=== PATIENT | male | born 1955 | race Caucasian/White ===

== ENCOUNTER 2024-02-22 08:32 | Outpatient (AMB) | payer OTHER, SELFPAY ==
--- NOTE | 2024-02-22 08:44 | A.OFFPC_ITS ---
Vital Signs 02/22/24 08:52 Height 5 ft 1.81 in Weight 223 lb 6 oz BMI 41.1 BP 112/62 Blood Pressure Location Rt brachial Position Sitting Respiration 14 Pulse 70 Pulse Source Pulse Oximeter Temp 98 F Temp Source Oral Pulse Oximetry (%) 95 Oxygen Delivery Method Room Air Intake Visit Reasons: Establish Care Intake Note: New pateint visit Deposition Operator Required: No Allergies No Known Allergies Allergy (Verified 02/22/24 08:47) Tobacco use date assessed: 02/22/24 Fall risk assessment: No Falls in past year Last assessed Fall Risk: 02/22/24 Dental Screening Dental Screen Date: 02/22/24 Did you have a dental visit in the last 12 months?: Yes Did you have a dental problem in the last 6 months where you did not have access to dental care?: No Was dental information given to patient?: Patient has dentist HPI HPI Comments History of Present Illness Details This is a 68-year-old male with a past medical history of type 2 diabetes, PVD, COPD, hypertension, hypercholesterolemia, anxiety, obesity, obstructive sleep apnea and eosinophilic granuloma presenting to [facility]. He used to see Hui Wade NP. The practice switched to [facility]. His construction stonemason is Dr. Fitch at [facility]. His current regimen is Trelegy and albuterol as needed. He quit smoking 20 years ago. Patient reports he has scarring on on the right lower lobe of the lung. His breakfast server is Dr. Young at [facility]. Denies history of ND, CABG or stent. Patient says he sees Cardiology due to risk factors and age. Hypertension is treated with amlodipine 5 mg and valsartan 160 mg. Hyperlipidemia is treated with rosuvastatin 20 mg. He is on furosemide 20 mg daily for leg swelling. He gets occasional palpitations for which he has seen the breakfast server. No chest pain or shortness of breath. Type 2 diabetes-diagnosed about 10 years ago. He was on Ozempic and doing very well, but the insurance stopped covering it. He would like to try it again. It did not help with his weight, but it controlled his blood sugars. He has had glucose readings as high as 400. He has a CGM. I reviewed the data, and only 35% of readings are within the target range during the past 2 weeks. He is not experiencing hypoglycemia. His current regimen is metformin 500 mg once a day and glipizide 5 mg a day. Patient says on metformin 1500 mg he did have GI upset. He has eye exams with Dr. Crowell at [facility]. He takes Xanax very sporadically for anxiety. He does not need a refill. He still has half of his last prescription that contained 30 tablets. He is compliant with CPAP for sleep apnea. 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 He gets migraine headaches occasionally. He has not had 1 for some time but has treated them with Imitrex in the past. He requests referral to GI at [facility] for screening colonoscopy. He has a history of colon polyps and goes every 5 years. His last colonoscopy was 08/30/2018. Referred. ROS: Constitutional: No unexplained weight loss, fever, chills, fatigue or night sweats. Respiratory: No shortness of breath, cough or sputum production. Cardiovascular: No chest pain, chest pressure or chest discomfort. Gastrointestinal: No anorexia, nausea, vomiting or diarrhea. No abdominal pain or blood in stool. Genitourinary: No dysuria, hematuria, urinary frequency. Neurologic: No headache, dizziness, syncope, unilateral weakness, ataxia, numbness or tingling in the extremities. Musculoskeletal: No muscle pain, back pain, joint pain or swelling. Hematologic/Lymphatics: No bleeding or bruising. No painful lymph nodes. Skin: No rash or itching. Endocrine: No cold or heat intolerance. No polyuria or polydipsia. Psychiatric: No depression or anxiety. No SI/HI. Physical exam: Constitutional: Alert, in no distress. Head: Normocephalic. Eyes: Pupils are equal, round and reactive to light. Extraocular muscles intact. Neck: Supple, Full range of motion. No lymphadenopathy. Respiratory: Clear to auscultation. Cardiovascular: S1 S2 regular. No murmurs. Extremities: Warm and well perfused. 1+ bilateral lower extremity edema. Psychiatric: Normal mood and affect [facility] Medical History (Updated 02/22/24 @ 13:46 by CRISTAL Mejía) Colon polyps Obesity without serious comorbidity Pure hypercholesterolemia Essential hypertension Anxiety COPD (chronic obstructive pulmonary disease) with chronic bronchitis Type 2 diabetes mellitus with peripheral vascular disease Bilateral artificial lens implant Diverticulitis Sleep apnea KRISTIAN (obstructive sleep apnea) Eosinophilic granuloma Diverticulosis Surgical History (Updated 02/05/24 @ 15:10 by CRISTAL Mejía) H/O bilateral cataract extraction History of colonoscopy H/O anal fistulotomy Family History (Updated 02/05/24 @ 15:11 by CRISTAL Mejía) Mother Hypertension Father Hypertension Other Type 2 diabetes mellitus Social History Housing: House Patient Tobacco Use Status: Former Tobacco user Cigarette Packs Per Day: 1.5 Years Smoked: 30 e-Cigarette/Vaping Use: Never Used Second Hand Smoke Exposure: No service: No Current occupational status: employed 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 How often do you have a drink containing alcohol?: Never 3. How often do you have six or more drinks on one occasion?: Never Total Score: 0 ACT Questionnaire In the past 4 weeks, how much of the time did your asthma keep you from getting as much done at work, school or at home?: None of the time During the past 4 weeks, how often have you had shortness of breath?: More than once a day During the past 4 weeks, how often did your asthma symptoms wake you up at night or earlier than usual in the morning?: Not at all During the past 4 weeks, how often have you had to use your rescue inhaler or nebulizer medication?: 1-2 times a week How would you rate your asthma control during the past 4 weeks?: Somewhat controlled ACT Interpretation: Positive Score: 16 Physical exam (Primary Care) Vital Signs: Last Vital Signs Temp 98 F 02/22/24 08:52 Pulse 70 02/22/24 08:52 Resp 14 02/22/24 08:52 BP 112/62 02/22/24 08:52 Pulse Ox 95 02/22/24 08:52 Oxygen Delivery Method Room Air 02/22/24 08:52 BMI result Body Mass Index 41.1 Tobacco/Smoking Status: Tobacco use Status Tobacco use date assessed 02/22/24 02/22/24 08:58 Patient Tobacco Use Status Former Tobacco user 02/22/24 08:58 e-Cigarette/Vaping Use Never Used 02/22/24 08:58 Assessment and Plan Assessment & Plan (1) Type 2 diabetes mellitus with peripheral vascular disease: Code(s): E11.51 - Type 2 diabetes mellitus with diabetic peripheral angiopathy without gangrene (2) KRISTIAN (obstructive sleep apnea): Code(s): G47.33 - Obstructive sleep apnea (adult) (pediatric) (3) COPD (chronic obstructive pulmonary disease) with chronic bronchitis: Code(s): J44.89 - Other specified chronic obstructive pulmonary disease (4) Anxiety: Code(s): F41.9 - Anxiety disorder, unspecified (5) Essential hypertension: Code(s): I10 - Essential (primary) hypertension (6) Pure hypercholesterolemia: Code(s): E78.00 - Pure hypercholesterolemia, unspecified (7) Obesity without serious comorbidity: Code(s): E66.9 - Obesity, unspecified Qualifiers: Obesity type: due to excess calories Obesity classification: adult class 3 (BMI >= 40) Body mass index: BMI 40.0-44.9 Qualified Code(s): E66.01 - Morbid (severe) obesity due to excess calories; Z68.41 - Body mass index [BMI] 40.0-44.9, adult Plan Type 2 diabetes Start metformin extended release 500 mg 2 tablets daily. Continue glipizide 5 mg for now. If he develops hypoglycemia I would discontinue this. Restart Ozempic 0.5 mg every week. We will need to titrate to target blood glucose. If insurance does not cover it we will need to discuss alternatives. He does not want insulin. Lifestyle modifications reviewed. KRISTIAN Compliant with CPAP COPD Continue management per pulmonology. He does not smoke any longer. Anxiety Continue Xanax as needed. He did not need a refill. He uses it very infrequently. Hypertension Controlled. Continue current regimen. Followed by Cardiology. Recommended low-sodium diet and avoidance of caffeine. Hypercholesterolemia Patient says lipids were borderline the last time they were checked. Repeat with next labs. Continue statin. Mediterranean diet recommended. Obesity Start GLP 1. Lifestyle modifications reviewed. Follow up in 3 months. Orders: Orders Prostate Specific Antigen Scr Today E11.51 - Type 2 diabetes mellitus with diabetic peripheral angiopathy without gangrene, E78.00 - Pure hypercholesterolemia, unspecified, I10 - Essential (primary) hypertension, Z12.5 - Encounter for screening for malignant neoplasm of prostate Complete Blood Count no Diff Today E11.51 - Type 2 diabetes mellitus with diabetic peripheral angiopathy without gangrene, E78.00 - Pure hypercholeste rolemia, unspecified, I10 - Essential (primary) hypertension Comprehensive Met. Panel Today E11.51 - Type 2 diabetes mellitus with diabetic peripheral angiopathy without gangrene, E78.00 - Pure hypercholesterolemia, unspecified, I10 - Essential (primary) hypertension Hemoglobin A1c Today E11.51 - Type 2 diabetes mellitus with diabetic peripheral angiopathy without gangrene, E78.00 - Pure hypercholesterolemia, unspecified, I10 - Essential (primary) hypertension Lipid Panel Today E11.51 - Type 2 diabetes mellitus with diabetic peripheral angiopathy without gangrene, E78.00 - Pure hypercholesterolemia, unspecified, I10 - Essential (primary) hypertension Referrals Gastroenterology Referral K63.5 - Polyp of colon Medications: New metformin ER 1,000 mg (2 x 500 mg) PO DAILY 90 days 180 tabs 0RF semaglutide (Ozempic) 0.5 mg (0.736 mL) subcut QWEEK 3 mL 0RF Patient Instructions: Please start the prescription for Metformin extended release 500 mg 2 tablets daily. Continue Glipizide 5 mg daily for now. If you have low blood sugars stop taking this. I am submitting Ozempic to the pharmacy. We will increase the dose after the first month. Please return to the lab for fasting blood work 1 week before next appointment. Coding Level of Care Code New Pt Level 4 (43087) Complex EM visit Add On G2211 Diagnoses Type 2 diabetes mellitus with peripheral vascular disease E11.51 KRISTIAN (obstructive sleep apnea) G47.33 COPD (chronic obstructive pulmonary disease) with chronic bronchitis J44.89 Anxiety F41.9 Essential hypertension I10 Pure hypercholesterolemia E78.00 Class 3 severe obesity due to excess calories without serious comorbidity with body mass index (BMI) of 40.0 to 44.9 in adult E66.01; Z68.41 Obesity type: due to excess calories Obesity classification: adult class 3 (BMI >= 40) Body mass index: BMI 40.0-44.9
[2024-02-22 08:52] VITALS: BP 112/62; PULSE 70; RESP 14; TEMP 36.6; O2SAT 95; BMI 41.1
== END 2024-02-22 09:47 | disposition home or self-care (01) ==
PROVIDERS: PCP Physician Assistant Medical; Visit Provider Physician Assistant Medical
DX: E11.51 Type 2 diabetes mellitus with diabetic peripheral angiopathy without gangrene (principal); E66.01 Morbid (severe) obesity due to excess calories; Z68.41 Body mass index [BMI] 40.0-44.9, adult; G47.33 Obstructive sleep apnea (adult) (pediatric); J44.89 Other specified chronic obstructive pulmonary disease; F41.9 Anxiety disorder, unspecified; I10 Essential (primary) hypertension; E78.00 Pure hypercholesterolemia, unspecified
CPT/HCPCS: 99204

== ENCOUNTER 2024-05-30 08:00 | Outpatient (AMB) | payer OTHER, SELFPAY ==
--- NOTE | 2024-05-30 08:07 | A.OFFPC_ITS ---
Vital Signs 05/30/24 08:14 Height 5 ft 1.81 in Weight 222 lb 6 oz BMI 40.9 BP 108/64 Blood Pressure Location Rt brachial Position Sitting Respiration 14 Pulse 63 Pulse Source Pulse Oximeter Pulse Oximetry (%) 96 Oxygen Delivery Method Room Air Intake Visit Reasons: diabetes follow up Intake Note: Diabetes follow up. A1c 8.4 on 05/23/24 Allergies No Known Allergies Allergy (Verified 05/30/24 08:11) Tobacco use date assessed: 02/22/24 Dental Screening Dental Screen Date: 02/22/24 HPI HPI Comments History of Present Illness Details This is a 68-year-old male with a past medical history of type 2 diabetes, PVD, COPD, hypertension, hypercholesterolemia, anxiety, obesity, obstructive sleep apnea and eosinophilic granuloma presenting for followup. The patient had a molar on the left lower side removed last Monday. He has a dry socket that is very painful. His dentist has a on amoxicillin and alternating Advil and Tylenol, but it is still painful and it is difficult to wake up at night to take the medications as scheduled. No fevers or chills. His field laboratory operator is Dr. Fitch at [facility]. His current regimen is Trelegy and albuterol as needed. He quit smoking 20 years ago. Patient reports he has scarring on on the right lower lobe of the lung. His inspector machine cut glass is Dr. Young at [facility]. Denies history of MO, CABG or stent. Patient says he sees Cardiology due to risk factors and age and palpitations. Hypertension is treated with metoprolol succinate 100 mg, amlodipine 5 mg and valsartan 160 mg. He is also on 20 mg of furosemide daily. His blood pressure is soft today. He wonders if he can decrease his medication. Hyperlipidemia is treated with rosuvastatin 20 mg. LDL 89 with a goal of less than 100 (external labs 05/23/2024) He is on furosemide 20 mg daily for leg swelling. Renal function normal. No chest pain or shortness of breath. Type 2 diabetes-diagnosed about 10 years ago. His hemoglobin A1c 05/23/2024 is 8.4% with a goal of less than 7%. He stopped Ozempic because it was not helping with weight loss after increasing from 0.25-0.5 mg, and he did not see a difference in his blood sugars. He has a CGM. I reviewed the data, and 44% of readings are within the target range during the past 2 weeks. High 42%, very high 14%, 0% hypoglycemic. He has blood glucose tablets to treat hypoglycemia. His current regimen is metformin extended release 500 mg once 2 tablets a day and glipizide 5 mg a day. Patient says on metformin 1500 mg he did have GI upset. He has eye exams with Dr. Crowell at [facility]. His communications electrician supervisor is Dr. Buckley in at [facility]. He takes Xanax very sporadically for anxiety. He does not need a refill. He still has half of his last prescription that contained 30 tablets. He is compliant with CPAP for sleep apnea. 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 He gets migraine headaches occasionally. No increased frequency or severity. Treated with Imitrex in the past. He has a history of colon polyps and goes every 5 years for colonoscopy. His last colonoscopy was 08/30/2018. His colonoscopy consult is scheduled next week at [facility]. ROS: Constitutional: No fevers, chills or night sweats. Respiratory: No shortness of breath, cough or sputum production. Cardiovascular: No chest pain, chest pressure or chest discomfort. Gastrointestinal: No anorexia, nausea, vomiting or diarrhea. No abdominal pain or blood in stool. Neurologic: No headache, dizziness, syncope, unilateral weakness, ataxia, numbness or tingling in the extremities. Endocrine: No cold or heat intolerance. No polyuria or polydipsia. Physical exam: Constitutional: Alert, in no distress. Head: Normocephalic. Mouth: Dental extraction site on the left lower molar appears clean and without discharge or swelling or erythema. Eyes: Pupils are equal, round and reactive to light. Extraocular muscles intact. Neck: Supple, Full range of motion. No lymphadenopathy. Respiratory: Clear to auscultation. Cardiovascular: S1 S2 regular. No murmurs. Extremities: Warm and well perfused. 1+ bilateral lower extremity edema. Psychiatric: Normal mood and affect [facility] Medical History (Updated 02/22/24 @ 13:46 by CRISTAL Mejía) Colon polyps Obesity without serious comorbidity Pure hypercholesterolemia Essential hypertension Anxiety COPD (chronic obstructive pulmonary disease) with chronic bronchitis Type 2 diabetes mellitus with peripheral vascular disease Bilateral artificial lens implant Diverticulitis Sleep apnea KRISTIAN (obstructive sleep apnea) Eosinophilic granuloma Diverticulosis Surgical History (Updated 02/05/24 @ 15:10 by CRISTAL Mejía) H/O bilateral cataract extraction History of colonoscopy H/O anal fistulotomy Family History (Updated 02/05/24 @ 15:11 by CRISTAL Mejía) Mother Hypertension Father Hypertension Other Type 2 diabetes mellitus Social History Housing: House Patient Tobacco Use Status: Former Tobacco user Cigarette Packs Per Day: 1.5 Years Smoked: 30 e-Cigarette/Vaping Use: Never Used Second Hand Smoke Exposure: No service: No Current occupational status: employed 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 Current occupational exposures/hazards: No Cognitive needs: No Hearing needs: Yes Vision needs: Yes Questionnaire Thrive Questionnaire Date Thrive assessed: 05/23/24 I am a: Patient Physical exam (Primary Care) Vital Signs: Last Vital Signs Pulse 63 05/30/24 08:14 Resp 14 05/30/24 08:14 BP 108/64 05/30/24 08:14 Pulse Ox 96 05/30/24 08:14 Oxygen Delivery Method Room Air 05/30/24 08:14 BMI result Body Mass Index 40.9 Tobacco/Smoking Status: Tobacco use Status Tobacco use date assessed 02/22/24 05/30/24 08:09 Patient Tobacco Use Status Former Tobacco user 05/30/24 08:09 e-Cigarette/Vaping Use Never Used 05/30/24 08:09 Thrive Assessment: Date of Thrive Assessment Date Thrive assessed 05/23/24 05/30/24 08:09 Coding Level of Care Code Est Pt Level 4 (23720) Complex EM visit Add On G2211 Diagnoses Colon polyps K63.5 Pure hypercholesterolemia E78.00 Essential hypertension I10 COPD (chronic obstructive pulmonary disease) with chronic bronchitis J44.89 Type 2 diabetes mellitus with peripheral vascular disease E11.51 KRISTIAN (obstructive sleep apnea) G47.33 Assessment & Plan Assessment & Plan (1) Colon polyps: Code(s): K63.5 - Polyp of colon Category: Medical Plan: Patient has a consult for his colonoscopy scheduled at [facility] next week. (2) Pure hypercholesterolemia: Code(s): E78.00 - Pure hypercholesterolemia, unspecified Category: Medical Plan: Recommended the Mediterranean diet. Continue rosuvastatin 20 mg daily. (3) Essential hypertension: Code(s): I10 - Essential (primary) hypertension Category: Medical Plan: His blood pressures have been low normal recently. He can try stopping amlodipine 5 mg daily. He monitors his blood pressure at home. Provided written instructions to contact the office if home readings are not less than 130/80. If this is the case I will send a prescription to start amlodipine 2.5 mg daily again. Continue metoprolol, valsartan. Low-sodium diet and avoidance of caffeine recommended. Weight loss encouraged. See below. (4) COPD (chronic obstructive pulmonary disease) with chronic bronchitis: Code(s): J44.89 - Other specified chronic obstructive pulmonary disease Category: Medical Plan: Continue management per pulmonology. (5) Type 2 diabetes mellitus with peripheral vascular disease: Code(s): E11.51 - Type 2 diabetes mellitus with diabetic peripheral angiopathy without gangrene Category: Medical Plan: Continue metformin extended release 500 mg 2 tablets daily and glipizide 5 mg daily at this time. Trial of Mounjaro 2.5 mg daily. Denies contraindications to this type of medication. Side effects and administration reviewed. Hopefully we will be able to titrate this. We discussed that on lower dosages of the medication it may not be as effective so to get weight loss and better control of blood sugars we need to titrate the dose. He understands. Goal will be to discontinue glipizide if blood sugars improve. I sent a fingerstick glucometer to use as a backup to his sensor. Low carb, low sugar diet recommended. He has been eating a lot of ice cream and we will try to cut back. (6) KRISTIAN (obstructive sleep apnea): Code(s): G47.33 - Obstructive sleep apnea (adult) (pediatric) Category: Medical Plan: Continue CPAP. Plan Follow up in 4 weeks for hypertension and Mounjaro med check. Medications: New hydrocodone-acetaminophen 5-325 mg Partial Fill upon patient request. 1 tab PO Q8H PRN 15 tabs 0RF pain 5 days tirzepatide (Mounjaro) for 4 weeks 2.5 mg (0.5 mL) subcut QWEEK 2 mL 0RF lancets (OneTouch Delica Plus Lancet) Use as directed to check blood glucose twice daily. 100 ea 5RF blood sugar diagnostic (OneTouch Verio test strips) Use as directed to check blood glucose twice daily. 100 ea 5RF blood-glucose meter (OneTouch Verio Flex Meter) Use as directed to check blood glucose twice daily for Type II diabetes mellitus. 1 ea 0RF Patient Instructions: Start Mounjaro 2.5 mg once weekly. If you develop low blood sugars please stop taking Glipizide. Stop Amlodipine. If your blood pressure is not under 130/80 then call me and I will send a 2.5 mg amlodipine tablet to take.
[2024-05-30 08:14] VITALS: BP 108/64; PULSE 63; RESP 14; O2SAT 96; BMI 40.9
== END 2024-05-30 09:12 | disposition home or self-care (01) ==
PROVIDERS: PCP Physician Assistant Medical; Visit Provider Physician Assistant Medical
DX: E11.51 Type 2 diabetes mellitus with diabetic peripheral angiopathy without gangrene (principal); J44.89 Other specified chronic obstructive pulmonary disease; K63.5 Polyp of colon; E78.00 Pure hypercholesterolemia, unspecified; I10 Essential (primary) hypertension; G47.33 Obstructive sleep apnea (adult) (pediatric)

== ENCOUNTER → 2024-05-30 08:00 | Outpatient (BNVA) | payer OTHER, SELFPAY | PROVIDERS: PCP Physician Assistant Medical; Visit Provider Physician Assistant Medical ==

== ENCOUNTER 2024-08-15 07:47 | Outpatient (AMB) | payer OTHER, SELFPAY ==
--- OUTSIDE RECORDS SUMMARY | 2024-08-15 07:49 | XMS_ITS ---
Author Organization [facility] Address [address] [place] [id number] Care Team Providers Care Boner Meat Name Role Phone BRIDGETT TONG Primary Care Provider [phone] SHABBIR SAENZ Unavailable [phone] REASON FOR VISIT 2W f/u Encounters Encounter Location Date Provider Diagnosis [facility], [facility] [address] [place] [id number] 07/10/2024 SHABBIR SAENZ PLAN OF TREATMENT Next Appt Details Provider Name:SHABBIR Dixon, 09/05/2024 08:00:00 AM, [address] [place], [phone], Progress Notes * MICHELLE GARLANDDOB:1955 (68 yo M)Acc No.[id number]:07/10/2024 Progress Notes Patient:??MICHELLE GARLAND Provider:??SHABBIR SAENZ NP :1955?Age:68 Y?Sex:Ma le Date:07/10/2024 Phone: Address:[address] [id number] Pcp:BRIDGETT TONG Subjective: * Chief Complaints: * ?1. 2W f/u. * Medical History:?? Objective: Assessment: Plan: * Treatment: * Billing Information: * Visit Code:?? * Procedure Codes:?? * Sign off status: Pending * Provider:??SHABBIR SAENZ NP Date:??
--- OUTSIDE RECORDS SUMMARY | 2024-08-15 07:49 | XMS_ITS ---
Author Organization [facility], [facility] Address [address] [place], [place] [address] [phone] Care Team Providers Care Theater Teacher Name Role Phone BRIDGETT TONG Primary Care Provider SHABBIR SAENZ [phone] REASON FOR VISIT Appt change? Encounters Encounter Location Date Provider Diagnosis [facility], [address] [place] [id number] 07/07/2024 SHABBIR SAENZ PLAN OF TREATMENT Next Appt Details Provider Name:SHABBIR Dixon, 09/05/2024 08:00:00 AM, [address] [place], [place] [address], [phone], Progress Notes * MICHELLE GARLANDDOB:1955 (68 yo M)Acc No.[id number]:07/07/2024 Patient:??MICHELLE GARLAND :1955?Age:68 Y?Sex:Ma le Phone: Address:[address] [place] [address] * true * Date:??
--- OUTSIDE RECORDS SUMMARY | 2024-08-15 07:50 | XMS_ITS ---
Author Name [facility] Organization Unknown History of Medication Use Medication Directions Dispensed Refills Start Date End Date Status Continuous Glucose Sensor (FreeStyle Haider 3 Sensor) Misc CHANGE SENSOR EVERY 2 WEEKS 4 08/06/99 99 active calcium carbonate-vitamin D (CALTRATE+D) 600 mg-10 mcg tablet Take 1 tablet by mouth daily. 4 08/06/99 99 active valsartan (DIOVAN) 160 MG tablet Take 160 mg by mouth daily. 4 active Ozempic, 0.25 or 0.5 MG/DOSE, 2 MG/3ML prefilled pen injection Inject 0.25 mg under the skin. 4 active bupropion HCl SR 150 mg tablet,12 hr sustained-release Oral daily 4 completed Tricor 1 tablet Oral ONCE A DAY 4 completed multivitamin 4 completed lisinopril 30 mg tablet 1 Oral daily 4 completed Tricor 145 mg tablet 1 Oral daily 4 completed COVID-19 vac, eloise([employer])(PF) fully vaccinated with booster x 2 4 active rosuvastatin 10 mg tablet Take 1 tablet every day by oral route. 4 completed sumatriptan 100 mg tablet Take 1 tablet as needed by oral route. 4 active Jardiance 10 mg tablet Take 2 tablets every day by oral route. 4 completed aspirin 81 mg tablet,delayed release Take 1 tablet every day by oral route. 4 active amlodipine 5 mg tablet Take 1 tablet every day by oral route. 4 active Trelegy Ellipta 100 mcg-62.5 mcg-25 mcg powder for inhalation Inhale 1 puff every day by inhalation route. 4 active Ozempic 1 mg/dose (4 mg/3 mL) subcutaneous pen injector Inject every week by subcutaneous route. 4 completed Jardiance 25 mg tablet Take 1 tablet every day by oral route. 4 completed Adult Aspirin 81 mg tablet 1 Oral daily 4 completed rosuvastatin 20 mg tablet Take 1 tablet every day by oral route. 4 active furosemide 20 mg tablet Take 1 tablet as needed by oral route. 4 active metformin 1,000 mg tablet Take 1 tablet 3 times a day by oral route. 4 completed Zocor 40 mg tablet 1 Oral daily 4 completed metoprolol succinate ER 100 mg tablet,extended release 24 hr Take 1 tablet every day by oral route. 4 active glipizide 5 mg tablet Take 1 tablet every day by oral route. 4 active ProAir HFA 90 mcg/actuation aerosol inhaler 1 Inhalation as needed 4 active valsartan 320 mg-hydrochlorothiaz berto 12.5 mg tablet Take 1 tablet every day by oral route. 4 completed chlorthalidone 25 mg tablet 1 Oral daily 4 completed alprazolam 0.25 mg tablet Take 1 tablet as needed by oral route. 4 active citalopram 40 mg tablet 1 Oral daily 4 completed Lexapro 10 mg tablet Take 1 tablet every day by oral route. 4 completed metformin 500 mg tablet Take 1 tablet every day by oral route. 4 active valsartan 160 mg tablet Take 1 tablet every day by oral route. 4 active Jardiance 10 MG Oral Tablet Jardiance 10 MG Oral TabletTAKE 2 TABLET Daily Quantity: 180 Refills: Yuni Henderson APRN Active 3 completed metoPROLOL SUCCINATE (TOPROL-XL) 100 MG 24 hr tablet TAKE 1 TABLET EVERY DAY 3 active Lexapro 10 MG Oral Tablet Lexapro 10 MG Oral Tablet Refills: 0Active 2 completed ALPRAZolam 0.25 MG Oral Tablet ALPRAZolam 0.25 MG Oral TabletTAKE 1 TABLET BY MOUTH EVERY DAY NEEDED Quantity: 30 Refills: Yuni Henderson APRN Start : 15-Nkr-3923Eoswsr 2 completed Mounjaro 5 MG/0.5ML Subcutaneous Solution Pen-injector Mounjaro 5 MG/0.5ML Subcutaneous Solution Pen-injectorINJECT 0.5 ML Weekly for 4 weeks Quantity: 1 Refills: Yuni Henderson APRN Start : 86-Yfd-5606Gkuitt0 x 0.5 ML Pen 3 completed Valsartan-hydroCHLO ROthiazide 160-12.5 MG Oral Tablet Valsartan-hydroCHLORO thiazide 160-12.5 MG Oral TabletTAKE 1 TABLET BY MOUTH EVERY DAY Quantity: 90 Refills: Yuni Bullard APRN Start : 30-Nxt-7791Ahfbzd 3 completed Tretinoin 0.05 % External Cream Tretinoin 0.05 % External CreamAPPLY SPARINGLY TO AFFECTED AREA(S) ONCE DAILY AT BEDTIME. Quantity: 1 Refills: Yuni Bullard APRN Start : 20-Kiy-4617Jpunlb08 GM Tube 3 completed Clotrimazole 1 % External Cream Clotrimazole 1 % External Creamapply SPARINGLY to affected area three times a day Quantity: 45 Refills: Yuni Henderson APRN Start : 79-Dso-3156Dtzthf 2 completed valsartan-hydrochlo rothiazide (DIOVAN-HCT) 320-12.5 MG per tablet Take 1 tablet by mouth daily. 3 active Jardiance 25 MG Oral Tablet Jardiance 25 MG Oral TabletTAKE 1 TABLET EVERY DAY Quantity: 90 Refills: Yuni Alvarez APRN Active 2 completed aspirin enteric coated (ECOTRIN LOW STRENGTH) 81 MG EC tablet Take 81 mg by mouth daily. 3 active barium sulfate (EZ-HD) 98 % oral solution 140 mL 140 mL, Oral, Once in imaging, contrast, Starting on Mon01/18/23 at 0745, For 1 dose, Radiology Appointmentmix with 65 ml water 3 completed sodium bicarbonate-citric acid-simethicone (EZ-GAS-II) 1 packet 1 packet, Oral, Once in imaging, contrast, Starting on Mon01/18/23 at 0745, For 1 dose, Radiology Appointmentmix 1 packet with 10 ml water 3 completed Furosemide 20 MG Oral Tablet Furosemide 20 MG Oral TabletTAKE 1 TABLET BY MOUTH EVERY DAY WHEN NEEDED FOR SWELLING Quantity: 90 Refills: Yuni Henderson APRN Start : 14-Npm-6026Cwhnww 3 completed Multi Vitamin Daily TABS Multi Vitamin Daily TABS Refills: 0Active 2 completed amLODIPine-valsarta n-HCTZ 5-160-12.5 MG Tab Take 1 tablet by mouth daily. 3 active lidocaine-prilocain e (EMLA) cream APPLY TOPICALLY ONCE. For IV insertions 3 active Budesonide-Formoter ol Fumarate 80-4.5 MCG/ACT Inhalation Aerosol Budesonide-Formoterol Fumarate 80-4.5 MCG/ACT Inhalation AerosolINHALE 2 PUFFS TWICE DAILY. RINSE MOUTH AFTER USE Quantity: 1 Refills: Santiago VONYuni Start : 77-Xzi-3642Pqgzkr61.2 GM Inhaler 2 completed ProAir HFA 108 (90 Base) MCG/ACT AERS ProAir HFA 108 (90 Base) MCG/ACT AERS Refills: 0Active 2 completed Jardiance 10 MG Oral Tablet Jardiance 10 MG Oral Tablet Refills: 0Active 2 completed Dulera 50-5 MCG/ACT Inhalation Aerosol Dulera 50-5 MCG/ACT Inhalation AerosolINHALE 2 PUFFS Twice daily Quantity: 1 Refills: 2Fagustin VON Yuni Start : 41-Txz-6151Lwocqy15 GM Inhaler 2 completed empagliflozin (Jardiance) 25 MG tablet Take by mouth. 3 active amLODIPine Besylate 5 MG Oral Tablet amLODIPine Besylate 5 MG Oral TabletTAKE 1 TABLET BY MOUTH EVERY DAY Quantity: 90 Refills: Aleah VOYuni Maldonado Start : 92-Mbu-1818Ehafgm 2 completed Fluticasone Propionate 50 MCG/ACT Nasal Suspension Fluticasone Propionate 50 MCG/ACT Nasal SuspensionINSTILL 1 SPRAY INTO EACH NOSTRIL DAILY AT BEDTIME Quantity: 1 Refills: Vivian VOYuni Maldonado Start : 55-Cfk-0252Moxkyw2.9 ML Bottle 2 completed amLODIPine-Valsarta n-HCTZ 5-160-12.5 MG Oral Tablet amLODIPine-Valsartan- HCTZ 5-160-12.5 MG Oral TabletTAKE 1 TABLET DAILY DIRECTED. Quantity: 1 Refills: 3Fagustin JAVIERYuni Start : 9-Psk-1998Pozvna10 Tablet Bottle 3 completed lidocaine-prilocain e (EMLA) cream APPLY TOPICALLY ONCE. For IV insertions 3 active Trelegy Ellipta 100-62.5-25 MCG/INH AEPB Trelegy Ellipta 100-62.5-25 MCG/INH AEPBINHALE ONE PUFF ONCE DAILY Refills: 0 Start : 9-Lrw-6527Gdbfce 2 completed metFORMIN (GLUCOPHAGE) 500 MG tablet TAKE 2 TABS BY MOUTH EVERY MORNING AND TAKE 1 TAB BY MOUTH EVERY EVENING WITH MEALS 3 active Aspirin Low Dose 81 MG Oral Tablet Delayed Release Aspirin Low Dose 81 MG Oral Tablet Delayed ReleaseTAKE 1 TABLET BY MOUTH EVERY DAY Quantity: 90 Refills: 3Fagustin Yuni HERRERA Start : 89-Npm-9151Fjsdpv 2 completed fluticasone-umeclid inium-vilanterol (TRELEGY ELLIPTA) 100-62.5-25 mcg/act inhaler Inhale. 3 active Dulera 50-5 MCG/ACT Inhalation Aerosol Dulera 50-5 MCG/ACT Inhalation AerosolINHALE 2 PUFFS Twice daily Quantity: 1 Refills: 2Fagustin Yuni HERRERA Start : 58-Nqi-6278Dbahmg98 GM Inhaler 2 completed glipiZIDE 5 MG Oral Tablet glipiZIDE 5 MG Oral TabletTake 1 tablet twice a day Quantity: 180 Refills: 1FYuni velez APRN Start : 81-Akp-7148Nklhaa 2 completed SUMAtriptan (IMITREX) 100 MG tablet TAKE 1 TABELT BY MOUTH FOR MIGRAINE RELIEF. MAY REPEAT 2 HOURS LATER. MAX OF 2 TABLETS PER DAY 3 active ALPRAZolam (XANAX) 0.25 MG tablet Take by mouth. 3 active Mounjaro 2.5 MG/0.5ML Subcutaneous Solution Pen-injector Mounjaro 2.5 MG/0.5ML Subcutaneous Solution Pen-injectorINJECT 0.5 ML Weekly for 4 weeks Quantity: 1 Refills: 0Yuni Reece APRN Start : 27-Yuq-2336Jymtba7 x 0.5 ML Pen 3 completed Cephalexin 500 MG Oral Capsule Cephalexin 500 MG Oral Capsule Quantity: 1 Refills: 0 JAVIER Start : 2 completed barium sulfate (EZ-PAQUE) 60 % oral suspension 150 mL 150 mL, Oral, Once in imaging, contrast, Starting on Mon01/18/23 at 0745, For 1 dose, Radiology Appointmentmix 60% barium/40% water 3 completed Rosuvastatin Calcium 10 MG Oral Tablet Rosuvastatin Calcium 10 MG Oral TabletTAKE 1 TABLET AT BEDTIME. Quantity: 90 Refills: 1FYuni velez APRN Start : 2 completed Metoprolol Succinate ER 100 MG Oral Tablet Extended Release 24 Hour Metoprolol Succinate ER 100 MG Oral Tablet Extended Release 24 HourTAKE 1 TABLET BY MOUTH EVERY DAY Quantity: 90 Refills: 2FYuni velez APRN Start : 2 completed Ozempic (0.25 or 0.5 MG/DOSE) 2 MG/3ML Subcutaneous Solution Pen-injector Ozempic (0.25 or 0.5 MG/DOSE) 2 MG/3ML Subcutaneous Solution Pen-injectorINJECT 0.25 MG Weekly Quantity: 1 Refills: 1FYuni velez APRN Start : ML Pen 3 completed Mounjaro 5 MG/0.5ML Subcutaneous Solution Pen-injector Mounjaro 5 MG/0.5ML Subcutaneous Solution Pen-injectorINJECT 0.5 ML Weekly for 4 weeks Quantity: 1 Refills: 0Yuni Reece APRN Start : 30-Rjs-1537Avponw5 x 0.5 ML Pen 3 completed Rosuvastatin Calcium 20 MG Oral Tablet Rosuvastatin Calcium 20 MG Oral TabletTAKE 1 TABLET BY MOUTH EVERY DAY Quantity: 90 Refills: 3FYuni vleez APRN Start : 2 completed rosuvastatin (CRESTOR) 20 MG tablet Take by mouth. 3 active Omeprazole 40 MG Oral Capsule Delayed Release Omeprazole 40 MG Oral Capsule Delayed Release Refills: 0 Start : 3-Pij-9763Lfwfon 3 completed glipiZIDE 10 MG Oral Tablet glipiZIDE 10 MG Oral Tablettake 1 tablet by mouth twice a day Quantity: 180 Refills: 3FYuni velez APRN Start : 59-Tcj-2457Ohsjdl 3 completed calcium carbonate-vitamin D 600 mg-400 unit tablet Take 1 tablet by mouth daily. 3 active escitalopram (LEXAPRO) 10 MG tablet Take 1 tablet (10 mg total) by mouth daily. Patient due for an appointment prior to additional refills. 3 active albuterol (ProAir HFA) 108 (90 Base) MCG/ACT inhaler Inhale 1-2 puffs every 4 (four) hours as needed for wheezing. ProAir HFA 108 (90 Base) MCG/ACT Inhalation Aerosol Solution INHALE 2 PUFFS BY MOUTH EVERY 4-6 HOURS, SPACED 60 SECONDS APART. ; Start Date: 01/24/2012; End Date: 3 active calcium citrate (CALCITRATE) 950 MG tablet Take 1 tablet by mouth daily. 3 active Valsartan-hydroCHLO ROthiazide 320-12.5 MG Oral Tablet Valsartan-hydroCHLORO thiazide 320-12.5 MG Oral TabletTAKE 1 TABLET BY MOUTH EVERY DAY Quantity: 90 Refills: 1Fagustin VONYuni Start : 2 completed Ozempic (0.25 or 0.5 MG/DOSE) 2 MG/3ML Subcutaneous Solution Pen-injector Ozempic (0.25 or 0.5 MG/DOSE) 2 MG/3ML Subcutaneous Solution Pen-injectorINJECT 0.25 MG Weekly Quantity: 1 Refills: 1FYuni velez APRN Start : 4-Ppu-5198Arhdwr6 ML Pen 3 completed Methocarbamol 500 MG Oral Tablet Methocarbamol 500 MG Oral TabletTAKE 1 TABLET Bedtime PRN Quantity: 15 Refills: 0Fisusy HERRERA Yuni Start : 02-Dsb-5348Nxbztn 2 completed Mounjaro 7.5 MG/0.5ML Subcutaneous Solution Pen-injector Mounjaro 7.5 MG/0.5ML Subcutaneous Solution Pen-injectorINJECT 0.5 ML Weekly Quantity: 1 Refills: 1FYuni velez APRN Start : 54-Bpb-3596Bsmqbz1 x 0.5 ML Pen 3 completed SUMAtriptan Succinate 100 MG Oral Tablet SUMAtriptan Succinate 100 MG Oral TabletTAKE 1 TABLET AT ONSET OF MIGRAINE, CAN REPEAT IN 2 HOURS. MAX OF 2 TABS Quantity: 9 Refills: 1FYuni velez APRN Start : 70-Tci-6614Izhlfa 2 completed amLODIPine (NORVASC) 5 MG tablet Take by mouth. 3 active glipiZIDE 5 MG Oral Tablet glipiZIDE 5 MG Oral TabletTake 1 tablet twice daily Quantity: 60 Refills: 3FYuni velez APRN Start : 60-Xgz-4190Iuxqlq 3 completed glipiZIDE (GLUCOTROL) 5 MG tablet Take by mouth. 3 active Valsartan 160 MG Oral Tablet Valsartan 160 MG Oral TabletTAKE 1 TABLET BY MOUTH EVERY DAY Quantity: 90 Refills: 0Yuni Reece APRN Start : 51-Ecp-4824Fcater 3 completed metFORMIN HCl - 500 MG Oral Tablet metFORMIN HCl - 500 MG Oral TabletTAKE 1 TABLET ONCE DAILY WITH A MEAL. Quantity: 30 Refills: 4FYuni velez APRN Start : 3-Cve-4566Fepzpq 3 completed simvastatin (ZOCOR) 40 MG tablet Take 1 tablet (40 mg total) by mouth every evening. 3 active Tretinoin 0.025 % External Cream Tretinoin 0.025 % External CreamAPPLY SPARINGLY TO AFFECTED AREA(S) ONCE DAILY AT BEDTIME. Quantity: 1 Refills: Yuni Henderson APRN Start : 69-Ffz-1703Ayticu50 GM Tube 3 completed barium sulfate (E-Z-DISK) tablet 700 mg 700 mg, Oral, Once in imaging, contrast, Starting on Mon01/18/23 at 0745, For 1 dose, Radiology Appointment 3 completed Aspirin 81 MG TABS Aspirin 81 MG TABSTAKE 1 TABLET DAILY. 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 Quantity: 6 Refills: 0Fiano Yuni HERRERA Start : 34-Akv-9492Jmlaiu 2 completed Problems Problem Status Onset Date Problem Type Date of Resolution Source Hypertensive disorder active 2017-02-05 ProblemAct [facility] Palpitations active 2022-08-09 ProblemAct [facility] Obesity active 2020-12-16 ProblemAct [facility] RDI O Obstructive sleep apnea syndrome active 2017-02-05 ProblemAct [facility] Hyperlipidemia active 2017-02-05 ProblemAct [facility] Pulmonary emphysema, unspecified emphysema type (HCC) active EncounterDiagnosisAct [facility] Immunizations Vaccine Date Source Lot Number Status Influenza Inactivated/Split Preservative Free IM 05/27/2013 [facility] [id number] completed Influenza Inactivated/Split Preservative Free IM 05/10/2011 [facility] [id number] completed Influenza Inactivated/Split Preservative Free IM 05/09/2016 [facility] [id number] completed Influenza Inactivated/Split Preservative Free IM 05/13/2015 [facility] [id number] completed Influenza Inactivated/Split Preservative Free IM 05/12/2017 [facility] [id number] - FLUARIX 0.5 ML SYRINGE completed Influenza Inactivated/Split Preservative Free IM 05/08/2018 [facility] [id number] - FLUARIX 0.5 ML SYRINGE completed Influenza Inactivated/Split Preservative Free IM 05/18/2012 [facility] [id number] completed Tdap 06/08/2018 [facility] [id number] completed Tdap 06/07/2008 [facility] completed Zoster Vaccine Recombinant (Shingrix) 06/08/2018 [facility] [id number] completed Influenza High-Dose Quadrivalent,(FLUZONE HIGH-DOSE), Perservative Free IM 0.7 mL 65 years and older 05/16/2022 [facility] [id number] completed Influenza (AFLURIA/FLUZONE) Inactivated/Split Quadrivalent with Preservative IM 05/19/2010 [facility] [id number] completed Zoster Vaccine Live/Attenuat ed (Zostavax) 12/23/2014 [facility] [id number] completed Influenza (AFLURIA/FLUZONE) Inactivated/Split Quadrivalent with Preservative IM 05/06/2014 [facility] [id number] completed Influenza, seasonal, injectable 04/18/2020 [facility] completed [employer] COVID-19 Vac c 30 MCG/0.3ML Intramuscular Suspension 10/29/2020 [facility] completed Flucelvax Quadrivalent 0.5 M L Intramuscular Suspension Prefilled Syringe 04/28/2021 [facility] [id number] completed Shingrix 50 MCG Intramuscula r Suspension Reconstituted 05/12/2020 [facility] complet ed [employer] COVID-19 Vac c 30 MCG/0.3ML Intramuscular Suspension 05/26/2021 [facility] completed Influenza, seasonal, injectable 04/28/2021 [facility] completed Pneumococcal polysaccharide vaccine, 23 valent 08/23/2019 [facility] completed [employer] COVID-19 Vac c 30 MCG/0.3ML Intramuscular Suspension 11/24/2020 [facility] completed [employer] COVID-19 Vac-Tr iS 30 MCG/0.3ML Intramuscular Suspension 11/22/2021 [facility] [id number] completed
--- OUTSIDE RECORDS SUMMARY | 2024-08-15 07:50 | XMS_ITS | Patient Health Record ---
Author Organization [facility] Address [address] [place] [phone] Care Team Providers Care Carousel Attendant Name Role Phone ALYCIA BRIDGETT Primary Care Provider SHABBIR SAENZ Unavailable [phone] ALLERGIES No Known Allergies RESULTS Component Value Reference Range Notes CBC (INCLUDES DIFF/PLT) (629 8) Reviewed date:08/25/2023 01:22:08 PM Interpretation: Performing Lab:NL2, NMRKT [id number] Lisa Courtney Notes/Report: DIFFICULT DRAW FASTING:NO FASTING: NO WHITE BLOOD CELL COUNT 11.2 3.8-10.8 Thousand/ uL RED BLOOD CELL COUNT 5.44 4.20-5.80 Million/uL HEMOGLOBIN 14.7 13.2-17.1 g/dL HEMATOCRIT 44.7 38.5-50.0 % MCV 82.2 80.0-100.0 fL MCH 27.0 27.0-33.0 pg MCHC 32.9 32.0-36.0 g/dL RDW 13.8 11.0-15.0 % PLATELET COUNT 251 140-400 Thousand/uL MPV 9.9 7.5-12.5 fL ABSOLUTE NEUTROPHILS 5421 9745-5430 cells/uL ABSOLUTE LYMPHOCYTES 4850 850-3900 cells/uL ABSOLUTE MONOCYTES 750 200-950 cells/uL ABSOLUTE EOSINOPHILS 112 15-500 cells/uL ABSOLUTE BASOPHILS 67 0-200 cells/uL NEUTROPHILS 48.4 LYMPHOCYTES 43.3 MONOCYTES 6.7 EOSINOPHILS 1.0 BASOPHILS 0.6 BASIC METABOLIC PANEL (29341 ) Reviewed date:08/25/2023 01:23:30 PM Interpretation: Performing Lab:NL2, [id number] Lisa Courtney Notes/Report: DIFFICULT DRAW FASTING:NO FASTING: NO GLUCOSE 99 65-139 mg/dL Non-fasting reference interval UREA NITROGEN (BUN) 20 7-25 mg/dL CREATININE 0.73 0.70-1.35 mg/dL EGFR 100 > OR = 60 mL/min/1.73m2 BUN/CREATININE RATIO SEE NOTE: 6-22 (calc) Not Reported: BUN and Creatinine are within reference range. SODIUM 140 135-146 mmol/L POTASSIUM 4.7 3.5-5.3 mmol/L CHLORIDE 106 98-110 mmol/L CARBON DIOXIDE 22 20-32 mmol/L CALCIUM 8.8 8.6-10.3 mg/dL REASON FOR REFERRAL Reason please refer pt to [facility] medicine; he currently has a cpap machine but wants to establish care as sees one in [place] Diagnosis 1 KRISTIAN (obstructive sle ep apnea) (G47.33) Referral Organization [facility] Referring Provider First Name SHABBIR Ref[facility] Referring Provider Speciality Preventive Medicine Referred Organization [facility] Referred Address [address] [place] [phone], Referred Provider Specialty Sleep Medici ne General Notes ERLIN AQUINO 0 10/19/2023 03:32:15 PM >sleep med form, demographics, referral and office note faxed to sleep med serv [facility] [phone] Referral Priority Routine Reason please refer pt to [facility] in [facility] Dx: Diabetes, HLD, HTN, obesity Diagnosis 1 Diabetic peripheral angiopathy (E11.51) Diagnosis 2 Morbid obesity (E66. 01) Diagnosis 3 Other hyperlipidemia (E78.49) Diagnosis 4 Essential hypertensi on (I10) Referral Organization [facility] Referring Provider First Name SHABBIR Referring Provider [facility] Referring Provider Speciality Preventive Medicine Referred Organization [facility] Referred Address [address], [place],[phone], Referred Provider Specialty Nutrition General Notes TOSIN AQUINOIGAIL 0 12/04/2023 09:32:36 AM >demographics, insurance info, referral and officenote faxed to [employer] [phone] Referral Priority Routine Reason please refer pt to [facility]: dx: DM, hyperlipidemia, obesity Diagnosis 1 Morbid obesity (E66. 01) Diagnosis 2 Other hyperlipidemia (E78.49) Diagnosis 3 Diabetic peripheral angiopathy (E11.51) Referral Organization [facility] Referring Provider First Name SHABBIR Referring Provider Last Name DANY Referring Provider Speciality Preventive Medicine Referred Organization [facility] Referred Address [address] [place] [phone], Referred Provider Specialty Nutrition General Notes ASHLEY AQUINOAIL 0 01/09/2024 02:17:35 PM >demographics, insurance info, referral and office note faxed to [employer] [phone] Referral Priority Routine Reason please refer pt to Drew Jimenes at [facility] for worsening COPD Diagnosis 1 COPD, moderate (J44. 9) Referral Organization [facility] Referring Provider First Name SHABBIR Referring Provider Last Name DANY Referring Provider Speciality Preventive Medicine Referred Organization [facility] Referred Address [address] [place] [phone], Referred Provider Specialty Pulmonology General Notes ERLIN AQUINO 1 09/01/2023 02:05:28 PM >demographics, insurance info, referral and office note have been faxed to [facility] Pulmonary Medicine for Dr. Jimenes [phone] Referral Priority Routine Reason please refer pt to [facility] with dx of DM, HLD, Morbid obesity TY Diagnosis 1 Morbid obesity (E66. 01) Diagnosis 2 Other hyperlipidemia (E78.49) Diagnosis 3 Diabetic peripheral angiopathy (E11.51) Referral Organization [facility] Referring Provider First Name SHABBIR Referring Provider Last Name DANY Referring Provider Speciality Preventive Medicine Referred Organization [facility] Referred Address [address] [place] [phone],[place] Referred Provider Specialty Nutrition General Notes ERLIN AQUINO 1 09/25/2023 03:12:56 PM >demographics, insurance info, referral, and office note have been faxed to [employer] [phone] Referral Priority Routine MEDICATIONS Medication SIG (Take, Route, Frequency, Duration) Notes Start Date End Date Status Omeprazole 20 MG 1 capsule 1/2 to 1 h our before morning meal Orally Once a day for 90 days 07/25/2024 Active SUMAtriptan Succinate 100 MG 1 tablet at least 2 hours between doses as needed Orally Twice a day for 30 days Active Famotidine 20 MG 1 tablet at bedtime Orally Once a day for 30 days 07/25/2024 Active Zinc + Vitamin C Act irvin Tretinoin 0.025 % 1 application in the evening to face Externally Once a day for 30 days PRN Active Furosemide 20 MG 1 tablet Orally Once a day for 90 days Active Baby Aspirin Active Valsartan 160 MG 1 tablet Orally Once a day for 90 days Active Vitamin D3 25 MCG (1000 UT) 1 tablet Orally Once a day Active Rosuvastatin Calcium 20 MG 1 tablet Orally Once a day for 90 days Active Albuterol Sulfate HFA 108 (90 Base) MCG/ACT 2 puffs as needed Inhalation every 4 hrs for 90 days Active Mounjaro 7.5 MG/0.5ML 7.5mg Subcutaneous once a week for 28 days 07/25/2024 Active ALPRAZolam 0.25 MG 1 tablet Orally Once a day for 30 days 01/09/2024 Active Dexcom G7 Sensor - change sensor every 10 days for 90 days 06/27/2024 Not-Taking FreeStyle Haider 3 Sensor - change sensor every 2 weeks for 90 days Active Dexcom G7 Sensor - as directed for 90 days Not-Taking glipiZIDE 5 MG 1 tablet 30 minutes before breakfast Orally Once a day for 90 days Active Dexcom G7 [employer] - as directed for 90 days 06/26 Not-Taking metFORMIN HCl 500 MG 1 tablet with a jomar l Orally Twice a day for 90 days Active Ozempic (2 MG/DOSE) 8 MG/3ML 2mg Subcutaneous once a week for 90 days 01/09/2024 Not-Taking Magnesium Glycinate 400mg Active amLODIPine Besylate 5 MG 1 tablet Orally Once a day for 90 days Active Metoprolol Succinate 100 MG 1 capsule Orally Once a day for 90 days Not-Taking SOCIAL HISTORY Tobacco Use: Social History Observation Description Date Details (start date - stop date) Former Smoker NA - NA Sex Assigned At : Social History Observation Description Sex Assigned At Unknown Household Question Answer Notes Marital status: living with significant other Number of adults in household: 2 Tobacco Use/Smoking Question Answer Notes Tobacco use: former smoker How long has it been since y ou last smoked? > 10 years Additional Findings: Tobacco User Modera te cigarette smoker (10-19 cigs/day) Section Notes: Lives in [place] with partner. [place] partner. [place]. [place]. [place]. [place]. [place]. [place]. [place]. PROBLEMS Problem Type ICD Code Onset Dates Problem Status W/U Status Risk SNOMED Code Notes Problem Other fatigue (R53.83) Active confirmed 13076104 Problem Essential hypertension (I10) Active confirmed 54346869 Problem Other hyperlipidemia (E78.49) Active confirmed 26445411 Problem Elevated high sensitivity C-reactive protein (R79.82) Active confirmed 705324527908906 Problem Morbid obesity (E66.01) Active confirmed 866399712 Problem KRISTIAN (obstructive sleep apnea) (G47.33) Active confirmed 60871669 Problem BMI 40.0-44.9, adult (Z68.41) Active confirmed 365945878 Problem Diabetic peripheral angiopathy (E11.51) Active confirmed 214880704 Problem GERD without esophagitis (K21.9) Active confirmed Gastroes ophageal reflux disease (579968990) Problem Hypertriglyceridemia (E78.1) Active confirmed Hypertriglyceri demia (635227622) Problem Insulin resistance syndrome (E88.810) Active confirmed 880952636 Problem COPD, moderate (J44.9) Active confirmed 310806007 Problem Episodic migraine (G43.909) Active confirmed 525134089601396 VITAL SIGNS Heart Rate 76 /min 07/25/2024 Temperature 98.5 degrees Fahrenheit 09/13/2023 O2 w /mask Height-cm 158.75 cm 07/25/2024 Oximetry 94 % 07/25/2024 Blood pressure diastolic 72 mm Hg 07/25/2024 Weight-kg 101.6 kg 07/25/2024 Height 62.5 in 07/25/2024 Blood pressure systolic 122 mm Hg 07/25/2024 Weight 224.0 lbs 07/25/2024 BMI 40.31 kg/m2 07/25/2024 Encounters Encounter Location Date Provider Diagnosis [address] [id number] 12/28/2023 SHABBIR SAENZ Diabetic peripheral angiopathy E11.51 ; Insulin resistance syndrome E88.810 and Other hyperlipidemia E78.[address] [id number] 07/10/2024 SHABBIR SAENZ [address] [id number] 08[facility] [id number] 08/24/2023 [facility] Shortness of breath R06.02 ; Post COVID-19 condition, unspecified U09.9 and Other fatigue R53.[address] [id number] 09/13/2023 SHABBIR SAENZ Diabetic peripheral angiopathy E11.51 ; COVID U07.1 and KRISTIAN on CPAP G47.[address] [id number] 12/01/2023 [facility] Encounter for genera l adult medical examination with abnormal findings Z00.01 ; Diabetic peripheral angiopathy E11.51 ; Encounter for screening for malignant neoplasm of colon Z12.11 ; Encounter for screening for malignant neoplasm of prostate Z12.5 ; Screening for substance abuse Z13.89 ; Encounter for screening for depression Z13.31 ; Other hyperlipidemia E78.49 ; KRISTIAN (obstructive sleep apnea) G47.33 ; Morbid obesity E66.01 ; BMI 40.0-44.9, adult Z68.41 ; Essential hypertension I10 ; COPD, moderate J44.9 ; Episodic migraine G43.909 ; Insulin resistance syndrome E88.810 ; Elevated high sensitivity C-reactive protein R79.82 ; Other fatigue R53.83 and Hypotestosteronemia E34.[address] [id number] 12/25/2023 BRIDGETT TONG Tick bite, unspecifi ed site, initial encounter W57.XXXA [address] [id number] 12/28/2023 SHABBIR SAENZ Tick bite, unspecifi ed site, initial encounter W57.XXXA [address] [place] [id number] 01/04/2024 [facility] Diabetic peripheral angiopathy E11.51 ; Elevated high sensitivity C-reactive protein R79.82 ; Insulin resistance syndrome E88.810 and Hypertriglyceridemia E78.[address] [place] [id number] 06/26/2024 [facility] Hypertriglyceridemia E78.1 ; Diabetic peripheral angiopathy E11.51 ; COPD, moderate J44.9 ; Morbid obesity E66.01 ; BMI 40.0-44.9, adult Z68.41 ; Other hyperlipidemia E78.49 ; Essential hypertension I10 ; Elevated high sensitivity C-reactive protein R79.82 and Insulin resistance syndrome E88.[address] [id number] [facility]abetic peripheral angiopathy E11.51 ; KRISTIAN (obstructive sleep apnea) G47.33 ; COPD, moderate J44.9 ; GERD without esophagitis K21.9 and Morbid obesity E66.[address] [place] [id number] 08/30/[address] [place] [id number] 09/01/[address] [place] [id number] 09/20/[address] [place] [id number] 09/21/[address] [id number] 09/28/2023 [facility] Diabetic peripheral angiopathy E11.[address] [place] [id number] 10/02/2023 [facility] Diabetic peripheral angiopathy E11.[address] [place] [id number] 10/24/[address] [place] [id number] 11/07/[address] [place] [id number] 12/04/2023 [facility] [address] [facility] [place] [id number] 12/28/2023 [facility] [address] [facility] [place] [id number] 01/05/2024 [facility] Diabetic peripheral angiopathy E11.51 [facility] [address] [facility] [place], [place] [id number] 01/16/2024 [facility] [address] [facility] [place] [id number] 07/07/2024 [facility] ASSESSMENTS Encounter Date Diagnosis Assessment Notes Treatment Notes Treatment Clinical Notes Section Notes 08/17/2023 COVID (ICD-10 - U07.1) Due to clinical presentation, low sats and comorbidities with treat with antibiotics and steroids To continue with fluids, incentive spirometry To return in 1 week, sooner if any worsening s/s 08/24/2023 Shortness of breath (ICD-10 - R06.02) Pt having continued shortness of breath, fatigue and fine adventitious breathsounds Will check basic labs and CXR To continue cough, deep breathing, mucinex Discussed post viral cough and fatigue can persist Overall vitals improved with self admission feeling better 08/24/2023 Post COVID-19 condition, 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) 09/13/2023 Diabetic peripheral angiopathy (ICD-10 - E11.51) Still continuing with AM glipizide only 10mg AM reading sometimes above 100 Few at 60 Willl decrease glipizide to 5mg if consistently below 100 Will increase ozempic to 1mg 09/13/2023 COVID (ICD-10 - U07.1) Pt is back to baseline resp status except for occ cough Followed by pulm as well May continue with Vit C Was going to recheck CBC but pt declined as he has needle phobia and clinically he is very well, at baseline 09/28/2023 Diabetic peripheral angiopathy (ICD-10 - E11.51) 10/02/2023 Diabetic peripheral angiopathy (ICD-10 - E11.51) 12/01/2023 Encounter for genera l adult medical examination with abnormal findings (ICD-10 - Z00.01) General health maintenance reviewed Healthy lifestyle discussed with patient, including diet, vitamin supplement, exercise, non-smoking, safe sexual practices and reduction of stress. Assessment and plan reviewed with patient. 12/01/2023 Diabetic peripheral angiopathy (ICD-10 - E11.51) Maintain strict blood sugar control Will DC glyburide as having BS reading below 70 intermittently Will increase ozempic to 2mg dosing Will refer to plastic parts fabricator Elevate extremities when sitting Monitor feet and skin closely, promptly treat an breaks in the skin Will recheck A1C 12/25/2023 Tick bite, unspecifi ed site, initial encounter (ICD-10 - W57.XXXA) engorged tick to lower center of abdomen, imbedded, able to remove entirely, tolerated well. Area cleansed and baccitracin applied post removal. We made a shared decision to treat with 200 mg of doxy once, will consider labs in 6-8 weeks if symptoms present Total time spent with patient 20 minutes which includes face to face visit, education and coordination of care. 12/28/2023 Diabetic peripheral angiopathy (ICD-10 - E11.51) 12/28/2023 Tick bite, unspecifi ed site, initial encounter (ICD-10 - W57.XXXA) Discussed proper assessment for ticks as he spends a great deal of time at a camp in the [facility] To keep area clean and dry Will provide with doxycycline so pt will be more astute to assessing body, removal of ticks discussed and may take 2 tabs of doxy x 1 dose Assess for any secondary bacterial infection as well as any fever, additional rashes 01/04/2024 Elevated high sensitivity C-reactive protein (ICD-10 - R79.82) Significant improvement with lifestyle changes but still elevated Noted high TG levels as well Consider adding fenofibrate or increasing rosuvastatin 01/04/2024 Diabetic peripheral angiopathy (ICD-10 - E11.51) Discussed need for improved BS control now that he stopped ozempic Will try to get Mounjaro authorized If not will need to increase his metformin, changing to ER dosing due to his side effects Will also refer to [facility] as he needs some direction to further enhance his weight loss 01/05/2024 Diabetic peripheral angiopathy (ICD-10 - E11.51) 06/26/2024 Diabetic peripheral angiopathy (ICD-10 - E11.51) Pt having level 2 hypoglycemia with haider despite his worsening A1C He has had an increase in his metformin taking glybizide with food Still having struggle with losing weight despite watching his diet Consider another nutritional referral Gave pt sample mounjaro 2.5 with rx for 5mg along with coupon 06/26/2024 Hypertriglyceridemia (ICD-10 - E78.1) Pt continues to have significantly elevated TG, higher than above question related to out of control blood sugars/diabetes Continue statin Will repeat once over improved conrol ? need for fibrate 07/25/2024 KRISTIAN (obstructive sle ep apnea) (ICD-10 - G47.33) Fax sleep study to prior pulm to address his current desaturation Does have apt with new pulm Will fax CT results and sleep study results to him once received 07/25/2024 Diabetic peripheral angiopathy (ICD-10 - E11.51) Continues with suboptimal control of blood sugars despite not eating extra during the holiday season Will increase his Mounjaro Continue with Haider Weigh weekly with same clothing on 06/26/2024 COPD, moderate (ICD- 10 - J44.9) Will refer to another manager company as not happy with current MD Does not use maintenance inhaler Only very occ use of rescue inhaler Had chest CT at [facility] Just had PFT done Questions sleep apnea needing adjustment 01/04/2024 Insulin resistance syndrome (ICD-10 - E88.810) Persists; pt stopped ozempic Will order mounjaro 07/25/2024 COPD, moderate (ICD- 10 - J44.9) As above, referring to new pulm Will fax sleep study and CT results once received from [facility] 12/28/2023 Insulin resistance syndrome (ICD-10 - E88.810) 12/01/2023 Encounter for screen ing for malignant neoplasm of colon (ICD-10 - Z12.11) Pt due for colonoscopy; calling GI 09/13/2023 KRISTIAN on CPAP (ICD-10 - G47.33) pt wants to establish care at sleep med locally as sees one in [place] and not happy Compliant with mask 08/24/2023 Other fatigue (ICD-1 0 - R53.83) 12/01/2023 Encounter for screen ing for malignant neoplasm of prostate (ICD-10 - Z12.5) Normal PSA 12/28/2023 Other hyperlipidemia (ICD-10 - E78.49) 01/04/2024 Hypertriglyceridemia (ICD-10 - E78.1) If pt stays with program, goal to decrease TG as above Will follow up next week 07/25/2024 GERD without esophagitis (ICD-10 - K21.9) Pt dx by ENT and never treated Will send over daily omeprazole and pepcid x 1 month until omeprazole is effective as pt's cough and clearly his throat worse now 06/26/2024 Morbid obesity (ICD- 10 - E66.01) Discussed weight and it affect on health status Discussed dietary choices/nutrition ist referral Intermittent fasting Increase exercise as tolerated but no motivation Reordering GLP1 06/26/2024 BMI 40.0-44.9, adult (ICD-10 - Z68.41) 07/25/2024 Morbid obesity (ICD- 10 - E66.01) As above, increasing mounjaro for BS and weight Refer to plastic parts fabricator as well 12/01/2023 Screening for substa nce abuse (ICD-10 - Z13.89) Neg CAGE AID 12/01/2023 Encounter for screen ing for depression (ICD-10 - Z13.31) Neg PHQ9 06/26/2024 Other hyperlipidemia (ICD-10 - E78.49) As above with elevated TG LDL optimal Weight loss Statin in place ? add fibrate 06/26/2024 Essential hypertensi on (ICD-10 - I10) Continue medication as directed Low-salt diet Weight management Regular exercise Yearly microalbumin 12/01/2023 Other hyperlipidemia (ICD-10 - E78.49) Continue current statin hypertriglyceride s increased most likely dietary related Will keep at current level and repeat next month Low fat, low cholesterol diet Exercise 06/26/2024 Elevated high sensitivity C-reactive protein (ICD-10 - R79.82) Low inflammatory diet Increased exercise Statin therapy Exercise/weight loss 12/01/2023 KRISTIAN (obstructive sle ep apnea) (ICD-10 - G47.33) Compliant wiht mask Being evaluated by new sleep specialist locally 12/01/2023 Morbid obesity (ICD- 10 - E66.01) Discussed weight and it affect on health status Discussed dietary choices/nutrition ist referral Intermittent fasting Increase exercise as tolerated 06/26/2024 Insulin resistance syndrome (ICD-10 - E88.810) Was on ozempic previously Will order mounjaro Insulin resistance and impaired fasting glucose present. We will focus on underlying causes so we might correct the problem at the source. We have reviewed diet/lifestyle options at length and agree to begin IF Agrees to plan. 12/01/2023 BMI 40.0-44.9, adult (ICD-10 - Z68.41) 12/01/2023 Essential hypertensi on (ICD-10 - I10) Continue medication as directed Low-salt diet Weight management Regular exercise Yearly microalbumin 12/01/2023 COPD, moderate (ICD- 10 - J44.9) Continue with inhalers Discussed proper usage/technique Treat any infections proactively Followed by pulmonology 12/01/2023 Episodic migraine (ICD-10 - G43.909) Now significant improvement with KRISTIAN and oxygen Well managed/able to abort with sumatriptan Will continue with POC 12/01/2023 Insulin resistance syndrome (ICD-10 - E88.810) Insulin resistance and impaired fasting glucose present. We will focus on underlying causes so we might correct the problem at the source. We have reviewed diet/lifestyle options at length and agree to begin IF Agrees to plan. Dietary referral 12/01/2023 Elevated high sensitivity C-reactive protein (ICD-10 - R79.82) Low inflammatory diet Increased exercise Statin therapy as indicated 12/01/2023 Other fatigue (ICD-1 0 - R53.83) Still struggles with fatigue Continue with sleep mask Weight loss Encouraged increased activity 12/01/2023 Hypotestosteronemia (ICD-10 - E34.9) Asymptomatic at this time Will continue to monitor 08/17/2023 Other Total time spen t with patient 20 minutes which includes face to face visit, education and coordination of care. 08/24/2023 Other Addendum: called pt at 6pm after reviewing xray; RESULT: Chest 2 Views Frontal and Lat PA and lateral chest dated August 24, 2023. No prior studies are available. HISTORY: Shortness of breath. FINDINGS: The cardiac silhouette is within normal limits for size. Mural calcifications are present in the wall the aorta. No airspace infiltrate or pleural effusion is identified. There are some minimal focal areas of interstitial thickening peripherally. No pleural effusion is identified. There are degenerative changes noted in the thoracic spine. IMPRESSION: Minimal interstitial thickening. This could represent some chronic pulmonary fibrosis. If acute, interstitial edema. Pt sounded very well on phone, feel the results are more due to chronic condition but would like to ensure improvement in resp status. He is to follow up with me in 2 weeks, call sooner if any worsening symtoms 09/13/2023 Other Total time spen t with patient 32 minutes which includes face to face visit, education and coordination of care.; diabetic teaching, reinstruction with ozempic 12/28/2023 Other Total time spen t with patient 20 minutes which includes face to face visit, education and coordination of care. 01/04/2024 Other Total time spen t with patient 20 minutes which includes face to face visit, education and coordination of care. 06/26/2024 Other Total time spen t with patient, eval previous labs, establishing POC just under 60min 07/25/2024 Other Total time spen t with patient 32 minutes which includes face to face visit, education and coordination of care. PLAN OF TREATMENT Pending Test Test Name Order Date Chest X-ray PA and lateral 08/24/2023 Future Test Test Name Order Date CARDIO IQ(R) HEMOGLOBIN A1c (98418) 02/2024 CARDIO IQ(R) HOMOCYSTEINE (26910) 2023 THYROID PEROXIDASE AND THYROGLOBULIN ANT IBODIES (9160) 06/26/2024 THYROID PANEL WITH TSH (7444) 06/26/2024 CARDIO IQ(R) LIPID PANEL (51526) 024 IRON, TIBC AND FERRITIN PANEL (3726) ALBUMIN, RANDOM URINE W/CREATININE (6517 ) 06/26/2024 TESTOSTERONE, FREE, BIOAVAILABLE AND TOT [place], MS (30446) 06/26/2024 COMPREHENSIVE METABOLIC PANEL (14894) MAGNESIUM (622) 06/26/2024 URIC ACID (905) 06/26/2024 CARDIO IQ(R) LIPOPROTEIN (a) (38995) CBC (INCLUDES DIFF/PLT) (6399) SED RATE BY MODIFIED WESTERGREN (809) CARDIO IQ(R) HS CRP (15329) 06/26/2024 CARDIO IQ(R) HEMOGLOBIN A1c (61189) 06/08 CARDIO IQ(R) APOLIPOPROTEIN EVAL (92896) 06/26/2024 CARDIO IQ(R) HOMOCYSTEINE (59326) 2023 CARDIO IQ(R) INSULIN (32013) 06/26/2024 PSA (FREE AND TOTAL) (85875) 06/26/2024 METHYLMALONIC ACID (95658) 06/26/2024 Next Appt Details Provider Name:SHABBIR ROSAERIN Dixon, 09/05/2024 08:00:00 AM, [address] [place] [address], [place], [id number], Insurance Providers Payer Name Payer Address Payer Phone Subscriber Number Group Number Insured Name Patient Relationship to Insured Coverage Start Date Coverage End Date [employer] [address] [place] [phone] [id number] MICHELLE GARLAND Self - patient is the insured MEDICAL (GENERAL) HISTORY Medical History History ICD Code Diverticulosis Fistulotomy Left Eye Lens Implant 05/2015 Right Eye Lens Implant 04/2015 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
[2024-08-15 08:18] VITALS: BP 122/76; PULSE 76; O2SAT 93; BMI 40.8
--- NOTE | 2024-08-15 08:18 | A.OFFVIS_ITS ---
Vital Signs 08/15/24 08:18 Height 5 ft 1.81 in Weight 221 lb 9.033 oz BMI 40.8 BP 122/76 Blood Pressure Location Rt brachial Position Sitting Pulse 76 Pulse Source Pulse Oximeter Pulse Oximetry (%) 93 Oxygen Delivery Method Room Air Intake Visit Reasons: copd Allergies No Known Allergies Allergy (Verified 08/15/24 08:22) HPI Comments Details: The patient is here for a pulmonary evaluation. The patient is a 68-year-old gentleman with known history of COPD RKISTIAN on CPAP presenting with worsening respiratory symptoms. Apparently the patient states that he has been on CPAP for many years. CPAP therapy has been affecting beneficial. He does use a nasal mask. He did try to get a download but his secure digital card got lost in the mail. He is going to bring it into the next visit so we can download it and adjust accordingly. He also uses oxygen with the CPAP. He did have an overnight oximetry demonstrating that he is getting good oxygenation while weight in the 2 L with CPAP. In addition to that he has dyspnea on exertion. He carries a diagnosis of COPD. He did have PFTs in June 2024. We did look at the numbers together. He has a [id number]-po-syoqzyeo restriction in addition to that has a mild obstructive process that likely is overshadowed because of the restriction component. He has also mild diffusion impairment. We did go for brief walking oximetry. He did desaturate down to about 90%. Dyspnea score is 4/10. Heart rate did increase to about 100 beats per minute. Patient does not qualify for oxygen but he does have some degree of hypoxia. He is overweight. He addition to that the patient does have some evidence of reflux disease. He had a CT scan done elsewhere in the report states that he does have some bronchiectatic changes in the right base which could be secondary to microaspiration. The rest of the CT scan demonstrates areas of mosaic pattern suggesting air trapping in addition to some mild interstitial lung disease that appears to be stable. Will try to get the images to review. [facility] Medical History (Updated 08/15/24 @ 18:26 by Mike Jimenes MD) Hypoxia GERD (gastroesophageal reflux disease) KRISTIAN on CPAP ILD (interstitial lung disease) Colon polyps Obesity without serious comorbidity Pure hypercholesterolemia Essential hypertension Anxiety COPD (chronic obstructive pulmonary disease) with chronic bronchitis Type 2 diabetes mellitus with peripheral vascular disease Bilateral artificial lens implant Diverticulitis Sleep apnea KRISTIAN (obstructive sleep apnea) Eosinophilic granuloma Diverticulosis Surgical History (Updated 02/05/24 @ 15:10 by CRISTAL Mejía) H/O bilateral cataract extraction History of colonoscopy H/O anal fistulotomy Family History (Updated 02/05/24 @ 15:11 by CRISTAL Mejía) Mother Hypertension Father Hypertension Other Type 2 diabetes mellitus Social History Housing: House Patient Tobacco Use Status: Former Tobacco user Cigarette Packs Per Day: 1.5 Years Smoked: 30 e-Cigarette/Vaping Use: Never Used Second Hand Smoke Exposure: No service: No Current occupational status: employed 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 Current occupational exposures/hazards: No Cognitive needs: No Hearing needs: Yes Vision needs: Yes Review of Systems Const Denies fever(s) ENT Denies hoarseness Card Denies chest pain and Reports dyspnea on exertion Resp Reports dyspnea on exertion GI Reports dyspepsia and Reports heartburn Musc Reports no additional complaints Skin/Breast Denies rash Valentino/Lymph Reports no additional complaints Aller/Immun Reports no additional complaints Physical Exam Vital Signs: Last Vital Signs Pulse 76 08/15/24 08:18 BP 122/76 08/15/24 08:18 Pulse Ox 93 08/15/24 08:18 Oxygen Delivery Method Room Air 08/15/24 08:18 BMI result Body Mass Index 40.8 Const General: comfortable HEENT Head: Yes normocephalic Neck Neck: Yes supple Chest Chest palpation & inspection: normal inspection of the chest Resp Effort & Inspection: normal respiratory effort Auscultation: crackles bilateral (minimal) and diminished lung sounds Cardio Heart sounds: S1 normal heart sound present and S2 normal heart sound present GI Palpation (GI): Soft to palpation Assessment & Plan Assessment & Plan (1) COPD (chronic obstructive pulmonary disease) with chronic bronchitis: Code(s): J44.89 - Other specified chronic obstructive pulmonary disease Category: Medical (2) ILD (interstitial lung disease): Code(s): J84.9 - Interstitial pulmonary disease, unspecified Category: Medical (3) KRISTIAN on CPAP: Code(s): G47.33 - Obstructive sleep apnea (adult) (pediatric) Category: Medical (4) GERD (gastroesophageal reflux disease): Code(s): K21.9 - Gastro-esophageal reflux disease without esophagitis Category: Medical Qualifiers: Esophagitis presence: without esophagitis Qualified Code(s): K21.9 - Gastro-esophageal reflux disease without esophagitis (5) Hypoxia: Code(s): R09.02 - Hypoxemia Category: Medical Plan NAZ as needed start Pulmonary rehab continue APAP, [facility] reflux diet sleep with HOB elevated requesting CD with imaging of CT chest continue APAP with 2l Oxygen, will bring PAP to next visit to download and adjust if needed F/U 2 months Orders: Orders Pulmonary Rehab Today J44.89 - Other specified chronic obstructive pulmonary disease, J84.9 - Interstitial pulmonary disease, unspecified, R09.02 - Hypoxemia Coding Level of Care Code New Pt Level 4 (49830) Diagnoses COPD (chronic obstructive pulmonary disease) with chronic bronchitis J44.89 ILD (interstitial lung disease) J84.9 KRISTIAN on CPAP G47.33 Gastroesophageal reflux disease without esophagitis K21.9 Esophagitis presence: without esophagitis Hypoxia R09.02 Time Spent (min) 40
== END 2024-08-15 09:09 | disposition home or self-care (01) ==
PROVIDERS: PCP Physician Assistant Medical; Visit Provider Hospitalist
DX: J44.89 Other specified chronic obstructive pulmonary disease (principal); J84.9 Interstitial pulmonary disease, unspecified; G47.33 Obstructive sleep apnea (adult) (pediatric); K21.9 Gastro-esophageal reflux disease without esophagitis; R09.02 Hypoxemia
CPT/HCPCS: 99204

== ENCOUNTER → 2024-08-15 07:47 | Outpatient (BNVA) | payer OTHER, SELFPAY | PROVIDERS: PCP Physician Assistant Medical; Visit Provider Hospitalist ==

== ENCOUNTER → 2024-09-12 07:55 | Outpatient (BNVA) | payer OTHER, SELFPAY | PROVIDERS: PCP Physician Assistant Medical; Visit Provider Hospitalist ==

== ENCOUNTER → 2024-09-12 07:55 | Outpatient (AMB) | payer OTHER, SELFPAY ==
--- OUTSIDE RECORDS SUMMARY | 2024-09-12 07:58 | XMS_ITS | Encounter Summary ---
Author Organization [facility] Address [address] [place] [address] Care Team Providers Care Parts Analyst Name Role Phone Unavailable Primary Care Provider Unavailabl e Reason for Visit * Reason Onset Date Comments Refill Request 11/30/2023 Encounter Details Date Type Department Care Team (Late st Contact Info) Description 11/30/2023 Refill [facility] [address] [place] [address] Yuni Reece APRN BC Refill Request Social History Tobacco Use Types Packs/Day Years Used Date Smoking Tobacco: Never Assessed Comments:Smoking Status:No c urrent tobacco use Sex and Gender Information Value Date Recorded Sex Assigned at Not on file Legal Sex Male 2:25 PM EDT Gender Identity Not on file Sexual Orientation Not on file documented as of this encounter Plan of Treatment Not on file documented as of this encounter Visit Diagnoses Not on filedocumented in this encounter
--- OUTSIDE RECORDS SUMMARY | 2024-09-12 07:58 | XMS_ITS | Encounter Summary ---
Author Organization [facility] Address [address] [place] [address] Care Team Providers Care Full Stack Php Developer Name Role Phone Wallace Zee MD Unavailable Jourdan Berry MD Primary Care Provider [phone] Jourdan Berry MD Unavailable Pcp, No Primary Care Provider UnavailYuni Castro APRN Primary Care Provider Reason for Visit * Reason Comments Medication Refill Encounter Details Date Type Department Care Team (Late st Contact Info) Description 10/17/[address] [phone] Robert Haddad, [address] [address] Essential hypertension Social History Tobacco Use Types Packs/Day Years Used Date Smoking Tobacco: Former Cigarettes 1.5 35 1 08/13/1970 - 06/13/2006 Smokeless Tobacco: Never Alcohol Use Standard Drinks/Week Comments No 0 (1 standard drink = 0.6 oz pur e alcohol) Sex and Gender Information Value Date Recorded Sex Assigned at Male 01/18/2023 7:03 AM EDT Gender Identity Male 04/27/2021 7:47 AM EDT Sexual Orientation Heterosexual (straight) 01/18 7:03 AM EDT documented as of this encounter Plan of Treatment Upcoming Encounters Date Type Department Care Team (Late st Contact Info) Description 12/19/2024 8:00 AM EDT Procedure visit [facility] Department of Pulmonology [place] [address] [place] [address] 12/19/2024 8:30 AM EDT Office Visit [facility] Department of Pulmonology [place] [address] [place] [address] Dylan Nelson MD [address] [facility] [address] [place] [address] 04/17/2025 8:00 AM EDT Office Visit [facility] Department of Pulmonology [place] [address] [place] [address] Keyanna Amador APRN [address] [place] [address] documented as of this encounter Visit Diagnoses Diagnosis Essential hypertension Unspecified essential hypertension documented in this encounter Care Teams Full Stack Php Developer Relationship Specialty Start Date End Date Jourdan Berry MD [address] [place] [address] PCP - General Family Medicine 03/20/19 11/26/19 Pcp, No PCP - General General Medicine 11/27/19 08/15/22 Yuni Reece APRN PCP - General 08/16/22 Wallace eZe MD [address] [facility] [address] [place] [address] Otolaryngology 02/22/17 Jourdan Berry MD [address] [place] [address] Referring Provider Family Medicine 11/27/19 documented as of this encounter
--- OUTSIDE RECORDS SUMMARY | 2024-09-12 07:58 | XMS_ITS | Encounter Summary ---
Author Organization [facility] Address [address] [place] [address] Care Team Providers Care Town Justice Name Role Phone Wallace Zee MD Unavailable [phone] Jourdan Berry MD Unavailable [phone] Yuni Reece APRN Primary Care Provider Encounter Details Date Type Department Care Team (Late st Contact Info) Description 05/08/2023 Scanned Document [facility] Department of Pulmonology [place] [address] [facility] [address] [place] [address] Keyanna Amador APRN [address] [place] [address] Social History Tobacco Use Types Packs/Day Years [...] Description 12/19/2024 8:00 AM EDT Procedure visit [facility] Department of Pulmonology [address] [address] 12/19/2024 8:30 AM EDT Office Visit [facility] Department of Pulmonology [place] [address] [place] [address] Dylan Nelson MD [address] [address] 04/17/2025 8:00 AM EDT Office Visit [facility] Department of Pulmonology [place] [address] [place] [address] Keyanna Amador APRN [address] [place] [address] documented as of this encounter Visit Diagnoses Not on filedocumented in this encounter Care Teams Town Justice Relationship Specialty Start Date End Date Yuni Reece, JAVIER [address] [place] [address] PCP - General 08/16/22 Wallace Zee MD 4 [facility] [address] [place] [address] Otolaryngology 02/22/17 Jourdan Berry MD [address] [place] [address] Referring Provider Family Medicine 11/27/19 documented as of this encounter
--- OUTSIDE RECORDS SUMMARY | 2024-09-12 07:58 | XMS_ITS | Encounter Summary ---
Author Organization [facility] Address [address] [place] [address] Care Team Providers Care Store Facility Technician Name Role Phone Unavailable Primary Care Provider Unavailabl e Reason for Visit * Reason Onset Date Comments Refill Request 11/30/2023 Encounter Details Date Type Department Care Team (Late st Contact Info) Description 11/30/2023 Refill [facility] [address] [place] [address] Yuni Reece APRN BC Refill Request Social [...]
--- OUTSIDE RECORDS SUMMARY | 2024-09-12 07:58 | XMS_ITS | Encounter Summary ---
Author Organization [facility] Address [address] [place] [address] Care Team Providers Care Pastry Cook Name Role Phone Unavailable Primary Care Provider Unavailabl e Reason for Visit * Reason Comments E-prescribing Refill Request Encounter Details Date Type Department Care Team (Late st Contact Info) Description 11/20/[address] [address] Yuni Reece APRN BC E-prescribing Refill Request Social History Tobacco Use Types [...]
--- OUTSIDE RECORDS SUMMARY | 2024-09-12 07:58 | XMS_ITS | Encounter Summary ---
Author Organization [facility] Address [address] [place], [place] [id number] Care Team Providers Care Professor Of Biblical Studies Name Role Phone Wallace Zee MD Unavailable Jourdan Berry MD Unavailable [phone] Yuni Reece APRN Primary Care Provider Encounter Details Date Type Department Care Team (Late st Contact Info) Description 06/28/[address] [facility] Department of Pulmonology [place] [address] [place] [phone] Keyanna Amador APRN [address] [place], [place] [address] Social History Tobacco Use Types Packs/Day Years [...] Description 12/19/2024 8:00 AM EDT Procedure visit [facility] Department of Pulmonology [place] [address] [place] [phone] 12/19/2024 8:30 AM EDT Office Visit [facility] Department of Pulmonology [place] [address] [place] [address] Dylan Nelson MD [address] [address] 04/17/2025 8:00 AM EDT Office Visit [facility] Department of Pulmonology [place] [address] [place] [address] Keyanna Amador APRN [address] [place] [address] documented as of this encounter Visit Diagnoses Not on filedocumented in this encounter Care Teams Professor Of Biblical Studies Relationship Specialty Start Date End Date Yuni Reece, CONSTRUCTION CREW MEMBER [address] [place] [address] PCP - General 08/16/22 Wallace Zee MD 4 [facility] [address] [place] [address] Otolaryngology 02/22/17 Jourdan Berry MD [address] [place] [address] Referring Provider Family Medicine 11/27/19 documented as of this encounter
--- OUTSIDE RECORDS SUMMARY | 2024-09-12 07:58 | XMS_ITS | Encounter Summary ---
Author Organization [facility] Address [address] [place] [address] Care Team Providers Care Ab Initio Etl Developer Name Role Phone Robert Haddad DO Primary Care Provider [phone] Wallace Zee MD Unavailable Jourdan Berry MD Primary Care Provider [phone] Jourdan Berry MD Unavailable [phone] Pcp, No Primary Care Provider UnavailYuni Castro APRN Primary Care Provider Encounter Details Date Type Department Care Team (Late st Contact Info) Description 02/02/2016 Scanned Document [address] [phone] Provider, Generic Social History Tobacco Use Types Packs/Day Years Used Date Smoking Tobacco: Former Comments:Quit Date Unknown Alcohol Use Standard Drinks/Week Comments Yes 0 (1 standard drink = 0.6 oz [...] Description 12/19/2024 8:00 AM EDT Procedure visit [facility] Department of Pulmonology [address] [address] 12/19/2024 8:30 AM EDT Office Visit [facility] Department of Pulmonology [place] [address] [place] [address] Dylan Nelson MD [address] [address] 04/17/2025 8:00 AM EDT Office Visit [facility] Department of Pulmonology [place] [address] [place] [phone] Keyanna Amador, HUMAN RESOURCES LEADER [address] [place] [address] documented as of this encounter Visit Diagnoses Not on filedocumented in this encounter Care Teams Ab Initio Etl Developer Relationship Specialty Start Date End Date Robert Haddad DO [address] [place] [address] PCP - General Internal Medicine 03/03/15 03/19/19 Jourdan Berry MD [address] [place] [address] PCP - General Family Medicine 03/20/19 11/26/19 Pcp, No PCP - General General Medicine 11/27/19 08/15/22 Yuni Reece, HUMAN RESOURCES LEADER PCP - General 08/16/22 Wallace Zee MD [address] [place] [address] [address] [place] [address] Otolaryngology 02/22/17 Jourdan Berry MD [address] [place] [address] Referring Provider Family Medicine 11/27/19 documented as of this encounter
--- OUTSIDE RECORDS SUMMARY | 2024-09-12 07:58 | XMS_ITS ---
Author Organization [facility] Address [address] [place] [address] Care Team Providers Care Munitions Handler Name Role Phone Wallace Zee MD Unavailable Jourdan Berry MD Unavailable Yuni Reece APRN Primary Care Provider Active Problems Problem Noted Date Diagnosed Date Class 1 obesity due to exces s calories with serious comorbidity and body mass index (BMI) of 34.0 to 34.9 in adult 04/11/2024 Former smoker 04/11/2024 COPD, mild 04/11/2024 Type 2 diabetes mellitus wit h hyperglycemia, with long-term current use of insulin 04/11/2024 Type 2 diabetes mellitus, wi th long-term current use of insulin 04/07/2023 Obesity hypoventilation syndrome 04/07/[address] 12/29/2022 12/29/2022 Anxiety 12/29/2022 12/29/2022 Coronary artery disease 12/29/2022 12/30/19 Diabetes 12/29/2022 12/29/2022 Insomnia 12/29/2022 12/29/2022 Ptosis 12/29/2022 12/29/2022 Pulmonary nodule 12/29/2022 12/29/2022 Sleep related hypoxia 12/29/2022 12/29/2022 Cigarette smoker 12/26/2022 Assessment & Plan (12/26/2022 10:08 AM EDT): Age 17 To present COPD type A 12/26/2022 Assessment & Plan (12/26/2022 10:09 AM EDT): Needs PFTs Vomiting 09/14/2019 12/29/2022 Anal or rectal pain 03/20/2019 Lipoma of neck 07/09/2018 Eosinophilic granuloma 12/16/2014 Essential hypertension 12/16/2014 Mixed hyperlipidemia 12/16/2014 Controlled type 2 diabetes m ellitus without complication, without long-term current use of insulin 12/16/2014 Migraine 12/16/2014 Class 3 severe obesity due to excess calories in adult 12/16/2014 Obstructive sleep apnea 12/16/2014 Overview (11/02/2016): Failed CPAP Assessment & Plan (12/26/2022 10:10 AM EDT): severe Dysthymic disorder 08/19/2014 Leukocytosis 06/18/2014 Anal fissure 09/25/2013 ZAIRA (generalized anxiety disorder) 09/25/2013 Diverticulosis of colon 09/25/2013 Anal fistula 09/25/2013 Seborrheic dermatitis 09/25/2013 Current Oncology Plans No current plan information found. Past Plans No past plan information found. Radiation Treatments * No radiation treatments are documented for this patient in Epic. Treatments may have been administered in another system. Lifetime Dose Tracking * Chemical Lifetime Dose Automatic Entry Manual Entr y Dose Area Product(DAP)-micrograys-m2 379.14 microgray-m2 379.14 microgray-m2 0 microgray-m2 Resolved Problems Problem Noted Date Diagnosed Date Resolved Date Encounter for immunization 12/29/2022 12/29/2022 0 10/18/2023 Acute bronchitis 06/01/2018 06/13/2018 Overview (06/01/2018): History of acute bronchitis: 2013-09-25 00:00:45 Morbid obesity with BMI of 40.0-44.9, adult 11/02/2016 06/13/2018 Preoperative examination 03/30/201503/2015 Cataracts, bilateral 03/30/2015 015 Swelling, mass, or lump in head and neck 12/16/2014 03/30/2015
--- OUTSIDE RECORDS SUMMARY | 2024-09-12 07:58 | XMS_ITS | Encounter Summary ---
Author Organization [facility] Address [address] [place] [address] Care Team Providers Care Microbiology Technologist Name Role Phone Robert Haddad DO Primary Care Provider [phone] Wallace Zee MD Unavailable [phone] Jourdan Berry MD Primary Care Provider [phone] Jourdan Berry MD Unavailable Pcp, No Primary Care Provider UnavailYuni Castro APRN Primary Care Provider Encounter Details Date Type Department Care Team (Late st Contact Info) Description 08/19/2016 Scanned Document [address] [phone] Provider, Generic Social History Tobacco Use Types [...] Description 12/19/2024 8:00 AM EDT Procedure visit [facility] Department of Pulmonology [address] [address] 12/19/2024 8:30 AM EDT Office Visit [facility] Department of Pulmonology [place] [address] [place] [address] Dylan Nelson MD [address] [place] [address] [address] 04/17/2025 8:00 AM EDT Office Visit [facility] Department of Pulmonology [place] [address] [place] [address] Keyanna Amador, PHARMACISTS [address] [place] [address] documented as of this encounter Visit Diagnoses Not on filedocumented in this encounter Care Teams Microbiology Technologist Relationship Specialty Start Date End Date Robert Haddad DO [address] [place] [address] PCP - General Internal Medicine 03/03/15 03/19/19 Jourdan Berry MD [address] [place] [address] PCP - General Family Medicine 03/20/19 11/26/19 Pcp, No PCP - General General Medicine 11/27/19 08/15/22 Yuni Reece, PHARMACISTS PCP - General 08/16/22 Wallace Zee MD [address] [place] [address] [address] [place] [address] Otolaryngology 02/22/17 Jourdan Berry MD [address] [place] [address] Referring Provider Family Medicine 11/27/19 documented as of this encounter
--- OUTSIDE RECORDS SUMMARY | 2024-09-12 07:58 | XMS_ITS | Encounter Summary ---
Author Organization [facility] Address [address] [place] [address] Care Team Providers Care Medical Administrative Specialist Name Role Phone Unavailable Primary Care Provider Unavailabl e Encounter Details Date Type Department Care Team (Late st Contact Info) Description 09/19/2023 Orders Only [address] [address] Nick Baker RN Social History Tobacco Use Types Packs/Day Years [...]
--- OUTSIDE RECORDS SUMMARY | 2024-09-12 07:58 | XMS_ITS | Encounter Summary ---
Author Organization [facility] Address [address] [place] [address] Care Team Providers Care Siding Mechanic Name Role Phone Unavailable Primary Care Provider Unavailabl e Reason for Visit * Reason Onset Date Comments Refill Request 11/29/2023 Encounter Details Date Type Department Care Team (Late st Contact Info) Description 11/29/2023 Refill [facility] [address] [place] [address] Yuni Reece APRN BC Refill Request Social [...]
--- OUTSIDE RECORDS SUMMARY | 2024-09-12 07:58 | XMS_ITS | Encounter Summary ---
Author Organization [facility] Address [address] [place] [address] Care Team Providers Care Cost Manager Name Role Phone Unavailable Primary Care Provider Unavailabl e Reason for Visit * Reason Onset Date Comments Refill Request 04/03/2024 Encounter Details Date Type Department Care Team (Late st Contact Info) Description 04/03/2024 Refill [facility] [address] [place] [address] Yuni Reece APRN BC Refill Request Social History Tobacco Use Types Packs/Day Years Used Date Smoking Tobacco: Never Assessed Comments:Smoking Status:No c urrent tobacco use Sex and Gender Information Value Date Recorded Sex Assigned at Not on file Legal Sex Male 2:25 PM EDT Gender Identity Not on file Sexual Orientation Not on file documented as of this encounter Miscellaneous Notes * Telephone Encounter - Debby Ho - 04/03/2024 3:04 PM EDT Fax from pharmacy for: refill Patient's Preferred Pharmacy: [id number] [facility] [address] [facility] [address] Has the patient contacted the pharmacy for this prescription? yes documented in this encounter Plan of Treatment Not on file documented as of this encounter Visit Diagnoses Not on filedocumented in this encounter
--- OUTSIDE RECORDS SUMMARY | 2024-09-12 07:58 | XMS_ITS | Clinical Summary ---
Author Organization [facility] Address [address] [place] [address] Care Team Providers Care Camera Mechanic Name Role Phone Wallace Zee MD Unavailable [phone] Jourdan Berry MD Unavailable [phone] Yuni Reece APRN Primary Care Provider Allergies Active Allergy Reactions Criticality Noted Date Comments Lisinopril Cough Low 03/22/2017 Medications Medication Sig Dispensed Refills Start Date End Date Status PREVIDENT 5000 BOOSTER PLUS 1.1 % Paste 4 09/23/2015 Active aspirin enteric coated (ECOTRIN LOW STRENGTH) 81 MG EC tablet Take 81 mg by mouth daily. Active SUMAtriptan (IMITREX) 100 MG tabletIndications:H eadache, unspecified headache type TAKE 1 TABELT BY MOUTH FOR MIGRAINE RELIEF. MAY REPEAT 2 HOURS LATER. MAX OF 2 TABLETS PER DAY 9 tablet 3 03/27/2018 Active ALPRAZolam (XANAX) 0.25 MG tabletIndications:A nxiety TAKE 1 TABLET THREE TIMES A DAY NEEDED FOR ANXIETY 30 tablet 06/13/2018 Active simvastatin (ZOCOR) 40 MG tabletIndications:H yperlipidemia Take 1 tablet (40 mg total) by mouth every evening. 90 tablet 06/19/2018 Active lidocaine-prilocain e (EMLA) cream APPLY TOPICALLY ONCE. For IV insertions 0 07/09/2018 Active metFORMIN (GLUCOPHAGE) 500 MG tabletIndications:U ncontrolled type 2 diabetes mellitus with complication, without long-term current use of insulin TAKE 2 TABS BY MOUTH EVERY MORNING AND TAKE 1 TAB BY MOUTH EVERY EVENING WITH MEALS 270 tablet 09/24/2018 Active Additional Information Patient taking differently: TAKE 2 TABS BY MOUTH EVERY MORNING AND TAKE 1 TAB BY MOUTH EVERY EVENING WITH MEALS for Diabetes, Reported on 03/20/2019 metoPROLOL SUCCINATE (TOPROL-XL) 100 MG 24 hr tabletIndications:E ssential hypertension TAKE 1 TABLET EVERY DAY 90 tablet 3 10/15/2018 Active valsartan-hydrochlo rothiazide (DIOVAN-HCT) 320-12.5 MG per tabletIndications:E ssential hypertension Take 1 tablet by mouth daily. 90 tablet 1 11/21/2018 Active escitalopram (LEXAPRO) 10 MG tabletIndications:A nxiety Take 1 tablet (10 mg total) by mouth daily. Patient due for an appointment prior to additional refills. 90 tablet 01/16/2019 Active calcium carbonate-vitamin D 600 mg-400 unit tablet Take 1 tablet by mouth daily. Active calcium citrate (CALCITRATE) 950 MG tablet Take 1 tablet by mouth daily. Active amLODIPine-valsarta n-HCTZ 5-160-12.5 MG Tab Take 1 tablet by mouth daily. 11/11/2022 Active ALPRAZolam (XANAX) 0.25 MG tablet Take by mouth. 01/01/2021 Active empagliflozin (Jardiance) 25 MG tablet Take by mouth. 12/01/2020 Active fluticasone-umeclid inium-vilanterol (TRELEGY ELLIPTA) 100-62.5-25 mcg/act inhaler Inhale. 05/05/2022 Active rosuvastatin (CRESTOR) 20 MG tablet Take by mouth. 12/02/2020 Active amLODIPine (NORVASC) 5 MG tablet Take by mouth. 09/25/2020 Active glipiZIDE (GLUCOTROL) 5 MG tablet Take by mouth. 06/01/2021 Active albuterol (ProAir HFA) 108 (90 Base) MCG/ACT inhalerIndications: Asthma exacerbation Inhale 1-2 puffs every 4 (four) hours as needed for wheezing. ProAir HFA 108 (90 Base) MCG/ACT Inhalation Aerosol Solution INHALE 2 PUFFS BY MOUTH EVERY 4-6 HOURS, SPACED 60 SECONDS APART. ; Start Date: 01/24/2012; End Date: 1 each 3 08/03/2023 Active valsartan (DIOVAN) 160 MG tablet Take 160 mg by mouth daily. 12/20/2023 Active calcium carbonate-vitamin D (CALTRATE+D) 600 mg-10 mcg tablet Take 1 tablet by mouth daily. 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 Seborrheic dermatitis 09/25/2013 Resolved Problems Problem Noted Date Diagnosed Date Resolved Date Encounter for immunization 12/29/2022 12/29/2022 0 10/18/2023 Acute bronchitis 06/01/2018 06/13/2018 Overview (06/01/2018): History of acute bronchitis: 2013-09-25 00:00:45 Morbid obesity with BMI of 40.0-44.9, adult 11/02/2016 06/13/2018 Preoperative examination 03/30/201503/2015 Cataracts, bilateral 03/30/2015 015 Swelling, mass, or lump in head and neck 12/16/2014 03/30/2015 Encounters Date Type Department Care Team Description 06/28/2024 Scanned Document [facility] Department of Pulmonology [address] [place] [place] [address] Keyanna Amador, BLOW OFF WORKER 06/13/2024 9:15 AM EST Office Visit [facility] Department of Pulmonology [address] [place] [address] Dylan Nelson MD Pulmonary emphysema, unspecified emphysema type (HCC) (Primary Dx) 06/13/2024 9:00 AM EST Procedure visit [facility] of Pulmonology [address] [address] Dylan Nelson MD Pulmonary emphysema, unspecified emphysema type (HCC) (Primary Dx); Obstructive sleep apnea; Cigarette smoker 06/12/2024 Travel from Last 3 Months Immunizations Name Administration Dates Next Due Influenza (AFLURIA/FLUZONE) Inactivated/Split Quadrivalent with Preservative IM 05/06/2014,05/19/2010 Influenza High-Dose Quadrivalent,(FLUZONE HIGH-DOSE), Perservative Free IM 0.7 mL 65 years and older 05/16/2022 Influenza Inactivated/Split Preservative Free IM 05/08/2018,05/12/2017,05/09/2016,2014,05/27/2013,05/18/2012,05/10/2011 Tdap 06/08/2018,06/07/2008 Zoster Vaccine Live/Attenuat ed (Zostavax) 12/23/2014 Zoster Vaccine Recombinant (Shingrix) 06/08/2018 Family History Medical History Relation Name Comments Diabetes Father Breast cancer Unknown 1 V16.3 Heart disease Unknown 2 V17.49 Hyperlipidemia Unknown 3 Hypertension Unknown 4 Heart defect Unknown 5 Previous Cardia c Problems V17.49 Relation Name Status Comments Father Mother Unknown 1 Unknown 2 Unknown 3 Unknown 4 Unknown 5 Social History Tobacco Use Types Packs/Day Years [...] Orientation Heterosexual (straight) 01/18 7:03 AM EDT Last Filed Vital Signs Vital Sign Reading Time Taken Comments Blood Pressure 130/82 06/13/2024 9:06 AM EST Pulse 67 06/13/2024 9:06 AM EST Temperature 36.8 ??C (98.2 ??F) 06/13/2019 9:49 AM ES T Respiratory Rate 16 06/13/2019 9:49 AM EST Oxygen Saturation 92% 06/13/2024 9:06 AM EST Inhaled Oxygen Concentration - - Weight 102 kg (224 lb) 06/13/2024 9:06 AM EST Height 170 cm (5' 6.93 ) 04/11/2024 7:39 AM EDT Body Mass Index 35.16 04/11/2024 7:39 AM EDT Plan of Treatment Upcoming Encounters Date Type Department Care Team (Late st Contact Info) Description 12/19/2024 8:00 AM EDT Procedure visit [facility] Department of Pulmonology [place] [address] [place] [phone] 12/19/2024 8:30 AM EDT Office Visit [facility] Department of Pulmonology [place] [address] [place] [phone] Dylan Nelson MD [address] [facility] [address] [place], [place] [id number] 04/17/2025 8:00 AM EDT Office Visit [facility] Department of Pulmonology [place] [address] [place] [address] Keyanna Amador APRN [address] [place] [address] Health Maintenance Due Date Last Done Comments Hepatitis C Virus Screening 1955 Pneumococcal Vaccines 50+ (1 of 2 - PCV) 10/31/1975 RSV Vaccine 60 years and older and Patients (1 - Risk 60-74 years 1-dose series) 2016 Ophthalmology Exam 07/25/2018 07/25/2017, 11/14/2016 Zoster (Shingles) Vaccine (3 of 3) 08/03/2018 06/08/2018, 12/23/2014 Lipid Panel 06/11/2019 06/11/2018, 11/05, 12/15/2015, Additional history exists Microalbumin/Creatinine Ratio Urine 06/11/2019 06/11/2018, 11/17/2016 Foot Exam 06/13/2019 06/13/2018 Abdominal Aortic Aneurysm (AAA) Screening 2021 Hemoglobin A1C 05/12/2023 11/10/2022, 09/0 02/2021, 06/11/2018, Additional history exists Creatinine with GFR 11/11/2023 11/10/2022, 11/10/2022, 06/11/2018, Additional history exists Influenza Vaccine 03/07/2024 05/01/2023, , 04/28/2021, Additional history exists COVID-19 Vaccine ( season) 2024 05/01/2023, 05/16/2022, 11/22/2021, Additional history exists DTaP/Tdap/Td Vaccines (3 - Td or Tdap) 06/08/2028 06/08/2018, 06/07/2008 Colonoscopy 08/30/2028 08/30/2018 (Prev iously Completed), 08/30/2018 Lung Cancer Screening (LDCT) Discontinued 06/21/2024, 11/30/2022, 10/25/2021, Additional history exists Hepatitis B Vaccines Aged Out No long er eligible based on patient's age to complete this topic Procedures Procedure Name Priority Date/Time Associated Diagnosis Comments CT THORAX W/O CONTRAST Routine 06/21/2024 8:26 AM EST Pulmonary emphysema, unspecified emphysema type (HCC) PULMONARY FUNCTION TEST Routine 06/13/2024 9:10 AM EST Pulmonary emphysema, unspecified emphysema type (HCC) Obstructive sleep apnea Cigarette smoker LYTES, BUN, CREAT, W/RATIO Routine 11/10/2022 7:37 AM EDT Obesity hypoventilation syndrome (HCC) Abnormal chest CT MICROALBUMIN, CREATININE, URINE, RANDOM Routine 06/11/2018 9:02 AM EST Uncontrolled type 2 diabetes mellitus with complication, without long-term current use of insulin (HCC) Essential hypertension Hyperlipidemia, unspecified hyperlipidemia type HEMOGLOBIN A1C WITH ESTIMATED AVERAGE GLUCOSE Routine 06/11/2018 9:02 AM EST Uncontrolled type 2 diabetes mellitus with complication, without long-term current use of insulin (HCC) Essential hypertension Hyperlipidemia, unspecified hyperlipidemia type LIPID PANEL REFLEX DIRECT LDL Routine 06/11/2018 9:02 AM EST Uncontrolled type 2 diabetes mellitus with complication, without long-term current use of insulin (HCC) Essential hypertension Hyperlipidemia, unspecified hyperlipidemia type from Last 3 Months or Most Recently Relevant to Health Maintenance Results * CT Thorax w/o contrast (06/21/2024 8:26 AM EST) Anatomical Region Laterality Modality Chest Computed Tomogra phy 06/21/2024 8:30 AM EST 06/21/2024 8:30 AM EST Impressions 08/11/2024 2:03 PM EST 1. ??Mosaic groundglass interstitial markings with mild air trapping is stable. Mild interstitial lung disease is stable. Small atelectasis in the right lower lobe and lingular segment is stable. Mild bronchiectasis in the right lower lobe is stable. No new infiltrates or nodules are seen. 2. ??Mild cardiomegaly is noted with coronary artery calcifications. Electronically signed by: ??Francisco Fournier MD ??08/11/2024 02:03 PM EST RP Thank you for referring your patient to us, Francisco Fournier MD [id number] (Electronically Signed - 08/11/2024 14:03) Copy: SHABBIR SAENZ [address] [id number] PATIENT , ?? Narrative 08/11/2024 2:03 PM EST EXAMINATION: CT CHEST HIGH RESOLUTION CLINICAL INFORMATION: Emphysema. Crackles in the lung bases. COMPARISON: CT chest November 15, 2022. TECHNIQUE: Using a multidetector device, helical inspiratory views of the chest were done without contrast. Expiratory views were done using high-resolution technique. Reformatting was done in the coronal and parasagittal planes. Axial MIP volume rendering provided. ?? This CT examination was performed using dose optimization techniques as appropriate, variously including the following: *Automated exposure control *Adjustment of mA and/or kV according to patient size (this includes techniques or standardized protocols for targeted exams where dose is matched to indication/reason for exam; i.e. extremities or head) *Use of iterative reconstruction technique DLP: 493.08 mGy-cm FINDINGS: Autocad Technician: Reviewed. LUNGS: The central tracheobronchial airways are patent. Mosaic groundglass interstitial markings in both lungs with mild areas of air trapping appears stable. Small atelectasis is present in the posterior basal segment right lower lobe with mild bronchiectasis is stable. Small atelectasis in the anterior portion right lower lobe as well as the lingular segment is stable. No honeycombing is seen. No new infiltrates or new nodules are seen. No pleural effusion is seen. Mild COPD is noted. ?? HEART and mediastinum: Mild cardiomegaly seen. Coronary artery calcifications are noted. No pericardial effusion is seen. No lymphadenopathy is seen. UPPER abdomen: No significant abnormality. CHEST wall and axilla: No significant abnormality: MUSCULOSKELETAL: Degenerative changes are present. Procedure Note Francisco Fournier MD - 08/11/2024 EXAMINATION: CT CHEST HIGH RESOLUTION CLINICAL INFORMATION: Emphysema. Crackles in the lung bases. COMPARISON: CT chest November 15, 2022. TECHNIQUE: Using a multidetector device, helical inspiratory views of the chest weredone without contrast. Expiratory views were done using high-resolutiontechnique. Reformatting was done in the coronal and parasagittal planes.Axial MIP volume rendering provided. This CT examination was performed using dose optimization techniques asappropriate, variously including the following: *Automated exposure control *Adjustment of mA and/or kV according to patient size (this includestechniques or standardized protocols for targeted exams where dose ismatched to indication/reason for exam; i.e. extremities or head) *Use of iterative reconstruction technique DLP: 493.08 mGy-cm FINDINGS: Autocad Technician: Reviewed. LUNGS: The central tracheobronchial airways are patent. Mosaic groundglassinterstitial markings in both lungs with mild areas of air trappingappears stable. Small atelectasis is present in the posterior basalsegment right lower lobe with mild bronchiectasis is stable. Small atelectasis in the anterior portion rightlower lobe as well as the lingular segment is stable. No honeycombing isseen. No new infiltrates or new nodules are seen. No pleural effusion isseen. Mild COPD is noted. HEART and mediastinum: Mild cardiomegaly seen. Coronary arterycalcifications are noted. No pericardial effusion is seen. Nolymphadenopathy is seen. UPPER abdomen: No significant abnormality. CHEST wall and axilla: No significant abnormality: MUSCULOSKELETAL: Degenerative changes are present. IMPRESSION: 1. Mosaic groundglass interstitial markings with mild air trapping isstable. Mild interstitial lung disease is stable. Small atelectasis in theright lower lobe and lingular segment is stable. Mild bronchiectasis inthe right lower lobe is stable. No new infiltrates or nodules are seen. 2. Mild cardiomegaly is noted with coronary artery calcifications. Electronically signed by: Francisco Fournier MD 08/11/2024 02:03 PM EST RPWorkstation: [id number] Thank you for referring your patient to us, Francisco Fournier MD [phone] (Electronically Signed - 08/11/2024 14:03) Copy: SHABBIR Zack SAENZ [address] [place] [address] PATIENT , Dylan Nelson MD IMG CT ORDERABLES * Pulmonary Function Test STR Pulm [id number] (06/13/2024 9:10 AM EST) Anatomical Region Laterality Modality Other Impressions 06/13/2024 9:10 AM EST Impression Spirometry with restriction without a response to bronchodilator unchanged from 202 Lung volumes with moderate restriction with a TLC of 66% down from 85% Diffusion capacity is mildly reduced at 71% down from 78% Dylan Nelson MD PFT ORDERABLES * Lytes, Bun, Creat, w/Ratio (11/10/2022 7:37 AM EDT) Blood Urea Nitrogen (BUN) 18 7 - 25 mg/dL [facility] Creatinine 0.82 0.70 - 1.35 mg/dL [facility] Creatinine w/ eGFR 97 > OR = 60 mL/min/1 .73m2 [facility] Comment: The eGFR is based on the CKD-EPI 202 equation. To calculate the new eGFR from a previous Creatinine or Cystatin C result, go to https://www.kidney.org/professionals/ kdoqi/gfr%5Fcalculator BUN/Creatinine Ratio NOT APPLICABLE 6 - 22 (calc) [facility] Sodium 138 135 - 146 mmol/L [facility] Potassium 4.1 3.5 - 5.3 mmol/L [facility] Chloride 99 98 - 110 mmol/L [facility] CO2 31 20 - 32 mmol/L [facility] Electrolyte Balance 8 7 - 17 mmol/L (calc) [facility] Blood specimen (specimen) Blood specimen / Unknown 11/10/2022 7:37 AM EDT 11/10/2022 7:37 AM EDT Sidney Fitch MD LAB BLOOD ORDERABLES [facility] [address] [place] [address] * (ABNORMAL) Lipid Panel Reflex Direct LDL ([facility] Only) (06/11/2018 9:02 AM EST) Cholesterol, Total 184 <200 mg/dL [facility] Cholesterol, HDL 41 >40 mg/dL [facility] Triglycerides 203(H) <150 mg/dL [facility] LDL Cholesterol 111(H) mg/dL (calc) [facility] Comment: Reference range: <100 Desirable range <100 mg/dL for primary prevention; ?? <70 mg/dL for patients with CHD or diabetic patients with > or = 2 CHD risk factors. LDL-C is now calculated using the Toby-Celaya calculation, which is a validated novel method providing better accuracy than the Friedewald equation in the estimation of LDL-C. Toby SS et al. TONY. 2013;310(19): 3552-8681 (http://education.5Rocks/faq/DVT432) Cholesterol/HDL Ratio 4.5 <5.0 (calc) [facility] Non HDL Chol. (LDL+VLDL) 143(H) <130 mg/dL (calc) [facility] Comment: For patients with diabetes plus 1 major ASCVD risk factor, treating to a non-HDL-C goal of <100 mg/dL (LDL-C of <70 mg/dL) is considered a therapeutic option. Blood specimen (specimen) 06/11/2018 9:02 AM EST 06/11/2018 9:02 AM EST Narrative [facility] - 06/12/2018 5:21 PM EST FASTING:YES FASTING: YES Resulting Agency Comment Performing Organization Information: ?Site ID: [id number] ?Name: [facility] ?Address: [address] [place] [id number] ?Director: Lisa Courtney MD Robert Haddad DO LAB BLOOD ORDERAB LES Performing Organization Address [facility] de Phone Number [facility] [address] [address] * Microalbumin, Creatinine, Urine, Random (06/11/2018 9:02 AM EST) Creatinine, Urine, Random 49 20 - 320 mg/dL [facility] Microalbumin, Urine, Random 0.5 See Note: mg/dL [facility] Comment: Reference Range: Reference Range Not established Microalbumin/Creat inine Ratio 10 <30 mcg/mg creat [facility] Comment: The ADA defines abnormalities in albumin excretion as follows: Category ? Result (mcg/mg creatinine) Normal ?<30 Microalbuminuria ? 30-299 Clinical albuminuria ?? > OR = 300 The ADA recommends that at least two of three specimens collected within a 3-6 month period be abnormal before considering a patient to be within a diagnostic category. Urine Voided urine specimen / Unknown 06/11/2018 9:02 AM EST 06/11/2018 9:02 AM EST Narrative [facility] - 06/12/2018 5:21 PM EST FASTING:YES FASTING: YES Resulting Agency Comment Performing Organization Information: ?Site ID: [id number] ?Name: [facility] ?Address: [address] [place] [id number] ?Director: Lisa Courtney MD Robert Haddad DO URINE ORDERABLES Performing Organization Address [facility] de Phone Number [email or web address] [address] [address] * (ABNORMAL) Hemoglobin A1c with Estimated Average Glucose (06/11/2018 9:02 AM EST) Hemoglobin A1C 6.4(H) <5.7 % of total Hgb [facility] Comment: For someone without known diabetes, a hemoglobin A1c value between 5.7% and 6.4% is consistent with prediabetes and should be confirmed with a follow-up test. For someone with known diabetes, a value <7% indicates that their diabetes is well controlled. A1c targets should be individualized based on duration of diabetes, age, comorbid conditions, and other considerations. This assay result is consistent with an increased risk of diabetes. Currently, no consensus exists regarding use of hemoglobin A1c for diagnosis of diabetes for children. Estimated Average Glucose (mg/dL) 137 (calc) [facility] Estimated Average Glucose (mmol/L) 7.6 (calc) [facility] Blood specimen (specimen) 06/11/2018 9:02 AM EST 06/11/2018 9:02 AM EST Narrative [facility] - 06/12/2018 5:21 PM EST FASTING:YES FASTING: YES Resulting Agency Comment Performing Organization Information: ?Site ID: [id number] ?Name: [facility] ?Address: [address] [place] [address], [facility] [place] [place] [address] ?Director: Lisa Courtney MD Robert Haddad DO LAB BLOOD ORDERAB LES [email or web address] [address] [place] [address], [place] [address] from Last 3 Months or Most Recently Relevant to Health Maintenance Advance Directives * Full Code (Latest Code Status on File) Date Activated Date Inactivated Comments 05/30/2019 7:52 AM Care Teams Camera Mechanic Relationship Specialty Start Date End Date Yuni Reece APRN [address] [place] [address] PCP - General 08/16/22 Wallace Zee MD 4 [facility] [address] [address] Otolaryngology 02/22/17 Jourdan Berry MD [address] [place] [address] Referring Provider Family Medicine 11/27/19
--- OUTSIDE RECORDS SUMMARY | 2024-09-12 07:58 | XMS_ITS | Encounter Summary ---
Author Organization [facility] Address [address] [place] [address] Care Team Providers Care All Terrain Vehicle Technician Name Role Phone Robert Haddad DO Primary Care Provider [phone] Wallace Zee MD Unavailable Jourdan Berry MD Primary Care Provider Jourdan Berry MD Unavailable Pcp, No Primary Care Provider UnavailYuni Castro APRN Primary Care Provider Encounter Details Date Type Department Care Team (Late Contact Info) Description 06/22/2018 Scanned Document [address] [phone] Robert Haddad, DO [address] [place] [id number] Social History Tobacco Use Types Packs/Day Years Used Date Smoking Tobacco: Former Cigarettes Q uit: 06/13/2006 Smokeless Tobacco: Never Alcohol Use Standard [...] Procedure visit [facility] Department of Pulmonology [place] [address] [place] [address] 12/19/2024 8:30 AM EDT Office Visit [facility] Department of Pulmonology [place] [address] [place] [phone] Dylan Nelson MD [address] [address] 04/17/2025 8:00 AM EDT Office Visit [facility] Department of Pulmonology [place] [address] [place] [phone] Keyanna Amador APRN [address] [place] [address] documented as of this encounter Visit Diagnoses Not on filedocumented in this encounter Care Teams All Terrain Vehicle Technician Relationship Specialty Start Date End Date Robert Haddad DO [facility] [place] [address] PCP - General Internal Medicine 03/03/15 03/19/19 Jourdan Berry MD [address] [place] [address] PCP - General Family Medicine 03/20/19 11/26/19 Pcp, No PCP - General General Medicine 11/27/19 08/15/22 Yuni Reece, JAVIER PCP - General 08/16/22 Wallace Zee MD [address] [place] [address] [place] [id number] Otolaryngology 02/22/17 Jourdan Berry MD [address] [place] [address] Referring Provider Family Medicine 11/27/19 documented as of this encounter
--- OUTSIDE RECORDS SUMMARY | 2024-09-12 07:58 | XMS_ITS | Encounter Summary ---
Author Organization [facility] Address [address] [place] [address] Care Team Providers Care Sewing Machine Operator Name Role Phone Robert Haddad DO Primary Care Provider [phone] Wallace Zee MD Unavailable [phone] Jourdan Berry MD Primary Care Provider Jourdan Berry MD Unavailable Pcp, No Primary Care Provider UnavailYuni Castro APRN Primary Care Provider Encounter Details Date Type Department Care Team (Late Contact Info) Description 07/11/2018 Scanned Document [address] [phone] Robert Haddad, DO [address] [place] [id number] Social History Tobacco Use Types Packs/Day Years [...] Procedure visit [facility] Department of Pulmonology [place] [address] [place] [address] 12/19/2024 8:30 AM EDT Office Visit [facility] Department of Pulmonology [place] [address] [place] [address] Dylan Nelson MD [address] [address] 04/17/2025 8:00 AM EDT Office Visit [facility] Department of Pulmonology [place] [address] [place] [phone] Keyanna Amador APRN [address] [place] [address] documented as of this encounter Visit Diagnoses Not on filedocumented in this encounter Care Teams Sewing Machine Operator Relationship Specialty Start Date End Date Robert Haddad DO [facility]0 [place] [address] PCP - General Internal Medicine 03/03/15 03/19/19 Jourdan Berry MD [address] [place] [address] PCP - General Family Medicine 03/20/19 11/26/19 Pcp, No PCP - General General Medicine 11/27/19 08/15/22 Yuni Reece, JAVIER PCP - General 08/16/22 Wallace Zee MD [address] [place] [address] [place] [address] Otolaryngology 02/22/17 Jourdan Berry MD 13 [place] [address] Referring Provider Family Medicine 11/27/19 documented as of this encounter
--- OUTSIDE RECORDS SUMMARY | 2024-09-12 07:58 | XMS_ITS | Encounter Summary ---
Author Organization [facility] Address [address] [place] [address] Care Team Providers Care Hydraulic Strainer Operator Name Role Phone Wallace Zee MD Unavailable [phone] Jourdan Berry MD Primary Care Provider [phone] Jourdan Berry MD Unavailable Pcp, No Primary Care Provider UnavailYuni Castro APRN Primary Care Provider Encounter Details Date Type Department Care Team (Late st Contact Info) Description 10/08/2019 Scanned Document [address] [place] [address] Cardiology, Scan Social History Tobacco Use Types Packs/Day Years [...] 12/19/2024 8:00 AM EDT Procedure visit [facility] Department of Pulmonology [address] [phone] 12/19/2024 8:30 AM EDT Office Visit [facility] Department of Pulmonology [place] [address] [place] [phone] Dylan Nelson MD [address] mannie [address] [address] 04/17/2025 8:00 AM EDT Office Visit [facility] Department of Pulmonology [place] [address] [place] [address] Keyanna Amador APRN [address] [place] [address] documented as of this encounter Procedures Procedure Name Priority Date/Time Associated Diagnosis Comments STRESS TEST 11/01/2019 STRESS TEST 10/08/2019 documented in this encounter Results * STRESS TEST (11/01/2019) Anatomical Region Laterality Modality Other 11/01/2019 Scan Cardiology HX AMB PROCEDURES * STRESS TEST (10/08/2019) Anatomical Region Laterality Modality Other 10/08/2019 Scan Cardiology HX AMB PROCEDURES documented in this encounter Visit Diagnoses Not on filedocumented in this encounter Care Teams Hydraulic Strainer Operator Relationship Specialty Start Date End Date Jourdan Berry MD [address] [place] [address] PCP - General Family Medicine 03/20/19 11/26/19 Pcp, No PCP - General General Medicine 11/27/19 08/15/22 Yuni Reece, FINISHED HARDWARE ERECTOR PCP - General 08/16/22 Wallace Zee MD [address] [place] [address] Dr [address] [place] [address] Otolaryngology 02/22/17 Jourdan Berry MD [address] [place] [address] Referring Provider Family Medicine 11/27/19 documented as of this encounter
--- OUTSIDE RECORDS SUMMARY | 2024-09-12 07:58 | XMS_ITS | Encounter Summary ---
Author Organization [facility] Address [address] [place] [address] Care Team Providers Care Health Informatics Instructor Name Role Phone Robert Haddad DO Primary Care Provider [phone] Wallace Zee MD Unavailable [phone] Jourdan Berry MD Primary Care Provider Jourdan Berry MD Unavailable Pcp, No Primary Care Provider UnavailYuni Castro APRN Primary Care Provider Reason for Visit * Reason Onset Date Comments Medication Refill 05/20/2016 Encounter Details Date Type Department Care Team (Late st Contact Info) Description 05/20/[address] [phone] Robert Haddad DO [address] [place] [address] Medication Refill Social History Tobacco Use Types Packs/Day Years [...] AM EDT documented as of this encounter Miscellaneous Notes * Telephone Encounter - Radha Newton RN - 05/20/2016 9:59 AM EDT DONE EARLIER TODAY * Telephone Encounter - Barbara Ricones - 05/20/2016 9:52 AM EDT PATIENT CALLED, NEEDS IMITREX RX TO BE SENT TO PHARMACY documented in this encounter Plan of Treatment Upcoming Encounters Date Type Department Care Team (Late st Contact Info) Description 12/19/2024 8:00 AM EDT Procedure visit [facility] Department of Pulmonology [place] [address] [place] [address] 12/19/2024 8:30 AM EDT Office Visit [facility] Department of Pulmonology [place] [address] [place] [address] Dylan Nelson MD [address] [address] 04/17/2025 8:00 AM EDT Office Visit [facility] Department of Pulmonology [place] [address] [place] [address] Keyanna Amador, GOGGLES ASSEMBLER [address] [place] [address] documented as of this encounter Visit Diagnoses Not on filedocumented in this encounter Care Teams Health Informatics Instructor Relationship Specialty Start Date End Date Robert Haddad DO 1060 [place] [address] PCP - General Internal Medicine 03/03/15 03/19/19 Jourdan Berry MD 13 [place] [address] PCP - General Family Medicine 03/20/19 11/26/19 Pcp, No PCP - General General Medicine 11/27/19 08/15/22 Yuni Reece APRN PCP - General 08/16/22 Wallace Zee MD 4 [facility] [address] [place] [address] Otolaryngology 02/22/17 Jourdan Berry MD 13 [place] [address] Referring Provider Family Medicine 11/27/19 documented as of this encounter
--- OUTSIDE RECORDS SUMMARY | 2024-09-12 07:58 | XMS_ITS | Encounter Summary ---
Author Organization [facility] Address [address] [place] [address] Care Team Providers Care Deck Engineer Name Role Phone Robert Haddad DO Primary Care Provider [phone] Wallace Zee MD Unavailable [phone] Jourdan Berry MD Primary Care Provider [phone] Jourdan Berry MD Unavailable [phone] Pcp, No Primary Care Provider UnavailYuni Castro APRN Primary Care Provider Encounter Details Date Type Department Care Team (Late st Contact Info) Description 11/20/2016 Scanned Document [address] [phone] Provider, Generic Social History Tobacco Use Types [...] Description 12/19/2024 8:00 AM EDT Procedure visit [facility] Department of Pulmonology [address] [address] 12/19/2024 8:30 AM EDT Office Visit [facility] Department of Pulmonology [place] [address] [place] [address] Dylan Nelson MD [address] [place] [address] [address] 04/17/2025 8:00 AM EDT Office Visit [facility] Department of Pulmonology [place] [address] [place] [phone] Keyanna Amador, LODGING FACILITIES MANAGER [address] [place] [address] documented as of this encounter Visit Diagnoses Not on filedocumented in this encounter Care Teams Deck Engineer Relationship Specialty Start Date End Date Robert Haddad DO 1060 [place] [address] PCP - General Internal Medicine 03/03/15 03/19/19 Jourdan Berry MD [address] [place] [address] PCP - General Family Medicine 03/20/19 11/26/19 Pcp, No PCP - General General Medicine 11/27/19 08/15/22 Yuni Reece, LODGING FACILITIES MANAGER PCP - General 08/16/22 Wallace Zee MD [address] [place] [address] [address] [place] [address] Otolaryngology 02/22/17 Jourdan Berry MD [address] [place] [address] Referring Provider Family Medicine 11/27/19 documented as of this encounter
--- OUTSIDE RECORDS SUMMARY | 2024-09-12 07:58 | XMS_ITS | Encounter Summary ---
Author Organization [facility] Address [address] [place] [address] Care Team Providers Care Willow Machine Tender Name Role Phone Robert Haddad DO Primary Care Provider [phone] Wallace Zee MD Unavailable Jourdan Berry MD Primary Care Provider Jourdan Berry MD Unavailable [phone] Pcp, No Primary Care Provider UnavailYuni Castro APRN Primary Care Provider Reason for Visit * Reason Comments Medication Refill Encounter Details Date Type Department Care Team (Late st Contact Info) Description 03/05/[address] [phone] Robert Haddad DO [address] [place] [address] Uncontrolled type 2 diabetes mellitus with complication, without long-term current use of insulin (HCC) Social History Tobacco Use Types Packs/Day Years Used Date Smoking Tobacco: Former Smokeless Tobacco: Never Comments:Quit Date Unknown Alcohol Use Standard Drinks/Week Comments No 0 [...] Procedure visit [facility] Department of Pulmonology [place] [address] [place] [address] 12/19/2024 8:30 AM EDT Office Visit [facility] Department of Pulmonology [place] [address] [place] [address] Dylan Nelson MD [address] [phone] 04/17/2025 8:00 AM EDT Office Visit [facility] Department of Pulmonology [place] [address] [place] [address] Keyanna Amador APRN [address] [place] [address] documented as of this encounter Visit Diagnoses Diagnosis Uncontrolled type 2 diabetes mellitus with complication, without long-term current use of insulin documented in this encounter Care Teams Willow Machine Tender Relationship Specialty Start Date End Date Robert Haddad DO 1060 [place] [address] PCP - General Internal Medicine 03/03/15 03/19/19 Jourdan Berry MD [address] [place] [address], [place] [address] PCP - General Family Medicine 03/20/19 11/26/19 Pcp, No PCP - General General Medicine 11/27/19 08/15/22 Yuni Reece, JAVIER PCP - General 08/16/22 Wallace Zee MD 4 [facility] 100 [place] [address] Otolaryngology 02/22/17 Jourdan Berry MD 13 [place] [address] Referring Provider Family Medicine 11/27/19 documented as of this encounter
--- OUTSIDE RECORDS SUMMARY | 2024-09-12 07:58 | XMS_ITS | Encounter Summary ---
Author Organization [facility] Address [address] [place] [address] Care Team Providers Care Supervisory Examiner Name Role Phone Unavailable Primary Care Provider Unavailabl e Reason for Visit * Reason Comments E-prescribing Refill Request Encounter Details Date Type Department Care Team (Late st Contact Info) Description 11/23/[address] [address] Yuni Reece APRN BC E-prescribing [...]
--- OUTSIDE RECORDS SUMMARY | 2024-09-12 07:58 | XMS_ITS | Encounter Summary ---
Author Organization [facility] Address [address] [place] [address] Care Team Providers Care Pusher Runner Name Role Phone Wallace Zee MD Unavailable Jourdan Berry MD Unavailable Pcp, No Primary Care Provider UnavailYuni Castro APRN Primary Care Provider Reason for Visit * Reason Comments Medication Refill Encounter Details Date Type Department Care Team (Late st Contact Info) Description 11/27/2019 Refill [facility] [address] [phone] Robert Haddad DO [address] [place] [address] Essential hypertension Social History Tobacco Use Types [...] encounter Miscellaneous Notes * Telephone Encounter - Robert Haddad DO - 11/27/2019 12:13 PM EDT No longer sees me. documented in this encounter Plan of Treatment Upcoming Encounters Date Type Department Care Team (Late st Contact Info) Description 12/19/2024 8:00 AM EDT Procedure visit [facility] Department of Pulmonology [place] [address] [place] [address] 12/19/2024 8:30 AM EDT Office Visit [facility] Department of Pulmonology [place] [address] [place] [address] Dylan Nelson MD 1260 [facility] [address] [address] 04/17/2025 8:00 AM EDT Office Visit [facility] Department of Pulmonology [place] [address] [place] [address] Keyanna Amador APRN [address] [place] [address] documented as of this encounter Visit Diagnoses Diagnosis Essential hypertension Unspecified essential hypertension documented in this encounter Care Teams Pusher Runner Relationship Specialty Start Date End Date Pcp, No PCP - General General Medicine 11/27/19 08/15/22 Yuni Reece APRN PCP - General 08/16/22 Wallace Zee MD 4 [facility] [address] [place] [address] Otolaryngology 02/22/17 Jourdan Berry MD 13 [place] [address] Referring Provider Family Medicine 11/27/19 documented as of this encounter
--- OUTSIDE RECORDS SUMMARY | 2024-09-12 07:58 | XMS_ITS | Encounter Summary ---
Author Organization [facility] Address [address] [place] [address] Care Team Providers Care Boom Pump Operator Name Role Phone Robert Haddad DO Primary Care Provider [phone] Wallace Zee MD Unavailable Jourdan Berry MD Primary Care Provider Jourdan Berry MD Unavailable Pcp, No Primary Care Provider UnavailYuni Castro APRN Primary Care Provider Encounter Details Date Type Department Care Team (Late Contact Info) Description 01/22/2019 Scanned Document [facility] [place] [address] [facility] [address] [place] [phone] Jourdan Beryr MD [address] [place] [address]676 Social History Tobacco Use Types Packs/Day Years [...] Procedure visit [facility] Department of Pulmonology [place] [address] [place] [address] 12/19/2024 8:30 AM EDT Office Visit [facility] Department of Pulmonology [place] [address] [place] [phone] Dylan Nelson MD [address]je[address] [address] 04/17/2025 8:00 AM EDT Office Visit [facility] Department of Pulmonology [place] [address] [place] [phone] Keyanna Amador APRN [address] [place] [address] documented as of this encounter Visit Diagnoses Not on filedocumented in this encounter Care Teams Boom Pump Operator Relationship Specialty Start Date End Date Robert Haddad DO [facility] [place] [address] PCP - General Internal Medicine 03/03/15 03/19/19 Jourdan Berry MD [address] [place] [address] PCP - General Family Medicine 03/20/19 11/26/19 Pcp, No PCP - General General Medicine 11/27/19 08/15/22 Yuni Reece, JAVIER PCP - General 08/16/22 Wallace Zee MD [address] [place] [address] [place] [address] Otolaryngology 02/22/17 Jourdan Berry MD 13 [place] [address] Referring Provider Family Medicine 11/27/19 documented as of this encounter
--- OUTSIDE RECORDS SUMMARY | 2024-09-12 07:58 | XMS_ITS | Encounter Summary ---
Author Organization [facility] Address [address] [place] [address] Care Team Providers Care Biomedical Scientist Name Role Phone Robert Haddad DO Primary Care Provider [phone] Wallace Zee MD Unavailable Jourdan Berry MD Primary Care Provider [phone] Jourdan Berry MD Unavailable Pcp, No Primary Care Provider UnavailYuni Castro APRN Primary Care Provider Encounter Details Date Type Department Care Team (Late st Contact Info) Description 09/20/2016 Scanned Document [address] [phone] Provider, Generic Social History Tobacco Use Types [...] Description 12/19/2024 8:00 AM EDT Procedure visit [facility] Department of Pulmonology [address] [address] 12/19/2024 8:30 AM EDT Office Visit [facility] Department of Pulmonology [place] [address] [place] [address] Dylan Nelson MD [address] [place] [address] [address] 04/17/2025 8:00 AM EDT Office Visit [facility] Department of Pulmonology [place] [address] [place] [address] Keyanna Amador, PATIENT PARTNER [address] [place] [address] documented as of this encounter Visit Diagnoses Not on filedocumented in this encounter Care Teams Biomedical Scientist Relationship Specialty Start Date End Date Robert Haddad DO 1060 [place] [address] PCP - General Internal Medicine 03/03/15 03/19/19 Jourdan Berry MD [address] [place] [address] PCP - General Family Medicine 03/20/19 11/26/19 Pcp, No PCP - General General Medicine 11/27/19 08/15/22 Yuni Reece, PATIENT PARTNER PCP - General 08/16/22 Wallace Zee MD [address] [place] [address] [address] [place] [address] Otolaryngology 02/22/17 Jourdan Berry MD [address] [place] [address] Referring Provider Family Medicine 11/27/19 documented as of this encounter
--- OUTSIDE RECORDS SUMMARY | 2024-09-12 07:58 | XMS_ITS | Encounter Summary ---
Author Organization [facility] Address [address] [place], [place] [address] Care Team Providers Care Tankman Name Role Phone Wallace Zee MD Unavailable Jourdan Berry MD Unavailable Yuni Reece APRN Primary Care Provider Encounter Details Date Type Department Care Team (Late st Contact Info) Description 01/12/2023 Scanned Document [facility] Department of Pulmonology [place] [address] [place] [phone] Keyanna Amador APRN [address] [place] [address] Social History Tobacco Use Types Packs/Day Years [...] Description 12/19/2024 8:00 AM EDT Procedure visit [facility] Department of Pulmonology [place] [address] [place] [phone] 12/19/2024 8:30 AM EDT Office Visit [facility] Department of Pulmonology [place] [address] [place] [address] Dylan Nelson MD [address] [address] 04/17/2025 8:00 AM EDT Office Visit [facility] Department of Pulmonology [place] [address] [place] [address] Keyanna Amador APRN [address] [place] [address] documented as of this encounter Visit Diagnoses Not on filedocumented in this encounter Care Teams Tankman Relationship Specialty Start Date End Date Yuni Reece, MANAGER PROVIDER RELATIONS [address] [place] [address] PCP - General 08/16/22 Wallace Zee MD 4 [facility] [address] [place] [address] Otolaryngology 02/22/17 Jourdan Berry MD 13 [place] [address] Referring Provider Family Medicine 11/27/19 documented as of this encounter
--- OUTSIDE RECORDS SUMMARY | 2024-09-12 07:58 | XMS_ITS | Clinical Summary ---
Author Organization [facility] Address [address] [place] [address] Care Team Providers Care Gold Leaf Gilder Name Role Phone Yuni Reece APRN Primary Care Provider [phone] Allergies No known active allergies Medications Medication Sig Dispensed Refills Start Date End Date Status metFORMIN (GLUCOPHAGE) tablet 500 mg Take 500 mg by mouth 2 (two) times a day with meals. 0 Active valsartan-hydroCHLORO thiazide (DIOVAN-HCT) 320-12.5 MG per tablet Take 1 tablet by mouth daily. 0 Active Rosuvastatin Calcium 10 MG CPSP Take 30 mg by mouth. 0 Active metoprolol succinate (TOPROL-XL) 24 hr tablet 100 mg Take 100 mg by mouth daily. 0 Active escitalopram (LEXAPRO) tablet 10 mg Take 10 mg by mouth daily. 0 Active aspirin EC 81 MG tablet Take 81 mg by mouth daily. 0 Active SUMAtriptan (IMITREX) 50 MG tablet Take 100 mg by mouth every 2 (two) hours as needed for migraine. 0 Active ALPRAZolam (XANAX) 0.25 MG tablet Take 0.25 mg by mouth every night at bedtime as needed for anxiety. 0 Active albuterol (PROVENTIL HFA;VENTOLIN HFA) 108 (90 Base) MCG/ACT inhaler Inhale 2 puffs into the lungs every 6 (six) hours as needed for wheezing. 0 Active ondansetron (ZOFRAN) 4 MG tablet Take 1 tablet (4 mg total) by mouth every 6 (six) hours as needed for nausea. 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 Family History Medical History Relation Name Comments Hypertension Father Hypertension Mother Relation Name Status Comments Father Mother Social History Tobacco Use Types Packs/Day Years Used Date Smoking Tobacco: Never Assessed Sex and Gender Information Value Date Recorded Sex Assigned at Male 09/13/2019 11:19 AM EST Gender Identity Not on file Sexual Orientation Not on file Job Start Date Occupation Industry Not on file Not on file Not on file Last Filed Vital Signs Vital Sign Reading Time Taken Comments Blood Pressure 112/62 09/13/2019 8:02 PM EST Pulse 78 09/13/2019 8:02 PM EST Temperature 36.7 ??C (98 ??F) 09/13/2019 8:02 PM EST Respiratory Rate 18 09/13/2019 8:02 PM EST Oxygen Saturation 94% 09/13/2019 8:02 PM EST Inhaled Oxygen Concentration - - Weight 95.3 kg (210 lb) 09/13/2019 11:22 AM EST Height 160 cm (5' 3 ) 09/13/2019 11:22 AM EST Body Mass Index 37.2 09/13/2019 11:22 AM EST Plan of Treatment Health Maintenance Due Date Last Done Comments Hepatitis C Screening 1955 COVID-19 Vaccine (#1) 05[birth year]02/1956 Pneumococcal Vaccine (1 of 2 - PCV) 1962 Depression Screening 1968 BMI Counseling 1974 Diabetes: Eye Exam (No Retinopathy) 1974 Diabetes: Foot Exam 1974 Diabetes: Microalbumin Test 1974 Hemoglobin A1C Due 1974 Preventative Health Evaluation 1974 Colon Cancer Screening (Colonoscopy) 2001 Shingrix-Zoster Vaccine (2 of 2) 08/03/2018 06/08/2018 Fall Risk Assessment 2021 Influenza Vaccine (#1) 2024 8, 05/12/2017, 05/09/2016, Additional history exists DTap / Tdap / Td (3 - Td or Tdap) 06/08/2028 06/08/2018, 06/07/2008 RSV Adult > 60+ Yrs or (1 - 1-dose 75+ series) 10/31/2031 Hepatitis B Vaccines Aged Out No long er eligible based on patient's age to complete this topic RSV Ped < 20 months Aged Out No longe r eligible based on patient's age to complete this topic Care Teams Gold Leaf Gilder Relationship Specialty Start Date End Date Yuni Reece APRN [address] [place] [address] PCP - General Family Medicine 08/31/21
--- OUTSIDE RECORDS SUMMARY | 2024-09-12 07:58 | XMS_ITS | Clinical Summary ---
Author Organization [employer] [facility] Address [address] [place] [address] Care Team Providers Care Mortuary Technician Name Role Phone ShanellYuni THIEN Primary Care Provider [phone] Medical History Medical History Date Comments Former smoker DX:Former smoker ; COMMENT: Quit 16 years back, smoked cig for 30 years, 1 pack/day Type 2 diabetes mellitus wit hout complications (CMS/HCC) DX:Type 2 diabetes mellitus without complications (HCC); COMMENT: followed by clay grinder Dr. Crowell, employment services director Dr. Young, no records on 02/26/21 Essential (primary) hypertension DX:Essential (primary) hypertension Mixed hyperlipidemia DX:Mixed hy perlipidemia Social History Tobacco Use Types Packs/Day Years Used Date Smoking Tobacco: Never Smokeless Tobacco: Never Alcohol Use Standard Drinks/Week Comments Never 0 (1 standard drink = 0.6 oz pur e alcohol) Sex and Gender Information Value Date Recorded Sex Assigned at Not on file Gender Identity Not on file Sexual Orientation Not on file Obstetrics History Plan of Treatment Health Maintenance Due Date Last Done Comments Diabetes: Annual Foot Exam 1966 Diabetes: Annual Retina Eye Exam 1966 DTaP,Tdap,and Td Vaccines (1 - Tdap) 10/31/1975 Zoster Vaccines (1 of 2) 2006 Diabetes: Annual GFR (Glomerular Filtration Rate) 09/13/2020 09/13/2019 Pneumococcal Vaccine: 65+ Years (1 of 1 - PCV) 2021 Abdominal Aortic Aneurysm (AAA) Screen 07/09/2022 Cholesterol Screening (Lipid Panel) 07/09/2022 Colorectal Cancer Screening: Colonoscopy 07/09/2022 Depression Screening 07/09/2022 Falls Risk Assessment 07/09/2022 Hepatitis C Screening 07/09/2022 Social Influencers of Health Screening 07/09/2022 Diabetes: Annual Urine Albumin-Creatinine Ratio (uACR) 07/16/2022 Diabetes: Blood Sugar Contro l Test (HGBA1C) 07/16/2022 Hypertension/CHF/CAD Annual BMP Blood Test 07/16/2022 09/13/2019 COVID-19 Vaccine (3 - 2023-2 5 season) 2024 11/24/2020, 10/29/2020 Influenza Vaccine (#1) 2024 RSV Immunization Patients 60 + Years Old (1 - 1-dose 75+ series) 10/31/2031 HIB Vaccines Aged Out No longer eligi ble based on patient's age to complete this topic HPV Vaccines Aged Out No longer eligi ble based on patient's age to complete this topic Hepatitis A Vaccines Aged Out No long er eligible based on patient's age to complete this topic Hepatitis B Vaccines Aged Out No long er eligible based on patient's age to complete this topic IPV Vaccines Aged Out No longer eligi ble based on patient's age to complete this topic MMR Vaccines Aged Out No longer eligi ble based on patient's age to complete this topic Meningococcal ACWY Vaccine Aged Out N o longer eligible based on patient's age to complete this topic RSV Immunization Patients Under 20 months Aged Out No longer eligible b ased on patient's age to complete this topic Varicella Vaccines Aged Out No longer eligible based on patient's age to complete this topic Care Teams Mortuary Technician Relationship Specialty Start Date End Date Yuni Reece NP [address] [place] [address] PCP - General Family Medicine 08/31/21
--- OUTSIDE RECORDS SUMMARY | 2024-09-12 07:58 | XMS_ITS | Encounter Summary ---
Author Organization [facility] Address [address] [place] [address] Care Team Providers Care Technical Professional Name Role Phone Unavailable Primary Care Provider Unavailabl e Reason for Visit * Reason Onset Date Comments Refill Request 11/29/2023 Encounter Details Date Type Department Care Team (Late st Contact Info) Description 11/29/2023 Refill [facility] [address] [place] [address] Yuni Reece APRN BC Refill Request Social [...]
--- OUTSIDE RECORDS SUMMARY | 2024-09-12 07:58 | XMS_ITS | Encounter Summary ---
Author Organization [facility] Address [address] [place] [address] Care Team Providers Care Drop Forge Operator Name Role Phone Robert Haddad DO Primary Care Provider [phone] Wallace Zee MD Unavailable Jourdan Berry MD Primary Care Provider Jourdan Berry MD Unavailable [phone] Pcp, No Primary Care Provider UnavailYuni Castro APRN Primary Care Provider Encounter Details Date Type Department Care Team (Late st Contact Info) Description 03/30/2015 Scanned Document [address] [phone] Provider, Generic Social History Tobacco Use Types Packs/Day Years Used Date Smoking Tobacco: Former Alcohol Use Standard Drinks/Week Comments Yes 0 [...] Description 12/19/2024 8:00 AM EDT Procedure visit [facility] Department of Pulmonology [address] [phone] 12/19/2024 8:30 AM EDT Office Visit [facility] Department of Pulmonology [place] [address] [place] [address] Dylan Nelson MD [address] [address] 04/17/2025 8:00 AM EDT Office Visit [facility] Department of Pulmonology [place] [address] [place] [address] Keyanna Amador APRN [address] [place] [address] documented as of this encounter Procedures Procedure Name Priority Date/Time Associated Diagnosis Comments ECG 12-LEAD 03/30/2015 documented in this encounter Results * ECG 12-LEAD (03/30/2015) Narrative 03/30/2015 Ordered by an unspecified provider. Generic Provider ECG ORDERABLES documented in this encounter Visit Diagnoses Not on filedocumented in this encounter Care Teams Drop Forge Operator Relationship Specialty Start Date End Date Robert Haddad DO [facility] [place] [address] PCP - General Internal Medicine 03/03/15 03/19/19 Jourdan Berry MD [address] [place] [address] PCP - General Family Medicine 03/20/19 11/26/19 Pcp, No PCP - General General Medicine 11/27/19 08/15/22 Yuni Reece, JAVIER PCP - General 08/16/22 Wallace Zee MD 4 [facility] [address] [place] [address] Otolaryngology 02/22/17 Jourdan Berry MD [address] [place] [address] Referring Provider Family Medicine 11/27/19 documented as of this encounter
--- OUTSIDE RECORDS SUMMARY | 2024-09-12 07:58 | XMS_ITS | Encounter Summary ---
Author Organization [facility] Address [address] [place] [address] Care Team Providers Care Servicenow Administrator Name Role Phone Robert Haddad DO Primary Care Provider [phone] Wallace Zee MD Unavailable Jourdan Berry MD Primary Care Provider Jourdan Berry MD Unavailable Pcp, No Primary Care Provider UnavailYuni Castro APRN Primary Care Provider [phone] Reason for Visit * Reason Comments Medication Refill Encounter Details Date Type Department Care Team (Late st Contact Info) Description 01/02/[address] [phone] Robert Haddad DO [address] [place] [address] Uncontrolled type 2 diabetes mellitus with complication, [...] Procedure visit [facility] Department of Pulmonology [place] [address] [place] [phone] 12/19/2024 8:30 AM EDT Office Visit [facility] Department of Pulmonology [place] [address] [place] [phone] Dylan Nelson MD [address] [phone] 04/17/2025 8:00 AM EDT Office Visit [facility] Department of Pulmonology [place] [address] [place] [address] Keyanna Amador APRN [address] [place] [address] documented as of this encounter Visit Diagnoses Diagnosis Uncontrolled type 2 diabetes mellitus with complication, without long-term current use of insulin documented in this encounter Care Teams Servicenow Administrator Relationship Specialty Start Date End Date Robert Haddad DO [address] [place] [address] PCP - General Internal Medicine 03/03/15 03/19/19 Jourdan Berry MD [address] [place] [address], [place] [address] PCP - General Family Medicine 03/20/19 11/26/19 Pcp, No PCP - General General Medicine 11/27/19 08/15/22 Yuni Reece, JAVIER PCP - General 08/16/22 Wallace Zee MD [address] [facility] 100 [place] [address] Otolaryngology 02/22/17 Jourdan Berry MD 13 [place] [address] Referring Provider Family Medicine 11/27/19 documented as of this encounter
--- OUTSIDE RECORDS SUMMARY | 2024-09-12 07:58 | XMS_ITS | Encounter Summary ---
Author Organization [facility] Address [address] [place], [place] [id number] Care Team Providers Care Capture Manager Name Role Phone Wallace Zee MD Unavailable [phone] Jourdan Berry MD Unavailable Yuni Reece APRN Primary Care Provider Encounter Details Date Type Department Care Team (Late st Contact Info) Description 01/05/2023 Scanned Document [facility] Department of Pulmonology [place] [address] [place] [phone] Keyanna Amador APRN [address] [place] [address] Social History Tobacco Use Types Packs/Day Years [...] [facility] Department of Pulmonology [place] [address] [place] [phone] 12/19/2024 8:30 AM EDT Office Visit [facility] Department of Pulmonology [place] [address] [place] [address] Dylan Nelson MD [address] [address] 04/17/2025 8:00 AM EDT Office Visit [facility] Department of Pulmonology [place] [address] [place] [address] Keyanna Amador APRN [address] [place] [address] documented as of this encounter Visit Diagnoses Not on filedocumented in this encounter Care Teams Capture Manager Relationship Specialty Start Date End Date Yuni Reece, COMMUNITY DEVELOPMENT OFFICER [address] [place] [address] PCP - General 08/16/22 Wallace Zee MD 4 [facility] [address] [place] [address] Otolaryngology 02/22/17 Jourdan Berry MD [address] [place] [address] Referring Provider Family Medicine 11/27/19 documented as of this encounter
--- OUTSIDE RECORDS SUMMARY | 2024-09-12 07:58 | XMS_ITS | Encounter Summary ---
Author Organization [facility] Address [address] [place] [address] Care Team Providers Care Justice Of The Peace Name Role Phone Robert Haddad DO Primary Care Provider [phone] Wallace Zee MD Unavailable [phone] Jourdan Berry MD Primary Care Provider Jourdan Berry MD Unavailable Pcp, No Primary Care Provider UnavailYuni Castro APRN Primary Care Provider Encounter Details Date Type Department Care Team (Late st Contact Info) Description 01/31/2017 Scanned Document [address] [phone] Provider, Generic Social History Tobacco Use Types [...] Description 12/19/2024 8:00 AM EDT Procedure visit [facility] Department of Pulmonology [address] [address] 12/19/2024 8:30 AM EDT Office Visit [facility] Department of Pulmonology [place] [address] [place] [address] Dylan Nelson MD [address] [address] 04/17/2025 8:00 AM EDT Office Visit [facility] Department of Pulmonology [place] [address] [place] [phone] Keyanna Amador, OIL LEASE BROKER [address] [place] [address] documented as of this encounter Visit Diagnoses Not on filedocumented in this encounter Care Teams Justice Of The [employer] Relationship Specialty Start Date End Date Robert Haddad DO [address] [place] [address] PCP - General Internal Medicine 03/03/15 03/19/19 Jourdan Berry MD [address] [place] [address] PCP - General Family Medicine 03/20/19 11/26/19 Pcp, No PCP - General General Medicine 11/27/19 08/15/22 Yuni Reece, OIL LEASE BROKER PCP - General 08/16/22 Wallace Zee MD [address] [place] [address] [address] [place] [address] Otolaryngology 02/22/17 Jourdan Berry MD [address] [place] [address] Referring Provider Family Medicine 11/27/19 documented as of this encounter
--- OUTSIDE RECORDS SUMMARY | 2024-09-12 07:58 | XMS_ITS | Encounter Summary ---
Author Organization [facility] Address [address] [place] [address] Care Team Providers Care Credit Cashier Name Role Phone Wallace Zee MD Unavailable [phone] Jourdan Berry MD Primary Care Provider [phone] Jourdan Berry MD Unavailable [phone] Pcp, No Primary Care Provider UnavailYuni Castro APRN Primary Care Provider Encounter Details Date Type Department Care Team (Late st Contact Info) Description 10/08/2019 Scanned Document [address] [place] [phone] Provider, Generic Social History Tobacco Use Types [...] Description 12/19/2024 8:00 AM EDT Procedure visit [facility] Department of Pulmonology [address] [phone] 12/19/2024 8:30 AM EDT Office Visit [facility] Department of Pulmonology [place] [address] [place] [phone] Dylan [place] MD [address] [facility] [address] [place] [address] 04/17/2025 8:00 AM EDT Office Visit [facility] Department of Pulmonology [place] [address] [place] [address] Keyanna Amador APRN [address] [place] [address] documented as of this encounter Procedures Procedure Name Priority Date/Time Associated Diagnosis Comments CARDIOLOGY ECHO 10/08/2019 4:06 PM EST documented in this encounter Results * CARDIOLOGY ECHO (10/08/2019 4:06 PM EST) Anatomical Region Laterality Modality Other Narrative 10/08/2019 4:06 PM EST Ordered by an unspecified provider. Generic Provider HX AMB PROCEDURES documented in this encounter Visit Diagnoses Not on filedocumented in this encounter Care Teams Credit Cashier Relationship Specialty Start Date End Date Jourdan Berry MD [address] [place] [address] PCP - General Family Medicine 03/20/19 11/26/19 Pcp, No PCP - General General Medicine 11/27/19 08/15/22 Yuni Reece, PAVING AND SURFACING LABOURER PCP - General 08/16/22 Wallace Zee MD 4 [facility] [address] [place] [address] Otolaryngology 02/22/17 Jourdan Berry MD [address] [place] [address] Referring Provider Family Medicine 11/27/19 documented as of this encounter
--- OUTSIDE RECORDS SUMMARY | 2024-09-12 07:58 | XMS_ITS | Clinical Summary ---
Author Organization [facility] Address [address] [place] [address] Care Team Providers Care Cardiology Nurse Name Role Phone Unavailable Primary Care Provider Unavailabl e Medications Albuterol (ProAir HFA) 90 mcg/ACT inhaler 0 1 Active Empagliflozin (Jardiance) 25 MG tablet TAKE 1 TABLET EVERY DAY 90 3 2 Active Multiple Vitamin (Multi Vitamin Daily) Tab 0 3 Active SUMAtriptan Succinate (IMITREX) 100 MG tablet TAKE 1 TABLET AT ONSET OF MIGRAINE, CAN REPEAT IN 2 HOURS. MAX OF 2 TABS 9 1 1 Active glipiZIDE (GLUCOTROL) 10 MG tablet take 1 tablet by mouth twice a day 180 3 1 Active Fluticasone-Ume clidin-Vilant (Trelegy Ellipta) 100-62.5-25 MCG/ACT AEROSOL POWDER, BREATH ACTIVATED INHALE ONE PUFF ONCE DAILY 0 1 Active Clotrimazole (LOTRIMIN) 1 % cream apply SPARINGLY to affected area three times a day 45 0 2 Active Rosuvastatin Calcium (CRESTOR) 20 MG tablet TAKE 1 TABLET BY MOUTH EVERY DAY 90 3 2 Active Omeprazole (PriLOSEC) [address] capsule 0 2 Active Tirzepatide (Mounjaro) 5 MG/0.5ML prefilled pen INJECT 0.5 ML WEEKLY FOR 4 WEEKS 2 0 3 Active Semaglutide (Ozempic, 0.25 or 0.5 MG/DOSE,) 2 MG/3ML prefilled pen INJECT 0.25 MG Weekly 1 1 3 Active Tretinoin (RETIN-A) 0.025 % cream APPLY SPARINGLY TO AFFECTED AREA(S) ONCE DAILY AT BEDTIME. 1 0 3 Active glipiZIDE (GLUCOTROL) 5 MG tablet TAKE 1 TABLET TWICE A DAY 180 0 3 Active glipiZIDE (GLUCOTROL) 5 MG tablet TAKE 1 TABLET TWICE A DAY 180 0 3 Active glipiZIDE (GLUCOTROL) 5 MG tablet TAKE 1 TABLET TWICE A DAY 180 0 3 Active Aspirin (Aspirin Low Dose) 81 MG EC tablet TAKE 1 TABLET BY MOUTH EVERY DAY 90 3 3 Active metFORMIN HCl (GLUCOPHAGE) 500 MG tablet TAKE ONE TABLET BY MOUTH EVERY DAY WITH A MEAL 30 tablet 4 Active Valsartan (DIOVAN) 160 MG tablet take one tablet by mouth every day 30 tablet 4 Active amLODIPine Besylate (NORVASC) 5 MG tablet take one tablet by mouth every day 30 tablet 4 Active Metoprolol Succinate (TOPROL-XL) 100 MG 24 hr tablet take one tablet by mouth every day 30 tablet 4 Active Furosemide (LASIX) 20 MG tablet TAKE ONE TABLET BY MOUTH EVERY DAY WHEN NEEDED FOR SWELLING 30 tablet 4 Active Active Problems Problem Noted Date Diagnosed Date Bilateral leg edema 03/23/2023 Overview (09/10/2023): Impression - 23Mar2023: 1+ pitting edema bilaterally. Question of superficial thrombophlebitis in the right leg. ; - ultrasound ordered to rule out DVT; - will have him stop HCTZ and start furosemide 20mg QD PRN. CMP reviewed- normal BUN, Cr, GFR ; - discussed benefits of weight loss Morbid obesity 03/23/2023 Overview (09/10/2023): Impression - [id number]: BMI 41. Start Ozempic- rx sent in. 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 On a statin. Abnormal chest CT 05/09/2021 Overview (09/10/2023): Impression - [id number]: Opacification lower lobe. Con reports he has heard this before with past imaging. Recommend he contact crown ironer operator he saw in the past for lung function testing/further f/up. Encounter for immunization 04/28/2021 Migraine 03/14/2021 Encounter for screening for lung cancer 03/14/20 21 Anxiety 03/14/2021 Overview (09/10/2023): Impression - 04Izw1119: Suggested he stop the wean at 5mg daily- continue on this dose and monitory symptoms. If they improve, they were likely due to the wean. If not, call the office for f/up if they remain bothersome. Hyperlipidemia 03/14/2021 Shortness of breath on exertion 03/12/2021 Cough 03/12/2021 Hypertension 03/12/2021 Overview (09/10/2023): Impression - [id number]: Stable. Continue medication regimen. Impression - [id number]: Blood pressure well controlled. Stop HCTZ, start Lasix. Side effects reviewed. Type 2 diabetes mellitus wit hout complication, without long-term current use of insulin 03/12/2021 Overview (09/10/2023): Impression - [id number]: Most recent A1c is 7.4- goal is 6.5. Discussed diet & exercise changes. Continue medication regimen. F/up in 4 months. Impression - [id number]: A1c 8.0%. Having trouble with diet and exercise. Has not been using Ozempic. Discussed benefits of Ozempic today. He is agreeable to trying this. Rx sent in. Side effects reviewed. F/up 3 months. Encounters Date Type Department Care Team Description 08/06/2024 Telephone [facility] [address] [place] [phone] Gopi Begum APRN BC Appointment 08/01/2024 [facility] [address] [place] [phone] Gopi Begum APRN BC E-prescribing Refill Request 06/13/2024 Consult (Initial) PULMONARY UNSPECIFIED Provider, Unknown from Last 3 Months Immunizations Name Administration Dates Next Due COVID-19, mRNA (Pfizer Pre F all 2022) Monovalent, 30 mcg/0.3 ml 05/26/2021,11/24/2020,10/29/2020 Covid-19, mRNA (Pfizer Pre F all 2022) Bivalent, 30 mcg/0.3 ml eloise-sucrose (12+) dose 05/16/2022 Covid-19, mRNA (Pfizer Pre F all 2022) Monovalent, 30 mcg/0.3 ml eloise-sucrose (12+) 11/22/2021 Influenza,high-dose, Quadrivalent 05/16/2022 Influenza,injectable,MDCK, Prsrv Fr,Quad 021 Influenza,seasonal,trivalent ,preservative (FLUZONE MDV) 04/28/2021,04/18/2020 PCV-20 06/14/2022 PPV23 (Pneumovax) 08/23/2019 Tdap 06/08/2018 Zoster (Shingrix) 05/12/2020,06/08/2018 Zoster (Zostavax) 12/23/2014 Social History Tobacco Use Types Packs/Day Years Used Date Smoking Tobacco: Never Assessed Comments:Smoking Status:No c urrent tobacco use Sex and Gender Information Value Date Recorded Sex Assigned at Not on file Legal Sex Male 2:25 PM EDT Gender Identity Not on file Sexual Orientation Not on file Last Filed Vital Signs Vital Sign Reading Time Taken Comments Blood Pressure 120/80 03/23/2023 8:07 AM EDT Pulse 97 01/19/2023 11:26 AM EDT Temperature 36.4 ??C (97.5 ??F) 01/19/2023 11:26 AM E DT Respiratory Rate 16 01/19/2023 11:26 AM EDT Oxygen Saturation 95% 01/19/2023 11:26 AM EDT Inhaled Oxygen Concentration - - Weight 105 kg (231 lb 3.9 oz) 03/23/2023 8:07 AM EDT Height 158.5 cm (5' 2.4 ) 01/19/2023 11:26 AM ED T Body Mass Index 41.75 01/19/2023 11:26 AM EDT Plan of Treatment Health Maintenance Due Date Last Done Comments Hepatitis C Screening 1955 RSV (1 - Risk 60-74 years 1-dose series) 2016 Eye/Retina Exam 04/30/2023 04/30/2021 HA1C 09/23/2023 03/23/2023, 04/0 01/2023, 08/17/2022, Additional history exists GFR 11/11/2023 11/10/2022, 09/0 01/2022, 04/13/2021 LDL Cholesterol 11/11/2023 11/10/2022, 09/0 01/2022, 04/13/2021 Microalbumin 11/11/2023 11/10/2022, 09/0 01/2022, 04/13/2021 COVID-19 Vaccine ( season) 2024 05/16/2022, 11/22/2021, 05/26/2021, Additional history exists Influenza (#1) 2024 05/16/2022, 04/08, 04/28/2021, Additional history exists DTaP/Tdap/Td (2 - Td or Tdap) 06/08/2028 06/08/2018 Colon Cancer Screening 04/28/2031 04/28/2021 Zoster (Zostavax) Discontinued 12/23/2014 Zoster (Shingrix) Completed 05/12/2020, , 12/23/2014 Colonoscopy Discontinued 04/30/2021 Tonometry Discontinued 04/30/2021 Physical Discontinued 05/16/2022, 04/30/2021 Pneumococcal 50+ years Completed 06/14/2022, 2019 EKG Discontinued 08/04/2022, 08/04/2022 PSA Discontinued 11/10/2022 Chest Imaging Discontinued 11/15/2022, 04/07, 03/22/2021 Abdominal Aorta Imaging Discontinued HPV Vaccine Aged Out No longer eligi ble based on patient's age to complete this topic Hep A Aged Out No longer eligi ble based on patient's age to complete this topic Hep B Aged Out No longer eligi ble based on patient's age to complete this topic Hib Aged Out No longer eligi ble based on patient's age to complete this topic Meningococcal ACWY Aged Out No longer eligible based on patient's age to complete this topic Procedures Procedure Name Priority Date/Time Associated Diagnosis Comments HEMOGLOBIN A1C Routine 03/23/2023 8:[address] CHEST W/O CONTRAST Routine 11/15/2022 8:30 AM EDT COMPREHENSIVE METABOLIC PANEL Routine 11/10/2022 7:42 AM EDT PSA Routine 11/10/2022 7:42 AM EDT MICROALBUMIN / CREATININE URINE RATIO Routine 11/10/2022 7:42 AM EDT LIPID PANEL, PLASMA Routine 11/10/2022 7 :42 AM EDT EKG 08/04/2022 4:00 PM EST COMPREHENSIVE EYE EXAM Routine 3:15 PM EDT COLONOSCOPY Routine 04/30/2021 3:15 PM EDT from Last 3 Months or Most Recently Relevant to Health Maintenance Results * (ABNORMAL) HEMOGLOBIN A1C (03/23/2023 8:30 AM EDT) Hemoglobin A1C 8.0(A) PHCT CONVERSIONS 03/23/2023 8:30 AM EDT Narrative PHCT CONVERSIONS - 03/23/2023 8:30 AM EDT Patient informed of results us Gopi Begum DIRECTOR BR[facility]ADCAST LABORATORY Final Re sult PHCT CONVERSIONS * CT CHEST W/O CONTRAST (11/15/2022 8:30 AM EDT) IMAGING STUDY EXAMINATION: CT CHEST WITHOUT CONTRAST CLINICAL INFORMATION: Follow-up groundglass opacities. COMPARISON: CT examinations of the chest dated 10/14/2021 and 04/16/2021. TECHNIQUE: Multidetector volumetric CT imaging of the chest was done. Axial MIP volume rendering provided. Sagittal and coronal reformatted images were obtained. ?? This CT examination was performed using dose optimization techniques as appropriate, variously including the following: *Automated exposure control *Adjustment of mA and/or kV according to patient size (this includes techniques or standardized protocols for targeted exams where dose is matched to indication/reason for exam; i.e. extremities or head) *Use of iterative reconstruction technique DLP: 571.89 mGy-cm FINDINGS: MASON APPRENTICE: The lungs are symmetrically well-expanded. There is mild linear scar/subsegmental atelectasis at the lateral right base. LUNGS: No mass, nodule or infiltrate is seen. There are small foci of pleural and parenchymal scar/subsegmental atelectasis seen within the right middle lobe, the right lower lobe, the apicoposterior segment left upper lobe and the lingula. No associated focal airway obstruction is noted. A stable mild mosaic attenuation pattern is seen within the lower lung benítez. This appears stable from 10/14/2021. No generalized small airway thickening is seen. The central airways appear patent. MEDIASTINUM: The thyroid is unremarkable. There is no thoracic aortic aneurysm. There are mild atherosclerotic calcifications of the great vessel origins and thoracic aorta. No mediastinal or hilar lymphadenopathy is seen. CORONARY ARTERY CALCIFICATION: Mild. PLEURA: There is no pleural effusion. No pleural mass or thickening. ?? AXILLA: No lymphadenopathy ?? UPPER ABDOMEN: Unremarkable ?? OSSEOUS STRUCTURES: There is multi-level lower cervical, thoracic and upper lumbar degenerative disc disease and spondylosis. No acute or aggressive osseous abnormality is seen. ?? IMPRESSION: A stable mild mosaic attenuation pattern is seen within the lower lungs, suggesting mild obstructive small airways disease. No new mass, nodule, infiltrate or groundglass opacity is seen. There is no thoracic adenopathy or pleural effusion. No aggressive osseous lesion is seen. Fleischner guidelines were followed. Thank you for referring your patient to us, Sidney Dempsey MD [phone] (Electronically Signed - 11/30/2022 14:07) Copy: VALERIA WESTFALL MD [facility] [address] [place] [address] GOPI BEGUM DIRECTOR [facility] [address] [facility] [place] [address] PHCT CONVERSIONS Anatomical Region Laterality Modality CHEST Computed Tomogra phy 11/15/2022 8:30 AM EDT us Php Unknown Prov IMG CT NO CONTRAST ORDERABLES F inal Result * MICROALBUMIN / CREATININE URINE RATIO (11/10/2022 7:42 AM EDT) Albumin (Urine) <12.0 0 - 23 mg/L PHCT CONVERSIONS Creatinine (Urine) 99 60 - 200 mg/dL PHCT CONVERSIONS 11/10/2022 7:42 AM EDT Narrative PHCT CONVERSIONS - 11/10/2022 10:29 PM EDT Microalbumin<12.0, Alb/Creat Ratio Invalid Testing Performed at: [facility], [address] [place] [address], , Signal Intelligence/Electronic Warfare: Teresa Wood MD CL#[id number] 1:05PM by Gopi Begum: ??A1c 7.5% (improved from 8.6%). Continue current regimen us Gopi Begum APRN LABORATORY Final Re sult PHCT CONVERSIONS * PSA (11/10/2022 7:42 AM EDT) PSA 0.4 0.0 - 4.0 ng/ml PHCT CONVERSIONS Comment: This test was performed using the [employer] [place] Electrochemiluminescence Immunoassay (ECLIA). ??Values obtained from different assay methods cannot be used interchangeably. ??PSA levels,regardless of value, should not be interpreted as absolute evidence of the presence or absence of disease.Please note non-age specific reference range in effect 06 11/10/2022 7:42 AM EDT Narrative PHCT CONVERSIONS - 11/10/2022 9:51 PM EDT Testing Performed at: [facility], [address] [place] [address], , Signal [employer]fare: Teresa Wood MD CL#[id number] 1:05PM by Gopi Begum: ??A1c 7.5% (improved from 8.6%). Continue current regimen Gopi Begum APRN LABORATORY Final Re sult PHCT CONVERSIONS * (ABNORMAL) LIPID PANEL, PLASMA (11/10/2022 7:42 AM EDT) Cholesterol 165 0 - 199 mg/dL PHCT CONVERSIONS Triglyceride 216(H) 0 - 150 mg/dL PHCT CONVERSIONS VLDL Cholesterol 43(H) 5 - 40 mg/dL PHCT CONVERSIONS HDL Cholesterol 37(L) 40 - 80 mg/dL PHCT CONVERSIONS LDL Cholesterol 85 0 - 100 mg/dL PHCT CONVERSIONS Cholesterol Non-HDL 128 0 - 130 mg/dl PHCT CONVERSIONS CHOL/HDL Ratio 4.5 PHCT CONVERSIONS 11/10/2022 7:42 AM EDT Narrative PHCT CONVERSIONS - 11/10/2022 10:28 PM EDT FASTING: YES Testing Performed at: [facility], [address] [place] [address], , [employer]: Teresa Wood MD CL#[id number] 1:05PM by Gopi Begum: ??A1c 7.5% (improved from 8.6%). Continue current regimen Gopi Begum DIRECTOR [facility]CAST LABOR[facility] Final Re sult PHCT CONVERSIONS * (ABNORMAL) COMPREHENSIVE METABOLIC PANEL (11/10/2022 7:42 AM EDT) Glucose 137(H) 65 - 99 mg/dL PHCT CONVERSIONS Comment:Fasting Reference In terval Urea Nitrogen Blood (BUN) 17 8 - 23 mg/dL PHCT CONVERSIONS Creatinine 0.8 0.5 - 1.2 mg/dL PHCT CONVERSIONS GFR 97 >=60 PHCT CONVERSIONS Comment: Units of measure for estimated Glomular Filtration Rate: ??mL/min/1.73m2. ??If patient is , multiply reported result by 1.21 eGFR calculation is only valid for adults 18-85 years of age. Stages of Chronic Kidney Disease Stage ? GFR 3 ? 30-59 4 ? 15-29 5 ? <15 Sodium 138 133 - 145 mmol/L PHCT CONVERSIONS Potassium 4.0 3.3 - 5.3 mmol/L PHCT CONVERSIONS Chloride 98 96 - 108 mmol/L PHCT CONVERSIONS Bicarbonate 29 22 - 32 mmol/L PHCT CONVERSIONS Anion gap 3 11 PHCT CONVERSIONS Calcium 9.3 8.6 - 10.5 mg/dL PHCT CONVERSIONS Protein Total (Serum) 6.5 6.2 - 8.2 g/dL PHCT CONVERSIONS Albumin 4.2 3.5 - 5.2 g/dl PHCT CONVERSIONS Alkaline phosphatase 97 40 - 130 U/L PHCT CONVERSIONS AST (SGOT) 16 4 - 40 U/L PHCT CONVERSIONS ALT (SGPT) 16 4 - 41 U/L PHCT CONVERSIONS Bilirubin Total 0.3 0.1 - 1.0 mg/dL PHCT CONVERSIONS Globulin 2.3 1.4 - 4.8 g/dl PHCT CONVERSIONS Albumin/Globulin 2 1 - 3 PHC T CONVERSIONS Osmolality 270 253 - 285 mOsm/kg PHCT CONVERSIONS BUN/Creatinine Ratio 21 6 - 25 PHCT CONVERSIONS 11/10/2022 7:42 AM EDT Narrative PHCT CONVERSIONS - 11/10/2022 10:28 PM EDT FASTING: YES Testing Performed at: [facility], [address] [place] [address], [place] [address], , Signal Intelligence/Electronic Warfare: Teresa Wood MD CL#[id number] 1:05PM by Gopi Begum: ??A1c 7.5% (improved from 8.6%). Continue current regimen us Gopi Begum APRN LABORATORY Final Re sult Performing Organization Address [facility] Co de Phone Number PHCT CONVERSIONS * EKG (08/04/2022 4:00 PM EST) Narrative 08/04/2022 4:00 PM EST Ordered by an unspecified provider. us Unknown Provider CARDIOVASCULAR-NO INBASKET RTG Final Result * COLONOSCOPY (04/30/2021 3:15 PM EDT) COLONOSCOPY, RESULT Normal PHCT CONVERSIONS DATE NEXT SCREEN VISIT 10 Years PHCT CONVERSIONS 04/30/2021 3:15 PM EDT us Php Unknown Prov PROCEDURES Final Result Performing Organization Address [facility] Co de Phone Number PHCT CONVERSIONS * COMPREHENSIVE EYE EXAM (04/30/2021 3:15 PM EDT) DILATED RETINAL EXAM With Retinopathy PHCT CONVERSIONS 04/30/2021 3:15 PM EDT us Php Unknown Prov MINOR PROCEDURE Final Result Performing Organization Address [facility] Co de Phone Number PHCT CONVERSIONS from Last 3 Months or Most Recently Relevant to Health Maintenance
--- OUTSIDE RECORDS SUMMARY | 2024-09-12 07:58 | XMS_ITS | Encounter Summary ---
Author Organization [facility] Address [address] [place] [id number] Care Team Providers Care Flight Operations Inspector Name Role Phone Wallace Zee MD Unavailable Jourdan Berry MD Unavailable Yuni Reece APRN Primary Care Provider Encounter Details Date Type Department Care Team (Late st Contact Info) Description 02/02/2024 Scanned Document [facility] Department of Pulmonology [address] [phone] Pulmonary, Scan Social History Tobacco Use Types Packs/Day [...] 12/19/2024 8:00 AM EDT Procedure visit [facility] Department of Pulmonology [address] [phone] 12/19/2024 8:30 AM EDT Office Visit [facility] Department of Pulmonology [address] [address] Dylan Nelson MD [address] [facility] [address] [place] [address] 04/17/2025 8:00 AM EDT Office Visit [facility] Department of Pulmonology [place] [address] [place] [address] Keyanna Amador APRN [address] [place] [address] documented as of this encounter Visit Diagnoses Not on filedocumented in this encounter Care Teams Flight Operations Inspector Relationship Specialty Start Date End Date Yuni Reece, OFFICER LIEUTENANT [address] [place] [address] PCP - General 08/16/22 Wallace Zee MD [address] [place] [address] Otolaryngology 02/22/17 Jourdan Berry MD [address] [place] [address] Referring Provider Family Medicine 11/27/19 documented as of this encounter
--- OUTSIDE RECORDS SUMMARY | 2024-09-12 07:59 | XMS_ITS | Encounter Summary ---
Author Organization [facility] Address [address] [place] [address] Care Team Providers Care Journeyman Power Plant Operator Name Role Phone Wallace Zee MD Unavailable Jourdan Berry MD Unavailable [phone] Yuni Reece APRN Primary Care Provider Encounter Details Date Type Department Care Team (Late st Contact Info) Description 10/12/2022 Scanned Document [facility] Department of Pulmonology [place] [address] [facility] [address] [place] [address] Keyanna Amador APRN [address] [place] [address] Social History Tobacco Use Types Packs/Day Years [...] Description 12/19/2024 8:00 AM EDT Procedure visit [facility] Department of Pulmonology [address] [phone] 12/19/2024 8:30 AM EDT Office Visit [facility] Department of Pulmonology [place] [address] [place] [phone] Dylan Nelson MD [address] [address] 04/17/2025 8:00 AM EDT Office Visit [facility] Department of Pulmonology [place] [address] [place] [address] Keyanna Amador APRN [address] [place] [address] documented as of this encounter Visit Diagnoses Not on filedocumented in this encounter Care Teams Journeyman Power Plant Operator Relationship Specialty Start Date End Date Yuni Reece, JAVIER [address] [place] [address] PCP - General 08/16/22 Wallace Zee MD [address] [facility] [address] [place] [address] Otolaryngology 02/22/17 Jourdan Berry MD [address] [place] [address] Referring Provider Family Medicine 11/27/19 documented as of this encounter
--- OUTSIDE RECORDS SUMMARY | 2024-09-12 07:59 | XMS_ITS | Encounter Summary ---
Author Organization [facility] Address [address] [place] [address] Care Team Providers Care Brick Cleaner Name Role Phone Wallace Zee MD Unavailable Jourdan Berry MD Unavailable [phone] Yuni Reece APRN Primary Care Provider Encounter Details Date Type Department Care Team (Late st Contact Info) Description 10/12/2022 Scanned Document [facility] Department [facility] Pulmonology [place] [address] [facility] [address] [place] [address] Keyanna Amador APRN [address] [place] [address] Social History Tobacco Use Types Packs/Day Years [...] 8:00 AM EDT Procedure visit [facility] Department of Pulmonology [address] [address] 12/19/2024 8:30 AM EDT Office Visit [facility] Department of Pulmonology [place] [address] [place] [phone] Dylan Nelson MD [address] [address] 04/17/2025 8:00 AM EDT Office Visit [facility] Department of Pulmonology [place] [address] [place] [address] Keyanna Amador APRN [address] [place] [address] documented as of this encounter Visit Diagnoses Not on filedocumented in this encounter Care Teams Brick Cleaner Relationship Specialty Start Date End Date Yuni Reece, JAVIER [address] [place] [address] PCP - General 08/16/22 Wallace Zee MD [address] [facility] [address] [place] [address] Otolaryngology 02/22/17 Jourdan Berry MD [address] [place] [address] Referring Provider Family Medicine 11/27/19 documented as of this encounter
--- NOTE | 2024-09-12 08:28 | A.OFFVIS_ITS ---
Vital Signs 09/12/24 08:28 Height 5 ft 1.81 in Weight 224 lb 13.944 oz BMI 41.4 BP 130/88 Blood Pressure Location Rt brachial Position Sitting Pulse 67 Pulse Source Pulse Oximeter Pulse Oximetry (%) 95 Oxygen Delivery Method Room Air Intake Visit Reasons: COPD Allergies No Known Allergies Allergy (Verified 09/12/24 08:30) HPI Comments Details: The patient is a 68-year-old gentleman with known history of COPD KRISTIAN on CPAP presenting with worsening respiratory symptoms. Apparently the patient states that he has been on CPAP for many years. CPAP therapy has been affecting beneficial. He does use a nasal mask. He did try to get a download but his secure digital card got lost in the mail. He is going to bring it into the next visit so we can download it and adjust accordingly. He also uses oxygen with the CPAP. He did have an overnight oximetry demonstrating that he is getting good oxygenation while weight in the 2 L with CPAP. In addition to that he has dyspnea on exertion. He carries a diagnosis of COPD. He did have PFTs in June 2024. We did look at the numbers together. He has a erne-dd-escqqkon restriction in addition to that has a mild obstructive process that likely is overshadowed because of the restriction component. He has also mild diffusion impairment. We did go for brief walking oximetry. He did desaturate down to about 90%. Dyspnea score is 4/10. Heart rate did increase to about 100 beats per minute. Patient does not qualify for oxygen but he does have some degree of hypoxia. He is overweight. He addition to that the patient does have some evidence of reflux disease. He had a CT scan done elsewhere in the report states that he does have some bronchiectatic changes in the right base which could be secondary to microaspiration. The rest of the CT scan demonstrates areas of mosaic pattern suggesting air trapping in addition to some mild interstitial lung disease that appears to be stable. Will try to get the images to review. 09/12/2024 the patient is here for a pulmonary follow-up visit. Overall he is doing well. He is using his CPAP every night. He does have an eye bruits. We did try to get him supplies through [facility] although they were not able to do so. Also another script for supplies to [facility]. Hopefully they can provide him with the supplies that he needs. Otherwise going to bring the machine in so I can look at it and adjusting accordingly. In addition to that he did go upstairs for the 1st session of his pulmonary rehabilitation. I believe this is very helpful for the patient. He did undergo a 6 minute walk test. I do not have those results as of yet but he does not qualify for oxygen as before. In addition to that the patient did have a CT scan of the chest that we personally just reviewed the report demonstrating mosaic pattern in addition to some minimal interstitial changes. Based on the respiratory examined the findings on the test he does not need any maintenance inhalers at this time. I did reassure him about that. Although if he started developing worsening shortness breath while participating in pulmonary rehabilitation we can always consider maintenance therapy then. We did review his vaccines up-to-date with all the necessary respiratory vaccines at this time. Will plan to follow-up in 6-8 m [facility] if he has any issues prior to that he will call for an earlier assessment. 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 Bilateral artificial lens implant Diverticulitis Sleep apnea KRISTIAN (obstructive sleep apnea) Eosinophilic granuloma Diverticulosis Surgical History (Updated 02/05/24 @ 15:10 by CRISTAL Mejía) H/O bilateral cataract extraction History of colonoscopy H/O anal fistulotomy Family History (Updated 02/05/24 @ 15:11 by CRISTAL Mejía) Mother Hypertension Father Hypertension Other Type 2 diabetes mellitus Social History Housing: House Patient Tobacco Use Status: Former Tobacco user Cigarette Packs Per Day: 1.5 Years Smoked: 30 e-Cigarette/Vaping Use: Never Used Second Hand Smoke Exposure: No service: No Current occupational status: employed Current occupation: [employer] Current occupational exposures/hazards: No Cognitive needs: No Hearing needs: Yes Vision needs: Yes Review of Systems Const Denies fever(s) ENT Denies hoarseness Card Denies chest pain and Reports dyspnea on exertion Resp Reports dyspnea on exertion GI Reports dyspepsia and Reports heartburn Musc Reports no additional complaints Skin/Breast Denies rash Valentino/Lymph Reports no additional complaints Aller/Immun Reports no additional complaints Physical Exam Vital Signs: Last Vital Signs Pulse 67 09/12/24 08:28 BP 130/88 09/12/24 08:28 Pulse Ox 95 09/12/24 08:28 Oxygen Delivery Method Room Air 09/12/24 08:28 BMI result Body Mass Index 41.4 Const General: comfortable HEENT Head: Yes normocephalic Neck Neck: Yes supple Chest Chest palpation & inspection: normal inspection of the chest Resp Effort & Inspection: normal respiratory effort Auscultation: crackles bilateral (minimal) and diminished lung sounds Cardio Heart sounds: S1 normal heart sound present and S2 normal heart sound present GI Palpation (GI): Soft to palpation Assessment & Plan Assessment & Plan (1) COPD (chronic obstructive pulmonary disease) with chronic bronchitis: Code(s): J44.89 - Other specified chronic obstructive pulmonary disease Category: Medical (2) ILD (interstitial lung disease): Code(s): J84.9 - Interstitial pulmonary disease, unspecified Category: Medical (3) KRISTIAN on CPAP: Code(s): G47.33 - Obstructive sleep apnea (adult) (pediatric) Category: Medical (4) GERD (gastroesophageal reflux disease): Code(s): K21.9 - Gastro-esophageal reflux disease without esophagitis Category: Medical Qualifiers: Esophagitis presence: without esophagitis Qualified Code(s): K21.9 - Gastro-esophageal reflux disease without esophagitis (5) Hypoxia: Code(s): R09.02 - Hypoxemia Category: Medical Plan NAZ as needed continue Pulmonary rehab continue APAP, requesting supplies from [employer] (previously [employer]). reflux diet sleep with HOB elevated continue APAP with 2l Oxygen, will bring PAP to next visit to download and adjust if needed F/U 6-8 months Coding Level of Care Code Est Pt Level 4 (42235) Complex EM visit Add On G2211 Diagnoses COPD (chronic obstructive pulmonary disease) with chronic bronchitis J44.89 ILD (interstitial lung disease) J84.9 KRISTIAN on CPAP G47.33 Gastroesophageal reflux disease without esophagitis K21.9 Esophagitis presence: without esophagitis Hypoxia R09.02 Time Spent (min) 17
== END | disposition home or self-care (01) ==
PROVIDERS: PCP Physician Assistant Medical; Visit Provider Hospitalist
CPT/HCPCS: 99214

== ENCOUNTER 2024-10-03 09:21 | Outpatient (AMB) | payer OTHER, SELFPAY ==
--- OUTSIDE RECORDS SUMMARY | 2024-10-03 10:18 | XMS_ITS | Encounter Summary ---
Author Organization [facility] Address [address] [place] [address] Care Team Providers Care Service Porter Name Role Phone Robert Haddad DO Primary Care Provider [phone] Wallace Zee MD Unavailable Jourdan Berry MD Primary Care Provider Jourdan Berry MD Unavailable Pcp, No Primary Care Provider UnavailYuni Castro APRN Primary Care Provider Reason for Visit * Reason Onset Date Comments Medication Refill 05/20/2016 Encounter Details Date Type Department Care Team (Late st Contact Info) Description 05/20/[address] [phone] Robert Haddad DO [address] [place] [address] Medication Refill Social History Tobacco Use Types [...] Procedure visit [facility] Department of Pulmonology [place] [address] [place] [address] 12/19/2024 8:30 AM EDT Office Visit [facility] Department of Pulmonology [place] [address] [place] [address] Dylan eNlson MD [address] [address] 04/17/2025 8:00 AM EDT Office Visit [facility] Department of Pulmonology [place] [address] [place] [address] Keyanna Amador, RELAY RECORD CLERK [address] [place] [address] documented as of this encounter Visit Diagnoses Not on filedocumented in this encounter Care Teams Service Porter Relationship Specialty Start Date End Date Robert Haddad DO [address] [place] [address] PCP - General Internal Medicine 03/03/15 03/19/19 Jourdan Berry MD 13 [place] [address] PCP - General Family Medicine 03/20/19 11/26/19 Pcp, No PCP - General General Medicine 11/27/19 08/15/22 Yuni Reece APRN PCP - General 08/16/22 Wallace Zee MD [address] [facility] [address] [place] [address] Otolaryngology 02/22/17 Jourdan Berry MD 13 [place] [address] Referring Provider Family Medicine 11/27/19 documented as of this encounter
--- OUTSIDE RECORDS SUMMARY | 2024-10-03 10:18 | XMS_ITS | Encounter Summary ---
Author Organization [facility] Address [address] [place] [address] Care Team Providers Care Booth Cleaner Name Role Phone Robert Haddad DO Primary Care Provider [phone] Wallace Zee MD Unavailable Jourdan Berry MD Primary Care Provider Jourdan Berry MD Unavailable [phone] Pcp, No Primary Care Provider UnavailYuni Castro APRN Primary Care Provider [phone] Encounter Details Date Type Department Care Team (Late st Contact Info) Description 02/02/2016 Scanned Document [address] [phone] Provider, Generic Social History Tobacco Use Types [...] [facility] Department of Pulmonology [address] [phone] 12/19/2024 8:30 AM EDT Office Visit [facility] Department of Pulmonology [place] [address] [place] [address] Dylan Nelson MD [address] [address] 04/17/2025 8:00 AM EDT Office Visit [facility] Department of Pulmonology [place] [address] [place] [phone] Keyanna Amador APRN [address] [place] [address] documented as of this encounter Visit Diagnoses Not on filedocumented in this encounter Care Teams Booth Cleaner Relationship Specialty Start Date End Date Robert Haddad DO [address] [place] [address] PCP - General Internal Medicine 03/03/15 03/19/19 Jourdan Berry MD [address] [place] [address] PCP - General Family Medicine 03/20/19 11/26/19 Pcp, No PCP - General General Medicine 11/27/19 08/15/22 Yuni Reece, YARN DRY ROOM WORKER PCP - General 08/16/22 Wallace Zee MD [address] [place] [address] [address] [place] [address] Otolaryngology 02/22/17 Jourdan Berry MD [address] [place] [address] Referring Provider Family Medicine 11/27/19 documented as of this encounter
--- OUTSIDE RECORDS SUMMARY | 2024-10-03 10:18 | XMS_ITS | Encounter Summary ---
Author Organization [facility] Address [address] [place] [address] Care Team Providers Care Refrigerator Assembler Name Role Phone Wallace Zee MD Unavailable [phone] Jourdan Berry MD Primary Care Provider [phone] Jourdan Berry MD Unavailable [phone] Pcp, No Primary Care Provider UnavailYuni Castro APRN Primary Care Provider Reason for Visit * Reason Comments Medication Refill Encounter Details Date Type Department Care Team (Late st Contact Info) Description 10/17/[address] [phone] Robert Haddad, [address] [address] Essential hypertension Social History Tobacco Use Types [...] Description 12/19/2024 8:00 AM EDT Procedure visit [facility] Department of Pulmonology [place] [address] [place] [address] 12/19/2024 8:30 AM EDT Office Visit [facility] Department of Pulmonology [place] [address] [place] [phone] Dylan Nelson MD [address] [phone] 04/17/2025 8:00 AM EDT Office Visit [facility] Department of Pulmonology [place] [address] [place] [address] Keyanna Amador APRN [address] [place] [address] documented as of this encounter Visit Diagnoses Diagnosis Essential hypertension Unspecified essential hypertension documented in this encounter Care Teams Refrigerator Assembler Relationship Specialty Start Date End Date Jourdan Berry MD 13 [place] [address] PCP - General Family Medicine 03/20/19 11/26/19 Pcp, No PCP - General General Medicine 11/27/19 08/15/22 Yuni Reece, JAVIER PCP - General 08/16/22 Wallace Zee MD [address] [facility] [address] [place] [address] Otolaryngology 02/22/17 Jourdan Berry MD 13 [place] [address] Referring Provider Family Medicine 11/27/19 documented as of this encounter
--- OUTSIDE RECORDS SUMMARY | 2024-10-03 10:18 | XMS_ITS | Encounter Summary ---
Author Organization [facility] Address [address] [place] [address] Care Team Providers Care Patent Prosecution Attorney Name Role Phone Wallace Zee MD Unavailable Jourdan Berry MD Unavailable Pcp, No Primary Care Provider UnavailYuni Castro APRN Primary Care Provider Reason for Visit * Reason Comments Medication Refill Encounter Details Date Type Department Care Team (Late st Contact Info) Description 11/27/[address] [phone] Robert Haddad DO [address] [place] [address] Essential hypertension Social History Tobacco Use Types [...] Description 12/19/2024 8:00 AM EDT Procedure visit [facility] Department of Pulmonology [place] [address] [place] [phone] 12/19/2024 8:30 AM EDT Office Visit [facility] Department of Pulmonology [place] [address] [place] [address] Dylan Nelson MD [address] [address] 04/17/2025 8:00 AM EDT Office Visit [facility] Department of Pulmonology [place] [address] [place] [phone] Keyanna Amador APRN [address] [place] [address] documented as of this encounter Visit Diagnoses Diagnosis Essential hypertension Unspecified essential hypertension documented in this encounter Care Teams Patent Prosecution Attorney Relationship Specialty Start Date End Date Pcp, No PCP - General General Medicine 11/27/19 08/15/22 Yuni Reece APRN PCP - General 08/16/22 Wallace Zee MD 4 [facility] [address] [place] [address] Otolaryngology 02/22/17 Jourdan Berry MD 13 [place] [address] Referring Provider Family Medicine 11/27/19 documented as of this encounter
--- OUTSIDE RECORDS SUMMARY | 2024-10-03 10:18 | XMS_ITS | Clinical Summary ---
Author Organization [facility] Address [address] [place] [address] Care Team Providers Care Pediatric Acute Care Unit Nurse Name Role Phone Yuni Reece APRN Primary Care Provider [phone] Allergies No known active allergies Medications Medication [...] age to complete this topic Care Teams Pediatric Acute Care Unit Nurse Relationship Specialty Start Date End Date Yuni Reece APRN [address] [place] [address] PCP - General Family Medicine 08/31/21
--- OUTSIDE RECORDS SUMMARY | 2024-10-03 10:18 | XMS_ITS | Encounter Summary ---
Author Organization [facility] Address [address] [place] [address] Care Team Providers Care Public Affairs Manager Name Role Phone Robert Haddad DO Primary Care Provider [phone] Wallace Zee MD Unavailable [phone] Jourdan Berry MD Primary Care Provider Jourdan Berry MD Unavailable [phone] Pcp, No Primary Care Provider UnavailYuni Castro APRN Primary Care Provider Encounter Details Date Type Department Care Team (Late st Contact Info) Description 08/19/2016 Scanned Document [address] [phone] Provider, Generic Social History Tobacco Use Types [...] Description 12/19/2024 8:00 AM EDT Procedure visit [facility] Department of Pulmonology [address] [phone] 12/19/2024 8:30 AM EDT Office Visit [facility] Department of Pulmonology [place] [address] [place] [address] Dylan Nelson MD [address] [address] 04/17/2025 8:00 AM EDT Office Visit [facility] Department of Pulmonology [place] [address] [place] [phone] Keyanna Amador APRN [address] [place] [address] documented as of this encounter Visit Diagnoses Not on filedocumented in this encounter Care Teams Public Affairs Manager Relationship Specialty Start Date End Date Robert Haddad DO [address] [place] [address] PCP - General Internal Medicine 03/03/15 03/19/19 Jourdan Berry MD [address] [place] [address] PCP - General Family Medicine 03/20/19 11/26/19 Pcp, No PCP - General General Medicine 11/27/19 08/15/22 Yuni Reece, TRUST MANAGER ASSISTANT PCP - General 08/16/22 Wallace Zee MD [address] [place] [address] [address] [place] [address] Otolaryngology 02/22/17 Jourdan Berry MD [address] [place] [address] Referring Provider Family Medicine 11/27/19 documented as of this encounter
--- OUTSIDE RECORDS SUMMARY | 2024-10-03 10:18 | XMS_ITS | Clinical Summary ---
Author Organization [facility] Address [address] [place] [address] Care Team Providers Care Unit Trust Manager Name Role Phone SarahiYuni jain THIEN Primary Care Provider [phone] Medical History Medical History Date Comments Former smoker DX:Former smoker ; COMMENT: Quit 16 years back, smoked cig for 30 years, 1 pack/day Type 2 diabetes mellitus wit hout complications (CMS/HCC) DX:Type 2 diabetes mellitus without complications (HCC); COMMENT: followed by business affairs manager Dr. Crowell, photography sales associate Dr. Young, no records on 02/26/21 Essential [...] at Not on file Legal Sex Male 10:22 PM EST Gender Identity Not on file Sexual Orientation Not on file Obstetrics History Plan of Treatment Health Maintenance Due Date Last Done Comments Diabetes: Annual Foot Exam 1966 Diabetes: Annual Retina Eye Exam 1966 DTaP,Tdap,and Td Vaccines (1 - Tdap) 10/31/1975 Pneumococcal Vaccine: 50+ Years (1 of 1 - PCV) 2006 Zoster Vaccines (1 of 2) 2006 Diabetes: Annual GFR (Glomerular Filtration Rate) 09/13/2020 09/13/2019 Abdominal Aortic Aneurysm (AAA) Screen 07/09/2022 Cholesterol [...] patient's age to complete this topic Meningococcal B Vacine Aged Out No lo nger eligible based on patient's age to complete this topic RSV Immunization Patients Under 20 months Aged Out No longer eligible b ased on patient's age to complete this topic Varicella Vaccines Aged Out No longer eligible based on patient's age to complete this topic Care Teams Unit Trust Manager Relationship Specialty Start Date End Date Yuni Reece NP [address] [place] [address] PCP - General Family Medicine 08/31/21
--- OUTSIDE RECORDS SUMMARY | 2024-10-03 10:18 | XMS_ITS | Encounter Summary ---
Author Organization [facility] Address [address] [place] [address] Care Team Providers Care Brazer Induction Name Role Phone Robert Haddad DO Primary Care Provider [phone] Wallace Zee MD Unavailable Jourdan Berry MD Primary Care Provider [phone] Jourdan Berry MD Unavailable [phone] Pcp, No Primary Care Provider UnavailYuni Castro APRN Primary Care Provider Encounter Details Date Type Department Care Team (Late st Contact Info) Description 01/31/2017 Scanned Document [address] [phone] Provider, Generic Social History Tobacco Use Types [...] visit [facility] Department of Pulmonology [address] [phone] 12/19/2024 8:30 AM EDT Office Visit [facility] Department of Pulmonology [place] [address] [place] [address] Dylan Nelson MD [address] [address] 04/17/2025 8:00 AM EDT Office Visit [facility] Department of Pulmonology [place] [address] [place] [phone] Keyanna Amador APRN [address] [place] [address] documented as of this encounter Visit Diagnoses Not on filedocumented in this encounter Care Teams Brazer Induction Relationship Specialty Start Date End Date Robert Haddad DO [address] [place] [address] PCP - General Internal Medicine 03/03/15 03/19/19 Jourdan Berry MD [address] [place] [address] PCP - General Family Medicine 03/20/19 11/26/19 Pcp, No PCP - General General Medicine 11/27/19 08/15/22 Yuni Reece, SURFACE SUPERVISOR PCP - General 08/16/22 Wallace Zee MD [address] [place] [address] [address] [place] [address] Otolaryngology 02/22/17 Jourdan Berry MD [address] [place] [address] Referring Provider Family Medicine 11/27/19 documented as of this encounter
--- OUTSIDE RECORDS SUMMARY | 2024-10-03 10:18 | XMS_ITS | Encounter Summary ---
Author Organization [facility] Address [address] [place] [address] Care Team Providers Care Edging Machine Operator Name Role Phone Wallace Zee MD Unavailable [phone] Jourdan Berry MD Primary Care Provider [phone] Jourdan Berry MD Unavailable [phone] Pcp, No Primary Care Provider UnavailYuni Castro APRN Primary Care Provider Encounter Details Date Type Department Care Team (Late st Contact Info) Description 10/08/2019 Scanned Document [address] [place] [address] Cardiology, Scan Social History Tobacco [...] Description 12/19/2024 8:00 AM EDT Procedure visit [facility] Department of Pulmonology [address] [phone] 12/19/2024 8:30 AM EDT Office Visit [facility] Department of Pulmonology [place] [address] [place] [address] Dylan Nelson MD [address] [address] 04/17/2025 8:00 AM EDT Office Visit [facility] Department of Pulmonology [place] [address] [place] [address] Keyanna Amador APRN [address] [place] [address] documented as of this encounter Procedures Procedure [...] on filedocumented in this encounter Care Teams Edging Machine Operator Relationship Specialty Start Date End Date Jourdan Berry MD [address] [place] [address] PCP - General Family Medicine 03/20/19 11/26/19 Pcp, No PCP - General General Medicine 11/27/19 08/15/22 Yuni Reece, ADJUSTO WRITER OPERATOR PCP - General 08/16/22 Wallace Zee MD [address] [facility] [address] [place] [address] Otolaryngology 02/22/17 Jourdan Berry MD [address] [place] [address] Referring Provider Family Medicine 11/27/19 documented as of this encounter
--- OUTSIDE RECORDS SUMMARY | 2024-10-03 10:18 | XMS_ITS | Encounter Summary ---
Author Organization Formerly [facility] Address [address] [place] [address] Care Team Providers Care Breeding Technician Name Role Phone Robert Haddad DO Primary Care Provider [phone] Wallace Zee MD Unavailable [phone] Jourdan Berry MD Primary Care Provider [phone] Jourdan Berry MD Unavailable Pcp, No Primary Care Provider UnavailYuni Castro APRN Primary Care Provider [phone] Encounter Details Date Type Department Care Team (Late Contact Info) Description 07/11/2018 Scanned Document [address] [phone] Robert Haddad, DO [address] [place] [address] Social History Tobacco Use Types Packs/Day Years [...] Encounters Date Type Department Care Team (Late Contact Info) Description 12/19/2024 8:00 AM EDT [facility] Department of Pulmonology [place] [address] [place] [address] 12/19/2024 8:30 AM EDT Office Visit [facility] Physicians Department of Pulmonology [place] [address] [place] [phone] Dylan Nelson MD [address] [address] 04/17/2025 8:00 AM EDT Office Visit [facility] Department of Pulmonology [place] [address] [place] [address] Keyanna Amador APRN [address] [place] [address] documented as of this encounter Visit Diagnoses Not on filedocumented in this encounter Care Teams Breeding Technician Relationship Specialty Start Date End Date Robert Haddad DO [facility]0 [place] [address] PCP - General Internal Medicine 03/03/15 03/19/19 Jourdan Berry MD [address] [place] [address] PCP - General Family Medicine 03/20/19 11/26/19 Pcp, No PCP - General General Medicine 11/27/19 08/15/22 Yuni Reece, JAVIER PCP - General 08/16/22 Wallace Zee MD [address] [place] [address] Otolaryngology 02/22/17 Jourdan Berry MD 13 [place] [address] Referring Provider Family Medicine 11/27/19 documented as of this encounter
--- OUTSIDE RECORDS SUMMARY | 2024-10-03 10:18 | XMS_ITS | Encounter Summary ---
Author Organization [facility] Address [address] [place] [address] Care Team Providers Care Web Marketing Specialist Name Role Phone Robert Haddad DO Primary Care Provider [phone] Wallace Zee MD Unavailable [phone] Jourdan Berry MD Primary Care Provider Jourdan Berry MD Unavailable [phone] Pcp, No Primary Care Provider UnavailYuni Castro APRN Primary Care Provider Encounter Details Date Type Department Care Team (Late st Contact Info) Description 03/30/2015 Scanned Document [address] [phone] Provider, Generic Social History Tobacco Use Types [...] Description 12/19/2024 8:00 AM EDT Procedure visit [facility] Department of Pulmonology [address] [phone] 12/19/2024 8:30 AM EDT Office Visit [facility] Physicians Department of Pulmonology [place] [address] [place] [address] Dylan Nelson MD [address] mannie [address] [address] 04/17/2025 8:00 AM EDT Office Visit [facility] Department of Pulmonology [place] [address] [place] [address] Keyanna Amador APRN [address] [place] [address] documented as of this encounter Procedures Procedure Name Priority Date/Time Associated Diagnosis Comments ECG 12-LEAD 03/30/2015 documented in this encounter Results * ECG 12-LEAD (03/30/2015) Narrative 03/30/2015 Ordered by an unspecified provider. Generic Provider ECG ORDERABLES documented in this encounter Visit Diagnoses Not on filedocumented in this encounter Care Teams Web Marketing Specialist Relationship Specialty Start Date End Date Robert Haddad DO [facility]0 [place] [address] PCP - General Internal Medicine 03/03/15 03/19/19 Jourdan Berry MD [address] [place] [address] PCP - General Family Medicine 03/20/19 11/26/19 Pcp, No PCP - General General Medicine 11/27/19 08/15/22 Yuni Reece, JAVIER PCP - General 08/16/22 Wallace Zee MD 4 [facility] [address] [place] [address] Otolaryngology 02/22/17 Jourdan Berry MD 13 [facility] [place] [address] Referring Provider Family Medicine 11/27/19 documented as of this encounter
--- OUTSIDE RECORDS SUMMARY | 2024-10-03 10:18 | XMS_ITS | Encounter Summary ---
Author Organization [facility] Address [address] [place] [address] Care Team Providers Care Head Of Strategy Name Role Phone Robert Haddad DO Primary Care Provider [phone] Wallace Zee MD Unavailable Jourdan Berry MD Primary Care Provider Jourdan Berry MD Unavailable [phone] Pcp, No Primary Care Provider UnavailYuni Castro APRN Primary Care Provider Encounter Details Date Type Department Care Team (Late st Contact Info) Description 09/20/2016 Scanned Document [address] [phone] Provider, Generic Social History Tobacco Use Types [...] Description 12/19/2024 8:00 AM EDT Procedure visit [facility] Department of Pulmonology [address] [phone] 12/19/2024 8:30 AM EDT Office Visit [facility] Department of Pulmonology [place] [address] [place] [address] Dylan Nelson MD [address] [address] 04/17/2025 8:00 AM EDT Office Visit [facility] Physicians Department of Pulmonology [place] [address] [place] [phone] Keyanna Amador APRN [address] [place] [address] documented as of this encounter Visit Diagnoses Not on filedocumented in this encounter Care Teams Head Of Strategy Relationship Specialty Start Date End Date Robert Haddad DO 1060 [place] [address] PCP - General Internal Medicine 03/03/15 03/19/19 Jourdan Berry MD [address] [place] [address] PCP - General Family Medicine 03/20/19 11/26/19 Pcp, No PCP - General General Medicine 11/27/19 08/15/22 Yuni Reece, WATER USE INSPECTOR PCP - General 08/16/22 Wallace Zee MD [address] [place] [address] [address] [place] [address] Otolaryngology 02/22/17 Jourdan Berry MD [address] [place] [address] Referring Provider Family Medicine 11/27/19 documented as of this encounter
--- OUTSIDE RECORDS SUMMARY | 2024-10-03 10:18 | XMS_ITS | Encounter Summary ---
Author Organization [facility] Address [address] [place], [place] [id number] Care Team Providers Care Director Volunteer Services Name Role Phone Wallace Zee MD Unavailable [phone] Jourdan Berry MD Primary Care Provider [phone] Jourdan Berry MD Unavailable [phone] Pcp, No Primary Care Provider UnavailYuni Castro APRN Primary Care Provider Encounter Details Date Type Department Care Team (Late st Contact Info) Description 10/08/2019 Scanned Document [address] [place] [address] Provider, Generic Social History Tobacco Use [...] visit [facility] Department of Pulmonology [address] [phone] 12/19/2024 8:30 AM EDT Office Visit [facility] Department of Pulmonology [place] [address] [place] [address] Dylan Nelson MD [address] [facility] 105 [place] [address] 04/17/2025 8:00 AM EDT Office Visit [facility] Physicians Department of Pulmonology [place] [address] [place] [address] Keyanna Amador APRN [address] [place], [place] [phone] documented as of this encounter Procedures Procedure [...] on filedocumented in this encounter Care Teams Director Volunteer Services Relationship Specialty Start Date End Date Jourdan Berry MD [address] [place] [address] PCP - General Family Medicine 03/20/19 11/26/19 Pcp, No PCP - General General Medicine 11/27/19 08/15/22 Yuni Reece, SOUND TRUCK OPERATOR PCP - General 08/16/22 Wallace Zee MD 4 [facility] [address] [place] [address] Otolaryngology 02/22/17 Jourdan Berry MD 13 [place] [address] Referring Provider Family Medicine 11/27/19 documented as of this encounter
--- OUTSIDE RECORDS SUMMARY | 2024-10-03 10:18 | XMS_ITS | Encounter Summary ---
Author Organization [facility] [place] [facility] Address [address] [place] [address] Care Team Providers Care Weathercaster Name Role Phone Robert Haddad DO Primary Care Provider [phone] Wallace Zee MD Unavailable [phone] Jourdan Berry MD Primary Care Provider [phone] Jourdan Berry MD Unavailable [phone] Pcp, No Primary Care Provider UnavailYuni Castro APRN Primary Care Provider Encounter Details Date Type Department Care Team (Late Contact Info) Description 01/22/2019 Scanned Document [facility] Colorectal Surgery [place] 85 [facility] [address] [place] [phone] Jourdan Berry MD [address] [place] [phone] Social History Tobacco Use Types Packs/Day Years [...] Description 12/19/2024 8:00 AM EDT [facility] Department of Pulmonology [place] [address] [place] [address] 12/19/2024 8:30 AM EDT Office Visit [facility] Physicians Department of Pulmonology [place] [address] [place] [phone] Dylan Nelson MD [address] [address] 04/17/2025 8:00 AM EDT Office Visit [facility] Department of Pulmonology [place] [address] [place] [address] Keyanna Amador APRN [address] [place] [address] documented as of this encounter Visit Diagnoses Not on filedocumented in this encounter Care Teams Weathercaster Relationship Specialty Start Date End Date Robert Haddad DO [facility]0 [place] [address] PCP - General Internal Medicine 03/03/15 03/19/19 Jourdan Berry MD [address] [place] [address] PCP - General Family Medicine 03/20/19 11/26/19 Pcp, No PCP - General General Medicine 11/27/19 08/15/22 Yuni Reece, JAVIER PCP - General 08/16/22 Wallace Zee MD [address] [place] [address] Otolaryngology 02/22/17 Jourdan Berry MD 13 [place] [address] Referring Provider Family Medicine 11/27/19 documented as of this encounter
--- OUTSIDE RECORDS SUMMARY | 2024-10-03 10:18 | XMS_ITS | Encounter Summary ---
Author Organization [facility] Address [address] [place] [address] Care Team Providers Care Hvac Technician Residential Name Role Phone Robert Haddad DO Primary Care Provider [phone] Wallace Zee MD Unavailable Jourdan Berry MD Primary Care Provider Jourdan Berry MD Unavailable Pcp, No Primary Care Provider UnavailYuni Castro APRN Primary Care Provider Encounter Details Date Type Department Care Team (Late Contact Info) Description 06/22/2018 Scanned Document [address] [phone] Robert Haddad, DO [address] [place] [address] Social History Tobacco Use Types Packs/Day Years [...] Description 12/19/2024 8:00 AM EDT [facility] Department of Pulmonology [place] [address] [place] [address] 12/19/2024 8:30 AM EDT Office Visit [facility] Physicians Department of Pulmonology [place] [address] [place] [phone] Dylan Nelson MD [address] [address] 04/17/2025 8:00 AM EDT Office Visit [facility] Department of Pulmonology [place] [address] [place] [address] Keyanna Amador APRN [address] [place] [address] documented as of this encounter Visit Diagnoses Not on filedocumented in this encounter Care Teams Hvac Technician Residential Relationship Specialty Start Date End Date Robert Haddad DO [facility]0 [place] [address] PCP - General Internal Medicine 03/03/15 03/19/19 Jourdan Berry MD [address] [place] [address] PCP - General Family Medicine 03/20/19 11/26/19 Pcp, No PCP - General General Medicine 11/27/19 08/15/22 Yuni Reece, JAVIER PCP - General 08/16/22 Wallace Zee MD [address] [place] [address] Otolaryngology 02/22/17 Jourdan Berry MD 13 [place] [address] Referring Provider Family Medicine 11/27/19 documented as of this encounter
--- OUTSIDE RECORDS SUMMARY | 2024-10-03 10:18 | XMS_ITS | Encounter Summary ---
Author Organization [facility] [place] [facility] Address [address] [place] [address] Care Team Providers Care Robotics Technician Name Role Phone Robert Haddad DO Primary Care Provider [phone] Wallace Zee MD Unavailable Jourdan Berry MD Primary Care Provider Jourdan Berry MD Unavailable [phone] Pcp, No Primary Care Provider UnavailYuni Castro APRN Primary Care Provider Encounter Details Date Type Department Care Team (Late st Contact Info) Description 11/20/2016 Scanned Document [address] [phone] Provider, Generic Social History Tobacco Use Types [...] Description 12/19/2024 8:00 AM EDT Procedure visit [facility] Department of Pulmonology [address] [phone] 12/19/2024 8:30 AM EDT Office Visit [facility] Department of Pulmonology [place] [address] [place] [address] Dylan Nelson MD [address] [address] 04/17/2025 8:00 AM EDT Office Visit [facility] Department of Pulmonology [place] [address] [place] [phone] Keyanna Amador APRN [address] [place] [address] documented as of this encounter Visit Diagnoses Not on filedocumented in this encounter Care Teams Robotics Technician Relationship Specialty Start Date End Date Robert Haddad DO 1060 [place] [address] PCP - General Internal Medicine 03/03/15 03/19/19 Jourdan Berry MD [address] [place] [address] PCP - General Family Medicine 03/20/19 11/26/19 Pcp, No PCP - General General Medicine 11/27/19 08/15/22 Yuni Reece, ARTIST REPRESENTATIVE PCP - General 08/16/22 Wallace Zee MD [address] [place] [address] [address] [place] [address] Otolaryngology 02/22/17 Jourdan Berry MD [address] [place] [address] Referring Provider Family Medicine 11/27/19 documented as of this encounter
--- OUTSIDE RECORDS SUMMARY | 2024-10-03 10:19 | XMS_ITS ---
Author Organization [facility] Address [address] [place], [place] [address] Care Team Providers Care Sinter Feeder Name Role Phone BRIDGETT TONG Primary Care Provider SHABBIR SAENZ Unavailable [phone] REASON FOR VISIT Mounkillianro, Gerd, bs & overall health Encounters Encounter Location Date Provider Diagnosis [facility], [address] [phone] 09/05/2024 SHABBIR SAENZ PLAN OF TREATMENT No Information Progress Notes * AXELMICHELLE JACKSONDOB:1955 (68 yo M)Acc No.[id number]:09/05/2024 Progress Notes Patient:??MICHELLE GARLAND Provider:??SHABBIR SAENZ NP :1955?Age:68 Y?Sex:Ma le Date:09/05/2024 Phone: Address:[address] [place] [address] [address] JAC[address] [id number] Pcp:BRIDGETT TONG Subjective: * Chief Complaints: * ?1. Mounjaro, Gerd, bs & overall health. * Medical History:?? Objective: Assessment: Plan: * Treatment: * Billing Information: * Visit Code:?? * Procedure Codes:?? * Sign off status: Pending * Provider:??SHABBIR SAENZ NP Date:??
--- OUTSIDE RECORDS SUMMARY | 2024-10-03 10:20 | XMS_ITS | Encounter Summary ---
Author Organization [facility] Address [address] [place] [address] Care Team Providers Care Director Public Name Role Phone Wallace Zee MD Unavailable [phone] Jourdan Berry MD Unavailable Yuni Reece APRN Primary Care Provider Encounter Details Date Type Department Care Team (Late st Contact Info) Description 10/12/2022 Scanned Document [facility] Department of Pulmonology [place] [address] [place] [address] [address] [place] [address] Keyanna Amador APRN [address] [place] [address] Social History Tobacco Use Types Packs/Day Years [...] 8:00 AM EDT Procedure visit [facility] Department of Pulmonology [place] [address] [place] [address] 12/19/2024 8:30 AM EDT Office Visit [facility] Department of Pulmonology [place] [address] [place] [address] Dylan Nelson MD [address] [address] 04/17/2025 8:00 AM EDT Office Visit [facility] Department of Pulmonology [place] [address] [place] [address] Keyanna Amador APRN [address] [place] [address] documented as of this encounter Visit Diagnoses Not on filedocumented in this encounter Care Teams Director Public Relationship Specialty Start Date End Date Yuni Reece, TRAFFIC OFFICER 13 [place] [address] PCP - General 08/16/22 Wallace Zee MD 4 [facility] [address] [place] [address] Otolaryngology 02/22/17 Jourdan Berry MD 13 [place] [address] Referring Provider Family Medicine 11/27/19 documented as of this encounter
--- OUTSIDE RECORDS SUMMARY | 2024-10-03 10:20 | XMS_ITS | Encounter Summary ---
Author Organization [facility] Address [address] [place] [address] Care Team Providers Care Patient Services Technician Name Role Phone Unavailable Primary Care Provider Unavailabl e Encounter Details Date Type Department Care Team (Late st Contact Info) Description 09/19/2023 Orders Only [address] [address] Nick Baker RN Social History [...]
--- OUTSIDE RECORDS SUMMARY | 2024-10-03 10:20 | XMS_ITS | Encounter Summary ---
Author Organization [facility] Address [address] [place] [address] Care Team Providers Care Ldr Rn Name Role Phone Unavailable Primary Care Provider Unavailabl e Reason for Visit * Reason Comments E-prescribing Refill Request Encounter Details Date Type Department Care Team (Late st Contact Info) Description 11/23/[address] [address] Yuni Reece, JAVIER BC E-prescribing Refill Request Social History Tobacco [...]
--- OUTSIDE RECORDS SUMMARY | 2024-10-03 10:20 | XMS_ITS | Encounter Summary ---
Author Organization [facility] Address [address] [place], [place] [address] Care Team Providers Care Automation Application Engineer Name Role Phone Wallace Zee MD Unavailable [phone] Jourdan Berry MD Unavailable Yuni Reece APRN Primary Care Provider [phone] Encounter Details Date Type Department Care Team (Late st Contact Info) Description 01/05/2023 Scanned Document [facility] Physicians Department of Pulmonology [place] [address] [place] [phone] Keyanna Amador APRN [address] [place], [place] [phone] Social History Tobacco Use Types Packs/Day Years [...] Description 12/19/2024 8:00 AM EDT Procedure visit [facility] Department of Pulmonology [place] [address] [place] [phone] 12/19/2024 8:30 AM EDT Office Visit [facility] Department of Pulmonology [place] [address] [place] [address] Dylan Nelson MD 12[address] [address] 04/17/2025 8:00 AM EDT Office Visit [facility] Department of Pulmonology [place] [address] [place] [address] Keyanna Amador APRN [address] [place] [address] documented as of this encounter Visit Diagnoses Not on filedocumented in this encounter Care Teams Automation Application Engineer Relationship Specialty Start Date End Date Yuni Reece, HAND IRONER 13 [place] [address] PCP - General 08/16/22 Wallace Zee MD [address] [facility] [place] [address] [place] [address] Otolaryngology 02/22/17 Jourdan Berry MD 13 [place] [address] Referring Provider Family Medicine 11/27/19 documented as of this encounter
--- OUTSIDE RECORDS SUMMARY | 2024-10-03 10:20 | XMS_ITS | Encounter Summary ---
Author Organization [facility] Address [address] [place], [place] [id number] Care Team Providers Care Limousine Rental Clerk Name Role Phone Wallace Zee MD Unavailable Jourdan Berry MD Unavailable Yuni Reece APRN Primary Care Provider Encounter Details Date Type Department Care Team (Late st Contact Info) Description 05/08/2023 Scanned Document [facility] Department of Pulmonology [place] [address] [place] [address] [address] [place] [address] Keyanna Amador APRN [address] [place] [address] Social History Tobacco Use Types Packs/Day Years [...] 12/19/2024 8:00 AM EDT Procedure visit [facility] Department of Pulmonology [place] [address] [place] [address] 12/19/2024 8:30 AM EDT Office Visit [facility] Department of Pulmonology [place] [address] [place] [address] Dylan Nelson MD 12[address] [address] 04/17/2025 8:00 AM EDT Office Visit [facility] Department of Pulmonology [place] [address] [place] [address] Keyanna Amador APRN [address] [place] [address] documented as of this encounter Visit Diagnoses Not on filedocumented in this encounter Care Teams Limousine Rental Clerk Relationship Specialty Start Date End Date Yuni Reece, PITTING MACHINE OPERATOR 13 [place] [address] PCP - General 08/16/22 Wallace Zee MD 4 [facility] [address] [place] [address] Otolaryngology 02/22/17 Jourdan Berry MD 13 [place] [address] Referring Provider Family Medicine 11/27/19 documented as of this encounter
--- OUTSIDE RECORDS SUMMARY | 2024-10-03 10:20 | XMS_ITS | Encounter Summary ---
Author Organization [facility] Address [address] [place], [place] [address] Care Team Providers Care Customer Support Agent Name Role Phone Wallace Zee MD Unavailable Jourdan Berry MD Unavailable Yuni Reece APRN Primary Care Provider Encounter Details Date Type Department Care Team (Late st Contact Info) Description 06/28/2024 Scanned Document [facility]icians Department of Pulmonology [place] [address] [place] [phone] Keyanna Amador APRN [address] [place], [place] [id number] Social History Tobacco Use Types Packs/Day Years [...] Description 12/19/2024 8:00 AM EDT Procedure visit [facility] Department of Pulmonology [place] [address] [place] [phone] 12/19/2024 8:30 AM EDT Office Visit [facility]icians Department of Pulmonology [place] [address] [place] [address] Dylan Nelson MD 12[address]je[address] [address] 04/17/2025 8:00 AM EDT Office Visit [facility] Department of Pulmonology [place] [address] [place] [address] Keyanna Amador APRN [address] [place] [address] documented as of this encounter Visit Diagnoses Not on filedocumented in this encounter Care Teams Customer Support Agent Relationship Specialty Start Date End Date Yuni Reece, INGOT WEIGHER 13 [place] [address] PCP - General 08/16/22 Wallace Zee MD 4 [facility] [address] [place] [address] Otolaryngology 02/22/17 Jourdan Berry MD 13 [place] [address] Referring Provider Family Medicine 11/27/19 documented as of this encounter
--- OUTSIDE RECORDS SUMMARY | 2024-10-03 10:20 | XMS_ITS | Encounter Summary ---
Author Organization [facility] Address [address] [place] [address] Care Team Providers Care Class A Truck Driver Name Role Phone Robert Haddad DO Primary Care Provider [phone] Wallace Zee MD Unavailable Jourdan Berry MD Primary Care Provider Jourdan Berry MD Unavailable [phone] Pcp, No Primary Care Provider UnavailYuni Castro APRN Primary Care Provider [phone] Reason for Visit * Reason Comments Medication Refill Encounter Details Date Type Department Care Team (Late st Contact Info) Description 01/02/[address] [phone] Robert Haddad DO [address] [place] [address] Uncontrolled type 2 diabetes mellitus with complication, [...] Procedure visit [facility] Department of Pulmonology [place] [address] [place] [address] 12/19/2024 8:30 AM EDT Office Visit [facility] Department of Pulmonology [place] [address] [place] [phone] Dylan Nelson MD [address] [id number] 04/17/2025 8:00 AM EDT Office Visit [facility] Department of Pulmonology [place] [address] [place] [address] Keyanna Amador APRN [address] [place] [address] documented as of this encounter Visit Diagnoses Diagnosis Uncontrolled type 2 diabetes mellitus with complication, without long-term current use of insulin documented in this encounter Care Teams Class A Truck Driver Relationship Specialty Start Date End Date Robert Haddad DO [address] [facility] [place] [place] [address] PCP - General Internal Medicine 03/03/15 03/19/19 Jourdan Berry MD [address] [place] [address], [place] [address] PCP - General Family Medicine 03/20/19 11/26/19 Pcp, No PCP - General General Medicine 11/27/19 08/15/22 Yuni Reece, CLIENT REPRESENTATIVE PCP - General 08/16/22 Wallace Zee MD 4 [facility] [address] [place] [address] Otolaryngology 02/22/17 Jourdan Berry MD [address] [place] [address] Referring Provider Family Medicine 11/27/19 documented as of this encounter
--- OUTSIDE RECORDS SUMMARY | 2024-10-03 10:20 | XMS_ITS | Encounter Summary ---
Author Organization [facility] Address [address] [place] [address] Care Team Providers Care Environmental Services Specialist Name Role Phone Unavailable Primary Care Provider Unavailabl e Reason for Visit * Reason Comments E-prescribing Refill Request Encounter Details Date Type Department Care Team (Late st Contact Info) Description 11/20/[address] [address] Yuni Reece, JAVIER BC E-prescribing [...]
--- OUTSIDE RECORDS SUMMARY | 2024-10-03 10:20 | XMS_ITS | Encounter Summary ---
Author Organization [facility] Address [address] [place] [address] Care Team Providers Care Lcpc Name Role Phone Wallace Zee MD Unavailable Jourdan Berry MD Unavailable Yuni Reece APRN Primary Care Provider Encounter Details Date Type Department Care Team (Late st Contact Info) Description 10/12/2022 Scanned Document [facility] Department of Pulmonology [place] [address] [place] [address] [address] [place] [address] Keyanna Amador APRN [address] [place] [address] Social History Tobacco Use Types Packs/Day Years [...] Description 12/19/2024 8:00 AM EDT Procedure visit [facility] Department of Pulmonology [place] [address] [place] [address] 12/19/2024 8:30 AM EDT Office Visit [facility] Department of Pulmonology [place] [address] [place] [address] Dylan Nelson MD [address] [address] 04/17/2025 8:00 AM EDT Office Visit [facility] Department of Pulmonology [place] [address] [place] [address] Keyanna Amador APRN [address] [place] [address] documented as of this encounter Visit Diagnoses Not on filedocumented in this encounter Care Teams Lcpc Relationship Specialty Start Date End Date Yuni Reece, BRAND ANALYST [address] [place] [address] PCP - General 08/16/22 Wallace Zee MD 4 [facility] [address] [place] [address] Otolaryngology 02/22/17 Jourdan Berry MD 13 [place] [address] Referring Provider Family Medicine 11/27/19 documented as of this encounter
--- OUTSIDE RECORDS SUMMARY | 2024-10-03 10:20 | XMS_ITS ---
Author Organization [facility] Address [address] [place] [address] Care Team Providers Care Cartography Technician Name Role Phone Wallace Zee MD Unavailable [phone] Jourdan Berry MD Unavailable [phone] Yuni Reece APRN Primary Care Provider [phone] Active Problems Problem Noted Date Diagnosed Date [...] 12/29/2022 12/29/2022 Coronary artery disease 12/29/2022 12/30/19 23 Diabetes 12/29/2022 12/29/2022 Insomnia 12/29/2022 12/29/2022 Ptosis [...]
--- OUTSIDE RECORDS SUMMARY | 2024-10-03 10:20 | XMS_ITS | Encounter Summary ---
Author Organization [facility] Address [address] [place] [address] Care Team Providers Care Quality Control Industrial Engineer Name Role Phone Unavailable Primary Care Provider Unavailabl e Reason for Visit * Reason Onset Date Comments Refill Request 11/29/2023 Encounter Details Date Type Department Care Team (Late st Contact Info) Description 11/29/2023 Refill [facility] [address] [place] [address] Yuni Reece APRN BC Refill Request Social [...]
--- OUTSIDE RECORDS SUMMARY | 2024-10-03 10:20 | XMS_ITS | Clinical Summary ---
Author Organization [facility] Address [address] [place] [address] Care Team Providers Care Wireless Telegrapher Name Role Phone Wallace Zee MD Unavailable [phone] Jourdan Berry MD Unavailable [phone] Yuni Reece APRN Primary Care Provider [phone] Allergies Active Allergy Reactions Criticality Noted Date [...] lump in head and neck 12/16/2014 03/30/2015 Immunizations Name Administration Dates Next Due Influenza [...] Procedure visit [facility] Department of Pulmonology [place] [address] [place] [phone] 12/19/2024 8:30 AM EDT Office Visit [facility] Department of Pulmonology [address] [address] Dylan Nelson MD [address] [address] 04/17/2025 8:00 AM EDT Office Visit [facility] Department of Pulmonology [place] [address] [place] [address] Keyanna Amador APRN [address] [place] [address] Health Maintenance Due Date Last Done Comments [...] EST Pulmonary emphysema, unspecified emphysema type (HCC) LYTES, BUN, CREAT, W/RATIO Routine 11/10/2022 7:37 [...] your patient to us, Francisco Fournier MD [id number] (Electronically Signed - 08/11/2024 14:03) Copy: SHABBIR SAENZ [address] [place] [address] PATIENT , ?? Narrative 08/11/2024 2:03 PM [...] iterative reconstruction technique DLP: 493.08 mGy-cm FINDINGS: Marina Manager: Reviewed. LUNGS: The central tracheobronchial airways are [...] iterative reconstruction technique DLP: 493.08 mGy-cm FINDINGS: Marina Manager: Reviewed. LUNGS: The central tracheobronchial airways are [...] Fournier MD 08/11/2024 02:03 PM EST RPWorkstation: [id number] Thank you for referring your patient to us, Francisco Fournier MD [id number] (Electronically Signed - 08/11/2024 14:03) Copy: SHABBIR SAENZ [address] [address] PATIENT , Dylan Nelson MD IMG CT ORDERABLES * Lytes, Bun, Creat, w/Ratio (11/10/2022 7:37 AM EDT) Blood Urea Nitrogen (BUN) 18 7 - 25 mg/dL [facility] Creatinine 0.82 0.70 - 1.35 mg/dL [employer] [employer] Creatinine w/ eGFR 97 > OR = 60 mL/min/1 .73m2 [facility] Comment: The eGFR is based on the CKD-EPI 2020 equation. To calculate the new eGFR from a previous Creatinine or Cystatin C result, go to https://www.kidney.org/professionals/ kdoqi/gfr%5Fcalculator BUN/Creatinine Ratio NOT APPLICABLE 6 - 22 (calc) [facility] Sodium 138 135 - 146 mmol/L [facility] Potassium 4.1 3.5 - 5.3 mmol/L [facility] Chloride 99 98 - 110 mmol/L [facility] CO2 31 20 - 32 mmol/L [facility] Electrolyte Balance 8 7 - 17 mmol/L (calc) [facility] Blood specimen (specimen) Blood specimen / Unknown 11/10/2022 7:37 AM EDT 11/10/2022 7:37 AM EDT Sidney Fitch MD LAB BLOOD ORDERABLES Performing Organization Address City/State/[facility] Co de Phone Number [facility] [address] [place] [address] * (ABNORMAL) Lipid Panel Reflex Direct LDL ([facility] Only) (06/11/2018 9:02 AM EST) Cholesterol, Total 184 <200 mg/dL [facility] Cholesterol, HDL 41 >40 mg/dL [facility] Triglycerides 203(H) <150 mg/dL [facility] LDL Cholesterol 111(H) mg/dL (calc) [facility] Comment: Reference range: <100 Desirable range <100 mg/dL for primary prevention; ?? <70 mg/dL for patients with CHD or diabetic patients with > or = 2 CHD risk factors. LDL-C is now calculated using the Krystal calculation, which is a validated novel method providing better accuracy than the Friedewald equation in the estimation of LDL-C. Toby GALLAGHER et al. TONY. 2013;310(19): 5303-6860 (http://education.[employer]faq/DAZ614) Cholesterol/HDL Ratio 4.5 <5.0 (calc) [facility] Non HDL Chol. (LDL+VLDL) 143(H) [...] Performing Organization Information: ?Site ID: [id number] ?Name: [facility] ?Address: [address] [place] [address], [place] [address] ?Director: Lisa Courtney MD Robert Haddad DO LAB BLOOD ORDERAB LES [facility] [address] [place] [address], [place] [address] * Microalbumin, Creatinine, Urine, Random (06/11/2018 9:02 [...] Performing Organization Information: ?Site ID: [id number] ?Name: [facility] ?Address: [address] [place] [address] ?Director: Lisa Courtney MD Robert Haddad DO URINE ORDERABLES [facility] [address] [address] * (ABNORMAL) Hemoglobin A1c with Estimated Average Glucose (06/11/2018 9:02 AM EST) Hemoglobin A1C 6.4(H) <5.7 % of total Hgb [facility] Comment: For someone without known [...] children. Estimated Average Glucose (mg/dL) 137 (calc) [facility] Estimated Average Glucose (mmol/L) 7.6 (calc) [facility] Blood specimen (specimen) 06/11/2018 9:02 AM EST 06/11/2018 9:02 AM EST Narrative [facility] - 06/12/2018 5:21 PM EST FASTING:YES FASTING: YES Resulting Agency Comment Performing Organization Information: ?Site ID: [id number] ?Name: [facility] ?Address: [address] [place] [phone] ?Director: Lisa Courtney MD Robert Haddad DO LAB BLOOD ORDERAB LES [facility] [address] [place] [address], [place] [address] from Last 3 Months or Most Recently Relevant to Health Maintenance Advance Directives * Full Code (Latest Code Status on File) Date Activated Date Inactivated Comments 05/30/2019 7:52 AM Care Teams Wireless Telegrapher Relationship Specialty Start Date End Date Yuni Reece APRN [address] [place] [address] PCP - General 08/16/22 Wallace Zee MD [address] [place] [address] [place] [address] Otolaryngology 02/22/17 Jourdan Berry MD [address] [place] [address] Referring Provider Family Medicine 11/27/19
--- OUTSIDE RECORDS SUMMARY | 2024-10-03 10:20 | XMS_ITS | Encounter Summary ---
Author Organization [facility] Address [address] [place] [address] Care Team Providers Care Market Risk Specialist Name Role Phone Unavailable Primary Care Provider Unavailabl e Reason for Visit * Reason Onset Date Comments Refill Request 11/30/2023 Encounter Details Date Type Department Care Team (Late st Contact Info) Description 11/30/2023 Refill [facility] [address] [place] [address] Yuni Reece APRN BC Refill Request Social [...]
--- OUTSIDE RECORDS SUMMARY | 2024-10-03 10:20 | XMS_ITS | Encounter Summary ---
Author Organization [facility] Address [address] [place] [address] Care Team Providers Care Neurology Manager Name Role Phone Robert Haddad DO Primary Care Provider [phone] Wallace Zee MD Unavailable Jourdan Berry MD Primary Care Provider [phone] Jourdan Berry MD Unavailable [phone] Pcp, No Primary Care Provider UnavailYuni Castro APRN Primary Care Provider [phone] Reason for Visit * Reason Comments Medication Refill Encounter Details Date Type Department Care Team (Late st Contact Info) Description 03/05/[address] [phone] Robert Haddad DO [address] [place] [address] Uncontrolled type 2 diabetes mellitus with complication, [...] Procedure visit [facility] Department of Pulmonology [place] [address] [place] [address] 12/19/2024 8:30 AM EDT Office Visit [facility] Department of Pulmonology [place] [address] [place] [address] Dylan Nelson MD [address] [phone] 04/17/2025 8:00 AM EDT Office Visit [facility] Department of Pulmonology [place] [address] [place] [address] Keyanna Amador APRN [address] [place] [address] documented as of this encounter Visit Diagnoses Diagnosis Uncontrolled type 2 diabetes mellitus with complication, without long-term current use of insulin documented in this encounter Care Teams Neurology Manager Relationship Specialty Start Date End Date Robert Haddad DO 1060 [place] [address] PCP - General Internal Medicine 03/03/15 03/19/19 Jourdan Berry MD [address] [place] [address], [place] [address] PCP - General Family Medicine 03/20/19 11/26/19 Pcp, No PCP - General General Medicine 11/27/19 08/15/22 Yuni Reece, MEDICAL IMAGING DIRECTOR PCP - General 08/16/22 Wallace Zee MD 4 [facility] [address] [place] [address] Otolaryngology 02/22/17 Jourdan Berry MD 13 [place] [address] Referring Provider Family Medicine 11/27/19 documented as of this encounter
--- OUTSIDE RECORDS SUMMARY | 2024-10-03 10:20 | XMS_ITS | Encounter Summary ---
Author Organization [facility] Address [address] [place], [place] [address] Care Team Providers Care Machine Rebuilder Name Role Phone Wallace Zee MD Unavailable Jourdan Berry MD Unavailable [phone] Yuni Reece APRN Primary Care Provider [phone] Encounter Details Date Type Department Care Team (Late st Contact Info) Description 02/02/2024 Scanned Document [facility] Department of Pulmonology [address] [address] Pulmonary, Scan Social History Tobacco [...] Description 12/19/2024 8:00 AM EDT Procedure visit [facility] Department of Pulmonology [address] [address] 12/19/2024 8:30 AM EDT Office Visit [facility] Department of Pulmonology [address] [phone] Dylan Nelson MD [address] [facility] [address] [place] [address] 04/17/2025 8:00 AM EDT Office Visit [facility] Department of Pulmonology [place] [address] [place] [phone] Keyanna Amador APRN [address] [place] [address] documented as of this encounter Visit Diagnoses Not on filedocumented in this encounter Care Teams Machine Rebuilder Relationship Specialty Start Date End Date Yuni Reece, [place] AND SILVERWARE SALESPERSON [address] [place] [address] PCP - General 08/16/22 Wallace Zee MD [address] [facility] [address] [place] [address] Otolaryngology 02/22/17 Jourdan Berry MD [address] [place] [address] Referring Provider Family Medicine 11/27/19 documented as of this encounter
--- OUTSIDE RECORDS SUMMARY | 2024-10-03 10:20 | XMS_ITS | Encounter Summary ---
Author Organization [facility] Address [address] [place], [place] [address] Care Team Providers Care Painter Rough Name Role Phone Wallace Zee MD Unavailable Jourdan Berry MD Unavailable Yuni Reece APRN Primary Care Provider [phone] Encounter Details Date Type Department Care Team (Late st Contact Info) Description 01/12/2023 Scanned Document [facility] Department of Pulmonology [place] [address] [place] [phone] Keyanna Amador APRN [address] [place], [place] [phone] Social History Tobacco Use Types Packs/Day Years [...] Description 12/19/2024 8:00 AM EDT Procedure visit [facility] Department of Pulmonology [place] [address] [place] [phone] 12/19/2024 8:30 AM EDT Office Visit [facility] Department of Pulmonology [place] [address] [place] [address] Dylan Nelson MD [address] [address] 04/17/2025 8:00 AM EDT Office Visit [facility] Department of Pulmonology [place] [address] [place] [address] Keyanna Amador APRN [address] [place] [address] documented as of this encounter Visit Diagnoses Not on filedocumented in this encounter Care Teams Painter Rough Relationship Specialty Start Date End Date Yuni Reece, SAFETY TRAINER [address] [place] [address] PCP - General 08/16/22 Wallace Zee MD 4 [facility] [address] [place] [address] Otolaryngology 02/22/17 Jourdan Berry MD [address] [place] [address] Referring Provider Family Medicine 11/27/19 documented as of this encounter
--- OUTSIDE RECORDS SUMMARY | 2024-10-03 10:20 | XMS_ITS | Clinical Summary ---
Author Organization [facility] Address [address] [place] [address] Care Team Providers Care Pharmacology Associate Name Role Phone Unavailable Primary Care Provider [...] Morbid obesity 03/23/2023 Overview (09/10/2023): Impression - [id number]: BMI 41. Start Ozempic- rx sent in. 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 On a statin. Abnormal chest CT 05/09/2021 Overview (09/10/2023): Impression - 18Zdp7104: Opacification lower lobe. Con reports he has heard this before with past imaging. Recommend he contact family protection specialist he saw in the past for lung function testing/further f/up. Encounter for immunization 04/28/2021 Migraine 03/14/2021 Encounter for screening for lung cancer 03/14/20 21 Anxiety 03/14/2021 Overview (09/10/2023): Impression - 84Aiy5153: Suggested he stop the wean at 5mg daily- continue on this dose and monitory symptoms. If they improve, they were likely due to the wean. If not, call the office for f/up if they remain bothersome. Hyperlipidemia 03/14/2021 Shortness of breath on exertion 03/12/2021 Cough 03/12/2021 Hypertension 03/12/2021 Overview (09/10/2023): Impression - 05Wao2150: Stable. Continue medication regimen. Impression - 30Mez3781: Blood pressure well controlled. Stop HCTZ, start Lasix. Side effects reviewed. Type 2 diabetes mellitus wit hout complication, without long-term current use of insulin 03/12/2021 Overview (09/10/2023): Impression - 55Jdk7682: Most recent A1c is 7.4- goal is 6.5. Discussed diet & exercise changes. Continue medication regimen. F/up in 4 months. Impression - 04Rhk6123: A1c 8.0%. Having trouble with diet and exercise. Has not been using Ozempic. Discussed benefits of Ozempic today. He is agreeable to trying this. Rx sent in. Side effects reviewed. F/up 3 months. Encounters Date Type Department Care Team Description 08/06/2024 Telephone [facility] [address] [place] [phone] Gopi Begum APRN BC Appointment 08/01/2024 Refill [facility] [address] [place] [phone] Gopi Begum, JAVIER ROY E-prescribing Refill Request from Last 3 Months Immunizations Name Administration [...] Patient informed of results us Gopi Begum PATTERNMAKER [facility] Final Resul t PHCT CONVERSIONS * CT CHEST W/O CONTRAST [...] iterative reconstruction technique DLP: 571.89 mGy-cm FINDINGS: DAM WORKER: The lungs are symmetrically well-expanded. There is [...] your patient to us, Sidney Dempsey MD [id number] (Electronically Signed - 11/30/2022 14:07) Copy: VALERIA WESTFALL MD [facility] [address] [place] [address] GOPI BEGUM PATTERNMAKER PRESSURE [facility] [address] [place] [address] PHCT CONVERSIONS Anatomical Region Laterality Modality CHEST [...] Microalbumin<12.0, Alb/Creat Ratio Invalid Testing Performed at: [facility], [address] [place] [address], , Warehouse And Receiving Supervisor: Teresa Wood MD CL#[id number] 1:05PM by Gopi Begum: ??A1c 7.5% (improved from 8.6%). Continue current regimen us Gopi Begum APRN LABORATORY Final Resul t PHCT CONVERSIONS * PSA (11/10/2022 7:42 AM EDT) PSA 0.4 0.0 - 4.0 ng/ml PHCT CONVERSIONS Comment: This test was performed using the Elecsys Electrochemiluminescence Immunoassay (ECLIA). ??Values obtained from different assay methods cannot be used interchangeably. ??PSA levels,regardless of value, should not be interpreted as absolute evidence of the presence or absence of disease.Please note non-age specific reference range in effect 06 11/10/2022 7:42 AM EDT Narrative PHCT CONVERSIONS - 11/10/2022 9:51 PM EDT Testing Performed at: [facility], [address] [place] [address], , Warehouse And Receiving Supervisor: Teresa Wood MD CL#[id number] 1:05PM by Gopi Begum: ??A1c 7.5% (improved from 8.6%). Continue current regimen Gopi Begum APRN LABORATORY Final Resul t PHCT CONVERSIONS * (ABNORMAL) LIPID PANEL, PLASMA [...] PM EDT FASTING: YES Testing Performed at: [facility], [address] [place] [address], , Warehouse And Receiving Supervisor: Teresa Wood MD CL#[id number] 1:05PM by Gopi Begum: ??A1c 7.5% (improved from 8.6%). Continue current regimen us Gopi Dixon Shanell [facility] Final Resul t PHCT CONVERSIONS * (ABNORMAL) COMPREHENSIVE METABOLIC PANEL [...] PM EDT FASTING: YES Testing Performed at: [facility], [address] [place] [address], [place] [address], , Warehouse And Receiving Supervisor: Teresa Wood MD CL#[id number] 1:05PM by Gopi Begum: ??A1c 7.5% (improved from 8.6%). Continue current regimen us Gopi Begum PATTERNMAKER PRESSURE [facility]ST BC LABORATORY Final Resul t Performing Organization Address City/[facility] Co de Phone Number PHCT CONVERSIONS * EKG (08/04/2022 4:00 PM EST) Narrative 08/04/2022 4:00 PM EST Ordered by an unspecified provider. us Unknown Provider CARDIOVASCULAR-NO INBASKET RTG Final Result * COLONOSCOPY (04/30/2021 3:15 PM EDT) COLONOSCOPY, RESULT Normal PHCT CONVERSIONS DATE NEXT SCREEN VISIT 10 Years PHCT CONVERSIONS 04/30/2021 3:15 PM EDT us Php Unknown Prov PROCEDURES Final Result Performing Organization Address [facility] Co de Phone Number PHCT CONVERSIONS * COMPREHENSIVE EYE EXAM (04/30/2021 3:15 PM EDT) DILATED RETINAL EXAM With Retinopathy PHCT CONVERSIONS 04/30/2021 3:15 PM EDT us Php Unknown Prov MINOR PROCEDURE Final Result Performing Organization Address [facility] Co de Phone Number PHCT CONVERSIONS from Last 3 Months or Most Recently Relevant to Health Maintenance
--- OUTSIDE RECORDS SUMMARY | 2024-10-03 10:20 | XMS_ITS | Encounter Summary ---
Author Organization [facility] Address [address] [place] [address] Care Team Providers Care Repairer Recreational Vehicle Name Role Phone Unavailable Primary Care Provider Unavailabl e Reason for Visit * Reason Onset Date Comments Refill Request 11/29/2023 Encounter Details Date Type Department Care Team (Late st Contact Info) Description 11/29/2023 Refill [facility] [address] [place] [address] Yuni Reece APRN BC Refill Request Social [...]
--- OUTSIDE RECORDS SUMMARY | 2024-10-03 10:20 | XMS_ITS ---
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 Name Role Phone BRIDGETT TONG Primary Care Provider SHABBIR SAENZ Unavailable [phone] REASON FOR VISIT 1 month f/u call pt at work: [phone] MEDICATIONS Medication SIG (Take, Route, Frequency, Duration) Notes Start Date End Date Status Magnesium Glycinate 400mg Active Baby Aspirin Active Vitamin D3 25 MCG (1000 UT) 1 tablet Orally Once a day Active glipiZIDE 5 MG 2 tablets 30 minutes before breakfast Orally Once a day for 90 days 09/04/2024 Active Zinc + Vitamin C Act irvin Valsartan 160 MG 1 tablet Orally Once a day for 90 days Active Rosuvastatin Calcium 20 MG 1 tablet Orally Once a day for 90 days Active Omeprazole 20 MG 1 capsule 1/2 to 1 h our before morning meal Orally Once a day for 90 days 07/25/2024 Active Metoprolol Succinate 100 MG 1 capsule Orally Once a day for 90 days Active metFORMIN HCl 1000 MG 1 tablet with a me al Orally twice a day for 90 days 09/04/2024 Active Albuterol Sulfate HFA 108 (90 Base) MCG/ACT 2 puffs as needed Inhalation every 4 hrs for 90 days Active ALPRAZolam 0.25 MG 1 tablet Orally Once a day for 30 days 09/04/2024 Active SUMAtriptan Succinate 100 MG 1 tablet at least 2 hours between doses as needed Orally Twice a day for 90 days Active amLODIPine Besylate 5 MG 1 tablet Orally Once a day for 90 days Active Dexcom G7 Cardiac Cath Technologist - as directed for 90 days 06/26 Not-Taking Dexcom G7 Sensor - change sensor every 10 days for 90 days 06/27/2024 Not-Taking Ozempic (2 MG/DOSE) 8 MG/3ML 2mg Subcutaneous once a week for 90 days 01/09/2024 Not-Taking Furosemide 20 MG 1 tablet Orally Once a day for 90 days 12/03/2024 Active Tretinoin 0.025 % 1 application in the evening to face Externally Once a day for 30 days PRN Active Mounjaro 7.5 MG/0.5ML 7.5mg Subcutaneous once a week for 28 days 07/25/2024 Not-Taking FreeStyle Haider 3 Sensor - change sensor every 2 weeks for 90 days Active Famotidine 20 MG 1 tablet at bedtime Orally Once a day for 90 days Active Dexcom G7 Sensor - as directed for 90 days 024 Not-Taking Encounters Encounter Location Date Provider Diagnosis [address] [id number] 09/04/2024 SHABBIR SAENZ KRISTIAN (obstructive sleep apnea) G47.33 ; Diabetic peripheral angiopathy E11.51 and GERD without esophagitis K21.9 ASSESSMENTS Encounter Date Diagnosis Assessment Notes Treatment Notes Treatment Clinical Notes Section Notes 09/04/2024 KRISTIAN (obstructive sleep apnea) (ICD-10 - G47.33) Working with pulm to get pt connected with right model/settings Very happy with new pulm Dr Jimenes 09/04/2024 Diabetic peripheral angiopathy (ICD-10 - E11.51) Poorly controlled at this time due to his inability to afford the mounjaro Will need to increase his metformin to 1000mg BID as well as his glipidzide, will take 2-5mg tabs in the AM so he can cut back to 1 tab if his blood sugars drop too low as I will not be able to trackthis moving forward He is to get back on track with his eating/snacking Continue with CGM 09/04/2024 GERD without esophagitis (ICD-10 - K21.9) Adding the nightly pepcid does not seem to make a difference Change to prn He is to follow up with pulmonary in regards to his cough, ? start on montelukast as well 09/04/2024 Other Total time spent with patient 32 minutes which includes face to face visit, education and coordination of care. Will refill all meds PLAN OF TREATMENT Medication Medication Name Sig Start Date Stop Date Notes glipiZIDE 5 MG 2 tablets 30 minutes before breakfast Orally Once a day for 90 days 09/04/2024 Valsartan 160 MG 1 tablet Orally Once a day for 90 days Rosuvastatin Calcium 20 MG 1 tablet Oral ly Once a day for 90 days Omeprazole 20 MG 1 capsule 1/2 to 1 h our before morning meal Orally Once a day for 90 days 07/25/2024 Metoprolol Succinate 100 MG 1 capsule Or ally Once a day for 90 days metFORMIN HCl 1000 MG 1 tablet with a me al Orally twice a day for 90 days 09/04/2024 Albuterol Sulfate HFA 108 (9 0 Base) MCG/ACT 2 puffs as needed Inhalation every 4 hrs for 90 days ALPRAZolam 0.25 MG 1 tablet Orally Once a day for 30 days 09/04/2024 SUMAtriptan Succinate 100 MG 1 tablet at least 2 hours between doses as needed Orally Twice a day for 90 days metFORMIN HCl 500 MG 1 tablet with a jomar l Orally Twice a day amLODIPine Besylate 5 MG 1 tablet Orally Once a day for 90 days Furosemide 20 MG 1 tablet Orally Once a day for 90 days 12/03/2024 glipiZIDE 5 MG 1 tablet 30 minutes before breakfast Orally Once a day Treatment Notes Assessment Notes KRISTIAN (obstructive sleep apnea) Working with pulm to get pt connected with right model/settings Very happy with new pulm Dr Jimenes Diabetic peripheral angiopathy Poorly controlled at this time due to his inability to afford the mounjennyfer Will need to increase his metformin to 1000mg BID as well as his glipidzide, will take 2-5mg tabs in the AM so he can cut back to 1 tab if his blood sugars drop too low as I will not be able to trackthis moving forward He is to get back on track with his eating/snacking Continue with CGM GERD without esophagitis Adding the nightly pepcid does not seem to make a difference Change to prn He is to follow up with pulmonary in regards to his cough, ? start on montelukast as well Other Total time spent with patient 32 minutes which includes face to face visit, education and coordination of care. Will refill all meds Next Appt Details Follow Up: prn, Reason: NA Progress Notes * VANDA GARLAND:1955 (68 yo M)Acc No.[id number]:09/04/2024 Progress Note Patient:??MICHELLE GARLAND Provider:??SHABBIR SAENZ NP :1955?Age:68 Y?Sex:Jacquie barrett Date:09/04/2024 Phone: Address:[address] [place] [address] [place], [id number] Pcp:BRIDGETT TONG Subjective: * Chief Complaints: * ?1 month f/u call pt at work: [phone] * HPI: ?Visit info:? The patient consents to HIPAA compliant telehealth visit using video platform within EHR system. The patient states they are in a private location in their home and the provider is located in the office in a private room. ?-Did follow up with pulmonary and doing pulmonary rehab. ?-Still don't have results with sleep study ?-Still coughing, dl in the AM, feel like its in the back of throat, blowing nose more ?-BS have been terrible lately up to 340 max, but admits to snacking more, dl at night ?-Had to stop the mounjaro as it was up to $600 a month. * ROS:?all systems reviewed and are non-contributory unless specified in the HPI. * Medical History:?? * Surgical History:?? * Hospitalization/Major Diagno stic Procedure:?? * Medications:??Sandra Quiroz , Notes to Pharmacist: 400mgBaby Aspirin Vitamin D3 25 MCG (1000 UT) Tablet 1 tablet Orally Once a day Zinc + Vitamin C Furosemide 20 MG Tablet 1 tablet Orally Once a day FreeStyle Haider 3 Sensor - Miscellaneous change sensor every 2 weeks glipiZIDE 5 MG Tablet 1 tablet 30 minutes before breakfast Orally Once a day Albuterol Sulfate HFA 108 (90 Base) MCG/ACT Aerosol Solution 2 puffs as needed Inhalation every 4 hrs ALPRAZolam 0.25 MG Tablet 1 tablet Orally Once a day As neededSUMAtriptan Succinate 100 MG Tablet 1 tablet at least 2 hours between doses as needed Orally Twice a day metFORMIN HCl 500 MG Tablet 1 tablet with a meal Orally Twice a day amLODIPine Besylate 5 MG Tablet 1 tablet Orally Once a day Valsartan 160 MG Tablet 1 tablet Orally Once a day Rosuvastatin Calcium 20 MG Tablet 1 tablet Orally Once a day Tretinoin 0.025 % Cream 1 application in the evening to face Externally Once a day , Notes to Pharmacist: PRNOmeprazole 20 MG Capsule Delayed Release 1 capsule 1/2 to 1 hour before morning meal Orally Once a day Famotidine 20 MG Tablet 1 tablet at bedtime Orally Once a day Metoprolol Succinate 100 MG Capsule ER 24 Hour Sprinkle 1 capsule Orally Once a day Taking Magnesium Glycinate , Notes to Pharmacist: 400mgTaking Baby Aspirin Taking Vitamin D3 25 MCG (1000 UT) Tablet 1 tablet Orally Once a day Taking Zinc + Vitamin C Taking Furosemide 20 MG Tablet 1 tablet Orally Once a day Taking FreeStyle Haider 3 Sensor - Miscellaneous change sensor every 2 weeks Taking glipiZIDE 5 MG Tablet 1 tablet 30 minutes before breakfast Orally Once a day Taking Albuterol Sulfate HFA 108 (90 Base) MCG/ACT Aerosol Solution 2 puffs as needed Inhalation every 4 hrs Taking ALPRAZolam 0.25 MG Tablet 1 tablet Orally Once a day As neededTaking SUMAtriptan Succinate 100 MG Tablet 1 tablet at least 2 hours between doses as needed Orally Twice a day Taking metFORMIN HCl 500 MG Tablet 1 tablet with a meal Orally Twice a day Taking amLODIPine Besylate 5 MG Tablet 1 tablet Orally Once a day Taking Valsartan 160 MG Tablet 1 tablet Orally Once a day Taking Rosuvastatin Calcium 20 MG Tablet 1 tablet Orally Once a day Taking Tretinoin 0.025 % Cream 1 application in the evening to face Externally Once a day , Notes to Pharmacist: PRNTaking Omeprazole 20 MG Capsule Delayed Release 1 capsule 1/2 to 1 hour before morning meal Orally Once a day Taking Famotidine 20 MG Tablet 1 tablet at bedtime Orally Once a day Taking Metoprolol Succinate 100 MG Capsule ER 24 Hour Sprinkle 1 capsule Orally Once a day Not-TakingMounjaro 7.5 MG/0.5ML Solution Auto-injector 7.5mg Subcutaneous once a week Dexcom G7 Sensor - Miscellaneous as directed change sensor every 10 daysDexcom G7 Cardiac Cath Technologist - Device as directed [facility] Sensor - Miscellaneous change sensor every 10 days Ozempic (2 MG/DOSE) 8 MG/3ML Solution Pen-injector 2mg Subcutaneous once a week Medication List reviewed and reconciled with the patientNot-Taking Mounjaro 7.5 MG/0.5ML Solution Auto-injector 7.5mg Subcutaneous once a week Not-Taking Dexcom G7 Sensor - Miscellaneous as directed change sensor every 10 daysNot-Taking Dexcom G7 Cardiac Cath Technologist - Device as directed Not-Taking Dexcom G7 Sensor - Miscellaneous change sensor every 10 days Not-Taking Ozempic (2 MG/DOSE) 8 MG/3ML Solution Pen- injector 2mg Subcutaneous once a week Medication List reviewed and reconciled with the patient Objective: * Examination: ?General Examination: ?GEN: NAD, speaking in full complete sentences, thoughts clear and appropriate ?RESP: nonlabored breathing, no audible SOB/Wheezing ?NEURO: AO x 3 ?PSYCH: judgment/insight intact, NL mood/affect. Assessment: * Assessment: 1.??KRISTIAN (obstructive sleep a pnea) - G47.33 (Primary)??2.??Diabetic peripheral angiopathy - E11.51??3.??GERD without esophagitis - K21.9?? Plan: * Treatment: 2.??Diabetic peripheral ever opathy?? Notes: Poorly controlled at this time due to his inability to afford the mounjaro Will need to increase his metformin to 1000mg BID as well as his glipidzide, will take 2-5mg tabs in the AM so he can cut back to 1 tab if his blood sugars drop too low as I will not be able to trackthis moving forward He is to get back on track with his eating/snacking Continue with CGM? 3.??GERD without esophagitis ?? Refill Omeprazole Capsule Delayed Release, 20 MG, 1 capsule 1/2 to 1 hour before morning meal, Orally, Once a day, 90 days, 90, Refills 1.? Notes: Adding the nightly pepcid does not seem to make a difference Change to prn He is to follow up with pulmonary in regards to his cough, ? start on montelukast as well? 4.??Others?? Refill Furosemide Tablet, 20 MG, 1 tablet, Orally, Once a day, 90 days, 90, Refills 1;??Stop glipiZIDE Tablet, 5 MG, 1 tablet 30 minutes before breakfast, Orally, Once a day;??Refill Albuterol Sulfate HFA Aerosol Solution, 108 (90 Base) MCG/ACT, 2 puffs as needed, Inhalation, every 4 hrs, 90 days, 1, Refills 3;??Refill ALPRAZolam Tablet, 0.25 MG, 1 tablet, Orally, Once a day As needed, 30 days, 30, Refills 0;??Refill SUMAtriptan Succinate Tablet, 100 MG, 1 tablet at least 2 hours between doses as needed, Orally, Twice a day As needed, 90 days, 90, Refills 0;??Stop metFORMIN HCl Tablet, 500 MG, 1 tablet with a meal, Orally, Twice a day;??Refill amLODIPine Besylate Tablet, 5 MG, 1 tablet, Orally, Once a day, 90 days, 90, Refills 1;??Refill Valsartan Tablet, 160 MG, 1 tablet, Orally, Once a day, 90 days, 90, Refills 1;??Refill Rosuvastatin Calcium Tablet, 20 MG, 1 tablet, Orally, Once a day at bedtime, 90 days, 90, Refills 1;??Refill Metoprolol Succinate Capsule ER 24 Hour Sprinkle, 100 MG, 1 capsule, Orally, Once a day, 90 days, 90, Refills 1;??Start metFORMIN HCl Tablet, 1000 MG, 1 tablet with a meal, Orally, twice a day, 90 days, 180 Tablet, Refills 1;??Start glipiZIDE Tablet, 5 MG, 2 tablets 30 minutes before breakfast, Orally, Once a day, 90 days, 180, Refills 1.? Notes: Total time spent with patient 32 minutes which includes face to face visit, education and coordination of care. Will refill all meds ? * Procedure Codes:?? * Follow Up:??prn (Reason: NA) * Billing Information: * Visit Code:?? 06078 Office Visit, Est Pt., Level 4. * Procedure Codes:?? * Sign off status: Completed true * Provider:??SHABBIR SAENZ NP Date:?? History and Physical Notes * HPI (History of Present Illness) Category Sub-Category Detail Notes Category Not es Visit info The patient consents to HIPAA compliant telehealth visit using video platform within EHR system. The patient states they are in a private location in their home and the provider is located in the office in a private room. -Did follow up with pulmonary and doing pulmonary rehab. -Still don't have results with sleep study -Still coughing, dl in the AM, feel like its in the back of throat, blowing nose more -BS have been terrible lately up to 340 max, but admits to snacking more, dl at night -Had to stop the mounjaro as it was up to $600 a month Examination Category Sub-Category Detail Notes Category Not es General Examination GEN: NAD, speaking in full complete sentences, thoughts clear and appropriate RESP: nonlabored breathing, no audible SOB/Wheezing NEURO: AO x 3 PSYCH: judgment/insight intact, NL mood/affect
--- OUTSIDE RECORDS SUMMARY | 2024-10-03 10:20 | XMS_ITS | Encounter Summary ---
Author Organization [facility] Address [address] [place] [address] Care Team Providers Care Spd Tech Name Role Phone Unavailable Primary Care Provider Unavailabl e Reason for Visit * Reason Onset Date Comments Refill Request 04/03/2024 Encounter Details Date Type Department Care Team (Late st Contact Info) Description 04/03/2024 Refill [facility] [address] [place] [address] Yuni Reece APRN BC Refill Request Social [...] from pharmacy for: refill Patient's Preferred Pharmacy: [id number] [facility] [address] [facility] [address] Has the patient contacted the pharmacy for this prescription? yes documented in this encounter Plan of Treatment Not on file documented as of this encounter Visit Diagnoses Not on filedocumented in this encounter
--- OUTSIDE RECORDS SUMMARY | 2024-10-03 10:20 | XMS_ITS | Encounter Summary ---
Author Organization [facility] Address [address] [place] [address] Care Team Providers Care Special Machine Operator Name Role Phone Unavailable Primary Care Provider Unavailabl e Reason for Visit * Reason Onset Date Comments Refill Request 11/30/2023 Encounter Details Date Type Department Care Team (Late st Contact Info) Description 11/30/2023 Refill [facility] [address] [place] [address] Yuni Reece APRN BC Refill Request Social [...]
--- NOTE | 2024-10-03 10:36 | MHC.OFFVIS ---
Vital Signs 10/03/24 10:43 Height 5 ft 1 in Weight 224 lb 13.944 oz BMI 42.5 Pulse 79 Pulse Source Pulse Oximeter Pulse Oximetry (%) 95 Oxygen Delivery Method Room Air Intake Visit Reasons: 6 min walk Allergies No Known Allergies Allergy (Verified 10/03/24 10:43) Medication List - Last Reconciled 10/03/24 by Tonia Russ LPN albuterol sulfate 90 mcg/actuation inhalation alprazolam mg PO PRN amlodipine 5 mg PO DAILY ascorbic acid (vitamin C) 1 g PO DAILY aspirin 81 mg PO DAILY blood sugar diagnostic ([employer] Verio test strips) Use as directed to check blood glucose twice daily. blood-glucose meter (BazingaTouch Verio Flex Meter) Use as directed to check blood glucose twice daily for Type II diabetes mellitus. blood-glucose sensor ([employer] Haider 3 Sensor device) As directed cholecalciferol (vitamin D3) 50 mcg PO DAILY furosemide 20 mg PO DAILY glipizide 5 mg PO DAILY lancets (BazingaTouch Delica Plus Lancet) Use as directed to check blood glucose twice daily. 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 Bilateral artificial lens implant Diverticulitis Sleep apnea KRISTIAN (obstructive sleep apnea) Eosinophilic granuloma Diverticulosis Surgical History (Updated 02/05/24 @ 15:10 by CRISTAL Mejía) H/O bilateral cataract extraction History of colonoscopy H/O anal fistulotomy Family History (Updated 02/05/24 @ 15:11 by CRISTAL Mejía) Mother Hypertension Father Hypertension Other Type 2 diabetes mellitus Social History Housing: House Patient Tobacco Use Status: Former Tobacco user Cigarette Packs Per Day: 1.5 Years Smoked: 30 e-Cigarette/Vaping Use: Never Used Second Hand Smoke Exposure: No service: No Current occupational status: employed 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 Current occupational exposures/hazards: No Cognitive needs: No Hearing needs: Yes Vision needs: Yes Physical Exam Vital Signs: Last Vital Signs Pulse 79 10/03/24 10:43 Pulse Ox 95 10/03/24 10:43 Oxygen Delivery Method Room Air 10/03/24 10:43 BMI result Body Mass Index 42.5 Office Procedures 6 Minute Walk Time:: 09:30 SPO2 % at rest: 95 Pulse at rest: 77 SPO2 % during excercise: 88 Pulse during excercise: 97 SPO2 % after excercise: 93 Pulse after excercise: 88 Distance in yards walked: 300 Sid Score: 2 Performance Observations:: Con walked on level ground without assistance, he walked for 3 minutes on room air and his SPO2 decreased to 88%. O2 started at 1lpm and his SPO2 recovered to 94%. He maintained his SPO2 92-93% on 1 lpm continuous O2. [address] - 6 Minute Walk Assessment & Plan Assessment & Plan (1) Hypoxia: Code(s): R09.02 - Hypoxemia Category: Medical Plan Hypoxia with activity. Qualifies for supplemental oxygen. Start 2L/pulse with activity (requesting POC) and 2L at night via CPAP. Orders: Orders AMB 6 minute walk 10/03/24 R09.02 - Hypoxemia Coding Level of Care Code Established Pt Est Pt Level 1 (94223) Patient Type Established Diagnoses Hypoxia R09.02 CPT Codes Coding ([id number]) Comment NURSE VISIT ONLY
[2024-10-03 10:43] VITALS: PULSE 77; PULSE 79; O2SAT 95; BMI 42.5
== END 2024-10-03 11:03 | disposition home or self-care (01) ==
PROVIDERS: PCP Physician Assistant Medical; Visit Provider Hospitalist
DX: R09.02 Hypoxemia (principal)

== ENCOUNTER → 2024-10-03 09:21 | Outpatient (BNVA) | payer OTHER, SELFPAY | PROVIDERS: PCP Physician Assistant Medical; Visit Provider Hospitalist | DX: R09.02 Hypoxemia (principal) | CPT/HCPCS: 94618; 99211 ==

== ENCOUNTER 2024-10-14 08:58 | Outpatient (AMB) | payer OTHER, SELFPAY ==
[2024-10-14 09:02] VITALS: BP 118/72; PULSE 70; O2SAT 93; BMI 43.0
--- NOTE | 2024-10-14 09:02 | A.OFFPC_ITS ---
Vital Signs 10/14/24 09:02 Height 5 ft 1 in Weight 227 lb 8 oz BMI 43.0 BP 118/72 Blood Pressure Location Rt brachial Position Sitting Pulse 70 Pulse Source Pulse Oximeter Pulse Oximetry (%) 93 Oxygen Delivery Method Room Air Intake Visit Reasons: spike A1C readings Allergies No Known Allergies Allergy (Verified 10/14/24 09:05) Tobacco use date assessed: 10/14/24 Fall risk assessment: No Falls in past year Last assessed Fall Risk: 10/14/24 Dental Screening Dental Screen Date: 10/14/24 Did you have a dental visit in the last 12 months?: Yes Did you have a dental problem in the last 6 months where you did not have access to dental care?: No Was dental information given to patient?: Patient has dentist HPI HPI Comments History of Present Illness Details This is a 68-year-old male with a past medical history of type 2 diabetes, PVD, COPD, hypertension, hypercholesterolemia, anxiety, obesity, obstructive sleep apnea and eosinophilic granuloma presenting for followup. His cable operator was Dr. Fitch at [facility]. Now he sees Dr. Kiah herron. He requires supplemental oxygen for activity. He is wrapping his mind around the fact that he requires this. His credit collections clerk is Dr. Young at [facility]. Denies history of ME, CABG or stent. Patient sees Cardiology due to risk factors and age and palpitations. Hypertension is treated with metoprolol succinate 100 mg, amlodipine 5 mg and valsartan 160 mg. He is also on 20 mg of furosemide daily. Hyperlipidemia is treated with rosuvastatin 20 mg. LDL 89 with a goal of less than 100 (external labs 05/23/2024) . His triglycerides were 257. Type 2 diabetes-diagnosed about 10 years ago. His hemoglobin A1c 05/23/2024 is down to 7.2% today. He stopped Ozempic because it was not helping with weight loss after increasing from 0.25-0.5 mg, and he did not see a difference in his blood sugars. He has a CGM. Only has occasional hypoglycemia treated with glucose tablets. His current regimen is glipizide 10 mg daily and metformin extended release a 1000 mg daily. Patient says on metformin 1500 mg he did have GI upset. He has eye exams with Dr. Crowell at [facility]. His manager college is Dr. Buckley. He was prescribed Mounjaro, and he tolerated it, but he ended up in the Medicare donut hole, but he wants to try taking the medication again and titrating the dose to help lose weight and control his blood sugars. He takes Xanax very sporadically for anxiety. He does not need a refill. He is compliant with CPAP for sleep apnea. 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 He gets migraine headaches occasionally. No increased frequency or severity. Treated with Imitrex in the past. He has a history of colon polyps and goes every 5 years for colonoscopy. He gets colonoscopies at [facility]. ROS: Constitutional: No fevers, chills or night sweats. Respiratory: No cough or hemoptysis. Cardiovascular: No chest pain, chest pressure or chest discomfort. Gastrointestinal: No anorexia, nausea, vomiting or diarrhea. No abdominal pain or blood in stool. Neurologic: No headache, dizziness, syncope, unilateral weakness, ataxia, numbness or tingling in the extremities. Endocrine: No cold or heat intolerance. No polyuria or polydipsia. Physical exam: Constitutional: Alert, in no distress. Head: Normocephalic. Eyes: Pupils are equal, round and reactive to light. Extraocular muscles intact. Neck: Supple, Full range of motion. No lymphadenopathy. Respiratory: Clear to auscultation. Cardiovascular: S1 S2 regular. No murmurs. Extremities: Warm and well perfused. 1+ bilateral lower extremity edema. Psychiatric: Normal mood and affect [facility] Medical History Hypoxia GERD (gastroesophageal reflux disease) KRISTIAN on CPAP ILD (interstitial lung disease) Colon polyps Obesity without serious comorbidity Pure hypercholesterolemia Essential hypertension Anxiety COPD (chronic obstructive pulmonary disease) with chronic bronchitis Type 2 diabetes mellitus with peripheral vascular disease Bilateral artificial lens implant Diverticulitis Sleep apnea KRISTIAN (obstructive sleep apnea) Eosinophilic granuloma Diverticulosis Surgical History H/O bilateral cataract extraction History of colonoscopy H/O anal fistulotomy Family History Mother Hypertension Father Hypertension Other Type 2 diabetes mellitus Social History Housing: House Patient Tobacco Use Status: Former Tobacco user Cigarette Packs Per Day: 1.5 Years Smoked: 30 e-Cigarette/Vaping Use: Never Used Second Hand Smoke Exposure: No service: No Current occupational status: employed 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 89207 - PHQ-9 Billing: Patient declined-do not bill Source: Developed by Drs. José Miguel Hu, Anastasiya Hahn, Sal Bal and colleagues, with an educational al from [employer]. Thrive Questionnaire Date Thrive assessed: 10/11/24 I am a: Patient What is your living situation today?: I choose not to answer this question Within the past 12 months, did the food you bought not last and you didn't have the money to get more?: I choose not to answer this question Within the past 12 months, did you worry whether your food would run out before you got money to buy more?: I choose not to answer this question Do you have trouble paying for medicines?: I choose not to answer this question Do you have trouble getting transportation to medical appointments?: I choose not to answer this question Do you have trouble paying your heating and electricity bill?: I choose not to answer this question Do you have trouble taking care of your child, family member or friend?: I choose not to answer this question Do you have trouble with day-to-day activities such as bathing, preparing meals, shopping, managing finances, etc.?: I choose not to answer this question Are you currently unemployed and looking for a job?: I choose not to answer this question Are you interested in more education?: I choose not to answer this question Please select the resources that you would like help with: None Currently or been in a relationship where the following occur: I choose not to answer THRIVE Score: 0 AUDIT C Alcohol Use Questionnaire (AUDIT-C) 1. How often do you have a drink containing alcohol?: Never 3. How often do you have six or more drinks on one occasion?: Never Total Score: 0 Physical exam (Primary Care) Vital Signs: Last Vital Signs Pulse 70 10/14/24 09:02 BP 118/72 10/14/24 09:02 Pulse Ox 93 10/14/24 09:02 Oxygen Delivery Method Room Air 10/14/24 09:02 BMI result Body Mass Index 43.0 Tobacco/Smoking Status: Tobacco use Status Tobacco use date assessed 10/14/24 10/14/24 09:11 Patient Tobacco Use Status Former Tobacco user 10/14/24 09:11 e-Cigarette/Vaping Use Never Used 10/14/24 09:11 Thrive Assessment: Date of Thrive Assessment Date Thrive assessed 10/11/24 10/14/24 09:11 Currently or been in a relationship where the following occur: I choose not to answer Results AMB Hemoglobin A1c AMB Hemoglobin A1c 7.2 % Last Edit by Ruthie Smith CMA on 10/14/24 09:26 Results Reviewed Results Reviewed: Laboratory Last Values Hgb A1c (Clinic) 7.2 % (4.0-6.0) H 10/14/24 09:25 Coding Level of Care Code Est Pt Level 4 (26864) Complex EM visit Add On G2211 Diagnoses Colon polyps K63.5 Pure hypercholesterolemia E78.00 Essential hypertension I10 COPD (chronic obstructive pulmonary disease) with chronic bronchitis J44.89 Type 2 diabetes mellitus with peripheral vascular disease E11.51 KRISTIAN (obstructive sleep apnea) G47.33 Assessment & Plan Assessment & Plan (1) Colon polyps: Code(s): K63.5 - Polyp of colon Category: Medical Plan: Followed by [facility]. Colonoscopy every 5 years. (2) Pure hypercholesterolemia: Code(s): E78.00 - Pure hypercholesterolemia, unspecified Category: Medical Plan: Recommended the Mediterranean diet. Continue rosuvastatin 20 mg daily. We are starting GLP 1 to promote weight loss. Discussed hypertriglyceridemia. We will re-evaluate after GLP 1 medication. (3) Essential hypertension: Code(s): I10 - Essential (primary) hypertension Category: Medical Plan: Well-controlled. Continue current regimen. Recommended low-sodium diet and avoidance of caffeine. (4) COPD (chronic obstructive pulmonary disease) with chronic bronchitis: Code(s): J44.89 - Other specified chronic obstructive pulmonary disease Category: Medical Plan: Continue management per pulmonology. (5) Type 2 diabetes mellitus with peripheral vascular disease: Code(s): E11.51 - Type 2 diabetes mellitus with diabetic peripheral angiopathy without gangrene Category: Medical Plan: Restart Mounjaro 2.5 mg daily. Denies contraindications to this type of medication. Side effects and administration reviewed. Hopefully we will be able to titrate this. We discussed that on lower dosages of the medication it may not be as effective so to get weight loss and better control of blood sugars we need to titrate the dose. He understands. Goal will be to discontinue glipizide if blood sugars improve. I sent his prescription as 5 mg with 2 tablets a day with instructions to decrease to 5 mg if he develops low blood sugars after starting Mounjaro. He has glucose tablets at home to treat low blood sugars. Continue metformin extended release 1000 mg daily. (6) KRISTIAN (obstructive sleep apnea): Code(s): G47.33 - Obstructive sleep apnea (adult) (pediatric) Category: Medical Plan: Continue CPAP. Plan Follow up in 4 weeks for hypertension and Mounjaro med check. Orders: Orders AMB Hemoglobin A1c Today Z13.9 - Encounter for screening, unspecified Medications: New tirzepatide (Mounjaro) for 4 weeks 2.5 mg (0.5 mL) subcut QWEEK 2 mL 0RF Changed From glipizide 5 mg PO DAILY To glipizide 10 mg (2 x 5 mg) PO DAILY 180 tabs 1RF
--- OUTSIDE RECORDS SUMMARY | 2024-10-14 09:28 | XMS_ITS | Encounter Summary ---
Author Organization [facility] Address [address] [place] [address] Care Team Providers Care Client Evaluator Name Role Phone Robert Haddad DO Primary Care Provider [phone] Wallace Zee MD Unavailable Jourdan Berry MD Primary Care Provider [phone] Jourdan Berry MD Unavailable Pcp, No Primary Care Provider UnavailYuni Castro APRN Primary Care Provider Encounter Details Date Type Department Care Team (Late Contact Info) Description 01/22/2019 Scanned Document [facility] Colorectal Surgery [place] 85 [facility] [address] [place] [phone] Jourdan Berry MD [address] [place] [address] [id number] Social History Tobacco Use Types Packs/Day Years [...] Description 12/19/2024 8:00 AM EDT Procedure visit [facility] Department of Pulmonology [place] [address] [place] [address] 12/19/2024 8:30 AM EDT Office Visit [facility] Department of Pulmonology [place] [address] [place] [phone] Dylan Nelson MD [address] [address] 04/17/2025 8:00 AM EDT Office Visit [facility] Department of Pulmonology [place] [address] [place] [address] Keyanna Amador APRN [address] [place] [address] documented as of this encounter Visit Diagnoses Not on filedocumented in this encounter Care Teams Client Evaluator Relationship Specialty Start Date End Date Robert Haddad DO [facility] [place] [address] PCP - General Internal Medicine 03/03/15 03/19/19 Jourdan Berry MD [address] [place] [address] PCP - General Family Medicine 03/20/19 11/26/19 Pcp, No PCP - General General Medicine 11/27/19 08/15/22 Yuni Reece, JAVIER PCP - General 08/16/22 Wallace Zee MD [address] [place] [address] Otolaryngology 02/22/17 Jourdan Berry MD 13 [place] [address] Referring Provider Family Medicine 11/27/19 documented as of this encounter
--- OUTSIDE RECORDS SUMMARY | 2024-10-14 09:28 | XMS_ITS | Encounter Summary ---
Author Organization [facility] Address [address] [place], [place] [id number] Care Team Providers Care Ward Supervisor Name Role Phone Wallace Zee MD Unavailable [phone] Jourdan Berry MD Primary Care Provider [phone] Jourdan Berry MD Unavailable [phone] Pcp, No Primary Care Provider UnavailYuni Castro APRN Primary Care Provider Encounter Details Date Type Department Care Team (Late st Contact Info) Description 10/08/2019 Scanned Document [address] [place] [phone] Provider, Generic Social History Tobacco Use [...] Description 12/19/2024 8:00 AM EDT Procedure visit [facility] Department of Pulmonology [address] [phone] 12/19/2024 8:30 AM EDT Office Visit [facility] Department of Pulmonology [place] [address] [place] [address] Dylan Nelson MD [address] [facility] [address] [place] [address] 04/17/2025 8:00 AM EDT Office Visit [facility] Department of Pulmonology [place] [address] [place] [address] Keyanna Amador APRN [address] [place], [place] [phone] documented as of this encounter Procedures Procedure [...] on filedocumented in this encounter Care Teams Ward Supervisor Relationship Specialty Start Date End Date Jourdan Berry MD [address] [place] [address] PCP - General Family Medicine 03/20/19 11/26/19 Pcp, No PCP - General General Medicine 11/27/19 08/15/22 Yuni Reece, PARTS ASSEMBLER PCP - General 08/16/22 Wallace Zee MD [facility] [address] [place] [address] Otolaryngology 02/22/17 Jourdan Berry MD 13 [place] [address] Referring Provider Family Medicine 11/27/19 documented as of this encounter
--- OUTSIDE RECORDS SUMMARY | 2024-10-14 09:28 | XMS_ITS | Encounter Summary ---
Author Organization [facility] Address [address] [place] [address] Care Team Providers Care Supercharger Repair Supervisor Name Role Phone Robert Haddad DO Primary Care Provider [phone] Wallace Zee MD Unavailable Jourdan Berry MD Primary Care Provider [phone] Jourdan Berry MD Unavailable [phone] Pcp, No Primary Care Provider UnavailYuni Castro APRN Primary Care Provider [phone] Encounter Details Date Type Department Care Team (Late st Contact Info) Description 03/30/2015 Scanned Document [address] [phone] Provider, Generic Social History Tobacco Use Types [...] 12/19/2024 8:00 AM EDT Procedure visit [facility] Department of Pulmonology [address] [phone] 12/19/2024 8:30 AM EDT Office Visit [facility] Department of Pulmonology [place] [address] [place] [address] Dylan Nelson MD [address]nie [address] [address] 04/17/2025 8:00 AM EDT Office Visit [facility] Department of Pulmonology [place] [address] [place] [address] Keyanna Amador APRN [address] [place] [address] documented as of this encounter Procedures Procedure Name Priority Date/Time Associated Diagnosis Comments ECG 12-LEAD 03/30/2015 documented in this encounter Results * ECG 12-LEAD (03/30/2015) Narrative 03/30/2015 Ordered by an unspecified provider. Generic Provider ECG ORDERABLES documented in this encounter Visit Diagnoses Not on filedocumented in this encounter Care Teams Supercharger Repair Supervisor Relationship Specialty Start Date End Date Robert Haddad DO [facility] [place] [address] PCP - General Internal Medicine 03/03/15 03/19/19 Jourdan Berry MD [address] [place] [address] PCP - General Family Medicine 03/20/19 11/26/19 Pcp, No PCP - General General Medicine 11/27/19 08/15/22 Yuni Reece, JAVIER PCP - General 08/16/22 Wallace Zee MD [facility] [address] [place] [address] Otolaryngology 02/22/17 Jourdan Berry MD 13 [facility] [place] [address] Referring Provider Family Medicine 11/27/19 documented as of this encounter
--- OUTSIDE RECORDS SUMMARY | 2024-10-14 09:28 | XMS_ITS | Encounter Summary ---
Author Organization [facility] Address [address] [place] [address] Care Team Providers Care Dial Equipment Engineer Name Role Phone Robert Haddad DO Primary Care Provider [phone] Wallace Zee MD Unavailable [phone] Jourdan Berry MD Primary Care Provider Jourdan Berry MD Unavailable [phone] Pcp, No Primary Care Provider UnavailYuni Castro APRN Primary Care Provider [phone] Reason for Visit * Reason Onset Date Comments Medication Refill 05/20/2016 Encounter Details Date Type Department Care Team (Late st Contact Info) Description 05/20/[address] [phone] Robert Haddad DO [address] [place] [address] Medication Refill Social History Tobacco Use Types [...] Procedure visit [facility] Department of Pulmonology [place] [address] [place] [address] 12/19/2024 8:30 AM EDT Office Visit [facility] Department of Pulmonology [place] [address] [place] [address] Dylan Nelson MD [address] [address] 04/17/2025 8:00 AM EDT Office Visit [facility] Department of Pulmonology [place] [address] [place] [address] Keyanna Amador, MESSAGE CLERK [address] [place] [address] documented as of this encounter Visit Diagnoses Not on filedocumented in this encounter Care Teams Dial Equipment Engineer Relationship Specialty Start Date End Date Robert Haddad DO [address] [place] [address] PCP - General Internal Medicine 03/03/15 03/19/19 Jourdan Berry MD 13 [place] [address] PCP - General Family Medicine 03/20/19 11/26/19 Pcp, No PCP - General General Medicine 11/27/19 08/15/22 Yuni Reece APRN PCP - General 08/16/22 Wallace Zee MD 4 [facility] [address] [place] [address] Otolaryngology 02/22/17 Jourdan Berry MD 13 [place] [address] Referring Provider Family Medicine 11/27/19 documented as of this encounter
--- OUTSIDE RECORDS SUMMARY | 2024-10-14 09:28 | XMS_ITS | Encounter Summary ---
Author Organization [facility] Address [address] [place] [address] Care Team Providers Care Transit Proof Machine Operator Name Role Phone Robert Haddad DO Primary Care Provider [phone] Wallace Zee MD Unavailable Jourdan Berry MD Primary Care Provider Jourdan Berry MD Unavailable [phone] Pcp, No Primary Care Provider UnavailYuni Castro APRN Primary Care Provider Encounter Details Date Type Department Care Team (Late Contact Info) Description 07/11/2018 Scanned Document [address] [phone] Robert Haddad, DO [address] [place] [address] Social History Tobacco Use Types Packs/Day Years [...] Description 12/19/2024 8:00 AM EDT Procedure [facility] Department of Pulmonology [place] [address] [place] [address] 12/19/2024 8:30 AM EDT Office Visit [facility] Department of Pulmonology [place] [address] [place] [phone] Dylan Nelson MD [address] [address] 04/17/2025 8:00 AM EDT Office Visit [facility] Department of Pulmonology [place] [address] [place] [address] Keyanna Amador APRN [address] [place] [address] documented as of this encounter Visit Diagnoses Not on filedocumented in this encounter Care Teams Transit Proof Machine Operator Relationship Specialty Start Date End Date Robert Haddad DO [facility] [place] [address] PCP - General Internal Medicine 03/03/15 03/19/19 Jourdan Berry MD [address] [place] [address] PCP - General Family Medicine 03/20/19 11/26/19 Pcp, No PCP - General General Medicine 11/27/19 08/15/22 Yuni Reece, JAVIER PCP - General 08/16/22 Wallace Zee MD [address] [place] [address] Otolaryngology 02/22/17 Jourdan Berry MD 13 [place] [address] Referring Provider Family Medicine 11/27/19 documented as of this encounter
--- OUTSIDE RECORDS SUMMARY | 2024-10-14 09:28 | XMS_ITS | Encounter Summary ---
Author Organization [facility] Address [address] [place] [address] Care Team Providers Care Tester Vibrator Equipment Name Role Phone Wallace Zee MD Unavailable Jourdan Berry MD Unavailable [phone] Pcp, No Primary Care Provider UnavailYuni Castro APRN Primary Care Provider Reason for Visit * Reason Comments Medication Refill Encounter Details Date Type Department Care Team (Late st Contact Info) Description 11/27/[address] [phone] Robert Haddad DO [address] [place] [address] Essential hypertension Social History Tobacco Use Types [...] Description 12/19/2024 8:00 AM EDT Procedure visit [facility] Department of Pulmonology [place] [address] [place] [phone] 12/19/2024 8:30 AM EDT Office Visit [facility] Department of Pulmonology [place] [address] [place] [phone] Dylan Nelson MD [address] [address] 04/17/2025 8:00 AM EDT Office Visit [facility] Department of Pulmonology [place] [address] [place] [phone] Keyanna Amador APRN [address] [place] [address] documented as of this encounter Visit Diagnoses Diagnosis Essential hypertension Unspecified essential hypertension documented in this encounter Care Teams Tester Vibrator Equipment Relationship Specialty Start Date End Date Pcp, No PCP - General General Medicine 11/27/19 08/15/22 Yuni Reece APRN PCP - General 08/16/22 Wallace Zee MD 4 [facility] [address] [place] [address] Otolaryngology 02/22/17 Jourdan Berry MD 13 [place] [address] Referring Provider Family Medicine 11/27/19 documented as of this encounter
--- OUTSIDE RECORDS SUMMARY | 2024-10-14 09:28 | XMS_ITS | Encounter Summary ---
Author Organization [facility] Address [address] [place] [address] Care Team Providers Care Bottoming Room Supervisor Name Role Phone Robert Haddad DO Primary Care Provider [phone] Wallace Zee MD Unavailable Jourdan Berry MD Primary Care Provider Jourdan Berry MD Unavailable [phone] Pcp, No Primary Care Provider UnavailYuni Castro APRN Primary Care Provider [phone] Encounter Details Date Type Department Care Team (Late Contact Info) Description 06/22/2018 Scanned Document [address] [phone] Robert Haddad, DO [address] [place] [address] Social History Tobacco Use Types Packs/Day Years [...] Description 12/19/2024 8:00 AM EDT Procedure visit [facility] Department of Pulmonology [place] [address] [place] [address] 12/19/2024 8:30 AM EDT Office Visit [facility] Department of Pulmonology [place] [address] [place] [phone] Dylan Nelson MD [address] [address] 04/17/2025 8:00 AM EDT Office Visit [facility] Department of Pulmonology [place] [address] [place] [address] Keyanna Amador APRN [address] [place] [address] documented as of this encounter Visit Diagnoses Not on filedocumented in this encounter Care Teams Bottoming Room Supervisor Relationship Specialty Start Date End Date Robert Haddad DO [facility] [place] [address] PCP - General Internal Medicine 03/03/15 03/19/19 Jourdan Berry MD [address] [place] [address] PCP - General Family Medicine 03/20/19 11/26/19 Pcp, No PCP - General General Medicine 11/27/19 08/15/22 Yuni Reece, JAVIER PCP - General 08/16/22 Wallace Zee MD [address] [place] [address] Otolaryngology 02/22/17 Jourdan Berry MD 13 [place] [address] Referring Provider Family Medicine 11/27/19 documented as of this encounter
--- OUTSIDE RECORDS SUMMARY | 2024-10-14 09:28 | XMS_ITS ---
Author Organization [facility] Address [address], [place] [id number] Care Team Providers Care Patternmaker Sample Name Role Phone BRIDGETT TONG Primary Care Provider [phone] SHABBIR SAENZ Unavailable [phone] ALLERGIES No Known Allergies REASON FOR REFERRAL Reason please refer pt to [facility] with dx of DM, HLD, Morbid obesity TY Diagnosis 1 Morbid obesity (E66. 01) Diagnosis 2 Other hyperlipidemia (E78.49) Diagnosis 3 Diabetic peripheral angiopathy (E11.51) Referral Organization [facility] Referring Provider First Name SHABBIR Referring Provider Last Name DANY Referring Provider Speciality Preventive Medicine Referred Organization [facility] Referred Address [address], [place],[id number], Referred Provider Specialty Nutrition General Notes ERLIN AQUINO 1 09/25/2023 03:12:56 PM >demographics, insurance info, referral, and office note have been faxed to [facility] [phone] Referral Priority Routine REASON FOR VISIT f/u meds MEDICATIONS Medication SIG (Take, Route, Frequency, Duration) Notes Start Date End Date Status Dexcom G7 Sensor - change sensor every 10 days for 90 days 06/27/2024 Not-Taking Dexcom G7 Sensor - as directed for 90 days 024 Not-Taking Dexcom G7 Set Up Mechanic - as directed for 90 days 06/26 Not-Taking Ozempic (2 MG/DOSE) 8 MG/3ML 2mg Subcutaneous once a week for 90 days 01/09/2024 Not-Taking Metoprolol Succinate 100 MG 1 capsule Orally Once a day for 90 days Not-Taking Tretinoin 0.025 % 1 application in the evening to face Externally Once a day for 30 days PRN Active Valsartan 160 MG 1 tablet Orally Once a day for 90 days Active Rosuvastatin Calcium 20 MG 1 tablet Orally Once a day for 90 days Active amLODIPine Besylate 5 MG 1 tablet Orally Once a day for 90 days Active Albuterol Sulfate HFA 108 (90 Base) MCG/ACT 2 puffs as needed Inhalation every 4 hrs for 90 days Active ALPRAZolam 0.25 MG 1 tablet Orally Once a day for 30 days 01/09/2024 Active glipiZIDE 5 MG 1 tablet 30 minutes before breakfast Orally Once a day for 90 days Active SUMAtriptan Succinate 100 MG 1 tablet at least 2 hours between doses as needed Orally Twice a day for 30 days Active metFORMIN HCl 500 MG 1 tablet with a jomar l Orally Twice a day for 90 days Active Zinc + Vitamin C Act irvin Furosemide 20 MG 1 tablet Orally Once a day for 90 days Active Baby Aspirin Active Vitamin D3 25 MCG (1000 UT) 1 tablet Orally Once a day Active FreeStyle Haider 3 Sensor - change sensor every 2 weeks for 90 days Active Mounjaro 7.5 MG/0.5ML 7.5mg Subcutaneous once a week for 28 days 07/25/2024 Active Omeprazole 20 MG 1 capsule 1/2 to 1 h our before morning meal Orally Once a day for 90 days 07/25/2024 Active Famotidine 20 MG 1 tablet at bedtime Orally Once a day for 30 days 07/25/2024 Active Magnesium Glycinate 400mg Active SOCIAL HISTORY Tobacco Use: Social History Observation [...] smoker (10-19 cigs/day) Section Notes: Lives in [place], [place] with partner. PROBLEMS Problem Type ICD Code Onset Dates Problem Status W/U Status Risk SNOMED Code Notes Problem GERD without esophagitis (K21.9) Active confirmed Gastroesophagea l reflux disease (479736097) VITAL SIGNS Blood pressure systolic 122 mm Hg 07/25/20 24 Blood pressure diastolic 72 mm Hg 024 Heart Rate 76 /min 07/25/2024 Height 62.5 in 07/25/2024 Weight 224.0 lbs 07/25/2024 BMI 40.31 kg/m2 07/25/2024 Oximetry 94 % 07/25/2024 Height-cm 158.75 cm 07/25/2024 Weight-kg 101.6 kg 07/25/2024 Encounters Encounter Location Date Provider Diagnosis [address] [phone] 07/25/2024 SHABBIR DANY Diabetic peripheral angiopathy E11.51 ; KRISITAN (obstructive sleep apnea) G47.33 ; COPD, moderate J44.9 ; GERD without esophagitis K21.9 and Morbid obesity E66.01 ASSESSMENTS Encounter Date Diagnosis Assessment Notes Treatment Notes Treatment Clinical Notes Section Notes 07/25/2024 Diabetic peripheral angiopathy (ICD-10 - E11.51) Continues with suboptimal control of blood sugars despite not eating extra during the holiday season Will increase his Mounjaro Continue with Haider Weigh weekly with same clothing on 07/25/2024 KRISTIAN (obstructive sleep apnea) (ICD-10 - G47.33) Fax sleep study to prior pulm to address his current desaturation Does have apt with new pulm Will fax CT results and sleep study results to him once received 07/25/2024 COPD, moderate (ICD-10 - J44.9) As above, referring to new pulm Will fax sleep study and CT results once received from [place] [facility] 07/25/2024 GERD without esophagitis (ICD-10 - K21.9) Pt dx by ENT and never treated Will send over daily omeprazole and pepcid x 1 month until omeprazole is effective as pt's cough and clearly his throat worse now 07/25/2024 Morbid obesity (ICD-10 - E66.01) As above, increasing mounjaro for BS and weight Refer to media librarian as well 07/25/2024 Other Total time spen t with patient 32 minutes which includes face to face visit, education and coordination of care. PLAN OF TREATMENT Medication Medication Name Sig Start Date Stop Date Notes Mounjaro 5 MG/0.5ML 5mg Subcutaneous once a week Mounjaro 7.5 MG/0.5ML 7.5mg Subcutaneous once a week for 28 days 07/25/2024 Omeprazole 20 MG 1 capsule 1/2 to 1 h our before morning meal Orally Once a day for 90 days 07/25/2024 Famotidine 20 MG 1 tablet at bedtime Orally Once a day for 30 days 07/25/2024 Treatment Notes Assessment Notes Diabetic peripheral angiopathy Continues with suboptimal control of blood sugars despite not eating extra during the holiday season Will increase his Mounjaro Continue with Haider Weigh weekly with same clothing on KRISTIAN (obstructive sleep apnea) Fax sleep study to prior pulm to address his current desaturation Does have apt with new pulm Will fax CT results and sleep study results to him once received COPD, moderate As above, referring to new pulm Will fax sleep study and CT results once received from [place] [facility] GERD without esophagitis Pt dx by ENT and never treated Will send over daily omeprazole and pepcid x 1 month until omeprazole is effective as pt's cough and clearly his throat worse now Morbid obesity As above, increasing mounjaro for BS and weight Refer to media librarian as well Other Total time spent wit h patient 32 minutes which includes face to face visit, education and coordination of care. Referrals Referral Date Details please refer pt to [facility] with dx of DM, HLD, Morbid obesity TY , [address], [place], [phone], [facility] Next Appt Details Follow Up: 6 Weeks, Reason: grace, bs and overall follow up, gerd Progress Notes * CON GARLANDDOB:1955 (68 yo M)Acc No.[id number]:07/25/2024 Progress Notes Patient:??AXELMANUELCON Provider:??SHABBIR SAENZ NP :1955?Age:68 Y?Sex:Ma le Date:07/25/2024 Phone: Address:[address] [place] [address] [phone] Pcp:BRIDGETT TONG Subjective: * Chief Complaints: * ?F/u meds * HPI: ?Patient Care Team:?Medication Manager:??Dr. Sidney Malhotra.??Director Of Operations:??Dr. Leonel Garcia & Dr. Con Chavez @ [facility].??Instrument Tester:??Dr. Fitch, Keyanna Amador, JAVIER @ [facility].? Providers/Specialists: Former PCP - Yuni Reece, JAVIER @ [facility]. ?Visit info:? Con presents today for f/u Med review. ? - Started Mounjaro 5 wks ago, with increase to 5 mg yesterday. ?- He notes that his weight has been fluctuating, concerned about whether or not Mounjaro is helping w/BS readings, given the fluctuation. ?-haider blood sugars are all over the place; Dexcon got denied ?-Daily blood sugars from 125-275 acc to Haider ?-Has not made any nutritional changes ?-Pt does not weight himself same time daily ?-Now on the 5mg Mounjaro as of yesterday ?-Has an apt with new pulm in August ?-Pt is unable to get any answers from old pulm in regards to his sleep study that clearly indicated low sats/need for machine adjustment and rechecking study ?-Also unable to get results of chest CT at [facility] ?-Prior ENT also dx pt with laryngopharyngeal reflux over a year ago and never put on any meds ?-Constantly clearing throat, coughing. * ROS:?all systems reviewed and are non-contributory unless specified in the HPI. * Medical History:?? * Surgical History:??Colonosco py 2011 & 2019Lens Implants (LT 05/21/2015 & RT 04/23/2015) Fistulotomy 12/2011 & 05/2019 * Hospitalization/Major Diagno stic Procedure:?? * Family History:??Father: dec eased, Hypertension, Diabetes Type 2.??Mother: , Hypertension, Type 2 Diabetes.??Sister: alive, No known health concerns.??Sister #2: alive, No known health concerns.??1 son(s) , 2 daughter(s) - healthy. .?? * Social History:?Tobacco Use:??Tobacco Use/Smoking??Tobacco use:??former smoker,??How long has it been since you last smoked???> 10 years,??Additional Findings: Tobacco User??Moderate cigarette smoker (10-19 cigs/day).?Drugs/Alcohol:??Do you smoke marijuana?: Denies. Do you drink alcohol?: No. ?Household:??Household??Marital status:??living with significant other,??Number of adults in household:??2,??Any household pets???Yes 1 Cat.?Miscellaneous:??Safety issues??Do you feel safe at home???Yes.??Exercise: Not regularly. Occupation: Works full-time - [employer]izer [employer] in [place], [place]. ?Lives in [place], [place] with partner. * Medications:??Sandra Quiroz , Notes to Pharmacist: [...] Once a day , Notes to Pharmacist: PRNMounjaro 5 MG/0.5ML Solution Auto-injector 5mg Subcutaneous once a week Taking Magnesium Glycinate , Notes to Pharmacist: [...] a day , Notes to Pharmacist: PRNTaking Mounjaro 5 MG/0.5ML Solution Auto-injector 5mg Subcutaneous once a week Not-TakingDexcom G7 Sensor - Miscellaneous as directed change sensor every 10 daysDexcom G7 Set Up Mechanic - Device as directed Dexcom G7 Sensor - Miscellaneous change sensor every 10 days Metoprolol Succinate 100 MG Capsule ER 24 Hour Sprinkle 1 capsule Orally Once a day Ozempic (2 MG/DOSE) 8 MG/3ML Solution Pen-injector 2mg Subcutaneous once a week Not-Taking Dexcom G7 Sensor - Miscellaneous as directed change sensor every 10 daysNot-Taking Dexcom G7 Set Up Mechanic - Device as directed Not-Taking Dexcom G7 Sensor - Miscellaneous change sensor every 10 days Not-Taking Metoprolol Succinate 100 MG Capsule ER 24 Hour Sprinkle 1 capsule Orally Once a day Not-Taking Ozempic (2 MG/DOSE) 8 MG/3ML Solution Pen-injector 2mg Subcutaneous once a week DiscontinuedMounjaro 2.5 MG/0.5ML Solution Auto- injector 2.5mg Subcutaneous once a week Medication List reviewed and reconciled with the patientDiscontinued Mounjaro 2.5 MG/0.5ML Solution Auto-injector 2.5mg Subcutaneous once a week Medication List reviewed and reconciled with the patient * Allergies:??N.K.D.A.no[Aller gies Verified] Objective: * Vitals:??BP:122/72mm Hg, HR: 76/min, Oxygen sat %:94%, Wt:224.0lbs, Wt-k.6 kg, Ht: 62.5 in, Ht-cm: 158.75 cm, BMI:40.31Index, Body Surface Area: 2.11. * Examination: ?General Examination: ?GEN: NAD, speaking in full complete sentences, thoughts clear and appropriate ?RESP: nonlabored breathing, lungs clear/equal all benítez ?CV: S1S2 regular ?NEURO: AO x 3 ?PSYCH: judgment/insight intact, NL mood/affect. Assessment: * Assessment: 1.??Diabetic peripheral ever opathy - E11.51 (Primary)??2.??KRISTIAN (obstructive sleep apnea) - G47.33??3.??COPD, moderate - J44.9??4.??GERD without esophagitis - K21.9??5.??Morbid obesity - E66.01?? Plan: * Treatment: 2.??KRISTIAN (obstructive sleep a pnea)?? Notes: Fax sleep study to prior pulm to address his current desaturation Does have apt with new pulm Will fax CT results and sleep study results to him once received ? 3.??COPD, moderate?? Notes: As above, referring to new pulm Will fax sleep study and CT results once received from [place] [facility]? 4.??GERD without esophagitis ?? Start Omeprazole Capsule Delayed Release, 20 MG, 1 capsule 1/2 to 1 hour before morning meal, Orally, Once a day, 90 days, 90, Refills 3;??Start Famotidine Tablet, 20 MG, 1 tablet at bedtime, Orally, Once a day, 30 days, 30 Tablet, Refills 0.? Notes: Pt dx by ENT and never treated Will send over daily omeprazole and pepcid x 1 month until omeprazole is effective as pt's cough and clearly his throat worse now? 5.??Morbid obesity?? Notes: As above, increasing mounjaro for BS and weight Refer to media librarian as well? Referral To:Nutrition ?Reason:please refer pt to [facility] with dx of DM, HLD, Morbid obesity TY 6.??Others?? Notes: Total time spent with patient 32 minutes which includes face to face visit, education and coordination of care.? Referral To:Nutrition ?Reason:please refer pt to [facility] with dx of DM, HLD, Morbid obesity TY * Procedure Codes:?? * Preventive Medicine:?[facility] DEXA: Yes Colonoscopy: 2019 Q5 years Endoscopy: 2019 COVID Vac: Yes, & 3 boosters (11/24/20, 05/26/21, 11/22/2021, 05/16/2022 & 05/01/23) FLU Vac: 05/01/2023 PV: 06/2022 Shingles Vac: Yes - 2014,2017, 2019 RSV: Td/Tdap: less than 10 years Hep A/Hep B: YANIRA: educated Eye Exam: UTD Dental Exam: UTD Depression Scale: neg PHQ9 Alcohol Misuse Screening: nondrinker Smoking Cessation: nonsmoker Screened HTN, diabetes, BMI. * Follow Up:??6 Weeks (Reason: grace bs and overall follow up, gerd) * Billing Information: * Visit Code:?? 64836 Office Visit, Est Pt., Level 4. * Procedure Codes:?? * Sign off status: Completed true * Provider:??SHABBIR SAENZ NP Date:?? History and Physical Notes * HPI (History of Present Illness) Category Sub-Category Detail Notes Category Not es Patient Care Team Medication Manager: Dr. Sidney marin/is ts: Former PCP - Yuni Reece, LEAD ESTHETICIAN @ [facility] Director Of Operations: Dr. Leonel Garcia & Dr. Con Chavez @ [facility] Instrument Tester: Dr. Fitch, Keyanna Amador, LEAD ESTHETICIAN @ [facility] Examination Category Sub-Category Detail Notes Category Not es General Examination GEN: NAD, speaking in full complete sentences, thoughts clear and appropriate RESP: nonlabored breathing, lungs clear/equal all benítez CV: S1S2 regular NEURO: AO x 3 PSYCH: judgment/insight intact, NL mood/affect Consultation Request Notes Referral Date Referring Provider Referred Provider Not es 07/25/2024 SHABBIR SAENZ , please refe r pt to [facility] with dx of DM, HLD, Morbid obesity TY
--- OUTSIDE RECORDS SUMMARY | 2024-10-14 09:28 | XMS_ITS | Encounter Summary ---
Author Organization [facility] Address [address] [place] [address] Care Team Providers Care Senior Process Analyst Name Role Phone Robert Haddad DO Primary Care Provider [phone] Wallace Zee MD Unavailable Jourdan Berry MD Primary Care Provider [phone] Jourdan Berry MD Unavailable [phone] Pcp, No Primary Care Provider UnavailYuni Castro APRN Primary Care Provider Encounter Details Date Type Department Care Team (Late st Contact Info) Description 02/02/2016 Scanned Document [address] [phone] Provider, Generic Social History Tobacco Use Types [...] Description 12/19/2024 8:00 AM EDT Procedure visit [facility] Department of Pulmonology [address] [phone] 12/19/2024 8:30 AM EDT Office Visit [facility] Department of Pulmonology [address] [place] [address] Dylan Nelson MD [address] [address] 04/17/2025 8:00 AM EDT Office Visit [facility] Department of Pulmonology [address] [place] [phone] Keyanna Amador APRN [address] [place] [address] documented as of this encounter Visit Diagnoses Not on filedocumented in this encounter Care Teams Senior Process Analyst Relationship Specialty Start Date End Date Robert Haddad DO [address] [place] [address] PCP - General Internal Medicine 03/03/15 03/19/19 Jourdan Berry MD [address] [place] [address] PCP - General Family Medicine 03/20/19 11/26/19 Pcp, No PCP - General General Medicine 11/27/19 08/15/22 Yuni Reece, LAW LIBRARIAN PCP - General 08/16/22 Wallace Zee MD [address] [place] [address] [address] [place] [address] Otolaryngology 02/22/17 Jourdan Berry MD [address] [place] [address] Referring Provider Family Medicine 11/27/19 documented as of this encounter
--- OUTSIDE RECORDS SUMMARY | 2024-10-14 09:28 | XMS_ITS | Encounter Summary ---
Author Organization [facility] Address [address] [place] [address] Care Team Providers Care Remnant Sorter Name Role Phone Wallace Zee MD Unavailable [phone] Jourdan Berry MD Primary Care Provider [phone] Jourdan Berry MD Unavailable [phone] Pcp, No Primary Care Provider UnavailYuni Castro APRN Primary Care Provider Encounter Details Date Type Department Care Team (Late st Contact Info) Description 10/08/2019 Scanned Document [address] [place] [address] Cardiology, Scan Social History Tobacco [...] [facility] Department of Pulmonology [address] [phone] 12/19/2024 8:30 AM EDT Office Visit [facility] Department of Pulmonology [place] [address] [place] [address] Dylan Nelson MD [address] [address] 04/17/2025 8:00 AM EDT Office Visit [facility] Department of Pulmonology [place] [address] [place] [address] Keyanna Amador APRN [address] [place] [address] documented as of this encounter Procedures Procedure [...] on filedocumented in this encounter Care Teams Remnant Sorter Relationship Specialty Start Date End Date Jourdan Berry MD [address] [place] [address] PCP - General Family Medicine 03/20/19 11/26/19 Pcp, No PCP - General General Medicine 11/27/19 08/15/22 Yuni Reece, WOOD ROUTER PCP - General 08/16/22 Wallace Zee MD [address] [place] [address] Otolaryngology 02/22/17 Jourdan Berry MD [address] [place] [address] Referring Provider Family Medicine 11/27/19 documented as of this encounter
--- OUTSIDE RECORDS SUMMARY | 2024-10-14 09:28 | XMS_ITS | Encounter Summary ---
Author Organization [facility] Address [address] [place] [address] Care Team Providers Care Calciminer Name Role Phone Robert Haddad DO Primary Care Provider [phone] Wallace Zee MD Unavailable [phone] Jourdan Berry MD Primary Care Provider [phone] Jourdan Berry MD Unavailable [phone] Pcp, No Primary Care Provider UnavailYuni Castro APRN Primary Care Provider Encounter Details Date Type Department Care Team (Late st Contact Info) Description 01/31/2017 Scanned Document [address] [phone] Provider, Generic Social History Tobacco Use Types [...] 12/19/2024 8:00 AM EDT Procedure visit [facility] Department of Pulmonology [address] [phone] 12/19/2024 8:30 AM EDT Office Visit [facility] Department of Pulmonology [place] [address] [place] [address] Dylan Nelson MD [address] [address] 04/17/2025 8:00 AM EDT Office Visit [facility] Department of Pulmonology [place] [address] [place] [phone] Keyanna Amador APRN [address] [place] [address] documented as of this encounter Visit Diagnoses Not on filedocumented in this encounter Care Teams Calciminer Relationship Specialty Start Date End Date Robert Haddad DO [address] [place] [address] PCP - General Internal Medicine 03/03/15 03/19/19 Jourdan Berry MD [address] [place] [address] PCP - General Family Medicine 03/20/19 11/26/19 Pcp, No PCP - General General Medicine 11/27/19 08/15/22 Yuni Reece, CHAUFFEUR PCP - General 08/16/22 Wallace Zee MD [address] [place] [address] [address] [place] [address] Otolaryngology 02/22/17 Jourdan Berry MD [address] [place] [address] Referring Provider Family Medicine 11/27/19 documented as of this encounter
--- OUTSIDE RECORDS SUMMARY | 2024-10-14 09:28 | XMS_ITS | Encounter Summary ---
Author Organization [facility] Address [address] [place] [address] Care Team Providers Care Armed Guard Name Role Phone Robert Haddad DO Primary Care Provider [phone] Wallace Zee MD Unavailable [phone] Jourdan Berry MD Primary Care Provider [phone] Jourdan Berry MD Unavailable [phone] Pcp, No Primary Care Provider UnavailYuni Castro APRN Primary Care Provider Encounter Details Date Type Department Care Team (Late st Contact Info) Description 11/20/2016 Scanned Document [address] [phone] Provider, Generic Social History Tobacco Use Types [...] visit [facility] Department of Pulmonology [address] [phone] 12/19/2024 8:30 AM EDT Office Visit [facility] Department of Pulmonology [place] [address] [place] [address] Dylan Nelson MD [address] [place] [address] 04/17/2025 8:00 AM EDT Office Visit [facility] Department of Pulmonology [place] [address] [place] [phone] Keyanna Amador APRN [address] [place] [address] documented as of this encounter Visit Diagnoses Not on filedocumented in this encounter Care Teams Armed Guard Relationship Specialty Start Date End Date Robert Haddad DO [address] [place] [address] PCP - General Internal Medicine 03/03/15 03/19/19 Jourdan Berry MD [address] [place] [address] PCP - General Family Medicine 03/20/19 11/26/19 Pcp, No PCP - General General Medicine 11/27/19 08/15/22 Yuni Reece, TITLE I MATH TUTOR PCP - General 08/16/22 Wallace Zee MD [address] [place] [address] [address] [place] [address] Otolaryngology 02/22/17 Jouradn Berry MD [address] [place] [address] Referring Provider Family Medicine 11/27/19 documented as of this encounter
--- OUTSIDE RECORDS SUMMARY | 2024-10-14 09:28 | XMS_ITS | Clinical Summary ---
Author Organization [facility] it Address [address] [place] [address] Care Team Providers Care Engineering Aide Name Role Phone SarahiYuni jain THIEN Primary Care Provider [phone] Medical History Medical History Date Comments Former smoker DX:Former smoker ; COMMENT: Quit 16 years back, smoked cig for 30 years, 1 pack/day Type 2 diabetes mellitus wit hout complications (CMS/HCC) DX:Type 2 diabetes mellitus without complications (HCC); COMMENT: followed by food and beverage analyst Dr. Crowell, point of care specialist Dr. Young, no records on 02/26/21 Essential [...] age to complete this topic Care Teams Engineering Aide Relationship Specialty Start Date End Date Yuni Reece NP [address] [place] [address] PCP - General Family Medicine 08/31/21
--- OUTSIDE RECORDS SUMMARY | 2024-10-14 09:28 | XMS_ITS | Encounter Summary ---
Author Organization [facility] Address [address] [place] [address] Care Team Providers Care Press Assistant Name Role Phone Wallace Zee MD Unavailable [phone] Jourdan Berry MD Primary Care Provider [phone] Jourdan Berry MD Unavailable [phone] Pcp, No Primary Care Provider UnavailYuni Castro APRN Primary Care Provider Reason for Visit * Reason Comments Medication Refill Encounter Details Date Type Department Care Team (Late st Contact Info) Description 10/17/[address] [phone] Robert Haddad, [address] [address] Essential hypertension Social History Tobacco Use Types [...] Description 12/19/2024 8:00 AM EDT Procedure visit [facility] Department of Pulmonology [place] [address] [place] [address] 12/19/2024 8:30 AM EDT Office Visit [facility] Department of Pulmonology [place] [address] [place] [phone] Dylan Nelson MD [address] [phone] 04/17/2025 8:00 AM EDT Office Visit [facility] Department of Pulmonology [place] [address] [place] [address] Keyanna Amador APRN [address] [place] [address] documented as of this encounter Visit Diagnoses Diagnosis Essential hypertension Unspecified essential hypertension documented in this encounter Care Teams Press Assistant Relationship Specialty Start Date End Date Jourdan Berry MD [address] [place] [address] PCP - General Family Medicine 03/20/19 11/26/19 Pcp, No PCP - General General Medicine 11/27/19 08/15/22 Yuni Reece, JAVIER PCP - General 08/16/22 Wallace Zee MD [address] [facility] [address] [place] [address] Otolaryngology 02/22/17 Jourdan Berry MD [address] [place] [address] Referring Provider Family Medicine 11/27/19 documented as of this encounter
--- OUTSIDE RECORDS SUMMARY | 2024-10-14 09:28 | XMS_ITS | Encounter Summary ---
Author Organization [facility] Address [address] [place] [address] Care Team Providers Care Wax Pattern Assembler Name Role Phone Robert Haddad DO Primary Care Provider [phone] Wallace Zee MD Unavailable Jourdan Berry MD Primary Care Provider [phone] Jourdan Berry MD Unavailable [phone] Pcp, No Primary Care Provider UnavailYuni Castro APRN Primary Care Provider Encounter Details Date Type Department Care Team (Late st Contact Info) Description 09/20/2016 Scanned Document [address] [phone] Provider, Generic Social History Tobacco Use Types [...] 12/19/2024 8:00 AM EDT Procedure visit [facility] Department of Pulmonology [address] [phone] 12/19/2024 8:30 AM EDT Office Visit [facility] Department of Pulmonology [place] [address] [place] [address] Dylan Nelson MD [address] [place] [address] [address] [address] 04/17/2025 8:00 AM EDT Office Visit [facility] Department of Pulmonology [place] [address] [place] [address] Keyanna Amador APRN [address] [place] [address] documented as of this encounter Visit Diagnoses Not on filedocumented in this encounter Care Teams Wax Pattern Assembler Relationship Specialty Start Date End Date Robert Haddad DO [address] [place] [address] PCP - General Internal Medicine 03/03/15 03/19/19 Jourdan Berry MD [address] [place] [address] PCP - General Family Medicine 03/20/19 11/26/19 Pcp, No PCP - General General Medicine 11/27/19 08/15/22 Yuni Reece, DIRECTOR MARKET INTELLIGENCE PCP - General 08/16/22 Wallace Zee MD [address] [place] [address] [address] [place] [address] Otolaryngology 02/22/17 Jourdan Berry MD [address] [place] [address] Referring Provider Family Medicine 11/27/19 documented as of this encounter
--- OUTSIDE RECORDS SUMMARY | 2024-10-14 09:28 | XMS_ITS | Encounter Summary ---
Author Organization [facility] Address [address] [place] [address] Care Team Providers Care Senior Coldfusion Developer Name Role Phone Robert Haddad DO Primary Care Provider [phone] Wallace Zee MD Unavailable [phone] Jourdan Berry MD Primary Care Provider Jourdan Berry MD Unavailable [phone] Pcp, No Primary Care Provider UnavailYuni Castro APRN Primary Care Provider Encounter Details Date Type Department Care Team (Late st Contact Info) Description 08/19/2016 Scanned Document [address] [phone] Provider, Generic Social History Tobacco Use Types [...] Description 12/19/2024 8:00 AM EDT Procedure visit [facility] Department of Pulmonology [address] [phone] 12/19/2024 8:30 AM EDT Office Visit [facility] Department of Pulmonology [place] [address] [place] [address] Dylan Nelson MD [address] [place] [address] [address] 04/17/2025 8:00 AM EDT Office Visit [facility] Department of Pulmonology [place] [address] [place] [phone] Keyanna Amador APRN [address] [place] [address] documented as of this encounter Visit Diagnoses Not on filedocumented in this encounter Care Teams Senior Coldfusion Developer Relationship Specialty Start Date End Date Robert Haddad DO [address] [place] [address] PCP - General Internal Medicine 03/03/15 03/19/19 Jourdan Berry MD [address] [place] [address] PCP - General Family Medicine 03/20/19 11/26/19 Pcp, No PCP - General General Medicine 11/27/19 08/15/22 Yuni Reece, RN FACULTY PCP - General 08/16/22 Wallace Zee MD [address] [place] [address] [address] [place] [address] Otolaryngology 02/22/17 Jourdan Berry MD [address] [place] [address] Referring Provider Family Medicine 11/27/19 documented as of this encounter
--- OUTSIDE RECORDS SUMMARY | 2024-10-14 09:28 | XMS_ITS | Clinical Summary ---
Author Organization [facility] Address [address] [place] [address] Care Team Providers Care Hogshead Packer Name Role Phone Yuni Reece APRN Primary Care Provider [phone] Allergies No known active allergies Medications Medication [...] age to complete this topic Care Teams Hogshead Packer Relationship Specialty Start Date End Date Yuni Reece APRN [address] [place] [address] PCP - General Family Medicine 08/31/21
--- OUTSIDE RECORDS SUMMARY | 2024-10-14 09:29 | XMS_ITS ---
Author Organization [facility] Address [address] [place] [address] Care Team Providers Care Sinter Machine Operator Name Role Phone Wallace Zee MD Unavailable [phone] Jourdan Berry MD Unavailable [phone] Yuni Reece APRN Primary Care Provider [phone] Active Problems Problem Noted Date Diagnosed Date [...]
--- OUTSIDE RECORDS SUMMARY | 2024-10-14 09:29 | XMS_ITS | Clinical Summary ---
Author Organization [facility] Address [address] [place] [address] Care Team Providers Care Biomedical Field Service Engineer Name Role Phone Unavailable Primary Care [...] Morbid obesity 03/23/2023 Overview (09/10/2023): Impression - [id number]: BMI 41. Start Ozempic- rx sent in. 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 On a statin. Abnormal chest CT 05/09/2021 Overview (09/10/2023): Impression - 33Syp1872: Opacification lower lobe. Con reports he has heard this before with past imaging. Recommend he contact wood lathe operator he saw in the past for lung function testing/further f/up. Encounter for immunization 04/28/2021 Migraine 03/14/2021 Encounter for screening for lung cancer 03/14/20 21 Anxiety 03/14/2021 Overview (09/10/2023): Impression - 25Dyg8710: Suggested he stop the wean at 5mg daily- continue on this dose and monitory symptoms. If they improve, they were likely due to the wean. If not, call the office for f/up if they remain bothersome. Hyperlipidemia 03/14/2021 Shortness of breath on exertion 03/12/2021 Cough 03/12/2021 Hypertension 03/12/2021 Overview (09/10/2023): Impression - 95Pmc6233: Stable. Continue medication regimen. Impression - 06Elz8609: Blood pressure well controlled. Stop HCTZ, start Lasix. Side effects reviewed. Type 2 diabetes mellitus wit hout complication, without long-term current use of insulin 03/12/2021 Overview (09/10/2023): Impression - 63Yiy9249: Most recent A1c is 7.4- goal is 6.5. Discussed diet & exercise changes. Continue medication regimen. F/up in 4 months. Impression - 68Klk6227: A1c 8.0%. Having trouble with diet and exercise. Has not been using Ozempic. Discussed benefits of Ozempic today. He is agreeable to trying this. Rx sent in. Side effects reviewed. F/up 3 months. Encounters Date Type Department Care Team Description 08/06/2024 Telephone [facility] [address] [place] [phone] Gopi Begum APRN BC Appointment 08/01/2024 Refill [facility] [address] [place] [phone] Gopi Begum, JAVIER ROY E-prescribing Refill Request [...] Patient informed of results us Gopi Begum [facility] Final Resul t PHCT CONVERSIONS * [...] iterative reconstruction technique DLP: 571.89 mGy-cm FINDINGS: SEMICONDUCTOR ASSEMBLER: The lungs are symmetrically well-expanded. There is [...] your patient to us, Sidney Dempsey MD [id number] (Electronically Signed - 11/30/2022 14:07) Copy: VALERIA WESTFALL MD [facility] [address] [place] [address] GOPI BEGUM [facility] [address] [place] [address] PHCT CONVERSIONS Anatomical Region Laterality Modality CHEST [...] Microalbumin<12.0, Alb/Creat Ratio Invalid Testing Performed at: [facility], [address] [place] [address], , Maintenance Mechanic Helper: Teresa Wood MD CL#[id number] 1:05PM by Gopi Begum: ??A1c 7.5% (improved [...] 11/10/2022 9:51 PM EDT Testing Performed at: [facility], [address] [place] [address], , Maintenance Mechanic Helper: Teresa Wood MD CL#[id number] 1:05PM by Gopi Begum: ??A1c 7.5% (improved [...] PM EDT FASTING: YES Testing Performed at: [facility], [address] [place] [address], , Maintenance Mechanic Helper: Teresa Wood MD CL#[id number] 1:05PM by Gopi Begum: ??A1c 7.5% (improved [...] PM EDT FASTING: YES Testing Performed at: [facility], [address] [place] [address], [place] [address], , Maintenance Mechanic Helper: Teresa Wood MD CL#[id number] 1:05PM by Gopi Begum: ??A1c 7.5% (improved from 8.6%). Continue current regimen us Gopi Begum [facility] Final Resul t Performing Organization Address City/[facility] Co de Phone Number PHCT CONVERSIONS * EKG (08/04/2022 4:00 PM EST) Narrative 08/04/2022 4:00 PM EST Ordered by an unspecified provider. us Unknown Provider CARDIOVASCULAR-NO INBASKET RTG Final Result * COLONOSCOPY (04/30/2021 3:15 PM EDT) COLONOSCOPY, RESULT Normal PHCT CONVERSIONS DATE NEXT SCREEN VISIT 10 Years PHCT CONVERSIONS 04/30/2021 3:15 PM EDT us Php Unknown Prov PROCEDURES Final Result Performing Organization Address [facility] Co de Phone Number PHCT CONVERSIONS * COMPREHENSIVE EYE EXAM (04/30/2021 3:15 PM EDT) DILATED RETINAL EXAM With Retinopathy PHCT CONVERSIONS 04/30/2021 3:15 PM EDT us Php Unknown Prov MINOR PROCEDURE Final Result Performing Organization Address [facility] Co de Phone Number PHCT CONVERSIONS from Last 3 Months or Most Recently Relevant to Health Maintenance
--- OUTSIDE RECORDS SUMMARY | 2024-10-14 09:29 | XMS_ITS | Clinical Summary ---
Author Organization [facility] Address [address] [place] [address] Care Team Providers Care Appointment Specialist Name Role Phone Wallace Zee MD Unavailable [phone] Jourdan Berry MD Unavailable [phone] Yuni Reece APRN Primary Care Provider [phone] Allergies Active Allergy Reactions Criticality Noted Date [...] Procedure visit [facility] Department of Pulmonology [place] [address] [place] [phone] 12/19/2024 8:30 AM EDT Office Visit [facility] Department of Pulmonology [address] [address] Dylan Nelson MD [address] [address] 04/17/2025 8:00 AM EDT Office Visit [facility] Department of Pulmonology [place] [address] [place] [address] Keyanna Amador APRN [address] [place] [address] Health Maintenance Due Date Last Done Comments [...] your patient to us, Francisco Fournier MD [id number] (Electronically Signed - 08/11/2024 14:03) Copy: SHABBIR SAENZ [address] [place] [address] PATIENT , ?? Narrative 08/11/2024 2:03 [...] iterative reconstruction technique DLP: 493.08 mGy-cm FINDINGS: Christian Education Director: Reviewed. LUNGS: The central tracheobronchial airways are [...] iterative reconstruction technique DLP: 493.08 mGy-cm FINDINGS: Christian Education Director: Reviewed. LUNGS: The central tracheobronchial airways are [...] Fournier MD 08/11/2024 02:03 PM EST RPWorkstation: [id number] Thank you for referring your patient to us, Francisco Fournier MD [id number] (Electronically Signed - 08/11/2024 14:03) Copy: SHABBIR SAENZ [address] [address] PATIENT , Dylan Nelson MD IMG CT ORDERABLES * Lytes, Bun, Creat, w/Ratio (11/10/2022 7:37 AM EDT) Blood Urea Nitrogen (BUN) 18 7 - 25 mg/dL [facility] Creatinine 0.82 0.70 - 1.35 mg/dL [facility] [place] Creatinine w/ eGFR 97 > OR = 60 mL/min/1 .73m2 [facility] Comment: The eGFR is based on the CKD-EPI 2020 equation. To calculate the new eGFR from a previous Creatinine or Cystatin C result, go to https://www.kidney.org/professionals/ kdoqi/gfr%5Fcalculator BUN/Creatinine Ratio NOT APPLICABLE 6 - 22 (calc) [facility] Sodium 138 135 - 146 mmol/L [facility] Potassium 4.1 3.5 - 5.3 mmol/L [facility] Chloride 99 98 - 110 mmol/L [facility] CO2 31 20 - 32 mmol/L [facility] Electrolyte Balance 8 7 - 17 mmol/L (calc) [facility] Blood specimen (specimen) Blood specimen / Unknown 11/10/2022 7:37 AM EDT 11/10/2022 7:37 AM EDT Sidney Fitch MD LAB BLOOD ORDERABLES Performing Organization Address City/State/[facility] Co de Phone Number [facility] [[email or web address]] [facility] [address] [place] [address] * (ABNORMAL) Lipid Panel Reflex Direct LDL ([facility] Only) (06/11/2018 9:02 AM EST) Cholesterol, Total 184 <200 mg/dL [facility] Cholesterol, HDL 41 >40 mg/dL [facility] Triglycerides 203(H) <150 mg/dL [facility] LDL Cholesterol 111(H) mg/dL (calc) [facility] Comment: Reference range: <100 Desirable range <100 mg/dL for primary prevention; ?? <70 mg/dL for patients with CHD or diabetic patients with > or = 2 CHD risk factors. LDL-C is now calculated using the Krystal calculation, which is a validated novel method providing better accuracy than the Friedewald equation in the estimation of LDL-C. Toby GALLAGHER et al. TONY. 2013;310(19): 6138-1943 (http://education.Exabeam/faq/QMO019) Cholesterol/HDL Ratio 4.5 <5.0 (calc) [facility] Non HDL Chol. (LDL+VLDL) 143(H) [...] Performing Organization Information: ?Site ID: [id number] ?Name: [facility] ?Address: [address] [place] [address], [place] [address] ?Director: Lisa Courtney MD Robert Haddad DO LAB BLOOD ORDERAB LES [facility] [address] [place] [address], [place] [address] * Microalbumin, Creatinine, Urine, Random [...] Performing Organization Information: ?Site ID: [id number] ?Name: [facility] ?Address: [address] [place] [phone] ?Director: Lisa Courtney MD Robert Haddad DO URINE ORDERABLES [facility] [address] [address] * (ABNORMAL) Hemoglobin A1c with Estimated Average Glucose (06/11/2018 9:02 AM EST) Hemoglobin A1C 6.4(H) <5.7 % of total Hgb [facility] Comment: For someone without known [...] children. Estimated Average Glucose (mg/dL) 137 (calc) [facility] Estimated Average Glucose (mmol/L) 7.6 (calc) [facility] Blood specimen (specimen) 06/11/2018 9:02 AM EST 06/11/2018 9:02 AM EST Narrative [facility] - 06/12/2018 5:21 PM EST FASTING:YES FASTING: YES Resulting Agency Comment Performing Organization Information: ?Site ID: [id number] ?Name: [facility] ?Address: [address] [place] [phone] ?Director: Lisa Courtney MD Robert Haddad DO LAB BLOOD ORDERAB LES [facility] [address] [place] [address], [place] [address] from Last 3 Months or Most Recently Relevant to Health Maintenance Advance Directives * Full Code (Latest Code Status on File) Date Activated Date Inactivated Comments 05/30/2019 7:52 AM Care Teams Appointment Specialist Relationship Specialty Start Date End Date Yuni Reece APRN [address] [place] [address] PCP - General 08/16/22 Wallace Zee MD [address] [place] [address] [place] [address] Otolaryngology 02/22/17 Jourdan Berry MD [address] [place] [address] Referring Provider Family Medicine 11/27/19
--- OUTSIDE RECORDS SUMMARY | 2024-10-14 09:29 | XMS_ITS | Encounter Summary ---
Author Organization [facility] Address [address] [place] [address] Care Team Providers Care Supervisor Engines Road Name Role Phone Robert Haddad DO Primary Care Provider [phone] Wallace Zee MD Unavailable [phone] Jourdan Berry MD Primary Care Provider Jourdan Berry MD Unavailable [phone] Pcp, No Primary Care Provider UnavailYuni Castro APRN Primary Care Provider [phone] Reason for Visit * Reason Comments Medication Refill Encounter Details Date Type Department Care Team (Late st Contact Info) Description 03/05/[address] [phone] Robert Haddad DO [address] [place] [address] Uncontrolled type 2 diabetes mellitus with complication, [...] Procedure visit [facility] Department of Pulmonology [place] [address] [place] [address] 12/19/2024 8:30 AM EDT Office Visit [facility] Department of Pulmonology [place] [address] [place] [address] Dylan Nelson MD [address] [phone] 04/17/2025 8:00 AM EDT Office Visit [facility] Department of Pulmonology [place] [address] [place] [address] Keyanna Amador APRN [address] [place] [address] documented as of this encounter Visit Diagnoses Diagnosis Uncontrolled type 2 diabetes mellitus with complication, without long-term current use of insulin documented in this encounter Care Teams Supervisor [address] Relationship Specialty Start Date End Date Robert Haddad DO [address] [place] [address] PCP - General Internal Medicine 03/03/15 03/19/19 Jourdan Berry MD [address] [place] [address], [place] [address] PCP - General Family Medicine 03/20/19 11/26/19 Pcp, No PCP - General General Medicine 11/27/19 08/15/22 Yuni Reece, VITAMIN MANAGER PCP - General 08/16/22 Wallace Zee MD 4 [facility] [address] [place] [address] Otolaryngology 02/22/17 Jourdan Berry MD [address] [place] [address] Referring Provider Family Medicine 11/27/19 documented as of this encounter
--- OUTSIDE RECORDS SUMMARY | 2024-10-14 09:29 | XMS_ITS | Encounter Summary ---
Author Organization [facility] Address [address] [place] [address] Care Team Providers Care Adult Nurse Practitioner Name Role Phone Unavailable Primary Care Provider Unavailabl e Reason for Visit * Reason Onset Date Comments Refill Request 11/30/2023 Encounter Details Date Type Department Care Team (Late st Contact Info) Description 11/30/2023 Refill [facility] [address] [place] [address] Yuni Reece APRN BC Refill Request Social [...]
--- OUTSIDE RECORDS SUMMARY | 2024-10-14 09:29 | XMS_ITS | Encounter Summary ---
Author Organization [facility] Address [address] [place] [address] Care Team Providers Care Ship Fastener Name Role Phone Robert Haddad DO Primary Care Provider [phone] Wallace Zee MD Unavailable Jourdan Berry MD Primary Care Provider [phone] Jourdan Berry MD Unavailable Pcp, No Primary Care Provider UnavailYuni Castro APRN Primary Care Provider [phone] Reason for Visit * Reason Comments Medication Refill Encounter Details Date Type Department Care Team (Late st Contact Info) Description 01/02/[address] [phone] Robert Haddad DO [address] [place] [address] Uncontrolled type 2 diabetes mellitus with complication, [...] Procedure visit [facility] Department of Pulmonology [place] [address] [place] [address] 12/19/2024 8:30 AM EDT Office Visit [facility] Department of Pulmonology [place] [address] [place] [address] Dylan Nelson MD [address] [phone] 04/17/2025 8:00 AM EDT Office Visit [facility] Department of Pulmonology [place] [address] [place] [address] Keyanna Amador APRN [address] [place] [address] documented as of this encounter Visit Diagnoses Diagnosis Uncontrolled type 2 diabetes mellitus with complication, without long-term current use of insulin documented in this encounter Care Teams Ship Fastener Relationship Specialty Start Date End Date Robert Haddad DO [address] [place] [address] PCP - General Internal Medicine 03/03/15 03/19/19 Jourdan Berry MD [address] [place] [address], [place] [address] PCP - General Family Medicine 03/20/19 11/26/19 Pcp, No PCP - General General Medicine 11/27/19 08/15/22 Yuni Reece, TRESTLE BUILDER PCP - General 08/16/22 Wallace Zee MD 4 [facility] [address] [place] [address] Otolaryngology 02/22/17 Jourdan Berry MD [address] [place] [address] Referring Provider Family Medicine 11/27/19 documented as of this encounter
--- OUTSIDE RECORDS SUMMARY | 2024-10-14 09:29 | XMS_ITS | Encounter Summary ---
Author Organization [facility] Address [address] [place] [address] Care Team Providers Care Auto Body Mechanic Name Role Phone Unavailable Primary Care Provider Unavailabl e Reason for Visit * Reason Onset Date Comments Refill Request 11/29/2023 Encounter Details Date Type Department Care Team (Late st Contact Info) Description 11/29/2023 Refill [facility] [address] [place] [address] Yuni Reece APRN BC Refill Request Social [...]
--- OUTSIDE RECORDS SUMMARY | 2024-10-14 09:29 | XMS_ITS | Encounter Summary ---
Author Organization [facility] Address [address] [place] [address] Care Team Providers Care Waist Presser Name Role Phone Unavailable Primary Care Provider Unavailabl e Reason for Visit * Reason Onset Date Comments Refill Request 11/29/2023 Encounter Details Date Type Department Care Team (Late st Contact Info) Description 11/29/2023 Refill [facility] [address] [place] [address] Yuni Reece APRN BC Refill Request Social [...]
--- OUTSIDE RECORDS SUMMARY | 2024-10-14 09:29 | XMS_ITS | Encounter Summary ---
Author Organization [facility] Address [address] [place] [address] Care Team Providers Care Top Icer Name Role Phone Unavailable Primary Care Provider Unavailabl e Reason for Visit * Reason Onset Date Comments Refill Request 04/03/2024 Encounter Details Date Type Department Care Team (Late st Contact Info) Description 04/03/2024 Refill [facility] [address] [place] [address] Yuni Reece APRN BC Refill Request Social [...] from pharmacy for: refill Patient's Preferred Pharmacy: [id number] [facility] [address] [facility] [address] Has the patient contacted the pharmacy for this prescription? yes documented in this encounter Plan of Treatment Not on file documented as of this encounter Visit Diagnoses Not on filedocumented in this encounter
--- OUTSIDE RECORDS SUMMARY | 2024-10-14 09:29 | XMS_ITS | Encounter Summary ---
Author Organization [facility] Address [address] [place] [address] Care Team Providers Care Performance Consultant Name Role Phone Unavailable Primary Care Provider Unavailabl e Encounter Details Date Type Department Care Team (Late st Contact Info) Description 09/19/2023 Orders Only [address] [address] Nick Baker RN Social History [...]
--- OUTSIDE RECORDS SUMMARY | 2024-10-14 09:29 | XMS_ITS | Encounter Summary ---
Author Organization [facility] Address [address] [place] [address] Care Team Providers Care Director Property Name Role Phone Unavailable Primary Care Provider Unavailabl e Reason for Visit * Reason Comments E-prescribing Refill Request Encounter Details Date Type Department Care Team (Late st Contact Info) Description 11/23/[address] [address] Yuni Reece, JAVIER BC E-prescribing [...]
--- OUTSIDE RECORDS SUMMARY | 2024-10-14 09:29 | XMS_ITS | Encounter Summary ---
Author Organization [facility] Address [address] [place] [address] Care Team Providers Care Senior Embedded Software Engineer Name Role Phone Unavailable Primary Care Provider Unavailabl e Reason for Visit * Reason Comments E-prescribing Refill Request Encounter Details Date Type Department Care Team (Late st Contact Info) Description 11/20/[address] [address] Yuni Reece, JAVIER BC E-prescribing [...]
--- OUTSIDE RECORDS SUMMARY | 2024-10-14 09:29 | XMS_ITS | Encounter Summary ---
Author Organization [facility] Address [address] [place] [address] Care Team Providers Care Marble Carver Name Role Phone Unavailable Primary Care Provider Unavailabl e Reason for Visit * Reason Onset Date Comments Refill Request 11/30/2023 Encounter Details Date Type Department Care Team (Late st Contact Info) Description 11/30/2023 Refill [facility] [address] [place] [address] Yuni Reece APRN BC Refill Request Social [...]
--- OUTSIDE RECORDS SUMMARY | 2024-10-14 09:29 | XMS_ITS ---
Author Organization [facility] [employer] Address [address] [place] [address] [place] [id number] Care Team Providers Care Dog Track Kennel Manager Name Role Phone BRIDGETT TONG Primary Care Provider [phone] SHABBIR SAENZ Unavailable [phone] REASON FOR VISIT 1 month f/u call pt at work: [phone] MEDICATIONS Medication SIG (Take, Route, Frequency, Duration) [...] day for 90 days Active Dexcom G7 Manager Storage - as directed for 90 days 06/26 [...] Not-Taking Encounters Encounter Location Date Provider Diagnosis [address] [phone] 09/04/2024 SHABBIR SAENZ KRISTIAN (obstructive sleep apnea) [...] Notes * VANDA GARLAND:1955 (68 yo M)Acc No.[id number]:09/04/2024 Progress Note Patient:??MICHELLE GARLAND Provider:??SHABBIR SAENZ NP :1955?Age:68 Y?Sex:Jacquie barrett Date:09/04/2024 Phone: Address:[address] [place] [address] GUERA WALLACE, JACQUIE-[address] Pcp:BRIDGETT TONG Subjective: * Chief Complaints: * ?1 month f/u call pt at work: [phone] * HPI: ?Visit info:? The patient consents [...] directed change sensor every 10 daysDexcom G7 Manager Storage - Device as [facility] - Miscellaneous change sensor every 10 days Ozempic (2 MG/DOSE) 8 MG/3ML Solution Pen-injector 2mg Subcutaneous once a week Medication List reviewed and reconciled with the patientNot-Taking Mounjaro 7.5 MG/0.5ML Solution Auto-injector 7.5mg Subcutaneous once a week Not-Taking Dexcom G7 Sensor - Miscellaneous as directed change sensor every 10 daysNot-Taking Dexcom G7 Manager Storage - Device as directed Not-Taking Dexcom G7 [...] NA) * Billing Information: * Visit Code:?? 46676 Office Visit, Est Pt., Level 4. * [...]
--- OUTSIDE RECORDS SUMMARY | 2024-10-14 09:30 | XMS_ITS | Encounter Summary ---
Author Organization [facility] Address [address] [place], [place] [id number] Care Team Providers Care Coordinate Measuring Equipment Operator Name Role Phone Wallace Zee MD Unavailable [phone] Jourdan Berry MD Unavailable Yuni Reece APRN Primary Care Provider [phone] Encounter Details Date Type Department Care Team (Late st Contact Info) Description 01/05/2023 Scanned Document [facility] Department of Pulmonology [place] [address] [place] [phone] Keyanna Amador APRN [address] [place], [place] [id number] Social History Tobacco Use Types Packs/Day Years [...] Description 12/19/2024 8:00 AM EDT Procedure visit [facility] Department of Pulmonology [place] [address] [place] [phone] 12/19/2024 8:30 AM EDT Office Visit [facility] Department of Pulmonology [place] [address] [place] [address] Dylan Nelson MD [address] [address] 04/17/2025 8:00 AM EDT Office Visit [facility] Department of Pulmonology [place] [address] [place] [address] Keyanna Amador APRN [address] [place] [address] documented as of this encounter Visit Diagnoses Not on filedocumented in this encounter Care Teams Coordinate Measuring Equipment Operator Relationship Specialty Start Date End Date Yuni Reece, QUANTITATIVE CONSULTANT [address] [place] [address] PCP - General 08/16/22 Wallace Zee MD 4 [facility] [address] [place] [address] Otolaryngology 02/22/17 Jourdan Berry MD [address] [place] [address] Referring Provider Family Medicine 11/27/19 documented as of this encounter
--- OUTSIDE RECORDS SUMMARY | 2024-10-14 09:30 | XMS_ITS | Encounter Summary ---
Author Organization [facility] Address [address] [place], [place] [id number] Care Team Providers Care Education Rn Name Role Phone Wallace Zee MD Unavailable [phone] Jourdan Berry MD Unavailable Yuni Reece APRN Primary Care Provider Encounter Details Date Type Department Care Team (Late st Contact Info) Description 02/02/2024 Scanned Document [facility] Department of Pulmonology [address] [address] Pulmonary, Scan Social History Tobacco [...] 12/19/2024 8:00 AM EDT Procedure visit [facility] Department of Pulmonology [address] [address] 12/19/2024 8:30 AM EDT Office Visit [facility] Department of Pulmonology [address] [phone] Dylan Nelson MD [address] [facility] [address] [place] [address] 04/17/2025 8:00 AM EDT Office Visit [facility] Department of Pulmonology [place] [address] [place] [phone] Keyanna Amador APRN [address] [place] [address] documented as of this encounter Visit Diagnoses Not on filedocumented in this encounter Care Teams Education Rn Relationship Specialty Start Date End Date Yuni Reece, PODIATRIC PHYSICIAN 13 [place] [address] PCP - General 08/16/22 Wallace Zee MD [address] [facility] [address] [place] [address] Otolaryngology 02/22/17 Jourdan Berry MD [address] [place] [address] Referring Provider Family Medicine 11/27/19 documented as of this encounter
--- OUTSIDE RECORDS SUMMARY | 2024-10-14 09:30 | XMS_ITS | Encounter Summary ---
Author Organization [facility] Address [address] [place], [place] [id number] Care Team Providers Care Flight Attendant/Inflight Manager Name Role Phone Wallace Zee MD Unavailable Jourdan Berry MD Unavailable [phone] Yuni Reece APRN Primary Care Provider [phone] Encounter Details Date Type Department Care Team (Late st Contact Info) Description 01/12/2023 Scanned Document [facility] Department of Pulmonology [place] [address] [place] [phone] Keyanna Amador APRN [address] [place], [place] [id number] Social History Tobacco Use Types Packs/Day Years [...] AM EDT Procedure visit [facility] Department of Pulmonology [place] [address] [place] [phone] 12/19/2024 8:30 AM EDT Office Visit [facility] Department of Pulmonology [place] [address] [place] [address] Dylan Nelson MD [address] [address] 04/17/2025 8:00 AM EDT Office Visit [facility] Department of Pulmonology [place] [address] [place] [address] Keyanna Amador APRN [address] [place] [address] documented as of this encounter Visit Diagnoses Not on filedocumented in this encounter Care Teams Flight Attendant/Inflight Manager Relationship Specialty Start Date End Date Yuni Reece, LOCAL ANNOUNCER 13 [place] [address] PCP - General 08/16/22 Wallace Zee MD 4 [facility] [address] [place] [address] Otolaryngology 02/22/17 Jourdan Berry MD 13 [place] [address] Referring Provider Family Medicine 11/27/19 documented as of this encounter
--- OUTSIDE RECORDS SUMMARY | 2024-10-14 09:30 | XMS_ITS | Encounter Summary ---
Author Organization [facility] Address [address] [place], [place] [phone] Care Team Providers Care Dragline Operator Helper Name Role Phone Wallace Zee MD Unavailable Jourdan Berry MD Unavailable [phone] Yuni Reece APRN Primary Care Provider Encounter Details Date Type Department Care Team (Late st Contact Info) Description 10/12/2022 Scanned Document [facility] Department of Pulmonology [place] [address] [place] [address] [address] [place] [address] Keyanna Amador APRN [address] [place] [address] Social History Tobacco Use Types Packs/Day Years [...] Description 12/19/2024 8:00 AM EDT Procedure visit [facility] Department of Pulmonology [place] [address] [place] [address] 12/19/2024 8:30 AM EDT Office Visit [facility] Department of Pulmonology [place] [address] [place] [address] Dylan Nelson MD [address] [address] 04/17/2025 8:00 AM EDT Office Visit [facility] Department of Pulmonology [place] [address] [place] [address] Keyanna Amador APRN [address] [place] [address] documented as of this encounter Visit Diagnoses Not on filedocumented in this encounter Care Teams Dragline Operator Helper Relationship Specialty Start Date End Date Yuni Reece, SECURITY OPERATIONS CENTER OPERATOR 13 [place] [address] PCP - General 08/16/22 Wallace Zee MD 4 [facility] [address] [place] [address] Otolaryngology 02/22/17 Jourdan Berry MD 13 [place] [address] Referring Provider Family Medicine 11/27/19 documented as of this encounter
--- OUTSIDE RECORDS SUMMARY | 2024-10-14 09:30 | XMS_ITS | Encounter Summary ---
Author Organization [facility] Address [address] [place], [place] [address] Care Team Providers Care Civil Draftsman Name Role Phone Wallace Zee MD Unavailable Jourdan Berry MD Unavailable [phone] Yuni Reece APRN Primary Care Provider Encounter Details Date Type Department Care Team (Late st Contact Info) Description 06/28/2024 Scanned Document [facility] Department of Pulmonology [place] [address] [place] [phone] Keyanna Amador APRN [address] [place], [place] [phone] Social History Tobacco Use Types Packs/Day Years [...] 8:00 AM EDT Procedure visit [facility] Department of Pulmonology [place] [address] [place] [phone] 12/19/2024 8:30 AM EDT Office Visit [facility] Department of Pulmonology [place] [address] [place] [address] Dylan Nelson MD [address] [address] 04/17/2025 8:00 AM EDT Office Visit [facility] Department of Pulmonology [place] [address] [place] [address] Keyanna Amador APRN [address] [place] [address] documented as of this encounter Visit Diagnoses Not on filedocumented in this encounter Care Teams Civil Draftsman Relationship Specialty Start Date End Date Yuni Reece, CHOCOLATIER 13 [place] [address] PCP - General 08/16/22 Wallace Zee MD 4 [facility] [address] [place] [address] Otolaryngology 02/22/17 Jourdan Berry MD 13 [place] [address] Referring Provider Family Medicine 11/27/19 documented as of this encounter
--- OUTSIDE RECORDS SUMMARY | 2024-10-14 09:30 | XMS_ITS | Encounter Summary ---
Author Organization [facility] Address [address] [place], [place] [phone] Care Team Providers Care Marketing Support Manager Name Role Phone Wallace Zee MD Unavailable Jourdan Berry MD Unavailable Yuni Reece APRN Primary Care Provider Encounter Details Date Type Department Care Team (Late st Contact Info) Description 05/08/2023 Scanned Document [facility] Department of Pulmonology [place] [address] [place] [address] [address] [place] [address] Keyanna Amador APRN [address] [place] [address] Social History Tobacco Use Types Packs/Day Years [...] visit [facility] Department of Pulmonology [place] [address] [place] [address] 12/19/2024 8:30 AM EDT Office Visit [facility] Department of Pulmonology [place] [address] [place] [address] Dylan Nelson MD [address] [address] 04/17/2025 8:00 AM EDT Office Visit [facility] Department of Pulmonology [place] [address] [place] [address] Keyanna Amador APRN [address] [place] [address] documented as of this encounter Visit Diagnoses Not on filedocumented in this encounter Care Teams Marketing Support Manager Relationship Specialty Start Date End Date Yuni Reece, SLIPCOVER CUTTER 13 [place] [address] PCP - General 08/16/22 Wallace Zee MD 4 [facility] [address] [place] [address] Otolaryngology 02/22/17 Jourdan Berry MD 13 [place] [address] Referring Provider Family Medicine 11/27/19 documented as of this encounter
--- OUTSIDE RECORDS SUMMARY | 2024-10-14 09:30 | XMS_ITS | Encounter Summary ---
Author Organization [facility] Address [address] [place], [place] [phone] Care Team Providers Care Outside Solar Sales Consultant Name Role Phone Wallace Zee MD Unavailable [phone] Jourdan Berry MD Unavailable [phone] Yuni Reece APRN Primary Care Provider Encounter Details Date Type Department Care Team (Late st Contact Info) Description 10/12/2022 Scanned Document [facility] Department of Pulmonology [place] [address] [place] [address] [address] [place] [address] Keyanna Amador APRN [address] [place] [address] Social History Tobacco Use Types Packs/Day Years [...] [facility] Department of Pulmonology [place] [address] [place] [address] 12/19/2024 8:30 AM EDT Office Visit [facility] Department of Pulmonology [place] [address] [place] [address] Dylan Nelson MD [address] [address] 04/17/2025 8:00 AM EDT Office Visit [facility] Department of Pulmonology [place] [address] [place] [address] Keyanna Amador APRN [address] [place] [address] documented as of this encounter Visit Diagnoses Not on filedocumented in this encounter Care Teams Outside Solar Sales Consultant Relationship Specialty Start Date End Date Yuni Reece, MEDICAL ENGINEER [address] [place] [address] PCP - General 08/16/22 Wallace Zee MD 4 [facility] [address] [place] [address] Otolaryngology 02/22/17 Jourdan Berry MD 13 [place] [address] Referring Provider Family Medicine 11/27/19 documented as of this encounter
== END 2024-10-14 09:53 | disposition home or self-care (01) ==
PROVIDERS: PCP Physician Assistant Medical; Visit Provider Physician Assistant Medical
DX: E11.51 Type 2 diabetes mellitus with diabetic peripheral angiopathy without gangrene (principal); J44.89 Other specified chronic obstructive pulmonary disease; K63.5 Polyp of colon; E78.00 Pure hypercholesterolemia, unspecified; I10 Essential (primary) hypertension; G47.33 Obstructive sleep apnea (adult) (pediatric)

== ENCOUNTER → 2024-10-14 08:58 | Outpatient (BNVA) | payer OTHER, SELFPAY | PROVIDERS: PCP Physician Assistant Medical; Visit Provider Physician Assistant Medical | DX: E78.00 Pure hypercholesterolemia, unspecified (principal); I10 Essential (primary) hypertension; J44.89 Other specified chronic obstructive pulmonary disease; E11.51 Type 2 diabetes mellitus with diabetic peripheral angiopathy without gangrene; K63.5 Polyp of colon; G47.33 Obstructive sleep apnea (adult) (pediatric) | CPT/HCPCS: 83036 ==

== ENCOUNTER 2025-03-10 08:07 | Outpatient (AMB) | payer OTHER, SELFPAY ==
--- OUTSIDE RECORDS SUMMARY | 2025-03-10 08:12 | XMS_ITS | Encounter Summary ---
Author Organization [facility] Address [address] [place] [address] Care Team Providers Care System Developer Associate Manager Name Role Phone Robert Haddad DO Primary Care Provider [phone] Wallace Zee MD Unavailable Jourdan Berry MD Primary Care Provider [phone] Jourdan Berry MD Unavailable [phone] Pcp, No Primary Care Provider UnavailYuni Castro APRN Primary Care Provider [phone] Encounter Details Date Type Department Care Team (Late st Contact Info) Description 01/31/2017 Scanned Document [address] [phone] Provider, Generic Social History Tobacco Use Types Packs/Day Years Used Date Smoking Tobacco: Former Comments:Quit Date Unknown Alcohol Use Standard Drinks/Week Comments Yes 0 (1 standard drink = 0.6 oz pur e alcohol) Sex and Gender Information Value Date Recorded Sex Assigned at Male 01/18/2023 7:03 AM EDT Legal Sex Male 1:27 PM EDT Gender Identity Male 04/27/2021 7:47 AM EDT Sexual Orientation Heterosexual (straight) 01/18 7:03 AM EDT documented as of this encounter Plan of Treatment Not on file documented as of this encounter Visit Diagnoses Not on filedocumented in this encounter Care Teams System Developer Associate Manager Relationship Specialty Start Date End Date Robert Haddad DO [address] [place] [address] [place] [address] PCP - General Internal Medicine 03/03/15 03/19/19 Jourdan Berry MD 13 [facility] [place] [address] PCP - General Family Medicine 03/20/19 11/26/19 Pcp, No PCP - General General Medicine 11/27/19 08/15/22 Yuni Recee APRN PCP - General 08/16/22 Wallace Zee MD [address] [address] Otolaryngology 02/22/17 Jourdan Berry MD 13 [place] [address] Referring Provider Family Medicine 11/27/19 documented as of this encounter
--- OUTSIDE RECORDS SUMMARY | 2025-03-10 08:12 | XMS_ITS | Clinical Summary ---
Author Organization [facility] Address [address] [address] Phone Care Team Providers Care Levelman Name Role Phone Fuad Nunez MD Primary Care Provider Allergies Active Allergy Reactions Criticality Noted Date Comments Lisinopril Low 03/22/2017 Other Reaction(s): Cough Medications valsartan-hydroCH LOROthiazide (DIOVAN-HCT) 320-12.5 mg per tablet Take 1 tablet by mouth daily. Active valsartan (DIOVAN) 160 MG tablet Take 160 mg by mouth daily. Active tretinoin (RETIN-A) 0.025 % cream APPLY SPARINGLY TO AFFECTED AREA(S) ONCE DAILY AT BEDTIME. 3 Active tirzepatide (MOUNJARO) 5 mg/0.5 mL PnIj Inject under the skin. 3 Active SUMAtriptan (IMITREX) 100 MG tablet TAKE 1 TABLET AT ONSET OF A MIGRAINE, CAN REPEAT IN 2 HOURS. MAX OF 2 TABLETS Active OZEMPIC 0.25 mg or 0.5 mg (2 mg/3 mL) subcutaneous injection pen Inject under the skin. 3 Active metoprolol succinate (TOPROL-XL) 100 MG 24 hr tablet Take 100 mg by mouth daily. Active glipiZIDE (GLUCOTROL) 5 MG tablet Take 1 tablet by mouth 2 (two) times a day. 3 Active furosemide (LASIX) 20 MG tablet Take by mouth. 3 Active escitalopram oxalate (LEXAPRO) 10 MG tablet Take 10 mg by mouth daily. Active albuterol 90 mcg/actuation inhaler INHALE 2 PUFFS BY MOUTH EVERY 4-6 HOURS SPACED 60 SECONDS APART Active aspirin 81 MG EC tablet Take 1 tablet by mouth daily. 3 Active ALPRAZolam (XANAX) 0.25 MG tablet Take 0.25 mg by mouth 2 (two) times a day. Active multivitamin per tablet 3 Active calcium carbonate-vitamin D3 1500 mg (600 mg elemental)-400 units per tablet Take 1 tablet by mouth daily. Active clotrimazole (LOTRIMIN) 1 % cream APPLY SPARINGLY TO AFFECTED AREA TOPICALLY THREE TIMES A DAY 4 Active amLODIPine (NORVASC) 5 MG tablet Take 1 tablet by mouth daily. 4 Active metFORMIN (GLUCOPHAGE-XR) 500 MG 24 hr tablet Take 2 tablets by mouth every morning. 4 Active benzonatate (TESSALON) 100 MG capsule Take 2 capsules (200 mg total) by mouth 3 (three) times a day as needed for cough. 21 capsule 4 Active Active Problems No known active problems Social History Tobacco Use Types Packs/Day Years Used Date Smoking Tobacco: Former Cigarettes Smokeless Tobacco: Never Tobacco Cessation:Counseling Given: Not Answered Education Answer Date Recorded Are you interested in more education? Not on hannah e 03/15/2024 Are you concerned about learning? Not on file 03/15/2024 No 03/15/2024 No 03/15/2024 Digital Access Answer Date Recorded No 03/15/2024 No 03/15/2024 Reliable internet access at home? Not on file 03/15/2024 Device with a working camera? Not on file Sex and Gender Information Value Date Recorded Sex Assigned at Not on file Legal Sex Male 10:06 AM EDT Gender Identity Not on file Sexual Orientation Not on file Last Filed Vital Signs Vital Sign Reading Time Taken Comments Blood Pressure 128/86 03/15/2024 10:37 AM EDT Pulse 70 03/15/2024 10:37 AM EDT Temperature 37.1 C (98.7 F) 03/15/2024 10:37 AM EDT Respiratory Rate 20 03/15/2024 10:37 AM EDT Oxygen Saturation 95% 03/15/2024 10:37 AM EDT Inhaled Oxygen Concentration - - Weight - - Height - - Body Mass Index - - Plan of Treatment Health Maintenance Due Date Last Done Comments CREATININE LEVEL 1956 LIPID PANEL 1956 POTASSIUM LEVEL 1956 DEPRESSION SCREENING 1968 SMOKING Hx and SMOKELESS TOBACCO SCREENING 1969 HEPATITIS C SCREENING 1974 COLOGUARD 2001 COLONOSCOPY 2001 COLORECTAL CANCER SCREENING 2001 FIT TEST 2001 FOBT 2001 SIGMOIDOSCOPY 2001 VIRTUAL COLONOSCOPY 2001 PNEUMOCOCCAL VACCINES (50+ years) (1 of 1 - PCV) 2006 ZOSTER VACCINES (1 of 2) 2006 ABDOMINAL AORTIC ANEURYSM (AAA) SCREENING 2021 COVID-19 VACCINE (3 - 2023-2 5 season) 2024 11/24/2020, 10/29/2020 Adult Td,Tdap Booster 06/08/2028 06/08/2018 , 06/07/2008 RSV VACCINE (1 - 1-dose 75+ series) 10/31/2031 HEPATITIS A VACCINES Aged Out No long er eligible based on patient's age to complete this topic HIB VACCINES Aged Out No longer eligi ble based on patient's age to complete this topic MENINGOCOCCAL VACCINES (ACWY) Aged Out No longer eligible based on patient's age to complete this topic MENINGOCOCCAL VACCINES (B) Aged Out N o longer eligible based on patient's age to complete this topic Medical Devices Not on file Insurance [employer] MED[employer] POS PPO REPLACEMENT MEDICARE PART A & B [facility] MEDICARE POS PPO REPLACEMENT MEDICARE PART A & B [employer] POS PPO REPLACEMENT MEDICARE PART A & B [employer] MED[employer] POS PPO REPLACEMENT MEDICARE PART A & B [employer] MED[employer] POS PPO REPLACEMENT MEDICARE PART A & B [employer] MED[employer] POS PPO REPLACEMENT MEDICARE PART A & B Care Teams Levelman Relationship Specialty Start Date End Date Fuad Nunez MD [address] [place] [address] PCP - General Family Medicine 03/15/24 Additional Source Comments The information contained in this document represents components of the legal health record. It is not the complete legal health record.[facility]
--- OUTSIDE RECORDS SUMMARY | 2025-03-10 08:12 | XMS_ITS ---
Author Name [facility] Organization Unknown History of Medication Use Medication Directions Dispensed Refills Start Date End Date Status barium sulfate (E-Z-DISK) tablet 700 mg 700 mg, Oral, Once in imaging, contrast, Starting on Mon01/18/23 at 0745, For 1 dose, Radiology Appointment 3 01/19/20 completed barium sulfate (EZ-PAQUE) 60 % oral suspension 150 mL 150 mL, Oral, Once in imaging, contrast, Starting on Mon01/18/23 at 0745, For 1 dose, Radiology Appointmentmix 60% barium/40% water 3 01/19/20 23 completed Mounjaro 5 MG/0.5ML Subcutaneous Solution Pen-injector Mounjaro 5 MG/0.5ML Subcutaneous Solution Pen-injectorINJECT 0.5 ML Weekly for 4 weeks Quantity: 1 Refills: 0FiGopi jain APRN Start : 86-Moh-6058Ggpcps9 x 0.5 ML Pen 3 completed Mounjaro 7.5 MG/0.5ML Subcutaneous Solution Pen-injector Mounjaro 7.5 MG/0.5ML Subcutaneous Solution Pen-injectorINJECT 0.5 ML Weekly Quantity: 1 Refills: 1FGopi velez APRN Start : 52-Evr-6561Vnuqdj1 x 0.5 ML Pen 3 completed fluticasone-umeclid inium-vilanterol (TRELEGY ELLIPTA) 100-62.5-25 mcg/act inhaler Inhale. 2 active Cephalexin 500 MG Oral Capsule Cephalexin 500 MG Oral Capsule Quantity: 1 Refills: 0 Start : 89-Ind-3184Mcuuif 2 completed sumatriptan 100 mg tablet Take 1 tablet as needed by oral route. 2 active Aspirin Low Dose 81 MG Oral Tablet Delayed Release Aspirin Low Dose 81 MG Oral Tablet Delayed ReleaseTAKE 1 TABLET BY MOUTH EVERY DAY Quantity: 90 Refills: 3FGopi velez APRN Start : 56-Uoo-5693Ggotdf 2 completed Dulera 50-5 MCG/ACT Inhalation Aerosol Dulera 50-5 MCG/ACT Inhalation AerosolINHALE 2 PUFFS Twice daily Quantity: 1 Refills: 2Fagustin VON Gopi Start : 78-Uoh-6914Tdaihf62 GM Inhaler 2 completed Fluticasone Propionate 50 MCG/ACT Nasal Suspension Fluticasone Propionate 50 MCG/ACT Nasal SuspensionINSTILL 1 SPRAY INTO EACH NOSTRIL DAILY AT BEDTIME Quantity: 1 Refills: 2Fagustin VOGopi Maldonado Start : 91-Fwz-7584Iipasg2.9 ML Bottle 2 completed Methocarbamol 500 MG Oral Tablet Methocarbamol 500 MG Oral TabletTAKE 1 TABLET Bedtime PRN Quantity: 15 Refills: 0Fiano Gopi HERRERA Start : 38-Nqk-0541Ggckfn 2 completed glipiZIDE (GLUCOTROL) 5 MG tablet Take by mouth. 1 active glipiZIDE 5 MG Oral Tablet glipiZIDE 5 MG Oral TabletTake 1 tablet twice daily Quantity: 60 Refills: 3Fagustin VON Gopi Start : 87-Mwt-8741Pcnmht 1 completed Valsartan-hydroCHLO ROthiazide 320-12.5 MG Oral Tablet Valsartan-hydroCHLORO thiazide 320-12.5 MG Oral TabletTAKE 1 TABLET BY MOUTH EVERY DAY Quantity: 90 Refills: MirlandeGopi velez APRN Start : 7-Vpn-9172Lmetgf 1 completed Rosuvastatin Calcium 10 MG Oral Tablet Rosuvastatin Calcium 10 MG Oral TabletTAKE 1 TABLET AT BEDTIME. Quantity: 90 Refills: Aleah Gopi HERRERA Start : 84-Xma-9050Ojgkqj 1 completed SUMAtriptan Succinate 100 MG Oral Tablet SUMAtriptan Succinate 100 MG Oral TabletTAKE 1 TABLET AT ONSET OF MIGRAINE, CAN REPEAT IN 2 HOURS. MAX OF 2 TABS Quantity: 9 Refills: MirlandeGopi velez APRN Start : 38-Muy-2342Sqshyc 1 completed Jardiance 25 MG Oral Tablet Jardiance 25 MG Oral TabletTAKE 1 TABLET EVERY DAY Quantity: 90 Refills: Gopi Bullard APRN Start : 79-Eou-8324Gedwfw 1 completed Metoprolol Succinate ER 100 MG Oral Tablet Extended Release 24 Hour Metoprolol Succinate ER 100 MG Oral Tablet Extended Release 24 HourTAKE 1 TABLET BY MOUTH EVERY DAY Quantity: 30 Refills: Gopi Alvarez APRN Start : 65-Taw-8115Hjwrln 1 completed valsartan-hydrochlo rothiazide (DIOVAN-HCT) 320-12.5 MG per tablet Take 1 tablet by mouth daily. 9 active lidocaine-prilocain e (EMLA) cream APPLY TOPICALLY ONCE. For IV insertions 8 active SUMAtriptan (IMITREX) 100 MG tablet TAKE 1 TABELT BY MOUTH FOR MIGRAINE RELIEF. MAY REPEAT 2 HOURS LATER. MAX OF 2 TABLETS PER DAY 8 active PREVIDENT 5000 BOOSTER PLUS 1.1 % Paste 6 active metoprolol succinate ER 100 mg tablet,extended release 24 hr Take 1 tablet every day by oral route. 4 active Adult Aspirin 81 mg tablet 1 Oral daily 2 12/29/19 22 completed citalopram 40 mg tablet 1 Oral daily 1 04/15/20 19 completed valsartan 320 mg-hydrochlorothiaz berto 12.5 mg tablet Take 1 tablet every day by oral route. 01/02/20 24 completed Jardiance 10 mg tablet Take 2 tablets every day by oral route. 08/09/19 23 completed Lexapro 10 mg tablet Take 1 tablet every day by oral route. 12/29/19 22 completed rosuvastatin 10 mg tablet Take 1 tablet every day by oral route. 12/29/19 22 completed bupropion HCl SR 150 mg tablet,12 hr sustained-release Oral daily 04/15/20 19 completed chlorthalidone 25 mg tablet 1 Oral daily 04/15/20 19 completed lisinopril 30 mg tablet 1 Oral daily 04/15/20 19 completed famotidine 20 mg tablet Take 1 tablet every day by oral route. active glipizide 10 mg tablet Take 1 tablet every day by oral route. active metformin 500 mg tablet Take 1 tablet every day by oral route. active omeprazole 20 mg capsule,delayed release Take 1 capsule every day by oral route. active Tricor 1 tablet Oral ONCE A DAY completed valsartan 160 mg tablet Take 1 tablet every day by oral route. active Aspirin 81 MG TABS Aspirin 81 MG TABSTAKE 1 TABLET DAILY. Refills: 0Active completed aspirin enteric coated (ECOTRIN LOW STRENGTH) 81 MG EC tablet Take 81 mg by mouth daily. active calcium carbonate-vitamin D (CALTRATE+D) 600 mg-10 mcg tablet Take 1 tablet by mouth daily. active calcium carbonate-vitamin D 600 mg-400 unit tablet Take 1 tablet by mouth daily. active Allergies Allergen Reaction Severity Comment Documented Date Source Statu s LISINOPRIL COUGH 03/22/2017 [facility] active Problems Problem Status Onset Date Problem Type Date of Resolution Source Obstructive sleep apnea syndrome active 2017-02-[address] [facility] [facility] Obesity active 2020-12-16 ProblemAct [facility] Hypertensive disorder active 2017-02-05 [facility]Act [facility] Hyperlipidemia active 2017-02-05 [facility] Palpitations active 2022-08-09 ProblemAct [facility] Pulmonary emphysema, unspecified emphysema type (HCC) active EncounterDiagnosisAct [facility] Immunizations Vaccine Date Source Lot Number Status Influenza High-Dose Quadrivalent,(FLUZONE HIGH-DOSE), Perservative Free IM 0.7 mL 65 years and older 05/16/2022 [facility] [id number] D completed [facility] COVID-19 Vac-Tr iS 30 MCG/0.3ML Intramuscular Suspension 11/22/2021 [facility] [id number] completed [employer] COVID-19 Vac c 30 MCG/0.3ML Intramuscular Suspension 05/26/2021 [facility] completed Flucelvax Quadrivalent 0.5 M L Intramuscular Suspension Prefilled Syringe 04/28/2021 [facility] [id number] completed Influenza, seasonal, injectable 04/28/2021 [facility] completed [employer] COVID-19 Vac c 30 MCG/0.3ML Intramuscular Suspension 11/24/2020 [facility] completed [employer] COVID-19 Vac c 30 MCG/0.3ML Intramuscular Suspension 10/29/2020 [facility] completed Shingrix 50 MCG Intramuscula r Suspension Reconstituted 05/12/2020 [facility] complet ed Influenza, seasonal, injectable 04/18/2020 [facility] completed Pneumococcal polysaccharide vaccine, 23 valent 08/23/2019 [facility] completed [facility]/08[facility]2018 [id number] Zoster Vaccine Recombinant (Shingrix) 06/08/2018 [facility] [id number] completed Influenza Inactivated/Split Preservative Free IM 05/08/2018 [facility] [id number] - FLUARIX 0.5 ML SYRINGE completed Influenza Inactivated/Split Preservative Free IM 05/12/2017 [facility] [id number] - FLUARIX 0.5 ML SYRINGE completed Influenza Inactivated/Split Preservative Free IM 05/09/2016 [facility] [id number] completed Influenza Inactivated/Split Preservative Free IM 05/13/2015 [facility] [id number] completed Zoster Vaccine Live/Attenuat ed (Zostavax) 12/23/2014 [facility] [id number] completed Influenza (AFLURIA/FLUZONE) Inactivated/Split Quadrivalent with Preservative IM 05/06/2014 [facility] [id number] completed Influenza Inactivated/Split Preservative Free IM 05/27/2013 [facility] [id number] completed Influenza Inactivated/Split Preservative Free IM 05/18/2012 [facility] [id number] completed Influenza Inactivated/Split Preservative Free IM 05/10/2011 [facility] [id number] completed Influenza (AFLURIA/FLUZONE) Inactivated/Split Quadrivalent with Preservative IM 05/19/2010 [facility] [id number] completed Tdap 06/07/2008 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 [facility] 4 [facility]ulatory [facility] 4 [facility] 4 [facility] 4 Ambulatory Type 2 diabetes mellitus with hyperglycemia Type 2 diabetes mellitus with hyperglycemia [facility] 3 Ambulatory Edema of larynx [facility] 3 Ambulatory Nicotine depende nce, cigarettes, uncomplicated [facility] 3 [facility]ulatory [facility] 3 Ambulatory Other specified symptoms and signs involving the digestive system and abdomen [facility] 2 Care Team Organization Name Specialty Phone Email Start Date End Da te [facility] Gopi BEGUM Primary Care 08/2024 [facility] GOPI BEGUM, Primary Care 12/29/2023 [facility] 06/21/2023 [facility] Gopi Begum Primary Care 12/29/2022 10/23/2024 [facility] Gopi BEGUM Primary Care 12/20/2022 12/20/2022 [facility] 06/14/20222023 [facility] PCP,No Primary Care 01/07/2022 10/23/2024 [facility] NO PCP Primary Care 01/07/2022 01/07/2022 [facility] 03/12/2021 08/04/2022 [facility] Shanell Morrissey Primary Care 04/11/2024
--- OUTSIDE RECORDS SUMMARY | 2025-03-10 08:12 | XMS_ITS | Clinical Summary ---
Author Organization [facility] Address [address] [place] [address] Care Team Providers Care Loop Cutter Name Role Phone Yuni Reece THIEN Primary Care Provider [phone] Medical History Medical History Date Comments Former smoker DX:Former smoker ; COMMENT: Quit 16 years back, smoked cig for 30 years, 1 pack/day Type 2 diabetes mellitus wit hout complications (CMS/HCC V24, CMS/HCC V28) DX:Type 2 bobby betes mellitus without complications (HCC); COMMENT: followed by central office supervisor Dr. Crowell, gem expert Dr. Young, no records on 02/26/21 Essential [...] Panel) 07/09/2022 Colorectal Cancer Screening: Colonoscopy 07/09/2022 Falls Risk Assessment 07/09/2022 Hepatitis C Screening 07/09/2022 Social Influencers of Health Screening 07/09/2022 Diabetes: Annual Urine Albumin-Creatinine Ratio (uACR) 07/16/2022 Diabetes: Blood Sugar Contro l Test (HGBA1C) 07/16/2022 Hypertension/CHF/CAD Annual BMP Blood Test 07/16/2022 09/13/2019 COVID-19 Vaccine (3 - 2023-2 5 season) 2024 11/24/2020, 10/29/2020 Depression Screening 08/07/2024 Influenza Vaccine (#1) 2025 RSV Immunization Adult Patients (1 - 1-dose 75+ series) 10/31/2031 HIB [...] age to complete this topic Meningococcal B Vaccine Aged Out No l onger eligible based on patient's age to complete this topic RSV Immunization Patients Under 20 months Aged Out No longer eligible b ased on patient's age to complete this topic Varicella Vaccines Aged Out No longer eligible based on patient's age to complete this topic Care Teams Loop Cutter Relationship Specialty Start Date End Date Yuni Reece NP [address] [place] [address] PCP - General Family Medicine 08/31/21
--- OUTSIDE RECORDS SUMMARY | 2025-03-10 08:13 | XMS_ITS | Clinical Summary ---
Author Organization [facility] Address [address] [place] [address] Care Team Providers Care Orthopedic Physician Assistant Name Role Phone Yuni Reece APRN Primary Care Provider [phone] Allergies No known active allergies Medications Medication [...] 78 09/13/2019 8:02 PM EST Temperature 36.7 C (98 F) 09/13/2019 8:02 PM EST Respiratory Rate 18 [...] Fall Risk Assessment 2021 Influenza Vaccine (#1) 2025 8, 05/12/2017, 05/09/2016, Additional history exists DTap [...] age to complete this topic Care Teams Orthopedic Physician Assistant Relationship Specialty Start Date End Date Yuni Reece APRN [address] [place] [address] PCP - General Family Medicine 08/31/21
--- OUTSIDE RECORDS SUMMARY | 2025-03-10 08:13 | XMS_ITS | Encounter Summary ---
Author Organization [facility] Address [address] [place] [address] Care Team Providers Care Vocal Music Instructor Name Role Phone Unavailable Primary Care Provider Unavailabl e Reason for Visit * Reason Onset Date Comments Refill Request 11/29/2023 Encounter Details Date Type Department Care Team (Late st Contact Info) Description 11/29/2023 Refill [facility] [address] [place] [address] Yuni Reece APRN BC Refill Request Social [...]
[2025-03-10 08:23] VITALS: BP 127/62; PULSE 71; O2SAT 95; BMI 41.6
--- NOTE | 2025-03-10 08:23 | A.OFFVIS_ITS ---
Vital Signs 03/10/25 08:23 Height 5 ft 1 in Weight 220 lb BMI 41.6 BP 127/62 Blood Pressure Location Rt brachial Position Sitting Pulse 71 Pulse Source Pulse Oximeter Pulse Oximetry (%) 95 Oxygen Delivery Method Room Air Intake Visit Reasons: COPD Allergies No Known Allergies Allergy (Verified 03/10/25 08:31) HPI Comments Details: The patient is a 69-year-old gentleman with known history of COPD KRISTIAN on CPAP presenting with worsening respiratory symptoms. Apparently the patient states that he has been on CPAP for many years. CPAP therapy has been affecting beneficial. He does use a nasal mask. He did try to get a download but his secure digital card got lost in the mail. He is going to bring it into the next visit so we can download it and adjust accordingly. He also uses oxygen with the CPAP. He did have an overnight oximetry demonstrating that he is getting good oxygenation while weight in the 2 L with CPAP. In addition to that he has dyspnea on exertion. He carries a diagnosis of COPD. He did have PFTs in June 2024. We did look at the numbers together. He has a bart-ez-jnbpnmwr restriction in addition to that has a mild obstructive process that likely is overshadowed because of the restriction component. He has also mild diffusion impairment. We did go for brief walking oximetry. He did desaturate down to about 90%. Dyspnea score is 4/10. Heart rate did increase to about 100 beats per minute. Patient does not qualify for oxygen but he does have some degree of hypoxia. He is overweight. He addition to that the patient does have some evidence of reflux disease. He had a CT scan done elsewhere in the report states that he does have some bronchiectatic changes in the right base which could be secondary to microaspiration. The rest of the CT scan demonstrates areas of mosaic pattern suggesting air trapping in addition to some mild interstitial lung disease that appears to be stable. Will try to get the images to review. 09/12/2024 the patient is here for a pulmonary follow-up visit. Overall he is doing well. He is using his CPAP every night. We did try to get him supplies through [facility] although they were not able to do so. Also another script for supplies to [facility]. Hopefully they can provide him with the supplies that he needs. Otherwise going to bring the machine in so I can look at it and adjusting accordingly. In addition to that he did go upstairs for the 1st session of his pulmonary rehabilitation. I believe this is very helpful for the patient. He did undergo a 6 minute walk test. I do not have those results as of yet but he does not qualify for oxygen as before. In addition to that the patient did have a CT scan of the chest that we personally just reviewed the report demonstrating mosaic pattern in addition to some minimal interstitial changes. Based on the respiratory examined the findings on the test he does not need any maintenance inhalers at this time. I did reassure him about that. Although if he started developing worsening shortness breath while participating in pulmonary rehabilitation we can always consider maintenance therapy then. We did review his vaccines up-to-date with all the necessary respiratory vaccines at this time. Will plan to follow-up in 6-8 months if he has any issues prior to that he will call for an earlier assessment. 03/10/2025 the patient is here for a pulmonary follow-up visit. The patient overall has been doing well although noticing increasing dyspnea on exertion. Wjvc-ie-vxkicfcx severity. He is not using any maintenance inhalers right now. The patient has been using the CPAP. CPAP therapy has been affecting beneficial he does use it with the oxygen. Right now we do have access to his machine or download so therefore he has he has any issues he can always call me. We can always request a download over the lunch break. In the meantime we did go for brief walking oximetry he did desaturate down to about 91%. This is his average. Will go ahead have get an x-ray to make sure that his atelectasis the any worse. In the meantime will go ahead and start him on Anoro to provide him a combination bronchodilator to see if we can provide better aeration and gas exchange. The patient will return back in 3-4 months. If he has any issues prior to that he will call for an earlier assessment. [facility] Medical History (Updated 03/10/25 @ 08:44 by Mike Jimenes MD) Dyspnea Hypoxia GERD (gastroesophageal reflux disease) KRISTIAN on CPAP ILD (interstitial lung disease) Colon polyps Obesity without serious comorbidity Pure hypercholesterolemia Essential hypertension Anxiety COPD (chronic obstructive pulmonary disease) with chronic bronchitis Type 2 diabetes mellitus with peripheral vascular disease Bilateral artificial lens implant Diverticulitis Sleep apnea KRISTIAN (obstructive sleep apnea) Eosinophilic granuloma Diverticulosis Surgical History H/O bilateral cataract extraction History of colonoscopy H/O anal fistulotomy Family History Mother Hypertension Father Hypertension Other Type 2 diabetes mellitus Social History Housing: House Patient Tobacco Use Status: Former Tobacco user Cigarette Packs Per Day: 1.5 Years Smoked: 30 e-Cigarette/Vaping Use: Never Used Second Hand Smoke Exposure: No service: No Current occupational status: employed 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 Current occupational exposures/hazards: No Cognitive needs: No Hearing needs: Yes Vision needs: Yes Review of Systems Const Denies fever(s) ENT Denies hoarseness Card Denies chest pain and Reports dyspnea on exertion Resp Reports dyspnea on exertion GI Reports dyspepsia and Reports heartburn Musc Reports no additional complaints Skin/Breast Denies rash Valentino/Lymph Reports no additional complaints Aller/Immun Reports no additional complaints Physical Exam Vital Signs: Last Vital Signs Pulse 71 03/10/25 08:23 BP 127/62 03/10/25 08:23 Pulse Ox 95 03/10/25 08:23 Oxygen Delivery Method Room Air 03/10/25 08:23 BMI result Body Mass Index 41.6 Const General: comfortable HEENT Head: Yes normocephalic Neck Neck: Yes supple Chest Chest palpation & inspection: normal inspection of the chest Resp Effort & Inspection: normal respiratory effort Auscultation: crackles bilateral (minimal) and diminished lung sounds Cardio Heart sounds: S1 normal heart sound present and S2 normal heart sound present GI Palpation (GI): Soft to palpation Assessment & Plan Assessment & Plan (1) COPD (chronic obstructive pulmonary disease) with chronic bronchitis: Code(s): J44.89 - Other specified chronic obstructive pulmonary disease Category: Medical (2) ILD (interstitial lung disease): Code(s): J84.9 - Interstitial pulmonary disease, unspecified Category: Medical (3) KRISTIAN on CPAP: Code(s): G47.33 - Obstructive sleep apnea (adult) (pediatric) Category: Medical (4) GERD (gastroesophageal reflux disease): Code(s): K21.9 - Gastro-esophageal reflux disease without esophagitis Category: Medical Qualifiers: Esophagitis presence: without esophagitis Qualified Code(s): K21.9 - Gastro-esophageal reflux disease without esophagitis (5) Hypoxia: Code(s): R09.02 - Hypoxemia Category: Medical (6) Dyspnea: Code(s): R06.00 - Dyspnea, unspecified Category: Medical Plan NAZ as needed start Anoro continue Pulmonary rehab continue APAP, requesting supplies from [employer] (previously [employer]). CXR reflux diet sleep with HOB elevated continue APAP with 2l Oxygen, will bring PAP to next visit to download and adj ust if needed F/U 4-6 months Orders: Orders XR chest 2V Today R06.00 - Dyspnea, unspecified Medications: New umeclidinium-vilanterol 62.5-25 mcg/actuation (Anoro Ellipta) 1 inh inhalation DAILY 60 ea 11RF J44.89 - Other specified chronic obstructive pulmonary disease Coding Level of Care Code Est Pt Level 4 (19813) Complex EM visit Add On G2211 Diagnoses COPD (chronic obstructive pulmonary disease) with chronic bronchitis J44.89 ILD (interstitial lung disease) J84.9 KRISTIAN on CPAP G47.33 Gastroesophageal reflux disease without esophagitis K21.9 Esophagitis presence: without esophagitis Hypoxia R09.02 Dyspnea R06.00 Time Spent (min) 17
== END 2025-03-10 08:50 | disposition home or self-care (01) ==
PROVIDERS: PCP Physician Assistant Medical; Visit Provider Hospitalist
DX: J44.89 Other specified chronic obstructive pulmonary disease (principal); J84.9 Interstitial pulmonary disease, unspecified; G47.33 Obstructive sleep apnea (adult) (pediatric); K21.9 Gastro-esophageal reflux disease without esophagitis; R09.02 Hypoxemia; R06.00 Dyspnea, unspecified
CPT/HCPCS: 99214; G2211

== ENCOUNTER 2025-03-26 06:34 | Outpatient (REF) | payer OTHER, SELFPAY ==
--- NOTE | ~2025-03-26 | XR_ITS ---
EXAMINATION: XR CHEST CLINICAL INFORMATION: R06.00 - Dyspnea, unspecified COMPARISON: None available. TECHNIQUE: 2 views of the chest were obtained. FINDINGS: Poor inspiration. Pulmonary reticular pattern. Mild prominence of the interstitial lung markings. No consolidation, pleural effusion or pneumothorax. Cardiomediastinal silhouette size is normal. Tortuosity of the descending thoracic aorta. Multilevel thoracolumbar spondylosis. Kyphotic deformity mid thoracic spine. Patient's large body habitus/obesity. XR/XR chest 2V IMPRESSION: Consider chronic interstitial lung disease with mild interstitial lung edema versus acute small airway inflammatory process. Electronically signed by: Jet Fowler MD 03/26/2025 07:12 AM EDT
--- OUTSIDE RECORDS SUMMARY | 2025-03-26 06:37 | XMS_ITS | Encounter Summary ---
Author Organization [facility] Address [address] [place] [address] Care Team Providers Care Bay Stocker Name Role Phone Robert Haddad DO Primary Care Provider [phone] Wallace Zee MD Unavailable [phone] Jourdan Berry MD Primary Care Provider [phone] Jourdan Berry MD Unavailable [phone] Pcp, No Primary Care Provider UnavailYuni Castro APRN Primary Care Provider [phone] Encounter Details Date Type Department Care Team (Late st Contact Info) Description 01/31/2017 Scanned Document [address] [id number] Provider, Generic Social History Tobacco Use Types [...] on filedocumented in this encounter Care Teams [place] Stocker Relationship Specialty Start Date End Date Robert Haddad DO [address] [place] [address] [place] [address] PCP - General Internal Medicine 03/03/15 03/19/19 Jourdan Berry MD [address] [facility] [place] [address] PCP - General Family Medicine 03/20/19 11/26/19 Pcp, No PCP - General General Medicine 11/27/19 08/15/22 Yuni Reece APRN PCP - General 08/16/22 Wallace Zee MD [address] [address] Otolaryngology 02/22/17 Jourdan Berry MD [address] [facility] [place] [address] Referring Provider Family Medicine 11/27/19 documented as of this encounter
--- OUTSIDE RECORDS SUMMARY | 2025-03-26 06:37 | XMS_ITS | Clinical Summary ---
Author Organization [facility] Address [address] [place] [address] Phone Care Team Providers Care Surgical Nurse Name Role Phone Fuad Nunez MD Primary [...] PPO REPLACEMENT MEDICARE PART A & B [facility] MEDICARE POS PPO REPLACEMENT MEDICARE PART A & B [facility] MEDIC[facility] POS PPO REPLACEMENT MEDICARE PART A & B [facility] [place] MEDIC[facility] POS PPO REPLACEMENT MEDICARE PART A & B [facility] [place] MEDIC[facility] POS PPO REPLACEMENT MEDICARE PART A & B [facility] [place] MEDICARE POS PPO REPLACEMENT MEDICARE PART A & B Care Teams Surgical Nurse Relationship Specialty Start Date End Date Fuad Nunez MD [address] [place] [address] PCP - General Family Medicine 03/15/24 Additional Source Comments The information contained in this document represents components of the legal health record. It is not the complete legal health record.[facility]
--- OUTSIDE RECORDS SUMMARY | 2025-03-26 06:37 | XMS_ITS | Clinical Summary ---
Author Organization [employer] [facility] Address [address] [place] [address] Care Team Providers Care Cloth Packer Name Role Phone Yuni Reece THIEN Primary Care Provider [phone] Medical History Medical History Date Comments Former smoker DX:Former smoker ; COMMENT: Quit 16 years back, smoked cig for 30 years, 1 pack/day Type 2 diabetes mellitus wit hout complications (CMS/HCC V24, CMS/HCC V28) DX:Type 2 bobby betes mellitus without complications (HCC); COMMENT: followed by cloth packer Dr. Crowell, liquor runner Dr. Young, no records on 02/26/21 Essential [...] age to complete this topic Care Teams Cloth Packer Relationship Specialty Start Date End Date Yuni Reece NP [address] [place] [address] PCP - General Family Medicine 08/31/21
--- OUTSIDE RECORDS SUMMARY | 2025-03-26 06:37 | XMS_ITS | Encounter Summary ---
Author Organization [facility] Address [address] [place] [address] Care Team Providers Care Heel Pricker Name Role Phone Unavailable Primary Care Provider Unavailabl e Reason for Visit * Reason Onset Date Comments Refill Request 11/29/2023 Encounter Details Date Type Department Care Team (Late st Contact Info) Description 11/29/2023 Refill [facility] [address] [place] [address] Yuni Reece APRN BC Refill Request Social [...]
--- OUTSIDE RECORDS SUMMARY | 2025-03-26 06:37 | XMS_ITS | Clinical Summary ---
Author Organization [facility] Address [address] [place] [address] Care Team Providers Care Coil Connector Repairer Name Role Phone Yuni Reece APRN Primary Care Provider [phone] Allergies No known active allergies Medications Medication [...] age to complete this topic Care Teams Coil Connector Repairer Relationship Specialty Start Date End Date Yuni Reece APRN [address] [place] [address] PCP - General Family Medicine 08/31/21
== END 2025-03-26 06:35 | disposition home or self-care (01) ==
LOC: HO.XRAY 06:34
PROVIDERS: PCP Nurse Practitioner; Visit Provider Hospitalist
DX: R06.00 Dyspnea, unspecified (principal)
CPT/HCPCS: 71046

== ENCOUNTER → 2025-03-26 06:39 | Outpatient (BNV) | payer OTHER, SELFPAY | PROVIDERS: PCP Nurse Practitioner; Visit Provider Radiology Diagnostic Radiology | DX: R06.00 Dyspnea, unspecified (principal) | CPT/HCPCS: 71046 ==

== ENCOUNTER 2025-05-28 06:58 | Outpatient (REF) | payer OTHER, SELFPAY ==
--- NOTE | ~2025-05-28 | XR_ITS ---
EXAMINATION: XR CHEST CLINICAL INFORMATION: J84.9 - Interstitial pulmonary disease, unspecified COMPARISON: March 26, 2025 TECHNIQUE: PA and lateral views FINDINGS: Poor inspiration. Pulmonary reticular pattern. No consolidation, pleural effusion or pneumothorax. Cardiomediastinal silhouette size is normal. Thoracic aorta is tortuous. Multilevel thoracolumbar spondylosis. Patient's large body habitus. XR/XR chest 2V IMPRESSION: Chronic interstitial lung disease. Electronically signed by: Jet Fowler MD 05/28/2025 07:23 AM EDT
--- OUTSIDE RECORDS SUMMARY | 2025-05-28 07:01 | XMS_ITS | Encounter Summary ---
Author Organization [facility] Address [address] [place], [place] [address] Care Team Providers Care Screw Machine Operator Name Role Phone Robert Haddad DO Primary Care Provider [phone] Wallace Zee MD Unavailable [phone] Jourdan Berry MD Primary Care Provider Jourdan Berry MD Unavailable [phone] Pcp, No Primary Care Provider UnavailYuni Castro APRN Primary Care Provider [phone] Encounter Details Date Type Department Care Team (Late st Contact Info) Description 08/19/2016 Scanned Document [address] [phone] Provider, Generic Social History Tobacco Use Types [...] on filedocumented in this encounter Care Teams Screw Machine Operator Relationship Specialty Start Date End Date Robert Haddad DO [address] [place] [address] [place] [address] PCP - General Internal Medicine 03/03/15 03/19/19 Jourdan Berry MD 13 [facility] [place] [address] PCP - General Family Medicine 03/20/19 11/26/19 Pcp, No PCP - General General Medicine 11/27/19 08/15/22 Yuni Reece APRN PCP - General 08/16/22 Wallace Zee MD [address] [address] Otolaryngology 02/22/17 Jourdan Berry MD 13 [place] [address] Referring Provider Family Medicine 11/27/19 documented as of this encounter
--- OUTSIDE RECORDS SUMMARY | 2025-05-28 07:01 | XMS_ITS | Encounter Summary ---
Author Organization [facility] Address [address] [place], [place] [address] Care Team Providers Care Vp Data Name Role Phone Robert Haddad DO Primary Care Provider [phone] Wallace Zee MD Unavailable Jourdan Berry MD Primary Care Provider Jourdan Berry MD Unavailable [phone] Pcp, No Primary Care Provider UnavailYuni Castro APRN Primary Care Provider [phone] Encounter Details Date Type Department Care Team (Late st Contact Info) Description 11/20/2016 Scanned Document [address] [phone] Provider, Generic Social History Tobacco Use Types [...] on filedocumented in this encounter Care Teams Vp Data Relationship Specialty Start Date End Date Robert Haddad DO [address] [place] [address] [place] [address] PCP - General Internal Medicine 03/03/15 03/19/19 Jourdan Berry MD 13 [facility] [place] [address] PCP - General Family Medicine 03/20/19 11/26/19 Pcp, No PCP - General General Medicine 11/27/19 08/15/22 Yuni Reece APRN PCP - General 08/16/22 Wallace Zee MD [address] [address] Otolaryngology 02/22/17 Jourdan Berry MD 13 [facility] [place] [address] Referring Provider Family Medicine 11/27/19 documented as of this encounter
--- OUTSIDE RECORDS SUMMARY | 2025-05-28 07:01 | XMS_ITS | Encounter Summary ---
Author Organization [facility] Address [address] [place] [address] Care Team Providers Care Art Conservator Name Role Phone Wallace Zee MD Unavailable [phone] Jourdan Berry MD Primary Care Provider [phone] Jourdan Berry MD Unavailable [phone] Pcp, No Primary Care Provider Yuni Kaplan APRN Primary Care Provider [phone] Encounter Details Date Type Department Care Team (Late st Contact Info) Description 10/08/2019 Scanned Document [address] [place] [phone] Cardiology, Scan Social History Tobacco Use [...] on file documented as of this encounter Procedures Procedure Name Priority Date/Time Associated Diagnosis Comments STRESS TEST 11/01/2019 STRESS TEST 10/08/2019 documented in this encounter Results * STRESS TEST (11/01/2019) Anatomical Region Laterality Modality Other 11/01/2019 us Scan Cardiology HX AMB PROCEDURES Edited Result - Final * STRESS TEST (10/08/2019) Anatomical Region Laterality Modality Other 10/08/2019 us Scan Cardiology HX AMB PROCEDURES Edited Result - Final documented in this encounter Visit Diagnoses Not on filedocumented in this encounter Care Teams Art Conservator Relationship Specialty Start Date End Date Jourdan Berry MD 13 [place] [address] PCP - General Family Medicine 03/20/19 11/26/19 Pcp, No PCP - General General Medicine 11/27/19 08/15/22 Yuni Reece APRN PCP - General 08/16/22 Wallace Zee MD 4 [facility] [address] [place] [address] Otolaryngology 02/22/17 Jourdan Berry MD 13 [place] [address] Referring Provider Family Medicine 11/27/19 documented as of this encounter
--- OUTSIDE RECORDS SUMMARY | 2025-05-28 07:01 | XMS_ITS | Encounter Summary ---
Author Organization [facility] Address [address] [place], [place] [address] Care Team Providers Care Database Specialist Name Role Phone Robert Haddad DO Primary Care Provider [phone] Wallace Zee MD Unavailable Jourdan Berry MD Primary Care Provider [phone] Jourdan Berry MD Unavailable [phone] Pcp, No Primary Care Provider UnavailYuni Castro APRN Primary Care Provider [phone] Encounter Details Date Type Department Care Team (Late st Contact Info) Description 09/20/2016 Scanned Document [address] [phone] Provider, Generic Social History Tobacco Use Types [...] on filedocumented in this encounter Care Teams Database Specialist Relationship Specialty Start Date End Date Robert Haddad DO [address] [place] [address] [place] [address] PCP - General Internal Medicine 03/03/15 03/19/19 Jourdan Berry MD 13 [facility] [place] [address] PCP - General Family Medicine 03/20/19 11/26/19 Pcp, No PCP - General General Medicine 11/27/19 08/15/22 Yuni Reece APRN PCP - General 08/16/22 Wallace Zee MD [address] [address] Otolaryngology 02/22/17 Jourdan Berry MD 13 [place] [address] Referring Provider Family Medicine 11/27/19 documented as of this encounter
--- OUTSIDE RECORDS SUMMARY | 2025-05-28 07:01 | XMS_ITS | Encounter Summary ---
Author Organization [facility] Address [address] [place], [place] [address] Care Team Providers Care Aerial Photographer Name Role Phone Robert Haddad DO Primary Care Provider [phone] Wallace Zee MD Unavailable Jourdan Berry MD Primary Care Provider [phone] Jourdan Berry MD Unavailable [phone] Pcp, No Primary Care Provider UnavailYuni Castro APRN Primary Care Provider [phone] Encounter Details Date Type Department Care Team (Late st Contact Info) Description 01/31/2017 Scanned Document [address] [phone] Provider, Generic Social History Tobacco Use Types [...] on filedocumented in this encounter Care Teams Aerial Photographer Relationship Specialty Start Date End Date Robert Haddad DO [address] [place] [address] [place] [address] PCP - General Internal Medicine 03/03/15 03/19/19 Jourdan Berry MD 13 [facility] [place] [address] PCP - General Family Medicine 03/20/19 11/26/19 Pcp, No PCP - General General Medicine 11/27/19 08/15/22 Yuni Reece APRN PCP - General 08/16/22 Wallace Zee MD [address] [address] Otolaryngology 02/22/17 Jourdan Berry MD 13 [facility] [place] [address] Referring Provider Family Medicine 11/27/19 documented as of this encounter
--- OUTSIDE RECORDS SUMMARY | 2025-05-28 07:01 | XMS_ITS | Encounter Summary ---
Author Organization [facility] Address [address] [place] [address] Care Team Providers Care Electronic Semiconductor Processor Name Role Phone Wallace Zee MD Unavailable Jourdan Berry MD Primary Care Provider [phone] Jourdan Berry MD Unavailable Pcp, No Primary Care Provider UnavailYuni Castro APRN Primary Care Provider Reason for Visit * Reason Comments Medication Refill Encounter Details Date Type Department Care Team (Late st Contact Info) Description 10/17/[address] [phone] Robert Haddad, [address] [address] Essential hypertension Social History Tobacco Use Types [...] hypertension documented in this encounter Care Teams Electronic Semiconductor Processor Relationship Specialty Start Date End Date Jourdan Berry MD [address] [place] [address] PCP - General Family Medicine 03/20/19 11/26/19 Pcp, No PCP - General General Medicine 11/27/19 08/15/22 Yuni Reece APRN PCP - General 08/16/22 Wallace Zee MD 4 [facility] [address] [place] [address] Otolaryngology 02/22/17 Jourdan Berry MD [address] [place] [address] Referring Provider Family Medicine 11/27/19 documented as of this encounter
--- OUTSIDE RECORDS SUMMARY | 2025-05-28 07:01 | XMS_ITS | Clinical Summary ---
Author Organization [facility] Address [address] [place] [address] Phone Care Team Providers Care Manager Supply Name Role Phone Maximiliano Licea MD Primary Care Provider [phone] Allergies No known active allergies Medications albuterol HFA (PROAIR HFA ; PROVENTIL HFA ; VENTOLIN HFA) 90 mcg/actuation inhaler Inhale 2 puffs by mouth every 4 (four) hours if needed. Active amLODIPine (NORVASC) 5 mg tablet Take 1 tablet (5 mg total) by mouth 1 (one) time each day. Active aspirin 81 mg EC tablet Take 1 tablet (81 mg total) by mouth 1 (one) time each day. Active Anoro Ellipta 62.5-25 mcg/actuation inhaler Inhale 1 puff by mouth 1 (one) time each day. 04/18/2025 Active furosemide (LASIX) 20 mg tablet Take 1 tablet (20 mg total) by mouth 1 (one) time each day. 05/05/2025 Active glipiZIDE (GLUCOTROL) 5 mg tablet Take 1 tablet (5 mg total) by mouth 2 (two) times a day before meals. 03/31/2025 Active metFORMIN (GLUCOPHAGE) 1,000 mg tablet Take 1 tablet (1,000 mg total) by mouth 2 (two) times a day with meals. with morning and evening meal 03/04/2025 Active metoprolol succinate (TOPROL-XL) 100 mg 24 hr tablet Take 1 tablet (100 mg total) by mouth 1 (one) time each day. Active Mounjaro 2.5 mg/0.5 mL injection Inject 0.5 mL (2.5 mg total) under the skin every 7 (seven) days. 05/05/2025 Active omeprazole (PriLOSEC) [address] capsule Take 1 capsule (20 mg total) by mouth 1 (one) time each day. 03/29/2025 Active rosuvastatin (CRESTOR) 20 mg tablet Take 1 tablet (20 mg total) by mouth at bedtime. at bedtime Active SUMAtriptan (IMITREX) 100 mg tablet Take 1 tablet (100 mg total) by mouth 1 (one) time if needed for migraine. Active valsartan (DIOVAN) 160 mg tablet Take 1 tablet (160 mg total) by mouth 1 (one) time each day. 02/27/2025 Active cholecalciferol (VITAMIN D-3) 25 mcg (1,000 unit) tablet Take 1 tablet (1,000 Units total) by mouth 1 (one) time each day. Active ascorbic acid/zinc sulfate (ZINC SULFATE-VITAMIN C ORAL) Use in the mouth or throat. Active Encounters Date Type Department Care Team Description 05/05/2025 Telephone [facility] - [place] [address] [place] [address] Alvaro Palacios MD from Last 3 Months Medical History Medical History Date Comments Former smoker DX:Former smoker ; COMMENT: Quit 16 years back, smoked cig for 30 years, 1 pack/day Type 2 diabetes mellitus wit hout complications (CMS/HCC V24, CMS/HCC V28) DX:Type 2 bobby betes mellitus without complications (HCC); COMMENT: followed by day care home provider Dr. Crowell, assessment director Dr. Young, no records on 02/26/21 [...] Health Maintenance Due Date Last Done Comments Colorectal Cancer Screening: Colonoscopy 1956 Diabetes: Annual Foot Exam 1966 Diabetes: Annual Retina Eye Exam 1966 RSV Immunization Adult Patients (1 - Risk 50-74 years 1-dose series) 2006 Diabetes: Annual GFR (Glomerular Filtration Rate) 09/13/2020 09/13/2019 Abdominal Aortic Aneurysm (AAA) Screen 07/09/2022 Cholesterol Screening (Lipid Panel) 07/09/2022 Falls Risk Assessment 07/09/2022 Hepatitis C Screening 07/09/2022 Medicare Annual Wellness Visit 07/09/2022 Social Influencers of Health Screening 07/09/2022 Diabetes: Annual Urine Albumin-Creatinine Ratio (uACR) 07/16/2022 06/11/2018 Diabetes: Blood Sugar Control Test (HGBA1C) 07/16/2022 Hypertension/CHF/CAD Annual BMP Blood Test 07/16/2022 09/13/2019 Depression Screening 08/07/2024 COVID-19 Vaccine ( season) 2025 05/16/2022, 11/22/2021, 05/26/2021, Additional history exists Influenza Vaccine (#1) 2025 , 04/28/2021, 04/18/2020, Additional history exists DTaP,Tdap,and Td Vaccines (3 - Td or Tdap) 06/08/2028 06/08/2018, 06/07/2008 Zoster Vaccines Completed 05/12/2020, 09/2017, 12/23/2014 Pneumococcal Vaccine: 50+ Years Completed 06/14/2022, 08/23/2019 HIB Vaccines Aged Out No longer eligi [...] 20 months Aged Out No longer eligible based on patient's age to complete this topic Varicella Vaccines Aged Out No longer eligible based on patient's age to complete this topic Insurance [employer] [place] [id number] Care Teams Manager Supply Relationship Specialty Start Date End Date Maximiliano Licea MD [address] [place] [address] PCP - General Internal Medicine 05/05/25
--- OUTSIDE RECORDS SUMMARY | 2025-05-28 07:02 | XMS_ITS | Encounter Summary ---
Author Organization [facility] Address [address] [place] [address] Care Team Providers Care Thaw Shed Heater Tender Name Role Phone Robert Haddad DO Primary Care Provider [phone] Wallace Zee MD Unavailable Jourdan Berry MD Primary Care Provider [phone] Jourdan Berry MD Unavailable [phone] Pcp, No Primary Care Provider UnavailYuni Castro APRN Primary Care Provider Encounter Details Date Type Department Care Team (Late st Contact Info) Description 07/11/2018 Scanned Document [address] [phone] Robert Haddad, DO [address] [place] [address] Social History Tobacco Use Types Packs/Day Years [...] on filedocumented in this encounter Care Teams Thaw Shed Heater Tender Relationship Specialty Start Date End Date Robert Haddad DO [address] [facility] [place] [address] PCP - General Internal Medicine 03/03/15 03/19/19 Jourdan Berry MD 13 [place] [address] PCP - General Family Medicine 03/20/19 11/26/19 Pcp, Ragini PCP - General General Medicine 11/27/19 08/15/22 Yuni Reece APRN PCP - General 08/16/22 Wallace Zee MD [address] [facility] [address] [place] [address] Otolaryngology 02/22/17 Jourdan Berry MD 13 [place] [address] Referring Provider Family Medicine 11/27/19 documented as of this encounter
--- OUTSIDE RECORDS SUMMARY | 2025-05-28 07:02 | XMS_ITS | Encounter Summary ---
Author Organization [facility] Address [address] [place] [address] Care Team Providers Care Hardwood Floor Finisher Name Role Phone Unavailable Primary Care Provider Unavailabl e Reason for Visit * Reason Comments E-prescribing Refill Request Encounter Details Date Type Department Care Team (Late st Contact Info) Description 11/23/[address] [address] Yuni Reece, JAVIER BC E-prescribing [...]
--- OUTSIDE RECORDS SUMMARY | 2025-05-28 07:02 | XMS_ITS | Encounter Summary ---
Author Organization [facility] Address [address] [place] [address] Care Team Providers Care Flight Operations Dispatch Clerk Name Role Phone Unavailable Primary Care Provider Unavailabl e Reason for Visit * Reason Comments E-prescribing Refill Request Encounter Details Date Type Department Care Team (Late st Contact Info) Description 11/20/[address] [address] Yuni Reece, JAVIER BC E-prescribing [...]
--- OUTSIDE RECORDS SUMMARY | 2025-05-28 07:02 | XMS_ITS | Clinical Summary ---
Author Organization [facility] Address [address] [place] [address] Phone Care Team Providers Care Dance Historian Name Role Phone Fuad Nunez MD Primary [...] 2006 ABDOMINAL AORTIC ANEURYSM (AAA) SCREENING 2021 INFLUENZA VACCINE (#1) 2025 COVID-19 VACCINE (3 - 2024-2 6 season) 2025 11/24/2020, 10/29/2020 Adult Td,Tdap Booster 06/08/2028 06/08/2018 [...] PPO REPLACEMENT MEDICARE PART A & B [facility] MEDICARE POS PPO REPLACEMENT MEDICARE PART A & B [employer] MED[employer] POS PPO REPLACEMENT MEDICARE PART A & B [employer] MED[employer] POS PPO REPLACEMENT Member Subscriber Plan / Payer (Ef fective 2024-Present) Name:Con Raya Relation to Subscriber:Self Name:Con Raya Payer ID:Not on file Type:Medicare Address: [place] [id number] MEDICARE PART A & B [employer] MED[employer] POS PPO REPLACEMENT MEDICARE PART A & B Care Teams Dance Historian Relationship Specialty Start Date End Date Fuad Nunez MD [address] [place] [address] PCP - General Family Medicine 03/15/24 Additional Source Comments The information contained in this document represents components of the legal health record. It is not the complete legal health record.[facility]
--- OUTSIDE RECORDS SUMMARY | 2025-05-28 07:02 | XMS_ITS | Encounter Summary ---
Author Organization [facility] Address [address] [place] [address] Care Team Providers Care Ventilated Rib Fitter Name Role Phone Robert Haddad DO Primary Care Provider Wallace Zee MD Unavailable [phone] Jourdan Berry MD Primary Care Provider Jourdan Berry MD Unavailable [phone] Pcp, No Primary Care Provider UnavailYuni Castro APRN Primary Care Provider [phone] Encounter Details Date Type Department Care Team (Late st Contact Info) Description 03/30/2015 Scanned Document [address] [phone] Provider, Generic Social History Tobacco Use Types [...] Narrative 03/30/2015 Ordered by an unspecified provider. us Generic Provider ECG ORDERABLES Final Result documented in this encounter Visit Diagnoses Not on filedocumented in this encounter Care Teams Ventilated Rib Fitter Relationship Specialty Start Date End Date Robert Haddad DO [address] [place] [address] PCP - General Internal Medicine 03/03/15 03/19/19 Jourdan Berry MD [address] [place] [address] PCP - General Family Medicine 03/20/19 11/26/19 Pcp, No PCP - General General Medicine 11/27/19 08/15/22 Yuni Reece APRN PCP - General 08/16/22 Wallace Zee MD 4 [facility] [address] [place] [address] Otolaryngology 02/22/17 Jourdan Berry MD [address] [place] [address] Referring Provider Family Medicine 11/27/19 documented as of this encounter
--- OUTSIDE RECORDS SUMMARY | 2025-05-28 07:02 | XMS_ITS | Clinical Summary ---
Author Organization [facility] Address [address] [place] [address] Care Team Providers Care Marbleizer Name Role Phone Wallace Zee MD Unavailable [phone] Jourdan Berry MD Unavailable Yuni Reece APRN Primary Care Provider Allergies Active Allergy Reactions Criticality Noted Date Comments Lisinopril Cough Low 03/22/2017 Medications PREVIDENT 5000 BOOSTER PLUS 1.1 % Paste 4 6 Active aspirin enteric coated (ECOTRIN LOW STRENGTH) 81 MG EC tablet Take 81 mg by mouth daily. Active SUMAtriptan (IMITREX) 100 MG tabletIndication s:Headache, unspecified headache type TAKE 1 TABELT BY MOUTH FOR MIGRAINE RELIEF. MAY REPEAT 2 HOURS LATER. MAX OF 2 TABLETS PER DAY 9 tablet 3 8 Active ALPRAZolam (XANAX) 0.25 MG tabletIndication s:Anxiety TAKE 1 TABLET THREE TIMES A DAY NEEDED FOR ANXIETY 30 tablet 8 Active simvastatin (ZOCOR) 40 MG tabletIndication s:Hyperlipidemia Take 1 tablet (40 mg total) by mouth every evening. 90 tablet 8 Active lidocaine-priloc mine (EMLA) cream APPLY TOPICALLY ONCE. For IV insertions 0 8 Active metFORMIN (GLUCOPHAGE) 500 MG tabletIndication s:Uncontrolled type 2 diabetes mellitus with complication, without long-term current use of insulin TAKE 2 TABS BY MOUTH EVERY MORNING AND TAKE 1 TAB BY MOUTH EVERY EVENING WITH MEALS 270 tablet 9 Active Additional Information Patient taking differently: TAKE 2 TABS BY MOUTH EVERY MORNING AND TAKE 1 TAB BY MOUTH EVERY EVENING WITH MEALS for Diabetes, Reported on 03/20/2019 metoPROLOL SUCCINATE (TOPROL-XL) 100 MG 24 hr tabletIndication s:Essential hypertension TAKE 1 TABLET EVERY DAY 90 tablet 3 9 Active valsartan-hydroc hlorothiazide (DIOVAN-HCT) 320-12.5 MG per tabletIndication s:Essential hypertension Take 1 tablet by mouth daily. 90 tablet 1 9 Active escitalopram (LEXAPRO) 10 MG tabletIndication s:Anxiety Take 1 tablet (10 mg total) by mouth daily. Patient due for an appointment prior to additional refills. 90 tablet 9 Active calcium carbonate-vitami n D 600 mg-400 unit tablet Take 1 tablet by mouth daily. Active calcium citrate (CALCITRATE) 950 MG tablet Take 1 tablet by mouth daily. Active amLODIPine-valsa rtan-HCTZ 5-160-12.5 MG Tab Take 1 tablet by mouth daily. 3 Active ALPRAZolam (XANAX) 0.25 MG tablet Take by mouth. 1 Active empagliflozin (Jardiance) 25 MG tablet Take by mouth. 1 Active fluticasone-umec lidinium-vilante rol (TRELEGY ELLIPTA) 100-62.5-25 mcg/act inhaler Inhale. 2 Active rosuvastatin (CRESTOR) 20 MG tablet Take by mouth. 1 Active amLODIPine (NORVASC) 5 MG tablet Take by mouth. 1 Active glipiZIDE (GLUCOTROL) 5 MG tablet Take by mouth. 1 Active albuterol (ProAir HFA) 108 (90 Base) MCG/ACT inhalerIndicatio ns:Asthma exacerbation Inhale 1-2 puffs every 4 (four) hours as needed for wheezing. ProAir HFA 108 (90 Base) MCG/ACT Inhalation Aerosol Solution INHALE 2 PUFFS BY MOUTH EVERY 4-6 HOURS, SPACED 60 SECONDS APART. ; Start Date: 01/24/2012; End Date: 1 each 3 3 Active valsartan (DIOVAN) 160 MG tablet Take 160 mg by mouth daily. 4 Active calcium carbonate-vitami n D (CALTRATE+D) 600 mg-10 mcg tablet Take 1 tablet by mouth daily. Active Continuous Glucose Sensor (FreeStyle Haider 3 Sensor) Misc CHANGE SENSOR EVERY 2 WEEKS 4 Active Active Problems Problem Noted Date [...] in head and neck 12/16/2014 03/30/2015 Immunizations Immunization Administration Dates Next Due Influenza (AFLURIA/FLUZONE) Inactivated/Split Quadrivalent with Preservative IM 05/06/2014,05/19/2010 Influenza High-Dose Quadrivalent,(FLUZONE HIGH-DOSE), Perservative Free IM 0.7 mL 65 years and older 05/16/2022 Influenza Inactivated/Split Preservative Free IM 05/08/2018,05/12/2017,05/09/2016,2014,05/27/2013,05/18/2012,05/10/2011 Tdap 06/08/2018,06/07/2008 Zoster Vaccine Live/Attenuat ed (Zostavax) 12/23/2014 Zoster Vaccine Recombinant (Shingrix) 06/08/2018 Family History Medical History Relation Name Comments Diabetes Father Breast cancer Other 1 V16.3 Heart disease Other 2 V17.49 Hyperlipidemia Other 3 Hypertension Other 4 Heart defect Other 5 Previous Cardia c Problems V17.49 Relation Name Status Comments Father Mother Other 1 Other 2 Other 3 Other 4 Other 5 Social History Tobacco Use Types Packs/Day [...] 67 06/13/2024 9:06 AM EST Temperature 36.8 C (98.2 F) 06/13/2019 9:49 AM EST Respiratory Rate 16 06/13/2019 9:49 AM EST Oxygen Saturation 92% 06/13/2024 9:06 AM EST Inhaled Oxygen Concentration - - Weight 102 kg (224 lb) 06/13/2024 9:06 AM EST Height 170 cm (5' 6.93 ) 04/11/2024 7:39 AM EDT Body Mass Index 35.16 04/11/2024 7:39 AM EDT Plan of Treatment Health Maintenance Due Date Last Done Comments Advance Care Planning 1955 Hepatitis C Virus Screening 1955 Pneumococcal Vaccines 50+ (1 of 2 - PCV) 10/31/1975 RSV Vaccine 50 years and older and Patients (1 - Risk 50-74 years 1-dose series) 2006 Ophthalmology Exam 07/25/2018 07/25/2017, 11/14/2016 Zoster (Shingles) Vaccine (3 of 3) 08/03/2018 06/08/2018, 12/23/2014 Lipid Panel 06/11/2019 06/11/2018, 11/05, 12/15/2015, Additional history exists Microalbumin/Creatinine Ratio Urine 06/11/2019 06/11/2018, 11/17/2016 Foot Exam 06/13/2019 06/13/2018 Abdominal Aortic Aneurysm (AAA) Screening 2021 Hemoglobin A1C 05/12/2023 11/10/2022, 09/0 02/2021, 06/11/2018, Additional history exists Creatinine with GFR 11/11/2023 11/10/2022, 11/10/2022, 06/11/2018, Additional history exists Influenza Vaccine 03/07/2025 05/01/2023, , 04/28/2021, Additional history exists COVID-19 Vaccine ( season) 2025 05/01/2023, 05/16/2022, 11/22/2021, Additional history exists DTaP/Tdap/Td [...] EST Impressions 08/11/2024 2:03 PM EST 1. Mosaic groundglass interstitial markings with mild [...] Francisco Fournier MD 08/11/2024 02:03 PM EST RP Thank you for referring your patient to us, Francisco Fournier MD [id number] (Electronically Signed - 08/11/2024 14:03) Copy: SHABBIR SAENZ [address] [address] PATIENT , Narrative 08/11/2024 2:03 PM EST EXAMINATION: CT CHEST HIGH RESOLUTION CLINICAL INFORMATION: Emphysema. Crackles in the lung bases. COMPARISON: CT chest November 15, 2022. TECHNIQUE: Using a multidetector device, helical inspiratory views of the chest were done without contrast. Expiratory views were done using high-resolution technique. Reformatting was done in the coronal and parasagittal planes. Axial MIP volume rendering provided. This CT examination was performed using dose optimization techniques as appropriate, variously including the following: *Automated exposure control *Adjustment of mA and/or kV according to patient size (this includes techniques or standardized protocols for targeted exams where dose is matched to indication/reason for exam; i.e. extremities or head) *Use of iterative reconstruction technique DLP: 493.08 mGy-cm FINDINGS: Superintendent Plant: Reviewed. LUNGS: The central tracheobronchial airways are [...] effusion is seen. Mild COPD is noted. HEART and mediastinum: [...] iterative reconstruction technique DLP: 493.08 mGy-cm FINDINGS: Superintendent Plant: Reviewed. LUNGS: The central tracheobronchial airways are [...] Fournier MD 08/11/2024 02:03 PM EST RPWorkstation: [id number] Thank you for referring your patient to us, Francisco Fournier MD [id number] (Electronically Signed - 08/11/2024 14:03) Copy: SHABBIR SAENZ [address] [address] PATIENT , us Dylan Nelson MD IMG CT ORDERABLES Final Result * Lytes, Bun, Creat, w/Ratio (11/10/2022 7:37 AM EDT) Blood Urea Nitrogen (BUN) 18 7 - 25 mg/dL [facility] Creatinine 0.82 0.70 - 1.35 mg/dL [facility] Creatinine w/ eGFR 97 > OR = 60 mL/min/1 .73m2 [facility] Comment: The eGFR is based on the CKD-EPI 2020 equation. To calculate the new eGFR from a previous Creatinine or Cystatin C result, go to https://www.kidney.org/professionals/ kdoqi/gfr%5Fcalculator BUN/Creatinine Ratio NOT APPLICABLE 6 - 22 (calc) [facility] Sodium 138 135 - 146 mmol/L [facility] Potassium 4.1 3.5 - 5.3 mmol/L [facility] Chloride 99 98 - 110 mmol/L [facility] CO2 31 20 - 32 mmol/L [facility] Electrolyte Balance 8 7 - 17 mmol/L (calc) [facility] Blood specimen (specimen) Blood specimen / Unknown 11/10/2022 7:37 AM EDT 11/10/2022 7:37 AM EDT us Sidney Fitch MD LAB BLOOD ORDERABLES Final Res ult [facility] [address] [place] [address] * (ABNORMAL) Lipid Panel Reflex Direct LDL ([facility] Only) (06/11/2018 9:02 AM EST) Cholesterol, Total 184 <200 mg/dL [facility] Cholesterol, HDL 41 >40 mg/dL [facility] Triglycerides 203(H) <150 mg/dL [facility] LDL Cholesterol 111(H) mg/dL (calc) [facility] Comment: Reference range: <100 Desirable range <100 mg/dL for primary prevention; <70 mg/dL for patients with CHD or diabetic patients with > or = 2 CHD risk factors. LDL-C is now calculated using the Krystal calculation, which is a validated novel method providing better accuracy than the Friedewald equation in the estimation of LDL-C. Toby GALLAGHER et al. TONY. 2013;310(19): 1000-9145 (http://education.[employer]/faq/HXC427) Cholesterol/HDL Ratio 4.5 <5.0 (calc) [facility] Non HDL Chol. (LDL+VLDL) 143(H) <130 mg/dL (calc) [facility] Comment: For patients with diabetes plus 1 major ASCVD risk factor, treating to a non-HDL-C goal of <100 mg/dL (LDL-C of <70 mg/dL) is considered a therapeutic option. Blood specimen (specimen) 06/11/2018 9:02 AM EST 06/11/2018 9:02 AM EST Narrative [facility] - 06/12/2018 5:21 PM EST FASTING:YES FASTING: YES Resulting Agency Comment Performing Organization Information: Site ID: [id number] Name: [facility] Address: [address], [place] [address] Director: Lisa Courtney MD Robert Haddad DO LAB BLOOD ORDERABLES Idalia l Result [facility] [address], [place] [address] * Microalbumin, Creatinine, Urine, Random (06/11/2018 9:02 AM EST) Creatinine, Urine, Random 49 20 - 320 mg/dL [facility] Microalbumin, Urine, Random 0.5 See Note: mg/dL [facility] Comment: Reference Range: Reference Range Not established Microalbumin/Creat inine Ratio 10 <30 mcg/mg creat [facility] Comment: The ADA defines abnormalities in albumin excretion as follows: Category Result (mcg/mg creatinine) Normal <30 Microalbuminuria 30-299 Clinical albuminuria > OR = 300 The ADA recommends that at least two of three specimens collected within a 3-6 month period be abnormal before considering a patient to be within a diagnostic category. Urine Voided urine specimen / Unknown 06/11/2018 9:02 AM EST 06/11/2018 9:02 AM EST Narrative [facility] - 06/12/2018 5:21 PM EST FASTING:YES FASTING: YES Resulting Agency Comment Performing Organization Information: Site ID: [id number] Name: [id number] Address: [address] [place] [address], [place] [address] Director: Lisa Courtney MD Robert Haddad DO URINE ORDERABLES Final Re sult [facility] [address] [place] [address], [place], [place] [id number] * (ABNORMAL) Hemoglobin A1c with Estimated Average Glucose (06/11/2018 9:02 AM EST) Hemoglobin A1C 6.4(H) <5.7 % of total Hgb [facility] Comment: For someone without known [...] children. Estimated Average Glucose (mg/dL) 137 (calc) [facility] Estimated Average Glucose (mmol/L) 7.6 (calc) [facility] Blood specimen (specimen) 06/11/2018 9:02 AM EST 06/11/2018 9:02 AM EST Narrative [facility] - 06/12/2018 5:21 PM EST FASTING:YES FASTING: YES Resulting Agency Comment Performing Organization Information: Site ID: [id number] Name: [facility] Address: [address] [place] [address], [place] [address] Director: Lisa Courtney MD Robert Haddad DO LAB BLOOD ORDERABLES Idalia greenwood Result [facility] [address] [place] [address], [place] [address] from Last 3 Months or Most Recently Relevant to Health Maintenance Insurance [facility] MEDICARE [facility] MEDICARE Advance Directives * Full Code (Latest Code Status on File) Date Activated Date Inactivated Comments 05/30/2019 7:52 AM Care Teams Marbleizer Relationship Specialty Start Date End Date Yuni Reece APRN [address] [place] [address] PCP - General 08/16/22 Wallace Zee MD 4 [facility] [address] [place] [address] Otolaryngology 02/22/17 Jourdan Berry MD [address] [place] [address] Referring Provider Family Medicine 11/27/19
--- OUTSIDE RECORDS SUMMARY | 2025-05-28 07:02 | XMS_ITS | Encounter Summary ---
Author Organization [facility] Address [address] [place] [address] Care Team Providers Care Trimmer Hand Name Role Phone Robert Haddad DO Primary Care Provider [phone] Wallace Zee MD Unavailable Jourdan Berry MD Primary Care Provider Jourdan Berry MD Unavailable Pcp, No Primary Care Provider UnavailYuni Castro APRN Primary Care Provider [phone] Reason for Visit * Reason Comments Medication Refill Encounter Details Date Type Department Care Team (Late st Contact Info) Description 01/02/[address] [phone] Robert Haddad DO [address] [place] [address] Uncontrolled type 2 diabetes mellitus with complication, [...] insulin documented in this encounter Care Teams Trimmer Hand Relationship Specialty Start Date End Date Robert Haddad DO [address] [place] [address] PCP - General Internal Medicine 03/03/15 03/19/19 Jourdan Berry MD 13 [place] [address] PCP - General Family Medicine 03/20/19 11/26/19 Pcp, No PCP - General General Medicine 11/27/19 08/15/22 Yuni Reece APRN PCP - General 08/16/22 Wallace Zee MD 4 [facility] [address] [place] [address] Otolaryngology 02/22/17 Jourdan Berry MD [address] [place] [address] Referring Provider Family Medicine 11/27/19 documented as of this encounter
--- OUTSIDE RECORDS SUMMARY | 2025-05-28 07:02 | XMS_ITS | Encounter Summary ---
Author Organization [facility] Address [address] [place] [address] Care Team Providers Care Business Operations Director Name Role Phone Wallace Zee MD Unavailable [phone] Jourdan Berry MD Unavailable Yuni Reece APRN Primary Care Provider [phone] Encounter Details Date Type Department Care Team (Late st Contact Info) Description 01/05/2023 Scanned Document [facility] Department of Pulmonology [place] [address] [place] [phone] Keyanna Amador APRN [address] [place] [address] Social History Tobacco Use Types Packs/Day Years [...] on filedocumented in this encounter Care Teams Business Operations Director Relationship Specialty Start Date End Date Yuni Reece APRN [address] [place] [address] PCP - General 08/16/22 Wallace Zee MD 4 [facility] [address] [place] [address] Otolaryngology 02/22/17 Jourdan Berry MD [address] [place] [address] Referring Provider Family Medicine 11/27/19 documented as of this encounter
--- OUTSIDE RECORDS SUMMARY | 2025-05-28 07:02 | XMS_ITS | Encounter Summary ---
Author Organization [facility] Address [address] [place] [address] Care Team Providers Care Meat Cutter Apprentice Name Role Phone Unavailable Primary Care Provider Unavailabl e Reason for Visit * Reason Onset Date Comments Refill Request 11/29/2023 Encounter Details Date Type Department Care Team (Late st Contact Info) Description 11/29/2023 Refill [facility] [address] [place] [address] Yuni Reece APRN BC Refill Request Social [...]
--- OUTSIDE RECORDS SUMMARY | 2025-05-28 07:02 | XMS_ITS | Clinical Summary ---
Author Organization [facility] Address [address] [place] [address] Care Team Providers Care Compliance Representative Name Role Phone Yuni Reece APRN Primary Care Provider Allergies No known active allergies Medications Medication [...] age to complete this topic Care Teams Compliance Representative Relationship Specialty Start Date End Date Yuni Reece APRN [address] [place] [address] PCP - General Family Medicine 08/31/21
--- OUTSIDE RECORDS SUMMARY | 2025-05-28 07:02 | XMS_ITS | Encounter Summary ---
Author Organization [facility] Address [address] [place] [address] Care Team Providers Care Residential Caregiver Name Role Phone Robert Haddad DO Primary Care Provider [phone] Wallace Zee MD Unavailable Jourdan Berry MD Primary Care Provider [phone] Jourdan Berry MD Unavailable Pcp, No Primary Care Provider UnavailYuni Castro APRN Primary Care Provider Reason for Visit * Reason Onset Date Comments Medication Refill 05/20/2016 Encounter Details Date Type Department Care Team (Late st Contact Info) Description 05/20/[address] [phone] Robert Haddad DO [address] [place] [address] Medication Refill Social History Tobacco Use Types [...] EARLIER TODAY * Telephone Encounter - Barbara Irving - 05/20/2016 9:52 AM EDT PATIENT CALLED, NEEDS IMITREX RX TO BE SENT TO PHARMACY documented in this encounter Plan of Treatment Not on file documented as of this encounter Visit Diagnoses Not on filedocumented in this encounter Care Teams Residential Caregiver Relationship Specialty Start Date End Date Robert Haddad DO [address] [place] [address] PCP - General Internal Medicine 03/03/15 03/19/19 Jourdan Berry MD [address] [place] [address] PCP - General Family Medicine 03/20/19 11/26/19 Pcp, No PCP - General General Medicine 11/27/19 08/15/22 Yuni Reece, AUTHORIZATION COORDINATOR PCP - General 08/16/22 Wallace Zee MD 4 [facility] [address] [place] [address] Otolaryngology 02/22/17 Jourdan Berry MD [address] [place] [address] Referring Provider Family Medicine 11/27/19 documented as of this encounter
--- OUTSIDE RECORDS SUMMARY | 2025-05-28 07:02 | XMS_ITS | Encounter Summary ---
Author Organization [facility] Address [address] [place] [address] Care Team Providers Care Sealer Operator Name Role Phone Unavailable Primary Care Provider Unavailabl e Reason for Visit * Reason Onset Date Comments Refill Request 11/30/2023 Encounter Details Date Type Department Care Team (Late st Contact Info) Description 11/30/2023 Refill [facility] [address] [place] [address] Yuni Reece APRN BC Refill Request Social [...]
--- OUTSIDE RECORDS SUMMARY | 2025-05-28 07:02 | XMS_ITS | Encounter Summary ---
Author Organization [facility] Address [address] [place] [address] Care Team Providers Care Bow Making Machine Operator Name Role Phone Wallace Zee MD Unavailable Jourdan Berry MD Unavailable [phone] Pcp, No Primary Care Provider UnavailYuni Castro APRN Primary Care Provider [phone] Reason for Visit * Reason Comments Medication Refill Encounter Details Date Type Department Care Team (Late st Contact Info) Description 11/27/[address] [phone] Robert Haddad, [address] [place] [address] Essential hypertension Social History Tobacco Use Types [...] hypertension documented in this encounter Care Teams Bow Making Machine Operator Relationship Specialty Start Date End Date Pcp, No PCP - General General Medicine 11/27/19 08/15/22 Yuni Reece APRN PCP - General 08/16/22 Wallace Zee MD [address] [address] Otolaryngology 02/22/17 Jourdan Berry MD [address] [place] [address] Referring Provider Family Medicine 11/27/19 documented as of this encounter
--- OUTSIDE RECORDS SUMMARY | 2025-05-28 07:02 | XMS_ITS | Encounter Summary ---
Author Organization [facility] Address [address] [place] [address] Care Team Providers Care Rn Hospital Name Role Phone Wallace Zee MD Unavailable Jourdan Berry MD Unavailable Yuni Reece APRN Primary Care Provider [phone] Encounter Details Date Type Department Care Team (Late st Contact Info) Description 10/12/2022 Scanned Document [facility] Physicians Department of Pulmonology [place] [address] [place] [address] [address] [place] [address] Keyanna Amador APRN [address] [place] [address] Social History Tobacco Use Types Packs/Day Years [...] on filedocumented in this encounter Care Teams Rn Hospital Relationship Specialty Start Date End Date Yuni Reece, DIRECTOR [employer] 13 [facility] [place] [address] PCP - General 08/16/22 Wallace Zee MD 4 [facility] [address] [place] [address] Otolaryngology 02/22/17 Jourdan Berry MD 13 [facility] [place] [address] Referring Provider Family Medicine 11/27/19 documented as of this encounter
--- OUTSIDE RECORDS SUMMARY | 2025-05-28 07:02 | XMS_ITS | Encounter Summary ---
Author Organization [facility] Address [address] [place] [address] Care Team Providers Care Surgical Orderly Name Role Phone Robert Haddad DO Primary Care Provider [phone] Wallace Zee MD Unavailable Jourdan Berry MD Primary Care Provider [phone] Jourdan Berry MD Unavailable Pcp, No Primary Care Provider UnavailYuni Castro APRN Primary Care Provider Encounter Details Date Type Department Care Team (Late st Contact Info) Description 06/22/2018 Scanned Document [address] [phone] Robert Haddad, DO [address] [place] [address] Social History Tobacco Use Types Packs/Day Years [...] on filedocumented in this encounter Care Teams Surgical Orderly Relationship Specialty Start Date End Date Robert Haddad DO [address] [facility] [place] [address] PCP - General Internal Medicine 03/03/15 03/19/19 Jourdan Berry MD [address] [place] [address] PCP - General Family Medicine 03/20/19 11/26/19 Pcp, Ragini PCP - General General Medicine 11/27/19 08/15/22 Yuni Reece APRN PCP - General 08/16/22 Wallace Zee MD [address] [facility] [address] [place] [address] Otolaryngology 02/22/17 Jourdan Berry MD [address] [place] [address] Referring Provider Family Medicine 11/27/19 documented as of this encounter
--- OUTSIDE RECORDS SUMMARY | 2025-05-28 07:02 | XMS_ITS | Encounter Summary ---
Author Organization [facility] Address [address] [place] [address] Care Team Providers Care Net Lead Architect Name Role Phone Unavailable Primary Care Provider Unavailabl e Encounter Details Date Type Department Care Team (Late st Contact Info) Description 09/19/2023 Orders Only [address] [phone] Nick Baker RN Social History [...]
--- OUTSIDE RECORDS SUMMARY | 2025-05-28 07:02 | XMS_ITS | Encounter Summary ---
Author Organization [facility] Address [address] [place] [address] Care Team Providers Care Infantry Unit Leader Name Role Phone Wallace Zee MD Unavailable Jourdan Berry MD Unavailable Yuni Reece APRN Primary Care Provider [phone] Encounter Details Date Type Department Care Team (Late st Contact Info) Description 02/02/2024 Scanned Document [facility]icians Department of Pulmonology [address] [phone] Pulmonary, Scan Social History Tobacco Use Types [...] on filedocumented in this encounter Care Teams Infantry Unit Leader Relationship Specialty Start Date End Date Yuni Reece APRN [address] [place] [address] PCP - General 08/16/22 Wallace Zee MD 4 [facility] [address] [place] [address] Otolaryngology 02/22/17 Jourdan Berry MD [address] [place] [address] Referring Provider Family Medicine 11/27/19 documented as of this encounter
--- OUTSIDE RECORDS SUMMARY | 2025-05-28 07:02 | XMS_ITS | Encounter Summary ---
Author Organization [facility] Address [address] [place] [address] Care Team Providers Care Scuba Instructor Name Role Phone Unavailable Primary Care Provider Unavailabl e Reason for Visit * Reason Onset Date Comments Refill Request 11/30/2023 Encounter Details Date Type Department Care Team (Late st Contact Info) Description 11/30/2023 Refill [facility] [address] [place] [address] Yuni Reece APRN BC Refill Request Social [...]
--- OUTSIDE RECORDS SUMMARY | 2025-05-28 07:02 | XMS_ITS | Clinical Summary ---
Author Organization [facility] Address [address] [place] [address] Care Team Providers Care Boilermaking Supervisor Name Role Phone Unavailable Primary Care Provider [...] Morbid obesity 03/23/2023 Overview (09/10/2023): Impression - [id number]: BMI 41. Start Ozempic- rx sent in. 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 On a statin. Abnormal chest CT 05/09/2021 Overview (09/10/2023): Impression - 71Omu1195: Opacification lower lobe. Con reports he has heard this before with past imaging. Recommend he contact underwater trapper he saw in the past for lung function testing/further f/up. Encounter for immunization 04/28/2021 Migraine 03/14/2021 Encounter for screening for lung cancer 03/14/20 21 Anxiety 03/14/2021 Overview (09/10/2023): Impression - 08Hhc8362: Suggested he stop the wean at 5mg daily- continue on this dose and monitory symptoms. If they improve, they were likely due to the wean. If not, call the office for f/up if they remain bothersome. Hyperlipidemia 03/14/2021 Shortness of breath on exertion 03/12/2021 Cough 03/12/2021 Hypertension 03/12/2021 Overview (09/10/2023): Impression - 18Nhm5828: Stable. Continue medication regimen. Impression - 16Ofp5266: Blood pressure well controlled. Stop HCTZ, start Lasix. Side effects reviewed. Type 2 diabetes mellitus wit hout complication, without long-term current use of insulin 03/12/2021 Overview (09/10/2023): Impression - 39Quw0800: Most recent A1c is 7.4- goal is 6.5. Discussed diet & exercise changes. Continue medication regimen. F/up in 4 months. Impression - 02Siy5332: A1c 8.0%. Having trouble with diet and exercise. Has not been using Ozempic. Discussed benefits of Ozempic today. He is agreeable to trying this. Rx sent in. Side effects reviewed. F/up 3 months. Immunizations Immunization Administration Dates Next Due COVID-19, mRNA (Pfizer [...] 97 01/19/2023 11:26 AM EDT Temperature 36.4 C (97.5 F) 01/19/2023 11:26 AM EDT Respiratory Rate 16 01/19/2023 11:26 AM EDT [...] 09/0 01/2022, 04/13/2021 COVID-19 Vaccine ( season) 2025 05/16/2022, 11/22/2021, 05/26/2021, Additional history exists Influenza (#1) 2025 05/16/2022, 04/08, 04/28/2021, Additional history exists DTaP/Tdap/Td [...] 03/22/2021 Abdominal Aorta Imaging Discontinued HPV Vaccine (No Doses Required) Completed Hep A Aged Out No longer eligi [...] (ABNORMAL) HEMOGLOBIN A1C (03/23/2023 8:30 AM EDT) Pathologist [facility] Hemoglobin A1C 8.0(A) PHCT CONVERSIONS 03/23/2023 8:30 AM EDT Narrative PHCT CONVERSIONS - 03/23/2023 8:30 AM EDT Patient informed of results us Gopi Begum APRN LABORATORY Final Resul t PHCT CONVERSIONS * CT CHEST W/O CONTRAST (11/15/2022 8:30 AM EDT) IMAGING STUDY EXAMINATION: CT CHEST WITHOUT CONTRAST CLINICAL INFORMATION: Follow-up groundglass opacities. COMPARISON: CT examinations of the chest dated 10/14/2021 and 04/16/2021. TECHNIQUE: Multidetector volumetric CT imaging of the chest was done. Axial MIP volume rendering provided. Sagittal and coronal reformatted images were obtained. This CT examination was performed using dose optimization techniques as appropriate, variously including the following: *Automated exposure control *Adjustment of mA and/or kV according to patient size (this includes techniques or standardized protocols for targeted exams where dose is matched to indication/reason for exam; i.e. extremities or head) *Use of iterative reconstruction technique DLP: 571.89 mGy-cm FINDINGS: BLINDSTITCH HEMMER: The lungs are symmetrically well-expanded. There is [...] pleural effusion. No pleural mass or thickening. AXILLA: No lymphadenopathy UPPER ABDOMEN: Unremarkable OSSEOUS STRUCTURES: There is multi-level lower cervical, thoracic and upper lumbar degenerative disc disease and spondylosis. No acute or aggressive osseous abnormality is seen. IMPRESSION: A stable mild mosaic attenuation pattern is seen within the lower lungs, suggesting mild obstructive small airways disease. No new mass, nodule, infiltrate or groundglass opacity is seen. There is no thoracic adenopathy or pleural effusion. No aggressive osseous lesion is seen. Fleischner guidelines were followed. Thank you for referring your patient to us, Sidney Dempsey MD [id number] (Electronically Signed - 11/30/2022 14:07) Copy: VALERIA WESTFALL MD [facility] [address] [address] GOPI BEGUM PERFORMANCE IMPROVEMENT ANALYST [facility] [address] [facility], [place] [address] PHCT CONVERSIONS Anatomical Region Laterality Modality CHEST [...] Microalbumin<12.0, Alb/Creat Ratio Invalid Testing Performed at: [facility], [address] [place], [place] [address], , Supervisor Silvering Department: Teresa Wood MD CL#[id number] 1:05PM by Gopi Begum: A1c 7.5% (improved from 8.6%). Continue current regimen us Gopi Begum PERFORMANCE IMPROVEMENT ANALYST LABORATORY Final Resul t PHCT CONVERSIONS * PSA (11/10/2022 7:42 AM EDT) PSA 0.4 0.0 - 4.0 ng/ml PHCT CONVERSIONS Comment: This test was performed using the Elecsys Electrochemiluminescence Immunoassay (ECLIA). Values obtained from different assay methods cannot be used interchangeably. PSA levels,regardless of value, should not be interpreted as absolute evidence of the presence or absence of disease.Please note non-age specific reference range in effect 06 11/10/2022 7:42 AM EDT Narrative PHCT CONVERSIONS - 11/10/2022 9:51 PM EDT Testing Performed at: [facility], [address] [place] [address], , Supervisor Silvering Department: Teresa Wood MD CL#[id number] 1:05PM by Gopi Begum: A1c 7.5% (improved from 8.6%). Continue current regimen Gopi Begum [facility] Final Resul t Performing Organization Address [facility]/ZIP Co de Phone Number PHCT CONVERSIONS * (ABNORMAL) LIPID PANEL, PLASMA [...] PM EDT FASTING: YES Testing Performed at: [facility], [address] [place] [address], , Supervisor Silvering Department: Teresa Wood MD CL#[id number] 1:05PM by Gopi Begum: A1c 7.5% (improved from 8.6%). Continue current regimen Gopi Begum PERFORMANCE IMPROVEMENT ANALYST LABORATORY Final Resul t Performing Organization Address City/[facility]/ZIP Co de Phone Number PHCT CONVERSIONS * (ABNORMAL) COMPREHENSIVE METABOLIC PANEL (11/10/2022 7:42 AM EDT) Glucose 137(H) 65 - 99 mg/dL PHCT CONVERSIONS Comment:Fasting Reference In terval Urea Nitrogen Blood (BUN) 17 8 - 23 mg/dL PHCT CONVERSIONS Creatinine 0.8 0.5 - 1.2 mg/dL PHCT CONVERSIONS GFR 97 >=60 PHCT CONVERSIONS Comment: Units of measure for estimated Glomular Filtration Rate: mL/min/1.73m2. If patient is , multiply reported result by 1.21 eGFR calculation is only valid for adults 18-85 years of age. Stages of Chronic Kidney Disease Stage GFR 3 30-59 4 15-29 5 <15 Sodium 138 133 - 145 mmol/L [...] PM EDT FASTING: YES Testing Performed at: [facility], [address] [place] [address], , Supervisor Silvering Department: Teresa Wood MD CL#[id number] 1:05PM by Gopi Begum: A1c 7.5% (improved from 8.6%). Continue current regimen us Gopi Begum PERFORMANCE IMPROVEMENT ANALYST LABORATORY Final Resul t PHCT CONVERSIONS * EKG (08/04/2022 4:00 PM EST) Narrative 08/04/2022 4:00 PM EST Ordered by an unspecified provider. us Unknown Provider CARDIOVASCULAR-NO INBASKET RTG Final Result * COLONOSCOPY (04/30/2021 3:15 PM EDT) COLONOSCOPY, RESULT Normal PHCT CONVERSIONS DATE NEXT SCREEN VISIT 10 Years PHCT CONVERSIONS 04/30/2021 3:15 PM EDT us Php Unknown Prov PROCEDURES Final Result Performing Organization Address [facility] de Phone Number PHCT CONVERSIONS * COMPREHENSIVE EYE EXAM (04/30/2021 3:15 PM EDT) DILATED RETINAL EXAM With Retinopathy PHCT CONVERSIONS 04/30/2021 3:15 PM EDT us Php Unknown Prov MINOR PROCEDURE Final Result Performing Organization Address City/[facility] Co de Phone Number PHCT CONVERSIONS from Last 3 Months or Most Recently Relevant to Health Maintenance
--- OUTSIDE RECORDS SUMMARY | 2025-05-28 07:02 | XMS_ITS | Encounter Summary ---
Author Organization [facility] Address [address] [place] [address] Care Team Providers Care Cleaning Team Member Name Role Phone Robert Haddad DO Primary Care Provider [phone] Wallace Zee MD Unavailable Jourdan Berry MD Primary Care Provider [phone] Jourdan Berry MD Unavailable [phone] Pcp, No Primary Care Provider UnavailYuni Castro APRN Primary Care Provider [phone] Encounter Details Date Type Department Care Team (Late st Contact Info) Description 02/02/2016 Scanned Document [address] [phone] Provider, Generic Social History Tobacco Use Types [...] on filedocumented in this encounter Care Teams Cleaning Team Member Relationship Specialty Start Date End Date Robert Haddad DO [address] [place] [address] [place] [address] PCP - General Internal Medicine 03/03/15 03/19/19 Jourdan Berry MD 13 [facility] [place] [address] PCP - General Family Medicine 03/20/19 11/26/19 Pcp, No PCP - General General Medicine 11/27/19 08/15/22 Yuni Reece APRN PCP - General 08/16/22 Wallace Zee MD [address] [address] Otolaryngology 02/22/17 Jourdan Berry MD 13 [place] [address] Referring Provider Family Medicine 11/27/19 documented as of this encounter
--- OUTSIDE RECORDS SUMMARY | 2025-05-28 07:02 | XMS_ITS | Encounter Summary ---
Author Organization [facility] Address [address] [place] [address] Care Team Providers Care High School Teacher Name Role Phone Robert Haddad DO Primary Care Provider [phone] Wallace Zee MD Unavailable Jourdan Berry MD Primary Care Provider Jourdan Berry MD Unavailable [phone] Pcp, No Primary Care Provider UnavailYuni Castro APRN Primary Care Provider [phone] Reason for Visit * Reason Comments Medication Refill Encounter Details Date Type Department Care Team (Late st Contact Info) Description 03/05/[address] [phone] Robert Haddad DO [address] [place] [address] Uncontrolled type 2 diabetes mellitus with complication, [...] insulin documented in this encounter Care Teams High School Teacher Relationship Specialty Start Date End Date Robert Haddad DO [address] [place] [address] PCP - General Internal Medicine 03/03/15 03/19/19 Jourdan Berry MD 13 [place] [address] PCP - General Family Medicine 03/20/19 11/26/19 Pcp, No PCP - General General Medicine 11/27/19 08/15/22 Yuni Reece APRN PCP - General 08/16/22 Wallace Zee MD 4 [facility] [address] [place] [address] Otolaryngology 02/22/17 Jourdan Berry MD [address] [place] [address] Referring Provider Family Medicine 11/27/19 documented as of this encounter
--- OUTSIDE RECORDS SUMMARY | 2025-05-28 07:02 | XMS_ITS | Encounter Summary ---
Author Organization [facility] Address [address] [place] [address] Care Team Providers Care Miter Operator Name Role Phone Unavailable Primary Care Provider Unavailabl e Reason for Visit * Reason Onset Date Comments Refill Request 11/29/2023 Encounter Details Date Type Department Care Team (Late st Contact Info) Description 11/29/2023 Refill [facility] [address] [place] [address] Yuni Reece APRN BC Refill Request Social [...]
--- OUTSIDE RECORDS SUMMARY | 2025-05-28 07:02 | XMS_ITS | Encounter Summary ---
Author Organization [facility] Address [address] [place] [address] Care Team Providers Care Sales Broker Name Role Phone Wallace Zee MD Unavailable Jourdan Berry MD Unavailable Yuni Reece APRN Primary Care Provider [phone] Encounter Details Date Type Department Care Team (Late st Contact Info) Description 10/12/2022 Scanned Document [facility] Department of Pulmonology [place] [address] [place] [address] [address] [place] [address] Keyanna Amador APRN [address] [place] [address] Social History Tobacco Use Types Packs/Day Years [...] on filedocumented in this encounter Care Teams Sales Broker Relationship Specialty Start Date End Date Yuni Reece, FLIGHT CREW SCHEDULER 13 [facility] [place] [address] PCP - General 08/16/22 Wallace Zee MD 4 [facility] [address] [place] [address] Otolaryngology 02/22/17 Jourdan Berry MD 13 [facility] [place] [address] Referring Provider Family Medicine 11/27/19 documented as of this encounter
--- OUTSIDE RECORDS SUMMARY | 2025-05-28 07:02 | XMS_ITS | Encounter Summary ---
Author Organization [facility] Address [address] [place] [address] Care Team Providers Care Cardiology Technologist Name Role Phone Robert Haddad DO Primary Care Provider [phone] Wallace Zee MD Unavailable Jourdan Berry MD Primary Care Provider Jourdan Berry MD Unavailable Pcp, No Primary Care Provider UnavailYuni Castro APRN Primary Care Provider [phone] Encounter Details Date Type Department Care Team (Late st Contact Info) Description 01/22/2019 Scanned Document [facility] [place] [facility] [address] [place] [phone] Jourdan Berry MD [address] [place] [address] Social History Tobacco Use Types Packs/Day Years [...] on filedocumented in this encounter Care Teams Cardiology Technologist Relationship Specialty Start Date End Date Robert Haddad DO [address] [facility] [place] [address] PCP - General Internal Medicine 03/03/15 03/19/19 Jourdan Berry MD 13 [place] [address] PCP - General Family Medicine 03/20/19 11/26/19 Pcp, Ragini PCP - General General Medicine 11/27/19 08/15/22 Yuni Reece APRN PCP - General 08/16/22 Wallace Zee MD [address] [facility] [address] [place] [address] Otolaryngology 02/22/17 Jourdan Berry MD 13 [place] [address] Referring Provider Family Medicine 11/27/19 documented as of this encounter
--- OUTSIDE RECORDS SUMMARY | 2025-05-28 07:02 | XMS_ITS | Encounter Summary ---
Author Organization [facility] Address [address] [place] [address] Care Team Providers Care Field Human Resources Manager Name Role Phone Wallace Zee MD Unavailable Jourdan Berry MD Unavailable Yuni Reece APRN Primary Care Provider [phone] Encounter Details Date Type Department Care Team (Late st Contact Info) Description 05/08/2023 Scanned Document [facility] Department of Pulmonology [place] [address] [place] [address] [address] [place] [address] Keyanna Amador APRN [address] [place] [address] Social History Tobacco Use Types Packs/Day Years [...] on filedocumented in this encounter Care Teams Field Human Resources Manager Relationship Specialty Start Date End Date Yuni Reece, DENTAL HYGIENIST 13 [facility] [address] PCP - General 08/16/22 Wallace Zee MD 4 [facility] [address] [place] [address] Otolaryngology 02/22/17 Jourdan Berry MD 13 [place] [address] Referring Provider Family Medicine 11/27/19 documented as of this encounter
--- OUTSIDE RECORDS SUMMARY | 2025-05-28 07:02 | XMS_ITS | Encounter Summary ---
Author Organization [facility] Address [address] [place] [address] Care Team Providers Care Program Clerk Name Role Phone Wallace Zee MD Unavailable [phone] Jourdan Berry MD Unavailable Yuni Reece APRN Primary Care Provider [phone] Encounter Details Date Type Department Care Team (Late st Contact Info) Description 06/28/2024 Scanned Document [facility] Department of Pulmonology [place] [address] [place] [phone] Keyanna Amador APRN [address] [place] [address] Social History Tobacco Use Types Packs/Day Years [...] on filedocumented in this encounter Care Teams Program Clerk Relationship Specialty Start Date End Date Yuni Reece APRN 13 [place] [address] PCP - General 08/16/22 Wallace Zee MD 4 [facility] [address] [place] [address] Otolaryngology 02/22/17 Jourdan Berry MD 13 [place] [address] Referring Provider Family Medicine 11/27/19 documented as of this encounter
--- OUTSIDE RECORDS SUMMARY | 2025-05-28 07:02 | XMS_ITS | Encounter Summary ---
Author Organization [facility] Address [address] [place] [address] Care Team Providers Care Field Training Manager Name Role Phone Wallace Zee MD Unavailable [phone] Jourdan Berry MD Primary Care Provider [phone] Jourdan Berry MD Unavailable [phone] Pcp, No Primary Care Provider Yuni Kaplan APRN Primary Care Provider [phone] Encounter Details Date Type Department Care Team (Late st Contact Info) Description 10/08/2019 Scanned Document [address] [address] Provider, Generic Social History Tobacco Use [...] EST Ordered by an unspecified provider. us Generic Provider HX AMB PROCEDURES Final Result documented in this encounter Visit Diagnoses Not on filedocumented in this encounter Care Teams Field Training Manager Relationship Specialty Start Date End Date Jourdan Berry MD 13 [place] [address] PCP - General Family Medicine 03/20/19 11/26/19 Pcp, No PCP - General General Medicine 11/27/19 08/15/22 Yuni Reece APRN PCP - General 08/16/22 Wallace Zee MD 4 [facility] [address] [place] [address] Otolaryngology 02/22/17 Jourdan Berry MD 13 [place] [address] Referring Provider Family Medicine 11/27/19 documented as of this encounter
--- OUTSIDE RECORDS SUMMARY | 2025-05-28 07:02 | XMS_ITS ---
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 Past Treatment and Therapy Plans No past plan information found. Lifetime Dose Tracking * Chemical Lifetime Dose [...]
--- OUTSIDE RECORDS SUMMARY | 2025-05-28 07:02 | XMS_ITS | Encounter Summary ---
Author Organization [facility] Address [address] [place] [address] Care Team Providers Care Regulatory And Compliance Technician Name Role Phone Wallace Zee MD Unavailable [phone] Jourdan Berry MD Unavailable [phone] Yuni Reece APRN Primary Care Provider [phone] Encounter Details Date Type Department Care Team (Late st Contact Info) Description 01/12/2023 Scanned Document [facility] Department of Pulmonology [place] [address] [place] [phone] Keyanna Amador APRN [address] [place] [address] Social History Tobacco Use Types Packs/Day Years [...] on filedocumented in this encounter Care Teams Regulatory And Compliance Technician Relationship Specialty Start Date End Date Yuni Reece APRN 13 [place] [address] PCP - General 08/16/22 Wallace Zee MD 4 [facility] [address] [place] [address] Otolaryngology 02/22/17 Jourdan Berry MD [address] [place] [address] Referring Provider Family Medicine 11/27/19 documented as of this encounter
== END 2025-05-28 06:59 | disposition home or self-care (01) ==
LOC: HO.XRAY 06:58
PROVIDERS: Visit Provider Hospitalist
DX: J84.9 Interstitial pulmonary disease, unspecified (principal)
CPT/HCPCS: 71046

== ENCOUNTER → 2025-05-28 07:07 | Outpatient (BNV) | payer OTHER, SELFPAY | PROVIDERS: Visit Provider Radiology Diagnostic Radiology | DX: J84.9 Interstitial pulmonary disease, unspecified (principal) | CPT/HCPCS: 71046 ==

== ENCOUNTER 2025-06-23 08:11 | Outpatient (AMB) | payer OTHER, SELFPAY ==
[2025-06-23 08:19] VITALS: BP 128/72; PULSE 67; O2SAT 94; BMI 41.2
--- NOTE | 2025-06-23 08:19 | MHC.OFFVIS ---
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 Apparently the patient states that he has been on CPAP for many years. CPAP therapy has been affecting beneficial. He does use a nasal mask. He did try to get a download but his secure digital card got lost in the mail. He is going to bring it into the next visit so we can download it and adjust accordingly. He also uses oxygen with the CPAP. He did have an overnight oximetry demonstrating that he is getting good oxygenation while weight in the 2 L with CPAP. In addition to that he has dyspnea on exertion. He carries a diagnosis of COPD. He did have PFTs in June 2024. We did look at the numbers together. He has a xlrc-iq-mpjrkkhg restriction in addition to that has a mild obstructive process that likely is overshadowed because of the restriction component. He has also mild diffusion impairment. We did go for brief walking oximetry. He did desaturate down to about 90%. Dyspnea score is 4/10. Heart rate did increase to about 100 beats per minute. Patient does not qualify for oxygen but he does have some degree of hypoxia. He is overweight. He addition to that the patient does have some evidence of reflux disease. He had a CT scan done elsewhere in the report states that he does have some bronchiectatic changes in the right base which could be secondary to microaspiration. The rest of the CT scan demonstrates areas of mosaic pattern suggesting air trapping in addition to some mild interstitial lung disease that appears to be stable. Will try to get the images to review. 09/12/2024 the patient is here for a pulmonary follow-up visit. Overall he is doing well. He is using his CPAP every night. We did try to get him supplies through [facility] although they were not able to do so. Also another script for supplies to [facility]. Hopefully they can provide him with the supplies that he needs. Otherwise going to bring the machine in so I can look at it and adjusting accordingly. In addition to that he did go upstairs for the 1st session of his pulmonary rehabilitation. I believe this is very helpful for the patient. He did undergo a 6 minute walk test. I do not have those results as of yet but he does not qualify for oxygen as before. In addition to that the patient did have a CT scan of the chest that we personally just reviewed the report demonstrating mosaic pattern in addition to some minimal interstitial changes. Based on the respiratory examined the findings on the test he does not need any maintenance inhalers at this time. I did reassure him about that. Although if he started developing worsening shortness breath while participating in pulmonary rehabilitation we can always consider maintenance therapy then. We did review his vaccines up-to-date with all the necessary respiratory vaccines at this time. Will plan to follow-up in 6-8 months if he has any issues prior to that he will call for an earlier assessment. 03/10/2025 the patient is here for a pulmonary follow-up visit. The patient overall has been doing well although noticing increasing dyspnea on exertion. Cpmf-rg-bpengxzq severity. He is not using any maintenance inhalers right now. The patient has been using the CPAP. CPAP therapy has been affecting beneficial he does use it with the oxygen. Right now we do have access to his machine or download so therefore he has he has any issues he can always call me. We can always request a download over the lunch break. In the meantime we did go for brief walking oximetry he did desaturate down to about 91%. This is his average. Will go ahead have get an x-ray to make sure that his atelectasis the any worse. In the meantime will go ahead and start him on Anoro to provide him a combination bronchodilator to see if we can provide better aeration and gas exchange. The patient will return back in 3-4 months. If he has any issues prior to that he will call for an earlier assessment. 06/23/2025 the patient is here for pulmonary follow-up visit. The patient overall has been doing okay he has been using his Anoro. He is not sure if is helping. He has a cough at times productive in nature. Cwbc-gr-pxdzlher severity. He did undergo a chest x-ray which I personally reviewed demonstrating some interstitial changes. The patient does complaint of dyspnea. We did look at his previous CAT scan from 2022 demonstrating some pleural-based disease interstitial disease. Will go ahead and request a repeat CAT scan in view of his abnormal chest x-ray and his ongoing symptoms. The patient also has been using his CPAP with his nasal mask, N20. He is leaking air via his mustache. Will switch him over to a foam AirTouch mask. Hopefully will see a little bit better. If not consider a different mask altogether. Otherwise his AHI is down to 0.2 so therefore he is doing well on the current pressure settings. He does have issues with increased cough and at work there is a event right above him that is significant amount of dust. Wondering about potential allergy reactions. Will go ahead and address that with blood work. In the meantime will start the patient on azithromycin 3 times a week for a month to try to help him with mucus clearance and mucus burden. Will follow-up in 3 months or feel any issues arise she can always call for further recommendations. 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 Bilateral artificial lens implant Diverticulitis Sleep apnea KRISTIAN (obstructive sleep apnea) Eosinophilic granuloma Diverticulosis Surgical History H/O bilateral cataract extraction History of colonoscopy H/O anal fistulotomy Family History Mother Hypertension Father Hypertension Other Type 2 diabetes mellitus Social History Housing: House Patient Tobacco Use Status: Former Tobacco user Cigarette Packs Per Day: 1.5 Years Smoked: 30 e-Cigarette/Vaping Use: Never Used Second Hand Smoke Exposure: No service: No Current occupational status: employed 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 Current occupational exposures/hazards: No Cognitive needs: No Hearing needs: Yes Vision needs: Yes Review of Systems Const Denies fever(s) ENT Denies hoarseness Card Denies chest pain and Reports dyspnea on exertion Resp Reports dyspnea on exertion GI Reports dyspepsia and Reports heartburn Musc Reports no additional complaints Skin/Breast Denies rash Valentino/Lymph Reports no additional complaints Aller/Immun Reports no additional complaints Physical Exam Vital Signs: Last Vital Signs Pulse 67 06/23/25 08:19 BP 128/72 06/23/25 08:19 Pulse Ox 94 06/23/25 08:19 Oxygen Delivery Method Room Air 06/23/25 08:19 BMI result Body Mass Index 41.2 Const General: comfortable HEENT Head: Yes normocephalic Neck Neck: Yes supple Chest Chest palpation & inspection: normal inspection of the chest Resp Effort & Inspection: normal respiratory effort Auscultation: crackles bilateral (minimal) and diminished lung sounds Cardio Heart sounds: S1 normal heart sound present and S2 normal heart sound present GI Palpation (GI): Soft to palpation Assessment & Plan Assessment & Plan (1) COPD (chronic obstructive pulmonary disease) with chronic bronchitis: Code(s): J44.89 - Other specified chronic obstructive pulmonary disease Category: Medical (2) ILD (interstitial lung disease): Code(s): J84.9 - Interstitial pulmonary disease, unspecified Category: Medical (3) KRISTIAN on CPAP: Code(s): G47.33 - Obstructive sleep apnea (adult) (pediatric) Category: Medical (4) GERD (gastroesophageal reflux disease): Code(s): K21.9 - Gastro-esophageal reflux disease without esophagitis Category: Medical Qualifiers: Esophagitis presence: without esophagitis Qualified Code(s): K21.9 - Gastro-esophageal reflux disease without esophagitis (5) Hypoxia: Code(s): R09.02 - Hypoxemia Category: Medical (6) Dyspnea: Code(s): R06.00 - Dyspnea, unspecified Category: Medical Qualifiers: Dyspnea type: dyspnea on exertion Qualified Code(s): R06.09 - Other forms of dyspnea (7) Standard chest x-ray abnormal: Code(s): R93.89 - Abnormal findings on diagnostic imaging of other specified body structures Category: Medical (8) Allergies: Code(s): T78.40XA - Allergy, unspecified, initial encounter Category: Medical Qualifiers: Encounter type: initial encounter Qualified Code(s): T78.40XA - Allergy, unspecified, initial encounter Plan NAZ as needed continue Anoro start Azithromycin MWF x 4 weeks Bloodwork continue Pulmonary rehab/exercise continue APAP, [facility]Requesting N20 A[address] foam mask CT chest reflux diet sleep with HOB elevated continue APAP with 2l Oxygen, will bring PAP to next visit to download and adjust if needed F/U 4 months Orders: Orders Venous Blood Gas Today J84.9 - Interstitial pulmonary disease, unspecified, R93.89 - Abnormal findings on diagnostic imaging of other specified body structures, T78.40XA - Allergy, unspecified, initial encounter Resp Allergy Profile Region I Today J84.9 - Interstitial pulmonary disease, unspecified, R91.1 - Solitary pulmonary nodule, R93.89 - Abnormal findings on diagnostic imaging of other specified body structures, T78.40XA - Allergy, unspecified, initial encounter DOMINIC Reflex Titer and Pattern Today J84.9 - Interstitial pulmonary disease, unspecified, R93.89 - Abnormal findings on diagnostic imaging of other specified body structures, T78.40XA - Allergy, unspecified, initial encounter Immunoglobulin E Today J84.9 - Interstitial pulmonary disease, unspecified, R93.89 - Abnormal findings on diagnostic imaging of other specified body structures, T78.40XA - Allergy, unspecified, initial encounter CT chest wo IV con Today J84.9 - Interstitial pulmonary disease, unspecified, R93.89 - Abnormal findings on diagnostic imaging of other specified body structures, T78.40XA - Allergy, unspecified, initial encounter Hypersensitive Pneumonitis Prf Today J84.9 - Interstitial pulmonary disease, unspecified, R91.8 - Other nonspecific abnormal finding of lung field, R93.89 - Abnormal findings on diagnostic imaging of other specified body structures, T78.40XA - Allergy, unspecified, initial encounter Erythrocyte Sedimentation Rate Today J84.9 - Interstitial pulmonary disease, unspecified, R93.89 - Abnormal findings on diagnostic imaging of other specified body structures, T78.40XA - Allergy, unspecified, initial encounter Complete Blood Count Auto Diff Today J84.9 - Interstitial pulmonary disease, unspecified, R93.89 - Abnormal findings on diagnostic imaging of other specified body structures, T78.40XA - Allergy, unspecified, initial encounter Medications: New azithromycin Take 1 tablet on Monday/Monday/Monday 250 mg PO 3XW 12 tabs 0RF 28 days K21.9 - Gastro-esophageal reflux disease without esophagitis Coding Level of Care Code Est Pt Level 4 (89294) Complex EM visit Add On G2211 Diagnoses COPD (chronic obstructive pulmonary disease) with chronic bronchitis J44.89 ILD (interstitial lung disease) J84.9 KRISTIAN on CPAP G47.33 Gastroesophageal reflux disease without esophagitis K21.9 Esophagitis presence: without esophagitis Hypoxia R09.02 Dyspnea on exertion R06.09 Dyspnea type: dyspnea on exertion Standard chest x-ray abnormal R93.89 Allergy, initial encounter T78.40XA Encounter type: initial encounter Time Spent (min) 18
== END 2025-06-23 08:53 | disposition home or self-care (01) ==
LOC: HO.HPS 08:12
PROVIDERS: PCP Physician Assistant Medical; Visit Provider Hospitalist
DX: J44.89 Other specified chronic obstructive pulmonary disease (principal); J84.9 Interstitial pulmonary disease, unspecified; G47.33 Obstructive sleep apnea (adult) (pediatric); K21.9 Gastro-esophageal reflux disease without esophagitis; R09.02 Hypoxemia; R06.09 Other forms of dyspnea; R93.89 Abnormal findings on diagnostic imaging of other specified body structures; T78.40XA Allergy, unspecified, initial encounter
CPT/HCPCS: 99214; G2211

== ENCOUNTER → 2025-07-15 06:54 | Outpatient (REF) | payer MEDICARE, SELFPAY ==
--- OUTSIDE RECORDS SUMMARY | 2025-07-15 06:58 | XMS_ITS | Clinical Summary ---
Author Organization [facility] Address [address] [place] [address] Phone Care Team Providers Care House Detective Name Role Phone Maximiliano Licea MD Primary Care Provider [phone] Allergies No known active allergies Medications albuterol [...] Care Team Description 05/05/2025 Telephone Gastroenterology - [place] [address] [place] [address] Alvaro Palacios MD from Last 3 Months Medical History Medical History Date Comments Former smoker DX:Former smoker ; COMMENT: Quit 16 years back, smoked cig for 30 years, 1 pack/day Type 2 diabetes mellitus wit hout complications (CMS/HCC V24, CMS/HCC V28) DX:Type 2 bobby betes mellitus without complications (HCC); COMMENT: followed by pre owned sales consultant Dr. Crowell, rubber goods finisher Dr. [place], no records on 02/26/21 Essential [...] on file Sexual Orientation Not on file Plan of Treatment Health Maintenance Due Date [...] topic Insurance [employer] [place] [id number] Care Teams House Detective Relationship Specialty Start Date End Date Maximiliano Licea MD [address] [place] [address] PCP - General Internal Medicine 05/05/25
--- OUTSIDE RECORDS SUMMARY | 2025-07-15 06:58 | XMS_ITS | Encounter Summary ---
Author Organization [facility] Address [address] [place] [address] Care Team Providers Care Derrick Boat Runner Name Role Phone Unavailable Primary Care Provider Unavailabl e Reason for Visit * Reason Onset Date Comments Refill Request 11/30/2023 Encounter Details Date Type Department Care Team (Late st Contact Info) Description 11/30/2023 Refill [facility] [address] [place] [address] Yuni Reece APRN BC Refill Request Social [...]
--- OUTSIDE RECORDS SUMMARY | 2025-07-15 06:58 | XMS_ITS | Clinical Summary ---
Author Organization [facility] Prior to 01/04/[address] [place] [address] Care Team Providers Care Teacher Education Director Name Role Phone Yuni Reece APRN Primary Care Provider [phone] Allergies No known active allergies Medications Medication [...] age to complete this topic Care Teams Teacher Education Director Relationship Specialty Start Date End Date Yuni Reece APRN [address] [place] [address] PCP - General Family Medicine 08/31/21
--- OUTSIDE RECORDS SUMMARY | 2025-07-15 06:58 | XMS_ITS | Encounter Summary ---
Author Organization [facility] Address [address] [place] [address] Care Team Providers Care Head Of Sales And Marketing Name Role Phone Robert Haddad DO Primary Care Provider [phone] Wallace Zee MD Unavailable Jourdan Berry MD Primary Care Provider Jourdan Berry MD Unavailable Pcp, No Primary Care Provider UnavailYuni Castro APRN Primary Care Provider Encounter Details Date Type Department Care Team (Late st Contact Info) Description 06/22/2018 Scanned Document [address] [phone] Robert Haddad, DO [address] [place] [address] Social History Tobacco Use Types Packs/Day Years Used Date Smoking Tobacco: Former Cigarettes 0 Q uit: 06/13/2006 Smokeless Tobacco: Never Alcohol [...] in this encounter Care Teams Head Of Sales And Marketing Relationship Specialty Start Date End Date Robert Haddad DO [address] [facility] [place] [address] PCP - General Internal Medicine 03/03/15 03/19/19 Jourdan Berry MD [address] [place] [address] PCP - General Family Medicine 03/20/19 11/26/19 Pcp, No PCP - General General Medicine 11/27/19 08/15/22 Yuni Reece APRN PCP - General 08/16/22 Wallace Zee MD [address] [facility] [address] [place] [address] Otolaryngology 02/22/17 Jourdan Berry MD [address] [place] [address] Referring Provider Family Medicine 11/27/19 documented as of this encounter
--- OUTSIDE RECORDS SUMMARY | 2025-07-15 06:58 | XMS_ITS | Encounter Summary ---
Author Organization [facility] Address [address] [place], [place] [address] Care Team Providers Care Manager Database Name Role Phone Robert Haddad DO Primary Care Provider [phone] Wallace Zee MD Unavailable Jourdan Berry MD Primary Care Provider [phone] Jourdan Berry MD Unavailable [phone] Pcp, No Primary Care Provider UnavailYuni Castro APRN Primary Care Provider [phone] Encounter Details Date Type Department Care Team (Late st Contact Info) Description 01/31/2017 Scanned Document [address] [phone] Provider, Generic Social History Tobacco Use Types [...] on filedocumented in this encounter Care Teams Manager Database Relationship Specialty Start Date End Date Robert Haddad DO [address] [place] [address] [place] [address] PCP - General Internal Medicine 03/03/15 03/19/19 Jourdan Berry MD [address] [facility] [place] [address] PCP - General Family Medicine 03/20/19 11/26/19 Pcp, No PCP - General General Medicine 11/27/19 08/15/22 Yuni Reece APRN PCP - General 08/16/22 Wallace Zee MD [address] [address] Otolaryngology 02/22/17 Jourdan Berry MD [address] [facility] [place] [address] Referring Provider Family Medicine 11/27/19 documented as of this encounter
--- OUTSIDE RECORDS SUMMARY | 2025-07-15 06:58 | XMS_ITS | Encounter Summary ---
Author Organization [facility] Address [address] [place], [place] [id number] Care Team Providers Care Conduit Bender Name Role Phone Robert aHddad DO Primary Care Provider [phone] Wallace Zee MD Unavailable Jourdan Berry MD Primary Care Provider [phone] Jourdan Berry MD Unavailable [phone] Pcp, No Primary Care Provider UnavailYuni Castro APRN Primary Care Provider [phone] Encounter Details Date Type Department Care Team (Late st Contact Info) Description 11/20/2016 Scanned Document [address] [phone] Provider, Generic Social History Tobacco Use Types [...] on filedocumented in this encounter Care Teams Conduit Bender Relationship Specialty Start Date End Date Robert Haddad DO [address] [place] [address] [place] [address] PCP - General Internal Medicine 03/03/15 03/19/19 Jourdan Berry MD [address] [facility] [place] [address] PCP - General Family Medicine 03/20/19 11/26/19 Pcp, No PCP - General General Medicine 11/27/19 08/15/22 Yuni Reece APRN PCP - General 08/16/22 Wallace Zee MD [address] [address] Otolaryngology 02/22/17 Jourdan Berry MD 13 [facility] [place] [address] Referring Provider Family Medicine 11/27/19 documented as of this encounter
--- OUTSIDE RECORDS SUMMARY | 2025-07-15 06:58 | XMS_ITS | Encounter Summary ---
Author Organization [facility] Address [address] [place] [address] Care Team Providers Care Curtain Hemmer Automatic Name Role Phone Unavailable Primary Care Provider Unavailabl e Reason for Visit * Reason Onset Date Comments Refill Request 11/30/2023 Encounter Details Date Type Department Care Team (Late st Contact Info) Description 11/30/2023 Refill [facility] [address] [place] [address] Yuni Reece APRN BC Refill Request Social [...]
--- OUTSIDE RECORDS SUMMARY | 2025-07-15 06:58 | XMS_ITS | Encounter Summary ---
Author Organization [facility] Address [address] [place] [address] Care Team Providers Care Equipment Mechanic Specialist Name Role Phone Unavailable Primary Care Provider Unavailabl e Reason for Visit * Reason Comments E-prescribing Refill Request Encounter Details Date Type Department Care Team (Late st Contact Info) Description 11/20/[address] [phone] Yuni Reece, JAVIER BC E-prescribing [...]
--- OUTSIDE RECORDS SUMMARY | 2025-07-15 06:58 | XMS_ITS | Encounter Summary ---
Author Organization [facility] Address [address] [place] [address] Care Team Providers Care Pot Filler Name Role Phone Robert Haddad DO Primary Care Provider [phone] Wallace Zee MD Unavailable [phone] Jourdan Berry MD Primary Care Provider Jourdan Berry MD Unavailable Pcp, No Primary Care Provider UnavailYuni Castro APRN Primary Care Provider Encounter Details Date Type Department Care Team (Late st Contact Info) Description 07/11/2018 Scanned Document [address] [phone] Robert Haddad, DO [address] [place] [address] Social History Tobacco Use Types Packs/Day Years [...] on filedocumented in this encounter Care Teams Pot Filler Relationship Specialty Start Date End Date Robert Haddad DO [address] [facility] [place] [address] PCP - General Internal Medicine 03/03/15 03/19/19 Jourdan Berry MD [address] [place] [address] PCP - General Family Medicine 03/20/19 11/26/19 Pcp, No PCP - General General Medicine 11/27/19 08/15/22 Yuni Reece APRN PCP - General 08/16/22 Wallace Zee MD [address] [facility] [address] [place] [address] Otolaryngology 02/22/17 Jourdan Berry MD [address] [place] [address] Referring Provider Family Medicine 11/27/19 documented as of this encounter
--- OUTSIDE RECORDS SUMMARY | 2025-07-15 06:58 | XMS_ITS | Clinical Summary ---
Author Organization [facility] Address [address] [place] [address] Care Team Providers Care Validation Intern Name Role Phone Unavailable Primary Care Provider [...] Morbid obesity 03/23/2023 Overview (09/10/2023): Impression - [id number]: BMI 41. Start Ozempic- rx sent in. 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 On a statin. Abnormal chest CT 05/09/2021 Overview (09/10/2023): Impression - 64Vdg1249: Opacification lower lobe. Con reports he has heard this before with past imaging. Recommend he contact cpc he saw in the past for lung function testing/further f/up. Encounter for immunization 04/28/2021 Migraine 03/14/2021 Encounter for screening for lung cancer 03/14/20 21 Anxiety 03/14/2021 Overview (09/10/2023): Impression - 36Fxi4972: Suggested he stop the wean at 5mg daily- continue on this dose and monitory symptoms. If they improve, they were likely due to the wean. If not, call the office for f/up if they remain bothersome. Hyperlipidemia 03/14/2021 Shortness of breath on exertion 03/12/2021 Cough 03/12/2021 Hypertension 03/12/2021 Overview (09/10/2023): Impression - 82Rvz4316: Stable. Continue medication regimen. Impression - 55Vvx9654: Blood pressure well controlled. Stop HCTZ, start Lasix. Side effects reviewed. Type 2 diabetes mellitus wit hout complication, without long-term current use of insulin 03/12/2021 Overview (09/10/2023): Impression - 88Ixh7809: Most recent A1c is 7.4- goal is 6.5. Discussed diet & exercise changes. Continue medication regimen. F/up in 4 months. Impression - 32Ohf2184: A1c 8.0%. Having trouble with diet and [...] C Screening 1956 RSV (1 - Risk 50-74 years 1-dose series) 2006 Eye/Retina Exam 04/30/2023 04/30/2021 HA1C 09/23/2023 03/23/2023, [...] HEMOGLOBIN A1C (03/23/2023 8:30 AM EDT) Pathologist [facility] Hemoglobin A1C 8.0(A) PHCT CONVERSIONS 03/23/2023 8:30 [...] iterative reconstruction technique DLP: 571.89 mGy-cm FINDINGS: PROFILING MACHINE SETUP OPERATOR: The lungs are symmetrically well-expanded. There is [...] your patient to us, Sidney Dempsey MD [id number] (Electronically Signed - 11/30/2022 14:07) Copy: VALERIA WESTFALL MD [facility] [address] [address] GOPI BEGUM SAP ARCHITECT [facility] [address] [facility], [place] [address] PHCT CONVERSIONS Anatomical Region Laterality [...] Microalbumin<12.0, Alb/Creat Ratio Invalid Testing Performed at: [facility], [address] [place], [place] [address], , Environmental Air Specialist: Teresa Wood MD CL#[id number] 1:05PM by Gopi Begum: A1c 7.5% (improved from 8.6%). Continue current regimen us Gopi Begum [facility] Final Resul t PHCT CONVERSIONS * [...] 11/10/2022 9:51 PM EDT Testing Performed at: [facility], [address] [place] [address], , Environmental Air Specialist: Teresa Wood MD CL#[id number] 1:05PM by Gopi Begum: A1c 7.5% (improved from 8.6%). Continue current regimen Gopi Begum [facility] Final Resul t Performing Organization Address [facility]/ZIP Co de Phone Number PHCT CONVERSIONS * [...] PM EDT FASTING: YES Testing Performed at: [facility], [address] [place] [address], , Environmental Air Specialist: Teresa Wood MD CL#[id number] 1:05PM by Gopi Begum: A1c 7.5% (improved from 8.6%). Continue current regimen Gopi Begum [facility] Final Resul t Performing Organization Address City/[facility]/ZIP Co de Phone Number PHCT CONVERSIONS * [...] PM EDT FASTING: YES Testing Performed at: [facility], [address] [place] [address], , Environmental Air Specialist: Teresa Wood MD CL#[id number] 1:05PM by Gopi Begum: A1c 7.5% (improved from 8.6%). Continue current regimen us Gopi Begum [facility] Final Resul t PHCT CONVERSIONS * EKG (08/04/2022 4:00 PM EST) Narrative 08/04/2022 4:00 PM EST Ordered by an unspecified provider. us Unknown Provider CARDIOVASCULAR-NO INBASKET RTG Final Result * COLONOSCOPY (04/30/2021 3:15 PM EDT) COLONOSCOPY, RESULT Normal PHCT CONVERSIONS DATE NEXT SCREEN VISIT 10 Years PHCT CONVERSIONS 04/30/2021 3:15 PM EDT us Php Unknown Prov PROCEDURES Final Result Performing Organization Address [facility] de Phone Number PHCT CONVERSIONS * COMPREHENSIVE EYE EXAM (04/30/2021 3:15 PM EDT) DILATED RETINAL EXAM With Retinopathy PHCT CONVERSIONS 04/30/2021 3:15 PM EDT us Php Unknown Prov MINOR PROCEDURE Final Result Performing Organization Address City/[facility] Co de Phone Number PHCT CONVERSIONS from Last 3 Months or Most Recently Relevant to Health Maintenance
--- OUTSIDE RECORDS SUMMARY | 2025-07-15 06:58 | XMS_ITS | Encounter Summary ---
Author Organization [facility] Address [address] [place] [address] Care Team Providers Care Harbor Tug Captain Name Role Phone Unavailable Primary Care Provider Unavailabl e Reason for Visit * Reason Onset Date Comments Refill Request 11/29/2023 Encounter Details Date Type Department Care Team (Late st Contact Info) Description 11/29/2023 Refill [facility] [address] [place] [address] Yuni Reece APRN BC Refill Request Social [...]
--- OUTSIDE RECORDS SUMMARY | 2025-07-15 06:58 | XMS_ITS | Encounter Summary ---
Author Organization [facility] Address [address] [place] [address] Care Team Providers Care Mapping Technician Name Role Phone Wallace Zee MD Unavailable Jourdan Berry MD Unavailable Yuni Reece APRN Primary Care Provider [phone] Encounter Details Date Type Department Care Team (Late st Contact Info) Description 10/12/2022 Scanned Document [facility] Department of Pulmonology [place] [address] [place] [address] [address] [place] [address] Keyanna Amador APRN [address] [place] [address] Social History Tobacco Use Types Packs/Day Years [...] on filedocumented in this encounter Care Teams Mapping Technician Relationship Specialty Start Date End Date Yuni Reece, BIOINFORMATICIAN [address] [place] [address] PCP - General 08/16/22 Wallace Zee MD 4 [facility] [address] [place] [address] Otolaryngology 02/22/17 Jourdan Berry MD 13 [place] [address] Referring Provider Family Medicine 11/27/19 documented as of this encounter
--- OUTSIDE RECORDS SUMMARY | 2025-07-15 06:58 | XMS_ITS | Encounter Summary ---
Author Organization [facility] Address [address] [place], [place] [address] Care Team Providers Care Retention Manager Name Role Phone Robert Haddad DO Primary Care Provider [phone] Wallace Zee MD Unavailable Jourdan Berry MD Primary Care Provider Jourdan Berry MD Unavailable [phone] Pcp, No Primary Care Provider UnavailYuni Castro APRN Primary Care Provider [phone] Encounter Details Date Type Department Care Team (Late st Contact Info) Description 08/19/2016 Scanned Document [address] [phone] Provider, Generic Social History Tobacco Use Types [...] on filedocumented in this encounter Care Teams Retention Manager Relationship Specialty Start Date End Date Robert Haddad DO [address] [place] [address] [place] [address] PCP - General Internal Medicine 03/03/15 03/19/19 Jourdan Berry MD 13 [place] [address] PCP - General Family Medicine 03/20/19 11/26/19 Pcp, No PCP - General General Medicine 11/27/19 08/15/22 Yuni Reece APRN PCP - General 08/16/22 Wallace Zee MD [address] [address] Otolaryngology 02/22/17 Jourdan Berry MD 13 [facility] [address] Referring Provider Family Medicine 11/27/19 documented as of this encounter
--- OUTSIDE RECORDS SUMMARY | 2025-07-15 06:58 | XMS_ITS | Encounter Summary ---
Author Organization [facility] Address [address] [place] [address] Care Team Providers Care Light Armored Vehicle Officer Name Role Phone Unavailable Primary Care Provider Unavailabl e Encounter Details Date Type Department Care Team (Late st Contact Info) Description 09/19/2023 Orders Only [address] [address] Nick Baker RN Social History [...]
--- OUTSIDE RECORDS SUMMARY | 2025-07-15 06:58 | XMS_ITS | Encounter Summary ---
Author Organization [facility] Address [address] [place] [address] Care Team Providers Care Line Inspector Name Role Phone Unavailable Primary Care Provider Unavailabl e Reason for Visit * Reason Onset Date Comments Refill Request 11/29/2023 Encounter Details Date Type Department Care Team (Late st Contact Info) Description 11/29/2023 Refill [facility] [address] [place] [address] Yuni Reece APRN BC Refill Request Social [...]
--- OUTSIDE RECORDS SUMMARY | 2025-07-15 06:58 | XMS_ITS | Encounter Summary ---
Author Organization [facility] Address [address] [place] [address] Care Team Providers Care Flight Control Manager Name Role Phone Wallace Zee MD Unavailable [phone] Jourdan Berry MD Unavailable [phone] Yuni Reece APRN Primary Care Provider [phone] Encounter Details Date Type Department Care Team (Late st Contact Info) Description 06/28/2024 Scanned Document [facility] Department of Pulmonology [place] [address] [place] [address] Keyanna Amador APRN [address] [place] [address] Social History Tobacco Use Types Packs/Day Years [...] filedocumented in this encounter Care Teams Flight Control Manager Relationship Specialty Start Date End Date Yuni Reece APRN [address] [place] [address] PCP - General 08/16/22 Wallace Zee MD 4 [facility] [address] [place] [address] Otolaryngology 02/22/17 Jourdan Brery MD 13 [place] [address] Referring Provider Family Medicine 11/27/19 documented as of this encounter
--- OUTSIDE RECORDS SUMMARY | 2025-07-15 06:58 | XMS_ITS | Encounter Summary ---
Author Organization [facility] Address [address] [place] [address] Care Team Providers Care Confidential Investigator Name Role Phone Wallace Zee MD Unavailable [phone] Jourdan Berry MD Primary Care Provider [phone] Jourdan Berry MD Unavailable [phone] Pcp, No Primary Care Provider Yuni Kaplan APRN Primary Care Provider [phone] Encounter Details Date Type Department Care Team (Late st Contact Info) Description 10/08/2019 Scanned Document [address] [place] [address] Cardiology, Scan Social History Tobacco Use [...] on filedocumented in this encounter Care Teams Confidential Investigator Relationship Specialty Start Date End Date Jourdan Berry MD 13 [place] [address] PCP - General Family Medicine 03/20/19 11/26/19 Pcp, No PCP - General General Medicine 11/27/19 08/15/22 Yuni Reece APRN PCP - General 08/16/22 Wallace Zee MD 4 [facility] [address] [place] [address] Otolaryngology 02/22/17 Jourdan Berry MD 13 [place] [address] Referring Provider Family Medicine 11/27/19 documented as of this encounter
--- OUTSIDE RECORDS SUMMARY | 2025-07-15 06:58 | XMS_ITS | Encounter Summary ---
Author Organization [facility] Address [address] [place], [place] [address] Care Team Providers Care Instructor Pilot Name Role Phone Robert Haddad DO Primary Care Provider [phone] Wallace Zee MD Unavailable Jourdan Berry MD Primary Care Provider [phone] Jourdan Berry MD Unavailable [phone] Pcp, No Primary Care Provider UnavailYuni Castro APRN Primary Care Provider [phone] Encounter Details Date Type Department Care Team (Late st Contact Info) Description 09/20/2016 Scanned Document [address] [phone] Provider, Generic Social History Tobacco Use Types [...] on filedocumented in this encounter Care Teams Instructor Pilot Relationship Specialty Start Date End Date Robert Haddad DO [address] [place] [address] [place] [address] PCP - General Internal Medicine 03/03/15 03/19/19 Jourdan Berry MD 13 [place] [address] PCP - General Family Medicine 03/20/19 11/26/19 Pcp, No PCP - General General Medicine 11/27/19 08/15/22 Yuni Reece APRN PCP - General 08/16/22 Wallace Zee MD [address] [address] Otolaryngology 02/22/17 Jourdan Berry MD 13 [facility] [place] [address] Referring Provider Family Medicine 11/27/19 documented as of this encounter
--- OUTSIDE RECORDS SUMMARY | 2025-07-15 06:58 | XMS_ITS | Encounter Summary ---
Author Organization [facility] Address [address] [place] [address] Care Team Providers Care Senior Graduate Advisor Name Role Phone Robert Haddad DO Primary Care Provider [phone] Wallace Zee MD Unavailable [phone] Jourdan Berry MD Primary Care Provider [phone] Jourdan Berry MD Unavailable Pcp, No Primary Care Provider UnavailYuni Castro APRN Primary Care Provider Encounter Details Date Type Department Care Team (Late st Contact Info) Description 01/22/2019 Scanned Document [facility] Colorectal Surgery [place] 85 [facility] [address] [place] [address] Jourdan Berry MD [address] [place] [id number] Social History Tobacco Use Types Packs/Day Years [...] filedocumented in this encounter Care Teams Senior Graduate Advisor Relationship Specialty Start Date End Date Robert Haddad DO [address] [place] [address] PCP - General Internal Medicine 03/03/15 03/19/19 Jourdan Berry MD 13 [place] [address] PCP - General Family Medicine 03/20/19 11/26/19 Pcp, No PCP - General General Medicine 11/27/19 08/15/22 Yuni Reece APRN PCP - General 08/16/22 Wallace Zee MD [address] [facility] [address] [place] [address] Otolaryngology 02/22/17 Jourdan Berry MD 13 [place] [address] Referring Provider Family Medicine 11/27/19 documented as of this encounter
--- OUTSIDE RECORDS SUMMARY | 2025-07-15 06:58 | XMS_ITS | Encounter Summary ---
Author Organization [facility] Address [address] [place] [address] Care Team Providers Care Journeyman Meat Cutter Name Role Phone Robert Hdadad DO Primary Care Provider Wallace Zee MD Unavailable Jourdan Berry MD Primary Care Provider Jourdan Berry MD Unavailable [phone] Pcp, No Primary Care Provider UnavailYuni Castro APRN Primary Care Provider [phone] Encounter Details Date Type Department Care Team (Late st Contact Info) Description 03/30/2015 Scanned Document [address] [phone] Provider, Generic Social History Tobacco Use Types [...] filedocumented in this encounter Care Teams Journeyman Meat Cutter Relationship Specialty Start Date End Date Robert Haddad DO [address] [place] [address] PCP - General Internal Medicine 03/03/15 03/19/19 Jourdan Berry MD 13 [place] [address] PCP - General Family Medicine 03/20/19 11/26/19 Pcp, No PCP - General General Medicine 11/27/19 08/15/22 Yuni Reece APRN PCP - General 08/16/22 Wallace Zee MD 4 [facility] [address] [place] [address] Otolaryngology 02/22/17 Jourdan Berry MD 13 [place] [address] Referring Provider Family Medicine 11/27/19 documented as of this encounter
--- OUTSIDE RECORDS SUMMARY | 2025-07-15 06:58 | XMS_ITS | Encounter Summary ---
Author Organization [facility] Address [address] [place] [address] Care Team Providers Care Services Rep Name Role Phone Wallace Zee MD Unavailable Jourdan Berry MD Unavailable [phone] Yuni Reece APRN Primary Care Provider [phone] Encounter Details Date Type Department Care Team (Late st Contact Info) Description 10/12/2022 Scanned Document [facility] Department of Pulmonology [place] [address] [place] [address] [address] [place] [address] Keyanna Amador APRN [address] [place] [address] Social History Tobacco Use Types Packs/Day Years [...] on filedocumented in this encounter Care Teams Services Rep Relationship Specialty Start Date End Date Yuni Reece, GAMBLING BOX PERSON 13 [place] [address] PCP - General 08/16/22 Wallace Zee MD 4 [facility] [address] [place] [address] Otolaryngology 02/22/17 Jourdan Berry MD 13 [place] [address] Referring Provider Family Medicine 11/27/19 documented as of this encounter
--- OUTSIDE RECORDS SUMMARY | 2025-07-15 06:58 | XMS_ITS | Encounter Summary ---
Author Organization [facility] Address [address] [place] [address] Care Team Providers Care Cleaning Crew Member Name Role Phone Robert Haddad DO Primary Care Provider [phone] Wallace Zee MD Unavailable [phone] Jourdan Berry MD Primary Care Provider [phone] Jourdan Berry MD Unavailable [phone] Pcp, No Primary Care Provider UnavailYuni Castro APRN Primary Care Provider [phone] Encounter Details Date Type Department Care Team (Late st Contact Info) Description 02/02/2016 Scanned Document [address] [phone] Provider, Generic Social History Tobacco Use Types [...] filedocumented in this encounter Care Teams Cleaning Crew Member Relationship Specialty Start Date End Date Robert Haddad DO [address] [place] [address] [place] [address] PCP - General Internal Medicine 03/03/15 03/19/19 Jourdan Berry MD 13 [facility] [place] [address] PCP - General Family Medicine 03/20/19 11/26/19 Pcp, No PCP - General General Medicine 11/27/19 08/15/22 Yuni Reece APRN PCP - General 08/16/22 Wallace Zee MD [address] [address] Otolaryngology 02/22/17 Jourdan Berry MD 13 [place] [address] Referring Provider Family Medicine 11/27/19 documented as of this encounter
--- OUTSIDE RECORDS SUMMARY | 2025-07-15 06:58 | XMS_ITS | Encounter Summary ---
Author Organization [facility] Address [address] [place] [address] Care Team Providers Care General Hardware Salesperson Name Role Phone Wallace Zee MD Unavailable Jourdan Berry MD Unavailable [phone] Yuni Reece APRN Primary Care Provider [phone] Encounter Details Date Type Department Care Team (Late st Contact Info) Description 05/08/2023 Scanned Document [facility] Department of Pulmonology [place] [address] [place] [address] [address] [place] [address] Keyanna Amador APRN [address] [place] [address] Social History Tobacco Use Types Packs/Day Years [...] on filedocumented in this encounter Care Teams General Hardware Salesperson Relationship Specialty Start Date End Date Yuni Reece, HOME HEALTH CAREGIVER 13 [facility] [place] [address] PCP - General 08/16/22 Wallace Zee MD 4 [facility] [address] [place] [address] Otolaryngology 02/22/17 Jourdan Berry MD 13 [facility] [place] [address] Referring Provider Family Medicine 11/27/19 documented as of this encounter
--- OUTSIDE RECORDS SUMMARY | 2025-07-15 06:58 | XMS_ITS ---
Author Organization [facility] Address [address] [place] [address] Care Team Providers Care Pre Sales Architect Name Role Phone Wallace Zee MD Unavailable [phone] Jourdan Berry MD Unavailable [phone] Yuni Reece APRN Primary Care Provider [phone] Active Problems Problem Noted Date Diagnosed Date [...]
--- OUTSIDE RECORDS SUMMARY | 2025-07-15 06:58 | XMS_ITS | Encounter Summary ---
Author Organization [facility] Address [address] [place] [address] Care Team Providers Care Chemical Operations And Training Name Role Phone Unavailable Primary Care Provider Unavailabl e Reason for Visit * Reason Comments E-prescribing Refill Request Encounter Details Date Type Department Care Team (Late st Contact Info) Description 11/23/[address] [address] Yuni Reece, JAVIER BC E-prescribing [...]
--- OUTSIDE RECORDS SUMMARY | 2025-07-15 06:58 | XMS_ITS | Encounter Summary ---
Author Organization [facility] Address [address] [place] [address] Care Team Providers Care Steam Bone Press Tender Name Role Phone Wallace Zee MD Unavailable [phone] Jourdan Berry MD Primary Care Provider [phone] Jourdan Berry MD Unavailable [phone] Pcp, No Primary Care Provider Yuni Kaplan APRN Primary Care Provider [phone] Encounter Details Date Type Department Care Team (Late st Contact Info) Description 10/08/2019 Scanned Document [address] [address] Provider, Generic Social History Tobacco [...] on filedocumented in this encounter Care Teams Steam Bone Press Tender Relationship Specialty Start Date End Date Jourdan Berry MD 13 [place] [address] PCP - General Family Medicine 03/20/19 11/26/19 Pcp, No PCP - General General Medicine 11/27/19 08/15/22 Yuni Reece APRN PCP - General 08/16/22 Wallace Zee MD 4 [facility] [address] [place] [address] Otolaryngology 02/22/17 Jourdan Berry MD 13 [place] [address] Referring Provider Family Medicine 11/27/19 documented as of this encounter
--- OUTSIDE RECORDS SUMMARY | 2025-07-15 06:58 | XMS_ITS | Encounter Summary ---
Author Organization [facility] Address [address] [place] [address] Care Team Providers Care Backup Administrative Coordinator Name Role Phone Wallace Zee MD Unavailable Jourdan Berry MD Unavailable Yuni Reece APRN Primary Care Provider [phone] Encounter Details Date Type Department Care Team (Late st Contact Info) Description 01/05/2023 Scanned Document [facility] Physicians Department of Pulmonology [place] [address] [place] [address] Keyanna Amador APRN [address] [place] [address] Social History Tobacco Use Types Packs/Day Years [...] on filedocumented in this encounter Care Teams Backup Administrative Coordinator Relationship Specialty Start Date End Date Yuni Reece APRN 13 [place] [address] PCP - General 08/16/22 Wallace Zee MD 4 [facility] [address] [place] [address] Otolaryngology 02/22/17 Jourdan Berry MD 13 [place] [address] Referring Provider Family Medicine 11/27/19 documented as of this encounter
--- OUTSIDE RECORDS SUMMARY | 2025-07-15 06:58 | XMS_ITS | Clinical Summary ---
Author Organization [facility] Address [address] [place] [address] Care Team Providers Care Canvas Goods Maker Name Role Phone Wallace Zee MD Unavailable [phone] Jourdan Berry MD Unavailable [phone] Yuni Reece APRN Primary Care Provider Allergies [...] 08/03/2018 06/08/2018, 12/23/2014 Lipid Panel 06/11/2019 06/11/2018, 0410/2016, 12/15/2015, Additional history exists Microalbumin/Creatinine Ratio Urine 06/11/2019 06/11/2018, 11/17/2016 Foot Exam 06/13/2019 06/13/2018 Hemoglobin A1C 05/12/2023 11/10/2022, 09/0 02/2021, 06/11/2018, [...] your patient to us, Francisco Fournier MD [id number] (Electronically Signed - 08/11/2024 14:03) Copy: SHABBIR SAENZ NP [address], [place] [id number] PATIENT , Narrative 08/11/2024 2:03 PM EST [...] iterative reconstruction technique DLP: 493.08 mGy-cm FINDINGS: Keno Writer/Runner: Reviewed. LUNGS: The central tracheobronchial airways are [...] iterative reconstruction technique DLP: 493.08 mGy-cm FINDINGS: Keno Writer/Runner: Reviewed. LUNGS: The central tracheobronchial airways are [...] Fournier MD 08/11/2024 02:03 PM EST RPWorkstation: [id number] Thank you for referring your patient to us, Francisco Fournier MD [id number] (Electronically Signed - 08/11/2024 14:03) Copy: SHABBIR Zack MOESHAW [address] [address] PATIENT , us Dylan Nelson MD IMG CT ORDERABLES Final Result * Lytes, Bun, Creat, w/Ratio (11/10/2022 7:37 AM EDT) Blood Urea Nitrogen (BUN) 18 7 - 25 mg/dL [facility] Creatinine 0.82 0.70 - 1.35 mg/dL [facility] Creatinine w/ eGFR 97 > OR = 60 mL/min/1 .73m2 [facility] Comment: The eGFR is based on the CKD-EPI 2020 equation. To calculate the new eGFR from a previous Creatinine or Cystatin C result, go to https://www.kidney.org/professionals/ kdoqi/gfr%5Fcalculator BUN/Creatinine Ratio NOT APPLICABLE 6 - 22 (calc) [facility] Sodium 138 135 - 146 mmol/L [facility] Potassium 4.1 3.5 - 5.3 mmol/L [facility] Chloride 99 98 - 110 mmol/L [facility] CO2 31 20 - 32 mmol/L [facility] Electrolyte Balance 8 7 - 17 mmol/L (calc) [facility] Blood specimen (specimen) Blood specimen / Unknown 11/10/2022 7:37 AM EDT 11/10/2022 7:37 AM EDT us Sidney Fitch MD LAB BLOOD ORDERABLES Final Res [facility] [address] [place] [address] [place] [address] * (ABNORMAL) Lipid Panel Reflex Direct LDL ([facility]) (06/11/2018 9:02 AM EST) Cholesterol, Total 184 <200 mg/dL [facility] Cholesterol, HDL 41 >40 mg/dL [facility] Triglycerides 203(H) <150 mg/dL [...] LDL-C. Toby GALLAGHER et al. TONY. 2013;310(19): 4631-5530 (http://education.Wooop/faq/SRN640) Cholesterol/HDL Ratio 4.5 <5.0 (calc) [facility] Non HDL Chol. (LDL+VLDL) 143(H) <130 mg/dL (calc) [facility] Comment: For patients with diabetes plus 1 major ASCVD risk factor, treating to a non-HDL-C goal of <100 mg/dL (LDL-C of <70 mg/dL) is considered a therapeutic option. Blood specimen (specimen) 06/11/2018 9:02 AM EST 06/11/2018 9:02 AM EST Narrative [facility] - 06/12/2018 5:21 PM EST FASTING:YES FASTING: YES Resulting Agency Comment Performing Organization Information: Site ID: [id number] Name: [facility] Address: [address], [facility] [place] [address] Director: Lisa Courtney MD Robert Haddad DO LAB BLOOD ORDERABLES Idalia greenwood Result [facility] [address], [facility] [place] [address] * Microalbumin, Creatinine, Urine, Random (06/11/2018 9:02 AM EST) Creatinine, Urine, Random 49 20 - 320 mg/dL [facility] Microalbumin, Urine, Random 0.5 See Note: mg/dL [facility] Comment: Reference Range: Reference Range [...] Performing Organization Information: Site ID: [id number] Name: [facility] Address: [address] [place] [address], [place] [address] Director: Lisa Courtney MD us Robert Haddad DO URINE ORDERABLES Final Re sult [facility] [address] [place] [address], [place] [address] * (ABNORMAL) Hemoglobin A1c with Estimated [...] children. Estimated Average Glucose (mg/dL) 137 (calc) [facility] Estimated Average Glucose (mmol/L) 7.6 (calc) [facility] Blood specimen (specimen) 06/11/2018 9:02 AM EST 06/11/2018 9:02 AM EST Narrative [facility] - 06/12/2018 5:21 PM EST FASTING:YES FASTING: YES Resulting Agency Comment Performing Organization Information: Site ID: [id number] Name: [facility] Address: [address] [place] [address], [place] [address] Director: Lisa Courtney MD Robert Haddad DO LAB BLOOD ORDERABLES Idalia greenwood Result [facility] [address] [place] [address], [place] [address] from Last 3 Months or Most Recently Relevant to Health Maintenance Insurance [facility] Advance Directives * Full Code (Latest Code Status on File) Date Activated Date Inactivated Comments 05/30/2019 7:52 AM Care Teams Canvas Goods Maker Relationship Specialty Start Date End Date Yuni Reece APRN [address] [place] [address] PCP - General 08/16/22 Wallace Zee MD [address] [facility] [address] [place] [address] Otolaryngology 02/22/17 Jourdan Berry MD [address] [place] [address] Referring Provider Family Medicine 11/27/19
--- OUTSIDE RECORDS SUMMARY | 2025-07-15 06:58 | XMS_ITS | Clinical Summary ---
Author Organization [facility] Address [address] [place] [phone] Phone Care Team Providers Care Business Analytics Intern Name Role Phone Fuad Nunez MD Primary [...] PPO REPLACEMENT MEDICARE PART A & B [facility] MEDICARE POS PPO REPLACEMENT MEDICARE PART A & B [facility] MED[facility] POS PPO REPLACEMENT MEDICARE PART A & B [facility] [place] POS PPO REPLACEMENT MEDICARE PART A & B [facility] [place] MED[employer] POS PPO REPLACEMENT MEDICARE PART A & B Care Teams Business Analytics Intern Relationship Specialty Start Date End Date Fuad Nunez MD PCP - General Family Medicine 03/15/24 Additional Source Comments The information contained in this document represents components of the legal health record. It is not the complete legal health record.[facility]
--- OUTSIDE RECORDS SUMMARY | 2025-07-15 06:58 | XMS_ITS | Encounter Summary ---
Author Organization [facility] Address [address] [place] [address] Care Team Providers Care Topology Teacher Name Role Phone Wallace Zee MD Unavailable Jourdan Berry MD Unavailable [phone] Yuni Reece APRN Primary Care Provider [phone] Encounter Details Date Type Department Care Team (Late st Contact Info) Description 01/12/2023 Scanned Document [facility] Department of Pulmonology [place] [address] [place] [phone] Keyanna Amador APRN [address] [place] [address] Social History Tobacco Use Types Packs/Day Years [...] on filedocumented in this encounter Care Teams Topology Teacher Relationship Specialty Start Date End Date Yuni Reece APRN [address] [place] [address] PCP - General 08/16/22 Wallace Zee MD 4 [facility] [address] [place] [address] Otolaryngology 02/22/17 Jourdan Berry MD [address] [place] [address] Referring Provider Family Medicine 11/27/19 documented as of this encounter
--- OUTSIDE RECORDS SUMMARY | 2025-07-15 06:58 | XMS_ITS | Encounter Summary ---
Author Organization [facility] Address [address] [place] [address] Care Team Providers Care Lockstitch Topstitcher Name Role Phone Wallace Zee MD Unavailable [phone] Jourdan Berry MD Unavailable [phone] Yuni Reece APRN Primary Care Provider [phone] Encounter Details Date Type Department Care Team (Late st Contact Info) Description 02/02/2024 Scanned Document [facility] Physicians Department of Pulmonology [address] [phone] Pulmonary, Scan Social History Tobacco Use Types [...] on filedocumented in this encounter Care Teams Lockstitch Topstitcher Relationship Specialty Start Date End Date Yuni Reece APRN [address] [place] [address] PCP - General 08/16/22 Wallace Zee MD 4 [facility] [address] [place] [address] Otolaryngology 02/22/17 Jourdan Berry MD [address] [place] [address] Referring Provider Family Medicine 11/27/19 documented as of this encounter
--- NOTE | 2025-07-15 07:29 | ECG_ITS ---
Test Reason : COPD Blood Pressure : */* mmHG Vent. Rate : 65 BPM Atrial Rate : 65 BPM P-R Int : 172 ms QRS Dur : 88 ms QT Int : 406 ms P-R-T Axes : 31 -8 10 degrees QTcB Int : 422 ms Normal sinus rhythm Normal ECG No previous ECGs available Referred By: Mike Jimenes Electronically Signed By: MARKUS ROLON MD
== END ==
LOC: HO.CARD 06:54
PROVIDERS: PCP Nurse Practitioner; Visit Provider Hospitalist
DX: J44.9 Chronic obstructive pulmonary disease, unspecified (principal)
CPT/HCPCS: 93005

== ENCOUNTER → 2025-07-15 07:29 | Outpatient (BNV) | payer MEDICARE, SELFPAY | PROVIDERS: PCP Nurse Practitioner; Visit Provider Internal Medicine Cardiovascular Disease | DX: J44.9 Chronic obstructive pulmonary disease, unspecified (principal) | CPT/HCPCS: 93010 ==